=== PATIENT | female | born 1995 | race Caucasian/White ===

== ENCOUNTER 2016-10-15 13:26 | Emergency (ER) | payer MEDICAID ==
[2016-10-15 13:36] VITALS: TEMP 96.9
[2016-10-15] MEDS ORDERED: SODIUM CHLORIDE 0.9% 1,000 ML IV ONE (13:57)
[2016-10-15] MEDS ORDERED: ONDANSETRON 4 MG/2 ML VIAL IVP STA (13:57)
[2016-10-15] MEDS ORDERED: HYDROmorphone 1 MG/ML 1 ML SYRINGE IVP STA ×2 (13:58→15:41)
--- NOTE | 2016-10-15 14:27 | ED ---
Abdominal Pain HPI - General Chief Complaint: Abdominal Pain Stated Complaint: Abd pain Time Seen by Provider: 10/15/16 13:52 Source: patient, RN notes reviewed Mode of arrival: wheelchair Limitations: no limitations - History of Present Illness Initial Comments: Patient is a 21-year-old female presents to the emergency room for evaluation of abdominal pain. Patient states having pain in her left upper quadrant. Patient states she has a history of pancreatitis. Patient states she thinks she is having a pancreatitis flare. Patient states her symptoms began about 3 days ago. Patient states she is currently being evaluated for pancreatitis and the cause of it. Patient states she has an appointment at [facility] for further evaluation on Sunday. Patient states she cannot handle the pain anymore. Patient states she began vomiting around 2 PM yesterday afternoon. Patient states the vomiting has not subsided. Patient states that in 10 out of 10 constant pain. Patient denies diarrhea. Patient denies chest pain, fevers, chills, headache, dizziness. - Related Data Previous Rx's Medication Instructions Recorded Famotidine [Pepcid] 20 mg PO DAILY PRN #10 tablet 10/15/16 HYDROcodone/APAP 5-325MG [Garner 1 tab PO Q6HR PRN #10 tab 10/15/16 5-325] Ondansetron Odt [Zofran Odt] 4 mg PO Q8HR PRN #12 tab 10/15/16 Allergies Allergy/AdvReac Type Severity Reaction Status Date / Time latex Allergy Rash/Hives Verified 10/15/16 13:48 Review of Systems ROS Statement: Those systems with pertinent positive or pertinent negative responses have been documented in the HPI. ROS Other: All systems not noted in ROS Statement are negative. Past Medical History Past Medical History: No Reported History Additional Past Medical History / Comment(s): Other HX: Recurrent chronic pancreatitis with extensive workups and was seen at [facility] with no cause of pancreatitis discovered. History of Any Multi-Drug Resistant Organisms: None Reported Past Surgical History: No Surgical Hx Reported Additional Past Surgical History / Comment(s): EGD's and EGD with biopsy. Past Anesthesia/Blood Transfusion Reactions: No Reported Reaction Past Psychological History: ADD/ADHD Additional Psychological History / Comment(s): Pt takes adderill during school year to help her concentrate-she is no longer using. Smoking Status: Never smoker Past Alcohol Use History: None Reported Past Drug Use History: None Reported - Past Family History Father Family Medical History: Diabetes Mellitus Additional Family Medical History / Comment(s): Father has had a kidney and pancreas transplants. Mother Family Medical History: Deep Vein Thrombosis (DVT) Additional Family Medical History / Comment(s): Mother has had DVT's and has cardiomyopathy. She is scheduled for a pacemaker in one week due to bradycardia. General Exam - General Exam Comments Initial Comments: Standing up pacing around in exam room, uncomfortable secondary to pain, no acute distress. Limitations: no limitations General appearance: alert, in no apparent distress Head exam: Present: atraumatic, normocephalic, normal inspection Eye exam: Present: normal appearance ENT exam: Present: normal exam Neck exam: Present: normal inspection Respiratory exam: Present: normal lung sounds bilaterally. Absent: respiratory distress Cardiovascular Exam: Present: regular rate, normal rhythm, normal heart sounds GI/Abdominal exam: Present: soft, tenderness (LUQ, midepigastric), guarding ( Voluntary guarding on palpation), normal bowel sounds. Absent: distended, rebound, rigid Extremities exam: Present: normal inspection Back exam: Present: normal inspection Neurological exam: Present: alert, oriented X3, CN II-XII intact, normal gait Psychiatric exam: Present: normal affect, normal mood Skin exam: Present: warm, dry, intact, normal color. Absent: rash Course Vital Signs 10/15/16 10/15/16 10/15/16 13:33 16:17 16:20 Temperature 96.9 F L 96.9 F L Pulse Rate 96 82 82 Respiratory 20 18 18 Rate Blood Pressure 131/85 129/71 129/71 O2 Sat by Pulse 97 95 95 Oximetry Medical Decision Making - Medical Decision Making Patient is a 21-year-old female presents to the emergency room for evaluation of abdominal pain, nausea and vomiting. Patient's labs showed no significant findings. Lipase 388. Amylase within normal limits. Offered patient a CT scan for further evaluation of pain. Patient declined computed tomography scan , x-ray or ultrasound. Patient states she's following up with a specialist regarding her pancreatitis on Sunday and wants to have all of her imaging done at [facility]. Patient states that she wants to be discharged. Agreed to send patient home with pain medication and antinausea medication. Advised patient to keep that appointment on Sunday. Advised patient to return for any worsening symptoms. Patient states she understands everything that was discussed with her. Case discussed with Dr. Zepeda. - Lab Data Result diagrams: 10/15/16 14:15 10/15/16 14:15 Lab Results 10/15/16 10/15/16 10/15/16 Range/Units 14:15 14:15 14:45 WBC 9.0 (4.0-11.0) k/uL RBC 5.01 (3.80-5.40) m/uL Hgb 14.1 (11.4-16.0) gm/dL Hct 41.2 (34.0-46.0) % MCV 82.2 (80.0-100.0) fL MCH 28.2 (25.0-35.0) pg MCHC 34.3 (31.0-37.0) g/dL RDW 13.1 (11.5-15.5) % Plt Count 298 (150-450) k/uL Neutrophils % 81 % Lymphocytes % 12 % Monocytes % 5 % Eosinophils % 1 % Basophils % 0 % Neutrophils # 7.3 (1.3-7.7) k/uL Lymphocytes # 1.1 (1.0-4.8) k/uL Monocytes # 0.5 (0-1.0) k/uL Eosinophils # 0.1 (0-0.7) k/uL Basophils # 0.0 (0-0.2) k/uL Sodium 143 (137-145) mmol/L Potassium 4.4 (3.5-5.1) mmol/L Chloride 103 (98-107) mmol/L Carbon Dioxide 25 (22-30) mmol/L Anion Gap 15 mmol/L BUN 10 (7-17) mg/dL Creatinine 0.48 L (0.52-1.04) mg/dL Est GFR (MDRD) Af Amer >60 (>60 ml/min/1.73 sqM) Est GFR (MDRD) Non-Af >60 (>60 ml/min/1.73 sqM) Glucose 125 H (74-99) mg/dL Calcium 9.7 (8.4-10.2) mg/dL Total Bilirubin 0.5 (0.2-1.3) mg/dL AST 49 H (14-36) U/L ALT 99 H (9-52) U/L Alkaline Phosphatase 90 (38-126) U/L Total Protein 8.1 (6.3-8.2) g/dL Albumin 4.9 (3.5-5.0) g/dL Amylase 59 (30-110) U/L Lipase 388 H (23-300) U/L Urine Color Urine Appearance (Clear) Urine pH (5.0-8.0) Ur Specific [place] (1.001-1.035) Urine Protein (Negative) Urine Glucose (UA) (Negative) Urine Ketones (Negative) Urine Blood (Negative) Urine Nitrate (Negative) Urine Bilirubin (Negative) Urine Urobilinogen (<2.0) mg/dL Ur Leukocyte Esterase (Negative) Urine RBC (0-5) /hpf Urine WBC (0-5) /hpf Ur Squamous Epith Cells (0-4) /hpf Amorphous Sediment (None) /hpf Hyaline Casts (0-2) /lpf Urine Mucus (None) /hpf Urine HCG, Qual Not Detected (Not Detectd) 10/15/16 Range/Units 14:45 WBC (4.0-11.0) k/uL RBC (3.80-5.40) m/uL Hgb (11.4-16.0) gm/dL Hct (34.0-46.0) % MCV (80.0-100.0) fL MCH (25.0-35.0) pg MCHC (31.0-37.0) g/dL RDW (11.5-15.5) % Plt Count (150-450) k/uL Neutrophils % % Lymphocytes % % Monocytes % % Eosinophils % % Basophils % % Neutrophils # (1.3-7.7) k/uL Lymphocytes # (1.0-4.8) k/uL Monocytes # (0-1.0) k/uL Eosinophils # (0-0.7) k/uL Basophils # (0-0.2) k/uL Sodium (137-145) mmol/L Potassium (3.5-5.1) mmol/L Chloride (98-107) mmol/L Carbon Dioxide (22-30) mmol/L Anion Gap mmol/L BUN (7-17) mg/dL Creatinine (0.52-1.04) mg/dL Est GFR (MDRD) Af Amer (>60 ml/min/1.73 sqM) Est GFR (MDRD) Non-Af (>60 ml/min/1.73 sqM) Glucose (74-99) mg/dL Calcium (8.4-10.2) mg/dL Total Bilirubin (0.2-1.3) mg/dL AST (14-36) U/L ALT (9-52) U/L Alkaline Phosphatase (38-126) U/L Total Protein (6.3-8.2) g/dL Albumin (3.5-5.0) g/dL Amylase (30-110) U/L Lipase (23-300) U/L Urine Color Yellow Urine Appearance Clear (Clear) Urine pH 7.5 (5.0-8.0) Ur Specific [place] 1.015 (1.001-1.035) Urine Protein Negative (Negative) Urine Glucose (UA) Negative (Negative) Urine Ketones Negative (Negative) Urine Blood Negative (Negative) Urine Nitrate Negative (Negative) Urine Bilirubin Negative (Negative) Urine Urobilinogen <2.0 (<2.0) mg/dL Ur Leukocyte Esterase Trace H (Negative) Urine RBC 1 (0-5) /hpf Urine WBC 3 (0-5) /hpf Ur Squamous Epith Cells 3 (0-4) /hpf Amorphous Sediment Rare H (None) /hpf Hyaline Casts 2 (0-2) /lpf Urine Mucus Rare H (None) /hpf Urine HCG, Qual (Not Detectd) Disposition Clinical Impression: Abdominal pain, Nausea & vomiting Disposition: HOME SELF-CARE Condition: Stable Instructions: Abdominal Pain (ED), Acute Nausea and Vomiting (ED) Additional Instructions: Take medications as needed. Drink plenty of fluids. Please keep scheduled appointment with specialist at [facility] this week. If any new symptom arises, symptoms worsen or fever develops, return to ER as soon as possible. Prescriptions: HYDROcodone/APAP 5-325MG [Garner 5-325] 1 tab PO Q6HR PRN #10 tab PRN Reason: Pain Ondansetron Odt [Zofran Odt] 4 mg PO Q8HR PRN #12 tab PRN Reason: Nausea Famotidine [Pepcid] 20 mg PO DAILY PRN #10 tablet PRN Reason: Pain Referrals: Alice Lazaro MD [Primary Care Provider] - 1-2 days Time of Disposition: 15:45
[2016-10-15 14:30] LABS: Basophils % (A) 0 %; CH 28.8; CHCM 35.3; Eosinophils # (A) 0.1 k/uL (0-0.7); Eosinophils % (A) 1 %; HCT 41.2 % (34.0-46.0); HDW 2.96; HGB 14.1 gm/dL (11.4-16.0); Luc # (Auto) 0.06; Luc % (Auto) 1; Lymphocytes # (A) 1.1 k/uL (1.0-4.8); Lymphocytes % (A) 12 %; MCH 28.2 pg (25.0-35.0); MCHC 34.3 g/dL (31.0-37.0); MCV 82.2 fL (80.0-100.0); Monocytes # (A) 0.5 k/uL (0-1.0); Monocytes % (A) 5 %; Neutrophils # (A) 7.3 k/uL (1.3-7.7); Neutrophils % (A) 81 %; RBC 5.01 m/uL (3.80-5.40); RDW 13.1 % (11.5-15.5)
[2016-10-15 14:40] LABS: ALT 99 U/L (9-52); AST 49 U/L (14-36); Alkaline Phosphatase 90 U/L (38-126); Amylase 59 U/L (30-110); Anion Gap 15 mmol/L; Blood Urea Nitrogen 10 mg/dL (7-17); Calcium 9.7 mg/dL (8.4-10.2); Carbon Dioxide 25 mmol/L (22-30); Chloride 103 mmol/L (98-107); Glucose 125 mg/dL (74-99); Non-African American GFR(MDRD) >60 (>60 ml/min/1.73 sqM); Potassium 4.4 mmol/L (3.5-5.1); Sodium 143 mmol/L (137-145); Total Bilirubin 0.5 mg/dL (0.2-1.3); Total Protein 8.1 g/dL (6.3-8.2)
[2016-10-15] MEDS ORDERED: METOCLOPRAMIDE 5 MG/ML 2 ML VIAL IVP STA (14:46)
[2016-10-15] MEDS ORDERED: ACETAMINOPHEN IV (For NPO) 1,000 MG in EMPTY BAG 1 BAG IVPB STA (14:46)
[2016-10-15 14:58] LABS: Amorphous Sediment,Urine Rare /hpf; Appearance,Urine Clear (Clear); Bilirubin,Urine Negative (Negative); Glucose,Urine (UA) Negative (Negative); Ketones,Urine Negative (Negative); Leukocyte Esterase,Urine Trace (Negative); Mucus,Urine Rare /hpf; Nitrite,Urine Negative (Negative); PH, Urine 7.5 (5.0-8.0); Particle Count 3319; Protein,Urine Negative (Negative); RBC,Urine 1 /hpf (0-5); Specific Gravity,Urine 1.015 (1.001-1.035); Squamous Epithelial Cell,Urine 3 /hpf (0-4); UA Billing (MACRO vs. MICRO) MICRO; Urobilinogen,Urine <2.0 mg/dL (<2.0); WBC,Urine 3 /hpf (0-5)
[2016-10-15] MEDS ORDERED: KETOROLAC 30 MG/ML 1 ML VIAL IVP STA (14:58)
[2016-10-15] MEDS ORDERED: FAMOTIDINE 20 MG/2 ML VIAL IV STA (15:35)
[2016-10-15 16:20] VITALS: BP 129/71; PULSE 82; RESP 18
== END 2016-10-15 16:20 | disposition home or self-care (01) ==
LOC: EC 13:26
DX: R10.12 Left upper quadrant pain (principal); R11.2 Nausea with vomiting, unspecified; Z91.040 Latex allergy status; Z87.19 Personal history of other diseases of the digestive system
CPT/HCPCS: 36415; 80053; 82150; 83690; 85025; 81001; 81025; 99284; 96365; 96375 ×5; 96376; J2765; J2405; J1885; J1170; J0131

== ENCOUNTER 2016-10-17 20:42 | Inpatient (IN) | payer MEDICAID ==
[2016-10-17] MEDS ORDERED: MORPHINE SULFATE 4 MG/ML SYRINGE IVP STA (21:04)
[2016-10-17] MEDS ORDERED: ONDANSETRON 4 MG/2 ML VIAL IVP STA (21:04)
[2016-10-17] MEDS ORDERED: SODIUM CHLORIDE 0.9% 1,000 ML IV ONE (21:04)
[2016-10-17] MEDS: SODIUM CHLORIDE 0.9% 1,000 ML IV SCH (21:30)
--- NOTE | 2016-10-17 21:36 | ED ---
Abdominal Pain HPI - General Chief Complaint: Abdominal Pain Stated Complaint: Pancreatitis Time Seen by Provider: 10/17/16 20:56 Source: patient Mode of arrival: ambulatory Limitations: no limitations - History of Present Illness Initial Comments: This is a 21-year-old female with a history of recurrent pancreatitis who presents to urgent [facility] for epigastric abdominal pain, nausea, and vomiting. She states his symptoms been going on for the last 3 or 4 days. She was seen in the emergency department couple of days ago and given [place] for home however she states that this is not improved her symptoms. She states that she has not kept anything down over the last 24 hours and is now vomiting bile. She denies any fevers or chills. She states that she sees Dr. Cohn for her pancreatitis. She is also being seen at [facility]. Etiology of the pancreatitis at this time is unclear. She's had multiple admissions for this in the past. - Related Data Home Medications Medication Instructions Recorded Confirmed No Known Home Medications [No 10/17/16 10/17/16 Known Home Medications] Allergies Allergy/AdvReac Type Severity Reaction Status Date / Time latex Allergy Rash/Hives Verified 10/17/16 21:12 Review of Systems ROS Statement: Those systems with pertinent positive or pertinent negative responses have been documented in the HPI. ROS Other: All systems not noted in ROS Statement are negative. Past Medical History Past Medical History: No Reported History Additional Past Medical History / Comment(s): Other HX: Recurrent chronic pancreatitis with extensive workups and was seen at [facility] with no cause of pancreatitis discovered. History of Any Multi-Drug Resistant Organisms: None Reported Past Surgical History: No Surgical Hx Reported Additional Past Surgical History / Comment(s): EGD's and EGD with biopsy. Past Anesthesia/Blood Transfusion Reactions: No Reported Reaction Past Psychological History: ADD/ADHD Additional Psychological History / Comment(s): Pt takes adderill during school year to help her concentrate-she is no longer using. Smoking Status: Never smoker Past Alcohol Use History: None Reported Past Drug Use History: None Reported - Past Family History Father Family Medical History: Diabetes Mellitus Additional Family Medical History / Comment(s): Father has had a kidney and pancreas transplants. Mother Family Medical History: Deep Vein Thrombosis (DVT) Additional Family Medical History / Comment(s): Mother has had DVT's and has cardiomyopathy. She is scheduled for a pacemaker in one week due to bradycardia. General Exam - General Exam Comments Initial Comments: Constitutional: Awake alert Appears comfortable Head: Normocephalic atraumatic Eyes: no conjunctival injection No scleral icterus EOMI Neck: No JVD Supple Heart: Regular rate rhythm normal S1-S2 no murmurs Lungs: Clear to auscultation bilaterally No wheezing No rales Abdomen: Soft nondistended tenderness to palpation in the epigastric region Extremities: Non edematous DP pulses intact Radial pulses intact Neuro: A&Ox3 No focal neurologic deficits Psych: Appropriate mood and affect Limitations: no limitations Course Vital Signs 10/17/16 20:50 Temperature 96.9 F L Pulse Rate 67 Respiratory 18 Rate Blood Pressure 133/80 O2 Sat by Pulse 98 Oximetry Medical Decision Making - Medical Decision Making This is a 21-year-old female with a history of chronic pancreatic Rachid. She return to emergency department after 2 days of epigastric abdominal pain. She cannot control his symptoms at home. Her lipase appears elevated from previous visit up to 730. This time I do not feel that I can get her pain under control. I'm going to keep her in the hospital for pain control and IV fluids. Dr. Arndt except admission. When I placed Dr. Cohn on consult. The patient family were updated and agree. All questions were answered. - Lab Data Result diagrams: 10/17/16 21:32 10/17/16 21:32 Lab Results 10/17/16 10/17/16 10/17/16 Range/Units 21:32 21:32 22:15 WBC 9.3 (4.0-11.0) k/uL RBC 4.62 (3.80-5.40) m/uL Hgb 13.0 (11.4-16.0) gm/dL Hct 39.4 (34.0-46.0) % MCV 85.3 (80.0-100.0) fL MCH 28.1 (25.0-35.0) pg MCHC 33.0 (31.0-37.0) g/dL RDW 12.7 (11.5-15.5) % Plt Count 234 (150-450) k/uL Neutrophils % 67 % Lymphocytes % 22 % Monocytes % 6 % Eosinophils % 3 % Basophils % 0 % Neutrophils # 6.2 (1.3-7.7) k/uL Lymphocytes # 2.1 (1.0-4.8) k/uL Monocytes # 0.6 (0-1.0) k/uL Eosinophils # 0.3 (0-0.7) k/uL Basophils # 0.0 (0-0.2) k/uL Sodium 139 (137-145) mmol/L Potassium 4.3 (3.5-5.1) mmol/L Chloride 103 (98-107) mmol/L Carbon Dioxide 23 (22-30) mmol/L Anion Gap 13 mmol/L BUN 7 (7-17) mg/dL Creatinine 0.51 L (0.52-1.04) mg/dL Est GFR (MDRD) Af Amer >60 (>60 ml/min/1.73 sqM) Est GFR (MDRD) Non-Af >60 (>60 ml/min/1.73 sqM) Glucose 196 H (74-99) mg/dL Calcium 8.7 (8.4-10.2) mg/dL Total Bilirubin 0.5 (0.2-1.3) mg/dL AST 43 H (14-36) U/L ALT 74 H (9-52) U/L Alkaline Phosphatase 81 (38-126) U/L Total Protein 7.0 (6.3-8.2) g/dL Albumin 4.1 (3.5-5.0) g/dL Amylase 122 H (30-110) U/L Lipase 754 H (23-300) U/L Urine Color Urine Appearance (Clear) Urine pH (5.0-8.0) Ur Specific [place] (1.001-1.035) Urine Protein (Negative) Urine Glucose (UA) (Negative) Urine Ketones (Negative) Urine Blood (Negative) Urine Nitrate (Negative) Urine Bilirubin (Negative) Urine Urobilinogen (<2.0) mg/dL Ur Leukocyte Esterase (Negative) Urine HCG, Qual Not Detected (Not Detectd) 10/17/16 Range/Units 22:15 WBC (4.0-11.0) k/uL RBC (3.80-5.40) m/uL Hgb (11.4-16.0) gm/dL Hct (34.0-46.0) % MCV (80.0-100.0) fL MCH (25.0-35.0) pg MCHC (31.0-37.0) g/dL RDW (11.5-15.5) % Plt Count (150-450) k/uL Neutrophils % % Lymphocytes % % Monocytes % % Eosinophils % % Basophils % % Neutrophils # (1.3-7.7) k/uL Lymphocytes # (1.0-4.8) k/uL Monocytes # (0-1.0) k/uL Eosinophils # (0-0.7) k/uL Basophils # (0-0.2) k/uL Sodium (137-145) mmol/L Potassium (3.5-5.1) mmol/L Chloride (98-107) mmol/L Carbon Dioxide (22-30) mmol/L Anion Gap mmol/L BUN (7-17) mg/dL Creatinine (0.52-1.04) mg/dL Est GFR (MDRD) Af Amer (>60 ml/min/1.73 sqM) Est GFR (MDRD) Non-Af (>60 ml/min/1.73 sqM) Glucose (74-99) mg/dL Calcium (8.4-10.2) mg/dL Total Bilirubin (0.2-1.3) mg/dL AST (14-36) U/L ALT (9-52) U/L Alkaline Phosphatase (38-126) U/L Total Protein (6.3-8.2) g/dL Albumin (3.5-5.0) g/dL Amylase (30-110) U/L Lipase (23-300) U/L Urine Color Colorless Urine Appearance Clear (Clear) Urine pH 6.0 (5.0-8.0) Ur Specific [place] 1.002 (1.001-1.035) Urine Protein Negative (Negative) Urine Glucose (UA) 1+ H (Negative) Urine Ketones Negative (Negative) Urine Blood Negative (Negative) Urine Nitrate Negative (Negative) Urine Bilirubin Negative (Negative) Urine Urobilinogen <2.0 (<2.0) mg/dL Ur Leukocyte Esterase Negative (Negative) Urine HCG, Qual (Not Detectd) Disposition Clinical Impression: Acute on chronic pancreatitis Disposition: ADMITTED IP TO THIS [facility] Condition: Stable
[2016-10-17 21:42] LABS: Basophils % (A) 0 %; CH 28.3; CHCM 33.3; Eosinophils # (A) 0.3 k/uL (0-0.7); Eosinophils % (A) 3 %; HCT 39.4 % (34.0-46.0); HDW 2.91; Luc # (Auto) 0.14; Luc % (Auto) 2; Lymphocytes # (A) 2.1 k/uL (1.0-4.8); Lymphocytes % (A) 22 %; MCH 28.1 pg (25.0-35.0); MCV 85.3 fL (80.0-100.0); Mean Platelet Volume 8.6; Monocytes # (A) 0.6 k/uL (0-1.0); Monocytes % (A) 6 %; Neutrophils # (A) 6.2 k/uL (1.3-7.7); Neutrophils % (A) 67 %; RBC 4.62 m/uL (3.80-5.40); RDW 12.7 % (11.5-15.5); WBC 9.3 k/uL (4.0-11.0); WBC (Perox) 9.82
[2016-10-17 21:53] LABS: ALT 74 U/L (9-52); Alkaline Phosphatase 81 U/L (38-126); Amylase 122 U/L (30-110); Anion Gap 13 mmol/L; Blood Urea Nitrogen 7 mg/dL (7-17); Calcium 8.7 mg/dL (8.4-10.2); Carbon Dioxide 23 mmol/L (22-30); Chloride 103 mmol/L (98-107); Glucose 196 mg/dL (74-99); Non-African American GFR(MDRD) >60 (>60 ml/min/1.73 sqM); Sodium 139 mmol/L (137-145); Total Bilirubin 0.5 mg/dL (0.2-1.3)
[2016-10-17 21:54] LABS: AST 43 U/L (14-36); Potassium 4.3 mmol/L (3.5-5.1)
[2016-10-17] MEDS ORDERED: HYDROmorphone 1 MG/ML 1 ML SYRINGE IVP STA (22:17)
[2016-10-17 22:28] LABS: Appearance,Urine Clear (Clear); Bilirubin,Urine Negative (Negative); Glucose,Urine (UA) 1+ (Negative); Ketones,Urine Negative (Negative); Leukocyte Esterase,Urine Negative (Negative); Nitrite,Urine Negative (Negative); Protein,Urine Negative (Negative); Specific Gravity,Urine 1.002 (1.001-1.035); UA Billing (MACRO vs. MICRO) CHEM; Urobilinogen,Urine <2.0 mg/dL (<2.0)
[2016-10-17] MEDS ORDERED: NALOXONE 0.4 MG/ML 1 ML VIAL IV PRN (23:13)
[2016-10-18] MEDS: ONDANSETRON 4 MG/2 ML VIAL IVP PRN ×3 (00:07→15:20)
[2016-10-18] MEDS: HYDROmorphone 1 MG/ML 1 ML SYRINGE IV PRN ×8 (00:07→21:06)
[2016-10-18] MEDS: SODIUM CHLORIDE 0.9% 1,000 ML IV SCH ×4 (05:48→21:10)
[2016-10-18 08:13] LABS: Amylase 66 U/L (30-110)
--- NOTE | 2016-10-18 09:52 | P.CONS ---
History of Present Illness - Reason for Consult Consult date: 10/18/16 Chronic relapsing pancreatitis Requesting physician: Hanh Arndt - History of Present Illness 21-year-old female well-known to the GI service patient of Dr. Briggs with a history of chronic relapsing pancreatitis since the age of 10 with multiple hospitalizations. Evaluated by [facility] in the past with undetermined etiology. Presents with intractable abdominal pain with nausea vomiting for the last 3 days. Evaluated in the emergency room 2 days ago with similar complaints and discharged lipase at that time was 388. She was scheduled to be seen at [facility] today as part of follow-up for her history of chronic relapsing pancreatitis. No fever or chills. Denies hematemesis hematochezia or melena. White count 9.3. Hemoglobin 13. Total bilirubin 0.5. AST 43. ALT 74. Alkaline phosphates 81. Lipase 754 currently 458. Review of Systems Constitutional: Denies fever, chills, sweats, weight gain, or loss. HEENT: Negative for migraines, blurred vision or loss, earaches, drainage, tinnitus, oral mucosal lesions, dysphagia, or odynophagia. CARDIAC: Negative for chest pain, arrhythmias, or palpitation. RESPIRATORY: Negative for shortness of breath, hemoptysis, cough, or sputum production. GI: See HPI for pertinent findings. : Negative for hematuria, urgency, frequency, polyuria, or dysuria. GYNc: Denies possibility of . Negative vaginal discharge. MUSCULOSKELETAL: Negative for muscle aches, swelling, arthritis, and arthralgias. NEUROLOGIC: Negative for stroke or TIA. ENDOCRINE: Negative for thyroid problems. SKIN: Negative for rash or itching. PSYCHIATRIC: History of ADHD. Negative history for depression and anxiety All systems: negative (See HPI) Past Medical History Past Medical History: No Reported History Additional Past Medical History / Comment(s): Other HX: Recurrent chronic pancreatitis with extensive workups and was seen at [facility] and [facility] with no cause of pancreatitis discovered. History of Any Multi-Drug Resistant Organisms: None Reported Past Surgical History: No Surgical Hx Reported Additional Past Surgical History / Comment(s): EGD's and EGD with biopsy. Past Anesthesia/Blood Transfusion Reactions: No Reported Reaction Past Psychological History: ADD/ADHD Additional Psychological History / Comment(s): Pt takes adderill during school year to help her concentrate-she is no longer using. Smoking Status: Never smoker Past Alcohol Use History: None Reported Past Drug Use History: None Reported - Past Family History Father Family Medical History: Diabetes Mellitus Additional Family Medical History / Comment(s): Father has had a kidney and pancreas transplants. Mother Family Medical History: Deep Vein Thrombosis (DVT) Additional Family Medical History / Comment(s): Mother has had DVT's and has cardiomyopathy. She is scheduled for a pacemaker in one week due to bradycardia. Medications and Allergies Home Medications Medication Instructions Recorded Confirmed Type No Known Home Medications [No 10/17/16 10/17/16 History Known Home Medications] Allergies Allergy/AdvReac Type Severity Reaction Status Date / Time latex Allergy Rash/Hives Verified 10/17/16 21:12 Physical Exam Vitals: Vital Signs Temp Pulse Pulse Resp BP BP Pulse Ox 10/18/16 07:00 97.8 F 70 19 130/76 98 10/18/16 00:50 98.4 F 83 18 126/76 97 10/18/16 00:12 97.2 F L 78 18 132/67 97 10/17/16 23:23 86 18 132/69 95 Intake and Output 10/17/16 10/18/16 10/18/16 22:59 06:59 14:59 Intake Total 0 Balance 0 Intake: Oral 0 Other: # Voids 1 Weight 106.141 kg General appearance: The patient is alert, oriented, in no acute distress. HET: Head is normocephalic and atraumatic. Pupils are equal and reactive. Oropharynx is clear without lesions. Neck: Supple without lymphadenopathy. Trachea midline. Heart: S1 S2. Regular rate and rhythm. Lungs: No crackles or wheezes are heard. Abdomen: Soft, moderate tenderness midepigastric left upper abdomen nondistended with bowel sounds. No peritoneal signs. No palpable organomegaly or masses. Extremities: Normal skin color and turgor. No cyanosis, rash, ulceration, clubbing, or edema. Radial and pedal pulses are 2/4 bilaterally. Neurological: No focal deficits. Strength and sensation are grossly intact. Results CBC & Chem 7: 10/17/16 21:32 10/17/16 21:32 Labs: Abnormal Lab Results - Last 24 Hours (Table) 10/18/16 Range/Units 07:47 Lipase 458 H (23-300) U/L Assessment and Plan (1) Acute on chronic pancreatitis Narrative/Plan: 21-year-old female with a history of chronic relapsing pancreatitis of unclear etiology since 10 years of age evaluated at [facility] with extensive workup in the past. Status: Acute Plan: 1. Nothing by mouth except ice chips and popsicles sparingly as tolerated. 2. Ultrasound abdomen rule out pseudocyst. 3. Follow up at [facility] as previously advised. We'll follow with you. Thank you for this kind referral and the opportunity to participate in the care of your patient. This consultation was discussed with Dr. Riley. The impression and plan of care have been directed as dictated.
[2016-10-18] MEDS ORDERED: ACETAMINOPHEN TAB 325 MG TAB PO STA (10:54)
[2016-10-18] MEDS: SCOPOLAMINE 1.5MG/72HR PATCH TRANSDERM SCH (11:09)
--- NOTE | 2016-10-18 11:56 | US ---
EXAMINATION TYPE: US abdomen limited DATE OF EXAM: 10/18/2016 11:38 AM COMPARISON: CT abdomen and pelvis as well as Limited abdominal ultrasound December 24, 2015 CLINICAL HISTORY: Chronic pancreatitis, abdomen pain and nausea x 5 days, obese patient. EXAM MEASUREMENTS: Liver Length: 18.2cm Gallbladder Wall: 0.2cm CBD: 0.4cm Right Kidney: 11.0 x 4.5 x 4.9cm TECHNOLOGIST IMPRESSION: Pancreas: Obscured by bowel gas Liver: Enlarged at 18.2cm, heterogeneous hyperechoic appearance redemonstrated, heterogeneous echot exture with 3.1cm hypoechoic area adjacent to gallbladder favors focal fatty sparing. Evaluation for masses is suboptimal due to heterogeneity. Gallbladder: wnl Evidence for sonographic Hernandez's sign: yes CBD: visualized portions wnl, limited by overlying bowel gas Right Kidney: wnl IMPRESSION: Suboptimal evaluation of pancreas due to body habitus and overlying bowel gas. Marked fat ty infiltration of liver and mild hepatomegaly are both redemonstrated.
[2016-10-18 11:59] LABS: Cholesterol 133 mg/dL (<200); HDL Cholesterol 37 mg/dL (40-60); Triglycerides 129 mg/dL (<150)
[2016-10-18 12:01] LABS: Rheumatoid Factor, Qnt <9 IU/mL (<12)
[2016-10-18 13:04] LABS: Hepatitis B Surface Ag Index 0.07
[2016-10-18 13:09] LABS: Hepatitis B Core IgM Index 0.06
[2016-10-18 13:21] LABS: Hepatitis C Virus IgG Index 0.01
[2016-10-18 13:27] LABS: Hepatitis C Virus IgG Ab Negative (Negative)
--- NOTE | 2016-10-18 14:17 | P.HPIM ---
History of Present Illness H&P Date: 10/18/16 Chief Complaint: Abdominal pain. This is a 21-year-old female. She was recently established with Dr. Lazaro. She has a past medical history for chronic relapsing pancreatitis since the age of 10 with multiple hospitalizations. She also follows with Dr. Briggs from gastroenterology. Patient has also had follow-up at [facility] and her last appointment there was 7 months ago. She does state that she was to have a follow-up appointment today. She does not know the reason for the pancreatitis. She states she has episodes that are very mild for which she does not come into the hospital and she takes [place]. She states one about every 2 weeks. She has other episodes or more severe and she comes into the hospital. She denies any change in her weight. She denies any change in her menses which are regular. She denies any previous pregnancies. She states she has not had an MRCP in the past. She denies any alcohol or drug intake. She denies any fseo-yde-uwkuuup drugs including herbals , vitamins. She does not know of any food triggers for pain. She is a nonsmoker. She complains of abdominal pain as well as nausea and vomiting. She did come into [facility] emergency center on October 15. She was given [place], Zofran and Pepcid and was instructed to follow-up with her primary care physician in one to 2 days. She will return to [facility] emergency center for evaluation. Amylase was 122 and lipase 754. CBC was within normal limits. Urine hCG negative and urinalysis negative. Patient was admitted to the [facility] floor consult requested with gastroenterology. She is currently nothing by mouth except ice chips. Abdominal ultrasound revealed suboptimal evaluation of the pancreas due to body habitus and overlying bowel gas. Marked fatty infiltration of the liver and mild hepatomegaly both redemonstrated. Review of Systems All systems: negative Constitutional: Denies chills, Denies fever Eyes: denies blurred vision, denies pain Ears, nose, mouth and throat: Denies headache, Denies sore throat Cardiovascular: Denies chest pain, Denies shortness of breath Respiratory: Denies cough Gastrointestinal: Reports abdominal pain, Reports nausea, Reports vomiting, Denies diarrhea Genitourinary: Denies dysuria, Denies hematuria Musculoskeletal: Denies myalgias Integumentary: Denies pruritus, Denies rash Neurological: Denies numbness, Denies weakness Psychiatric: Denies anxiety, Denies depression Endocrine: Denies fatigue, Denies weight change Past Medical History Past Medical History: No Reported History Additional Past Medical History / Comment(s): Other HX: Recurrent chronic pancreatitis with extensive workups and was seen at [facility] with no cause of pancreatitis discovered. History of Any Multi-Drug Resistant Organisms: None Reported Past Surgical History: No Surgical Hx Reported Additional Past Surgical History / Comment(s): EGD's and EGD with biopsy. Past Anesthesia/Blood Transfusion Reactions: No Reported Reaction Past Psychological History: ADD/ADHD Additional Psychological History / Comment(s): Pt takes [place] during school year to help her concentrate-she is no longer using. Smoking Status: Never smoker Past Alcohol Use History: None Reported Additional Past Alcohol Use History / Comment(s): Patient is a nonsmoker. She denies any medical marijuana, marijuana, street drug use. She is single and does not have any children. Past Drug Use History: None Reported - Past Family History Father Family Medical History: Diabetes Mellitus Additional Family Medical History / Comment(s): Father is alive at age 49 with history of diabetes requiring kidney and pancreas transplant. Mother Family Medical History: Deep Vein Thrombosis (DVT) Additional Family Medical History / Comment(s): Mother is alive at age 52 with history of DVT's, cardiomyopathy and pacemaker. Brother(s) Additional Family Medical History / Comment(s): She has 2 brothers and 1 sister with no major medical problems. Medications and Allergies Home Medications Medication Instructions Recorded Confirmed Type No Known Home Medications [No 10/17/16 10/17/16 History Known Home Medications] Allergies Allergy/AdvReac Type Severity Reaction Status Date / Time latex Allergy Rash/Hives Verified 10/17/16 21:12 Physical Exam Vitals: Vital Signs Temp Pulse Pulse Resp BP BP Pulse Ox 10/18/16 07:00 97.8 F 70 19 130/76 98 10/18/16 00:50 98.4 F 83 18 126/76 97 10/18/16 00:12 97.2 F L 78 18 132/67 97 10/17/16 23:23 86 18 132/69 95 Intake and Output 0110/18/16 10/18/16 22:59 06:59 14:59 Intake Total 0 Balance 0 Intake: Oral 0 Other: # Voids 1 Weight 106.141 kg Gen: This is a obese 21-year-old female. She is in bed and appears to be in no acute distress. HEENT: Head is atraumatic, normocephalic. Pupils equal, round. Sclerae is anicteric. NECK: Supple. No JVD. No lymphadenopathy. No thyromegaly. LUNGS: Clear to auscultation. No wheezes or rhonchi. No intercostal retractions. HEART: Regular rate and rhythm. No murmur. ABDOMEN: Soft. Bowel sounds are present. No masses. Moderate mid epigastric and left upper abdomen tenderness. EXTREMITIES: No pedal edema. No calf tenderness. Dorsalis pedis +2 bilaterally. NEUROLOGICAL: Patient is awake, alert and oriented x3. Cranial nerves 2 through 12 are grossly intact. Results CBC & Chem 7: 10/17/16 21:32 10/17/16 21:32 Labs: Abnormal Lab Results - Last 24 Hours (Table) 10/18/16 Range/Units 07:47 Lipase 458 H (23-300) U/L Thrombosis Risk Factor Assmnt - DVT/VTE Prophylaxis DVT/VTE Prophylaxis: Mechanical Prophylaxis ordered - Choose All That Apply Any of the Below Risk Factors Present?: No Other Risk Factors: No Other congenital or acquired thrombophilia - If yes, enter type in comment: No Thrombosis Risk Factor Assessment Level: Very Low Risk Assessment and Plan Plan: 1. Acute on chronic pancreatitis of unclear etiology since the age of 10 years of age with full evaluation done at [facility]. Consult with GI appreciated. Ultrasound as above. MRCP ordered. MAGDY, c-ANCA, p-ANCA, urine drug screen, lipid panel and hepatitis panel ordered. Scopolamine patch for nausea. Dilaudid as needed for pain. Patient is currently nothing by mouth. Continue IV fluids. 2. ADHD, stable. 3. Gastrointestinal prophylaxis. Protonix. 4. DVT prophylaxis. SCDs and [place] hose, early ambulation. Patient will be admitted to the hospital for a minimum of 2 night stay. Discharge plan: Return home Impression and plan of care have been directed as dictated by the signing physician. Adwoa Ernandez nurse practitioner acting as scribe for signing physician. CC: Dr. Lazaro Time with Patient: Greater than 30
[2016-10-18] MEDS: ACETAMINOPHEN TAB 325 MG TAB PO PRN (18:15)
--- NOTE | 2016-10-18 22:17 | MR ---
EXAMINATION TYPE: MR liver wo/w con and mrcp DATE OF EXAM: 10/18/2016 7:49 PM COMPARISON: CT abdomen and pelvis December 24, 2015. Limited abdominal ultrasound from earlier today HISTORY: acute on chronic pancreatitis. Abdominal pain and nausea for 5 days. CONTRAST: Standard multiplanar, multisequence MRI departmental protocol utilizing 20 mL intravenous MultiHance gadolinium contrast. Thin and thick slice MRCP imaging is performed. FINDINGS: LIVER/GB/PANCREAS/BILIARY SYSTEM: Stable mild hepatomegaly remains present. There is diffuse signal d ropout throughout the liver consistent with fatty infiltration. Some focal fatty sparing is present n ear level of gallbladder fossa. Gallbladder has distended margins. There are no gallstones or abnorma l gallbladder wall thickening. There is no suspicious intrahepatic or extrahepatic biliary dilatation . No worrisome solid or cystic intrahepatic mass is identified. Pancreas is normal in size. No significant surrounding inflammatory changes identified. No worrisome peripancreatic fluid collection is seen. Pancreatic duct is visualized but not dilated. On MRCP imaging there is suggestion of divisum as Main pancreatic duct appears to empty into duodenum on image 28 series 1101 roughly 1 cm superior to the ampulla at common bile duct insertion. OTHER: Lung bases are clear. There is no pleural or pericardial effusion seen. Cannot exclude new enh ancing 2.2 cm lesion in the anterolateral right breast on image 641 series 1301, correlation with phy sical exam advised to determine need for ultrasound follow-up. Enhancing lesion is felt present best coronal image 46 series 1401. Suspect fibroadenoma in patient of this age. Lesion is fairly intense o n fat saturation precontrast images though inhomogeneity of fat saturation is noted. Both adrenal glands are normal in size and appear grossly unremarkable. There is no concerning renal mass or hydronephrosis seen bilaterally. There is stable splenomegaly measuring 14.2 cm on long axis on coronal image 33. There is no suspicious small or large bowel dilatation identified. No concerning abdominal fluid collection is present. No greater than 1 cm abdominal adenopathy is seen. Visualized osseous structures are intact. IMPRESSION: Underlying pancreatic divisum is felt present. There is no MRI evidence for complication related to a cute pancreatitis. Hepatosplenomegaly with marked fatty infiltration of liver is redemonstrated. Atte ntion to inferior lateral right breast where well-circumscribed oval 2.2 cm enhancing mass is felt pr esent favoring fibroadenoma.
[2016-10-19] MEDS: HYDROmorphone 1 MG/ML 1 ML SYRINGE IV PRN ×9 (00:02→23:59)
[2016-10-19] MEDS: ACETAMINOPHEN TAB 325 MG TAB PO PRN ×3 (00:05→20:52)
[2016-10-19] MEDS: SODIUM CHLORIDE 0.9% 1,000 ML IV SCH ×2 (05:59→16:16)
[2016-10-19] MEDS: ONDANSETRON 4 MG/2 ML VIAL IVP PRN ×2 (06:02→15:16)
[2016-10-19 09:29] LABS: Amylase 35 U/L (30-110)
[2016-10-19] MEDS ORDERED: HYDROcodone/APAP 5-325MG 1 EACH TAB PO PRN (11:11)
[2016-10-19] MEDS ORDERED: IBUPROFEN 800 MG TAB PO PRN (11:21)
--- NOTE | 2016-10-19 12:14 | P.PN ---
Subjective Principal diagnosis: pancreatitis 21 year old female with history of chronic relapsing pancreatitis since 10 years of age of unclear etiology. Still reporting abdominal pain and nausea. Pancreatic enzymes normalized. Afebrile. US no evidence of pseudocyst. Objective - Vital Signs Vital signs: Vital Signs Temp 96.6 F L 10/19/16 07:00 Pulse 67 10/19/16 07:00 Resp 18 10/19/16 07:00 BP 141/84 10/19/16 07:00 Pulse Ox 99 10/19/16 07:00 Intake & Output 10/18/16 10/19/16 10/19/16 18:59 06:59 18:59 Intake Total 60 Balance 60 Intake: Oral 60 Other: Voiding Method Toilet Toilet Toilet # Voids 3 1 - Exam General appearance: The patient is alert, oriented, in no acute distress. HET: Head is normocephalic and atraumatic. Pupils are equal and reactive. Oropharynx is clear without lesions. Neck: Supple without lymphadenopathy. Trachea midline. Heart: S1 S2. Regular rate and rhythm. Lungs: No crackles or wheezes are heard. Abdomen: Soft, mid epigastric tenderness, nondistended with bowel sounds. No peritoneal signs. No palpable organomegaly or masses. Extremities: Normal skin color and turgor. No cyanosis, rash, ulceration, clubbing, or edema. Radial and pedal pulses are 2/4 bilaterally. Neurological: No focal deficits. Strength and sensation are grossly intact. - Labs CBC & Chem 7: 10/17/16 21:32 10/17/16 21:32 Assessment and Plan (1) Acute on chronic pancreatitis Narrative/Plan: 21-year-old female with a history of chronic relapsing pancreatitis of unclear etiology since 10 years of age evaluated at [facility] with extensive workup in the past. Status: Acute Plan: 1. Nothing by mouth except ice chips and popsicles sparingly as tolerated. Advance as tolerated. 2. Ultrasound abdomen reviewed no evidence of pseudocyst. 3. Follow up at [facility] as previously advised. We'll follow with you. Assessment and plan of care discussed with Dr. Riley.
[2016-10-19 14:32] LABS: C-ANCA <1:20 Titer (<1:20); P-ANCA <1:20 Titer (<1:20)
--- NOTE | 2016-10-19 14:55 | P.PN ---
Subjective This is a 21-year-old female. She was recently established with Dr. Lazaro. She has a past medical history for chronic relapsing pancreatitis since the age of 10 with multiple hospitalizations. She also follows with Dr. Briggs from gastroenterology. Patient has also had follow-up at [facility] and her last appointment there was 7 months ago. She does state that she was to have a follow-up appointment today. She does not know the reason for the pancreatitis. She states she has episodes that are very mild for which she does not come into the hospital and she takes [place]. She states one about every 2 weeks. She has other episodes or more severe and she comes into the hospital. She denies any change in her weight. She denies any change in her menses which are regular. She denies any previous pregnancies. She states she has not had an MRCP in the past. She denies any alcohol or drug intake. She denies any sngm-vcc-wocjekr drugs including herbals , vitamins. She does not know of any food triggers for pain. She is a nonsmoker. She complains of abdominal pain as well as nausea and vomiting. She did come into [facility] emergency center on October 15. She was given [place], Zofran and Pepcid and was instructed to follow-up with her primary care physician in one to 2 days. She will return to [facility] emergency center for evaluation. Amylase was 122 and lipase 754. CBC was within normal limits. Urine hCG negative and urinalysis negative. Patient was admitted to the [facility] floor consult requested with gastroenterology. She is currently nothing by mouth except ice chips. Abdominal ultrasound revealed suboptimal evaluation of the pancreas due to body habitus and overlying bowel gas. Marked fatty infiltration of the liver and mild hepatomegaly both redemonstrated. 10/19: Laser and lipase are normalized. Diet will be advanced. Patient does still have some abdominal pain and nausea. Liver MRI shows underlying pancreatic divisum is felt present. No MRI evidence of complication related to acute pancreatitis. Hepatosplenomegaly with marked fatty infiltration of the liver. Right lateral inferior breast has a 2.2 cm mass most likely fibroadenoma. Patient has been instructed to lose weight for the fatty liver and follow-up with [facility]. Objective - Vital Signs Vital signs: Vital Signs Temp 96.6 F L 10/19/16 07:00 Pulse 67 10/19/16 07:00 Resp 18 10/19/16 07:00 BP 141/84 10/19/16 07:00 Pulse Ox 99 10/19/16 07:00 Intake & Output 10/18/16 10/19/16 10/19/16 18:59 06:59 18:59 Intake Total 60 Balance 60 Intake: Oral 60 Other: Voiding Method Toilet Toilet Toilet # Voids 3 1 - Exam Gen: This is a obese 21-year-old female. She is in bed and appears to be in no acute distress. HEENT: Head is atraumatic, normocephalic. Pupils equal, round. Sclerae is anicteric. NECK: Supple. No JVD. No lymphadenopathy. No thyromegaly. LUNGS: Clear to auscultation. No wheezes or rhonchi. No intercostal retractions. HEART: Regular rate and rhythm. No murmur. ABDOMEN: Soft. Bowel sounds are present. No masses. Moderate mid epigastric and left upper abdomen tenderness. EXTREMITIES: No pedal edema. No calf tenderness. Dorsalis pedis +2 bilaterally. NEUROLOGICAL: Patient is awake, alert and oriented x3. Cranial nerves 2 through 12 are grossly intact. - Labs CBC & Chem 7: 10/17/16 21:32 10/17/16 21:32 Assessment and Plan Plan: 1. Acute on chronic pancreatitis possibly due to pancreatic divisum since the age of 10 years of age with full evaluation done at [facility]. Consult with GI appreciated. Ultrasound as above. MRCP ordered. MAGDY, c-ANCA, p-ANCA, urine drug screen, lipid panel and hepatitis panel ordered. Scopolamine patch for nausea. Dilaudid as needed for pain. Patient is clear liquids to be advanced as tolerated. Continue IV fluids. 2. ADHD, stable. 3. Gastrointestinal prophylaxis. Protonix. 4. DVT prophylaxis. SCDs and [place] hose, early ambulation. 5. Fatty liver. Weight loss. Discharge plan: Return home Impression and plan of care have been directed as dictated by the signing physician. Adwoa Ernandez nurse practitioner acting as scribe for signing physician. C Time with Patient: Greater than 30
[2016-10-20] MEDS: HYDROmorphone 1 MG/ML 1 ML SYRINGE IV PRN ×6 (03:09→22:45)
[2016-10-20] MEDS: ACETAMINOPHEN TAB 325 MG TAB PO PRN ×4 (03:09→21:39)
[2016-10-20] MEDS: ONDANSETRON 4 MG/2 ML VIAL IVP PRN ×3 (06:00→21:42)
[2016-10-20 09:11] LABS: Amylase <30 U/L (30-110)
--- NOTE | 2016-10-20 13:12 | P.PN ---
Subjective Principal diagnosis: pancreatitis 21 year old female with history of chronic relapsing pancreatitis since 10 years of age of unclear etiology. Still reporting abdominal pain and nausea. Pancreatic enzymes normalized. Afebrile. Want to try advancement of diet today. Objective - Vital Signs Vital signs: Vital Signs Temp 96.5 F L 10/20/16 07:00 Pulse 83 10/20/16 07:00 Resp 20 10/20/16 07:00 BP 136/79 10/20/16 07:00 Pulse Ox 96 10/20/16 07:00 Intake & Output 10/19/16 10/20/16 10/20/16 18:59 06:59 18:59 Other: Voiding Method Toilet Toilet Toilet # Voids 2 1 - Exam General appearance: The patient is alert, oriented, in no acute distress. HET: Head is normocephalic and atraumatic. Pupils are equal and reactive. Oropharynx is clear without lesions. Neck: Supple without lymphadenopathy. Trachea midline. Heart: S1 S2. Regular rate and rhythm. Lungs: No crackles or wheezes are heard. Abdomen: Soft, mid epigastric tenderness, nondistended with bowel sounds. No peritoneal signs. No palpable organomegaly or masses. Extremities: Normal skin color and turgor. No cyanosis, rash, ulceration, clubbing, or edema. Radial and pedal pulses are 2/4 bilaterally. Neurological: No focal deficits. Strength and sensation are grossly intact. - Labs CBC & Chem 7: 10/17/16 21:32 10/17/16 21:32 Labs: Abnormal Lab Results - Last 24 Hours (Table) 10/20/16 Range/Units 07:55 Amylase <30 L (30-110) U/L Assessment and Plan (1) Acute on chronic pancreatitis Narrative/Plan: 21-year-old female with a history of chronic relapsing pancreatitis of unclear etiology since 10 years of age evaluated at [facility] with extensive workup in the past. Status: Acute Plan: 1. Advance diet as tolerated. 2. Follow up at [facility] as previously advised. Assessment and plan of care discussed with Dr. Briggs.
--- NOTE | 2016-10-20 14:43 | PN ---
The patient continues to be hemodynamically over the last 24 hours. Still complaining of nausea but no vomiting. Still complaining of some abdominal discomfort. The patient decided to stay in overnight due to the nausea and the abdominal discomfort this morning. She feels slightly better but not quite back to normal. The patient had ( ) concerns and questions and all addressed at the bedside. PHYSICAL EXAMINATION: Vital signs were stable. Lungs clear to auscultation bilaterally. ( ) Abdomen soft, ( ) positive bowel sounds in all four quadrants. Mild generalized tenderness but no guarding or rebound appreciated. Imaging and labs reviewed. ASSESSMENT AND PLAN: 1. Acute pancreatitis recurrent. I had a long discussion with the patient ( ) I discussed with gastroenterology where the patient needs to follow-up with [facility] ( ) for consideration of ( ) and I explained to the patient at length that the ( ) has to be dilated and stent placed due to the ( ) that she is having which includes congenital malformation pancreatic ( ) and the patient is aware of her condition and said that she will be following up with the [facility] and possibly referred to [facility] for performance of the above procedure. 2. Abdominal pain, improved. 3. Dehydration, resolved. 4. I will discharge the patient today based on clinical progress.
[2016-10-20] MEDS: SODIUM CHLORIDE 0.9% 1,000 ML IV SCH (14:56)
[2016-10-21] MEDS: HYDROmorphone 1 MG/ML 1 ML SYRINGE IV PRN ×6 (01:40→21:11)
[2016-10-21] MEDS: ACETAMINOPHEN TAB 325 MG TAB PO PRN ×3 (04:30→23:40)
[2016-10-21] MEDS: SODIUM CHLORIDE 0.9% 1,000 ML IV SCH (05:48)
[2016-10-21] MEDS: ONDANSETRON 4 MG/2 ML VIAL IVP PRN ×3 (07:50→21:11)
[2016-10-21] MEDS: SCOPOLAMINE 1.5MG/72HR PATCH TRANSDERM SCH (09:39)
[2016-10-21] MEDS ORDERED: MAGNESIUM CITRATE 296 ML BOTTLE PO ONE (09:57)
[2016-10-21 11:22] LABS: CH 28.6; CHCM 34.3; HCT 35.8 % (34.0-46.0); HDW 2.93; MCHC 33.4 g/dL (31.0-37.0); MCV 83.7 fL (80.0-100.0); Mean Platelet Volume 7.5; RBC 4.27 m/uL (3.80-5.40); RDW 12.7 % (11.5-15.5); WBC 6.1 k/uL (4.0-11.0)
[2016-10-21 11:39] LABS: ALT 111 U/L (9-52); AST 82 U/L (14-36); Alkaline Phosphatase 71 U/L (38-126); Anion Gap 9 mmol/L; Blood Urea Nitrogen 4 mg/dL (7-17); Calcium 9.2 mg/dL (8.4-10.2); Carbon Dioxide 30 mmol/L (22-30); Chloride 101 mmol/L (98-107); Glucose 93 mg/dL (74-99); Non-African American GFR(MDRD) >60 (>60 ml/min/1.73 sqM); Potassium 4.2 mmol/L (3.5-5.1); Sodium 140 mmol/L (137-145); Total Bilirubin 0.5 mg/dL (0.2-1.3); Total Protein 6.9 g/dL (6.3-8.2)
[2016-10-21 12:48] VITALS: BMI 37.8
[2016-10-21 14:02] LABS: Amylase <30 U/L (30-110)
--- NOTE | 2016-10-21 15:10 | PN ---
INTERVAL HISTORY: The patient continued to be hemodynamically stable, still complaining of intractable nausea and vomiting after she ate some spaghetti. This morning patient was placed back on clear liquid and she is tolerating at this point. PHYSICAL EXAMINATION: VITAL SIGNS: Reviewed and stable. LUNGS: Clear to auscultation bilaterally. HEART: Normal S1, S2. ABDOMEN: Soft, no tenderness. Positive bowel sounds in all 4 quadrants, seems to be improved from prior examination. IMAGING AND LABS: Amylase is less than 30, lipase is normal at 69. ASSESSMENT AND PLAN: 1. Acute pancreatitis, recurrent. The patient informed about the diagnosis of pancreatic divisum and she will follow up on November 01 with [facility]. Patient currently is tolerating clear liquid. Will discharge home today and have patient follow up closely with her primary care physician. 2. Obesity, counseled regarding weight loss. 3. Abdominal pain, currently improved.
[2016-10-21 15:44] VITALS: RESP 16
[2016-10-22] MEDS: HYDROmorphone 1 MG/ML 1 ML SYRINGE IV PRN ×4 (00:43→09:31)
[2016-10-22] MEDS: SODIUM CHLORIDE 0.9% 1,000 ML IV SCH (01:15)
[2016-10-22] MEDS: ONDANSETRON 4 MG/2 ML VIAL IVP PRN (03:45)
[2016-10-22] MEDS: ACETAMINOPHEN TAB 325 MG TAB PO PRN (06:25)
[2016-10-22 07:57] VITALS: BP 121/71; PULSE 69; TEMP 97.2
[2016-10-22] MEDS ORDERED: DOCUSATE 100 MG CAP PO STA (08:58)
[2016-10-22] MEDS ORDERED: DOCUSATE 100 MG CAP PO SCH (21:00)
--- NOTE | 2016-10-22 22:50 | PN ---
INTERVAL HISTORY: The patient continues to have some abdominal discomfort, refused to go home yesterday and was kept overnight. Was tolerating a clear liquid diet without difficulty. The patient is motivated to go home today and states that her father is coming to take her after the service this morning as he is the accounts receivable executive. PHYSICAL EXAMINATION: VITAL SIGNS: Stable. LUNGS: Clear to auscultation bilaterally. HEART: Normal S1 and S2. ABDOMEN: Soft, positive bowel sounds. Mild tenderness. ( ) from prior examination. EXTREMITIES: Lower extremities no edema. NEURO: Alert, oriented x3. No focal deficits. SKIN: No new rashes. IMAGING AND LABS: Reviewed and stable. ASSESSMENT AND PLAN: 1. Recurrent pancreatitis with in-house CT evidence of pancreas divisum. The patient seems to be improving with improvement in symptoms and tolerance of her numbers. The patient is asked to follow up with the [facility] on November 01 for ERCP and EUS procedure. The patient agreed and will be discharged today. 2. Abdominal pain. Will prescribe Aubrey on discharge. 3. Nausea. Will prescribe Zofran. Follow up with primary care physician within 7 days.
== END 2016-10-22 11:06 | disposition home or self-care (01) | DRG 439 ==
LOC: EC 20:42 → 4MS4W 23:13
PROVIDERS: ADMIT Family Medicine; ATTEND Family Medicine
DX: K85.90 Acute pancreatitis without necrosis or infection, unspecified (principal); Q45.3 Other congenital malformations of pancreas and pancreatic duct; K76.0 Fatty (change of) liver, not elsewhere classified; E86.0 Dehydration; E66.9 Obesity, unspecified; K86.1 Other chronic pancreatitis
CPT/HCPCS: 36415; 74183; 76705; 80053; 80061; 80074; 80306; 81003; 81025; 82150; 83690; 85025; 85027; 86038; 86255; 86431; 96361; 96374; 96375; 96376; 99284

== ENCOUNTER 2016-12-05 02:17 | Inpatient (IN) | payer MEDICAID ==
[2016-12-05] MEDS ORDERED: ONDANSETRON 4 MG/2 ML VIAL IVP STA ×2 (02:59→04:01)
[2016-12-05] MEDS ORDERED: MORPHINE SULFATE 4 MG/ML SYRINGE IV STA (02:59)
[2016-12-05] MEDS ORDERED: SODIUM CHLORIDE 0.9% 1,000 ML IV STA (02:59)
[2016-12-05 03:26] LABS: Basophils % (A) 1 %; CH 28.7; CHCM 34.6; Eosinophils # (A) 0.3 k/uL (0-0.7); Eosinophils % (A) 3 %; HCT 39.4 % (34.0-46.0); HGB 13.4 gm/dL (11.4-16.0); Luc # (Auto) 0.18; Luc % (Auto) 2; Lymphocytes # (A) 2.8 k/uL (1.0-4.8); Lymphocytes % (A) 33 %; MCH 28.3 pg (25.0-35.0); MCV 83.2 fL (80.0-100.0); Mean Platelet Volume 7.5; Monocytes # (A) 0.6 k/uL (0-1.0); Monocytes % (A) 7 %; Neutrophils # (A) 4.5 k/uL (1.3-7.7); Neutrophils % (A) 54 %; RBC 4.74 m/uL (3.80-5.40); RDW 12.9 % (11.5-15.5); WBC 8.4 k/uL (4.0-11.0); WBC (Perox) 8.11
[2016-12-05 03:29] LABS: Appearance,Urine Clear (Clear); Bilirubin,Urine Negative (Negative); Glucose,Urine (UA) Negative (Negative); Ketones,Urine Negative (Negative); Leukocyte Esterase,Urine Negative (Negative); Nitrite,Urine Negative (Negative); Protein,Urine Negative (Negative); Specific Gravity,Urine 1.004 (1.001-1.035); UA Billing (MACRO vs. MICRO) CHEM; Urobilinogen,Urine <2.0 mg/dL (<2.0)
[2016-12-05 03:42] LABS: ALT 69 U/L (9-52); AST 47 U/L (14-36); Alkaline Phosphatase 103 U/L (38-126); Anion Gap 11 mmol/L; Blood Urea Nitrogen 11 mg/dL (7-17); Calcium 9.2 mg/dL (8.4-10.2); Carbon Dioxide 26 mmol/L (22-30); Chloride 107 mmol/L (98-107); Glucose 125 mg/dL (74-99); Non-African American GFR(MDRD) >60 (>60 ml/min/1.73 sqM); Potassium 4.3 mmol/L (3.5-5.1); Sodium 144 mmol/L (137-145); Total Bilirubin 0.3 mg/dL (0.2-1.3); Total Protein 6.9 g/dL (6.3-8.2)
[2016-12-05 03:47] LABS: Amylase 1156 U/L (30-110)
--- NOTE | 2016-12-05 04:00 | ED ---
Abdominal Pain HPI - General Chief Complaint: Abdominal Pain Stated Complaint: pancreatitis Time Seen by Provider: 12/05/16 02:58 Source: patient Mode of arrival: wheelchair Limitations: no limitations - History of Present Illness Initial Comments: This patient is a 21-year-old woman with history of episodic pancreatitis since she was about 10 years old. She presents today to be evaluated for abdominal pain that is been going on now for 2-3 days, getting worse. She indicates the periumbilical area and states it radiates to her back. The pain is constant. Pain is now becoming moderate to severe. She states she is also having some nausea and vomiting associated. The patient has tried her home [place] and has tried cold compresses which only give minimal relief. She denies any worsening factors. She states that it feels similar to previous episodes of pancreatitis but notes she has had worst flares and this. She is requesting to avoid a computed tomography scan if that is possible MD Complaint: abdominal pain Onset/Timin -: days(s) Location: periumbilical Radiation: back Migration to: no migration Severity: moderate Quality: aching Consistency: constant Improves With: nothing Worsens With: nothing Associated Symptoms: nausea, vomiting - Related Data Home Medications Medication Instructions Recorded Confirmed No Known Home Medications [No 12/05/16 12/05/16 Known Home Medications] Allergies Allergy/AdvReac Type Severity Reaction Status Date / Time latex Allergy Rash/Hives Verified 10/17/16 21:12 Review of Systems ROS Statement: Those systems with pertinent positive or pertinent negative responses have been documented in the HPI. ROS Other: All systems not noted in ROS Statement are negative. Constitutional: Denies: fever, chills, weakness Respiratory: Denies: cough, dyspnea Cardiovascular: Denies: chest pain, palpitations, edema Gastrointestinal: Reports: as per HPI, abdominal pain, nausea, vomiting. Denies : diarrhea, constipation, hematemesis, melena, hematochezia Genitourinary: Denies: dysuria, hematuria Musculoskeletal: Reports: as per HPI, back pain Skin: Denies: rash Neurological: Denies: headache, weakness, numbness Hematological/Lymphatic: Denies: easy bleeding Past Medical History Past Medical History: No Reported History Additional Past Medical History / Comment(s): Other HX: Recurrent chronic pancreatitis with extensive workups and was seen at [facility] with no cause of pancreatitis discovered. History of Any Multi-Drug Resistant Organisms: None Reported Past Surgical History: No Surgical Hx Reported Additional Past Surgical History / Comment(s): EGD's and EGD with biopsy. Past Anesthesia/Blood Transfusion Reactions: No Reported Reaction Past Psychological History: ADD/ADHD Additional Psychological History / Comment(s): Pt takes adderill during school year to help her concentrate-she is no longer using. Smoking Status: Never smoker Past Alcohol Use History: None Reported Additional Past Alcohol Use History / Comment(s): Patient is a nonsmoker. She denies any medical marijuana, marijuana, street drug use. She is single and does not have any children. Past Drug Use History: None Reported - Past Family History Brother(s) Additional Family Medical History / Comment(s): She has 2 brothers and 1 sister with no major medical problems. Father Family Medical History: Diabetes Mellitus Additional Family Medical History / Comment(s): Father is alive at age 49 with history of diabetes requiring kidney and pancreas transplant. Mother Family Medical History: Deep Vein Thrombosis (DVT) Additional Family Medical History / Comment(s): Mother is alive at age 52 with history of DVT's, cardiomyopathy and pacemaker. General Exam Limitations: no limitations General appearance: alert, in distress (Related to abdominal pain), obese Head exam: Present: atraumatic, normocephalic Eye exam: Present: normal appearance. Absent: scleral icterus, conjunctival injection ENT exam: Present: normal oropharynx Respiratory exam: Present: normal lung sounds bilaterally. Absent: respiratory distress, wheezes, rales, rhonchi, stridor Cardiovascular Exam: Present: regular rate, normal rhythm, normal heart sounds. Absent: systolic murmur, diastolic murmur, rubs, gallop GI/Abdominal exam: Present: soft, tenderness (There is mild diffuse tenderness without rebound or guarding), normal bowel sounds. Absent: distended, guarding , rebound, mass, pulsatile mass, hernia Extremities exam: Present: normal inspection, normal capillary refill. Absent: pedal edema, calf tenderness Back exam: Present: normal inspection. Absent: CVA tenderness (R), CVA tenderness (L) Skin exam: Present: warm, dry, intact, normal color. Absent: rash Course Vital Signs 12/05/16 12/05/16 02:38 04:35 Temperature 97.6 F Pulse Rate 113 H 84 Respiratory 20 18 Rate Blood Pressure 151/82 122/75 O2 Sat by Pulse 96 96 Oximetry Medical Decision Making - Medical Decision Making This patient is a 21-year-old woman with history of recurrent pancreatitis. She is having pain similar to her usual exacerbations and found to have elevated lipase. Will attempt to obtain ultrasound to rule out pseudocyst, as the patient has had multiple multiple CT scans in the past and will attempt to limit radiation exposure. Patient be admitted, case discussed with Dr. Bacon, covering for Dr. Lazaro. Consult for Dr. Pepper who is quite familiar with the patient. We'll maintain nothing by mouth, IV hydration, analgesics and antiemetics. She is beginning to have some symptomatic relief with medication. - Lab Data Result diagrams: 12/05/16 03:16 12/05/16 03:16 Lab Results 12/05/16 12/05/16 12/05/16 Range/Units 03:16 03:16 03:16 WBC 8.4 (4.0-11.0) k/uL RBC 4.74 (3.80-5.40) m/uL Hgb 13.4 (11.4-16.0) gm/dL Hct 39.4 (34.0-46.0) % MCV 83.2 (80.0-100.0) fL MCH 28.3 (25.0-35.0) pg MCHC 34.0 (31.0-37.0) g/dL RDW 12.9 (11.5-15.5) % Plt Count 266 (150-450) k/uL Neutrophils % 54 % Lymphocytes % 33 % Monocytes % 7 % Eosinophils % 3 % Basophils % 1 % Neutrophils # 4.5 (1.3-7.7) k/uL Lymphocytes # 2.8 (1.0-4.8) k/uL Monocytes # 0.6 (0-1.0) k/uL Eosinophils # 0.3 (0-0.7) k/uL Basophils # 0.0 (0-0.2) k/uL Sodium 144 (137-145) mmol/L Potassium 4.3 (3.5-5.1) mmol/L Chloride 107 (98-107) mmol/L Carbon Dioxide 26 (22-30) mmol/L Anion Gap 11 mmol/L BUN 11 (7-17) mg/dL Creatinine 0.68 (0.52-1.04) mg/dL Est GFR (MDRD) Af Amer >60 (>60 ml/min/1.73 sqM) Est GFR (MDRD) Non-Af >60 (>60 ml/min/1.73 sqM) Glucose 125 H (74-99) mg/dL Calcium 9.2 (8.4-10.2) mg/dL Total Bilirubin 0.3 (0.2-1.3) mg/dL AST 47 H (14-36) U/L ALT 69 H (9-52) U/L Alkaline Phosphatase 103 (38-126) U/L Total Protein 6.9 (6.3-8.2) g/dL Albumin 4.1 (3.5-5.0) g/dL Amylase 1156 H* (30-110) U/L Lipase >03495 H (23-300) U/L Urine Color Urine Appearance (Clear) Urine pH (5.0-8.0) Ur Specific [place] (1.001-1.035) Urine Protein (Negative) Urine Glucose (UA) (Negative) Urine Ketones (Negative) Urine Blood (Negative) Urine Nitrate (Negative) Urine Bilirubin (Negative) Urine Urobilinogen (<2.0) mg/dL Ur Leukocyte Esterase (Negative) Urine HCG, Qual Not Detected (Not Detectd) 12/05/16 Range/Units 03:16 WBC (4.0-11.0) k/uL RBC (3.80-5.40) m/uL Hgb (11.4-16.0) gm/dL Hct (34.0-46.0) % MCV (80.0-100.0) fL MCH (25.0-35.0) pg MCHC (31.0-37.0) g/dL RDW (11.5-15.5) % Plt Count (150-450) k/uL Neutrophils % % Lymphocytes % % Monocytes % % Eosinophils % % Basophils % % Neutrophils # (1.3-7.7) k/uL Lymphocytes # (1.0-4.8) k/uL Monocytes # (0-1.0) k/uL Eosinophils # (0-0.7) k/uL Basophils # (0-0.2) k/uL Sodium (137-145) mmol/L Potassium (3.5-5.1) mmol/L Chloride (98-107) mmol/L Carbon Dioxide (22-30) mmol/L Anion Gap mmol/L BUN (7-17) mg/dL Creatinine (0.52-1.04) mg/dL Est GFR (MDRD) Af Amer (>60 ml/min/1.73 sqM) Est GFR (MDRD) Non-Af (>60 ml/min/1.73 sqM) Glucose (74-99) mg/dL Calcium (8.4-10.2) mg/dL Total Bilirubin (0.2-1.3) mg/dL AST (14-36) U/L ALT (9-52) U/L Alkaline Phosphatase (38-126) U/L Total Protein (6.3-8.2) g/dL Albumin (3.5-5.0) g/dL Amylase (30-110) U/L Lipase (23-300) U/L Urine Color Light Yellow Urine Appearance Clear (Clear) Urine pH 7.0 (5.0-8.0) Ur Specific [place] 1.004 (1.001-1.035) Urine Protein Negative (Negative) Urine Glucose (UA) Negative (Negative) Urine Ketones Negative (Negative) Urine Blood Negative (Negative) Urine Nitrate Negative (Negative) Urine Bilirubin Negative (Negative) Urine Urobilinogen <2.0 (<2.0) mg/dL Ur Leukocyte Esterase Negative (Negative) Urine HCG, Qual (Not Detectd) Disposition Clinical Impression: Pancreatitis, acute, Abdominal pain Disposition: ADMITTED IP TO THIS [facility] Condition: Fair
[2016-12-05] MEDS ORDERED: HYDROmorphone 1 MG/ML 1 ML SYRINGE IVP STA ×2 (04:01→05:41)
[2016-12-05] MEDS ORDERED: NALOXONE 0.4 MG/ML 1 ML VIAL IV PRN (05:58)
--- NOTE | 2016-12-05 08:20 | US ---
EXAMINATION TYPE: US abdomen limited DATE OF EXAM: 12/05/2016 7:50 AM COMPARISON: CT abdomen and pelvis December 24, 2015 CLINICAL HISTORY: evaluate for pseudocyst. ABD pain, history of pancreatitis EXAM MEASUREMENTS: Liver Length: 21.4 cm Gallbladder Wall: 0.3 cm CBD: 0.5 cm Right Kidney: 11.3 x 4.7 x 4.4 cm TECHNOLOGIST IMPRESSION: Pancreas: head and tail obscured by overlying bowel gas Liver: Enlarged, difficult to penetrate with probable fatty sparing near GB and marv Gallbladder: wnl Evidence for sonographic Hernandez's sign: Yes CBD: wnl Right Kidney: wnl Majority of pancreas is obscured by overlying bowel gas on images saved. No suspicious cystic lesion is seen on images saved. Liver remains heterogeneously hyperechoic consistent with fatty infiltration . Evaluation for focal masses is limited due to the heterogeneity. There are no shadowing mobile gall stones, pericholecystic fluid collection, or abnormal gallbladder wall thickening. Limited images of right kidney show no gross hydronephrosis. IMPRESSION: Fatty liver redemonstrated. Suboptimal evaluation of pancreas without obvious pseudocyst identified.
[2016-12-05] MEDS: SODIUM CHLORIDE 0.9% 1,000 ML IV SCH ×2 (09:19→20:07)
[2016-12-05] MEDS: diphenhydrAMINE 25 MG CAP PO PRN ×2 (09:20→19:49)
[2016-12-05] MEDS: HYDROmorphone 1 MG/ML 1 ML SYRINGE IV PRN ×5 (09:22→22:42)
--- NOTE | 2016-12-05 09:53 | P.CONS ---
History of Present Illness - Reason for Consult Consult date: 12/05/16 Pancreatitis Requesting physician: Stephen Bacon - History of Present Illness 21-year-old female well-known to the GI service patient of Dr. 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 Evaluated by [facility] in the past with undetermined etiology. Her most recent follow up at [facility] last month concluded further genetic testing for possible cystic fibrosis as well as possible surgical intervention. Presents with intractable abdominal pain with nausea vomiting for the last 3 days. No fever or chills. Denies hematemesis hematochezia or melena. White count 8.4. Hemoglobin 13.4. Total bilirubin 0.3. AST 47. ALT 69. Alkaline phosphates 103. Lipase >30341. Amylase 1156. Ultrasound abdomen fatty liver. No obvious pseudocysts. Review of Systems Constitutional: Denies fever, chills, sweats, weight gain, or loss. HEENT: Negative for migraines, blurred vision or loss, earaches, drainage, tinnitus, oral mucosal lesions, dysphagia, or odynophagia. CARDIAC: Negative for chest pain, arrhythmias, or palpitation. RESPIRATORY: Negative for shortness of breath, hemoptysis, cough, or sputum production. GI: See HPI for pertinent findings. : Negative for hematuria, urgency, frequency, polyuria, or dysuria. GYNc: Denies possibility of . Negative vaginal discharge. MUSCULOSKELETAL: Negative for muscle aches, swelling, arthritis, and arthralgias. NEUROLOGIC: Negative for stroke or TIA. ENDOCRINE: Negative for thyroid problems. SKIN: Negative for rash or itching. PSYCHIATRIC: History of ADHD. Negative history for depression and anxiety All systems: negative (See HPI) Past Medical History Past Medical History: No Reported History Additional Past Medical History / Comment(s): Other HX: Recurrent chronic pancreatitis with extensive workups and was seen at [facility] with no cause of pancreatitis discovered. History of Any Multi-Drug Resistant Organisms: None Reported Past Surgical History: No Surgical Hx Reported Additional Past Surgical History / Comment(s): EGD's and EGD with biopsy. Past Anesthesia/Blood Transfusion Reactions: No Reported Reaction Past Psychological History: ADD/ADHD Additional Psychological History / Comment(s): Pt takes adderill during school year to help her concentrate-she is no longer using. Smoking Status: Never smoker Past Alcohol Use History: None Reported Additional Past Alcohol Use History / Comment(s): Patient is a nonsmoker. She denies any medical marijuana, marijuana, street drug use. She is single and does not have any children. Past Drug Use History: None Reported - Past Family History Brother(s) Additional Family Medical History / Comment(s): She has 2 brothers and 1 sister with no major medical problems. Father Family Medical History: Diabetes Mellitus Additional Family Medical History / Comment(s): Father is alive at age 49 with history of diabetes requiring kidney and pancreas transplant. Mother Family Medical History: Deep Vein Thrombosis (DVT) Additional Family Medical History / Comment(s): Mother is alive at age 52 with history of DVT's, cardiomyopathy and pacemaker. Medications and Allergies Home Medications Medication Instructions Recorded Confirmed Type No Known Home Medications [No 12/05/16 12/05/16 History Known Home Medications] Allergies Allergy/AdvReac Type Severity Reaction Status Date / Time latex Allergy Rash/Hives Verified 10/17/16 21:12 Physical Exam Vitals: Vital Signs Temp Pulse Resp BP Pulse Ox 12/05/16 07:00 97.4 F L 60 16 117/85 98 Intake and Output 12/04/16 12/05/16 12/05/16 22:59 06:59 14:59 Intake Total 1100 Balance 1100 Intake: Amount of Fluid Infused ( 1100 ml) General appearance: The patient is alert, oriented, in no acute distress. HET: Head is normocephalic and atraumatic. Pupils are equal and reactive. Oropharynx is clear without lesions. Neck: Supple without lymphadenopathy. Trachea midline. Heart: S1 S2. Regular rate and rhythm. Lungs: No crackles or wheezes are heard. Abdomen: Soft, tenderness midepigastric left upper quadrant, nondistended with bowel sounds. No peritoneal signs. No palpable organomegaly or masses. Extremities: Normal skin color and turgor. No cyanosis, rash, ulceration, clubbing, or edema. Radial and pedal pulses are 2/4 bilaterally. Neurological: No focal deficits. Strength and sensation are grossly intact. Results CBC & Chem 7: 12/05/16 03:16 12/05/16 03:16 US - abdomen: report reviewed (Reviewed by Dr. Briggs) Assessment and Plan (1) Acute on chronic pancreatitis Narrative/Plan: Chronic relapsing idiopathic pancreatitis Status: Acute Plan: 1. Supportive measures including IV hydration antinausea medications and pain management. 2. Slow advancement of diet once patient's abdominal pain and biochemical profile improves. 3. Follow up at [facility] as advised. Thank you for this kind referral and the opportunity to participate in the care of your patient. This consultation was discussed with Dr. Briggs. The impression and plan of care have been directed as dictated.
[2016-12-05] MEDS: FAMOTIDINE 20 MG/2 ML VIAL IV SCH ×2 (10:22→21:13)
[2016-12-05] MEDS: SCOPOLAMINE 1.5MG/72HR PATCH TRANSDERM SCH (11:55)
[2016-12-05] MEDS: ENOXAPARIN 40 MG/0.4 ML SYRINGE SQ SCH (11:56)
[2016-12-05] MEDS: PANTOPRAZOLE 40 MG/10 ML VIAL IVP SCH (11:56)
[2016-12-05 13:21] VITALS: BMI 32.3
--- NOTE | 2016-12-05 14:07 | P.HPIM ---
History of Present Illness H&P Date: 12/05/16 Chief Complaint: Abdominal pain This is a 21-year-old female. She was recently established with Dr. Lazaro. She has a past medical history for chronic relapsing pancreatitis since the age of 10 with multiple hospitalizations. She also follows with Dr. Briggs from gastroenterology. Patient has also had follow-up at [facility]. She states she has episodes that are very mild for which she does not come into the hospital and she takes Jay. She states one about every 2 weeks. She has other episodes or more severe and she comes into the hospital which occur every 3-4 months. She denies any change in her weight. She denies any change in her menses which are regular. She denies any previous pregnancies. She states she has not had an MRCP in the past. She denies any alcohol or drug intake. She denies any [id number] drugs including herbals, vitamins. She does not know of any food triggers for pain. She is a nonsmoker. She complains of abdominal pain as well as nausea and vomiting. She did come into [facility] emergency center on October 15 and was admitted. Liver MRI at that time showed underlying pancreatic diffuse him as felt present. No MRI evidence of complication related to acute pancreatitis. Hepatosplenomegaly with marked fatty infiltration of the liver is redemonstrated. Attention to the in. 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 Patient states she is followed up with [facility] and blood was sent to [place] and patient may be referred to [facility] for transplant. She presented to [facility] emergency center and found to have amylase of 1156 and lipase greater than 20,000. AST 47 and ALT 69. Patient has been admitted to the [facility] floor. She has been placed on nothing by mouth status, IV fluids, Zofran for nausea and vomiting and Dilaudid for pain and a consult with GI requested. Review of Systems All systems: negative Constitutional: Denies chills, Denies fever Eyes: denies blurred vision, denies pain Ears, nose, mouth and throat: Denies headache, Denies sore throat Cardiovascular: Denies chest pain, Denies shortness of breath Respiratory: Denies cough Gastrointestinal: Reports abdominal pain, Reports nausea, Reports vomiting, Denies diarrhea Genitourinary: Denies dysuria, Denies hematuria Musculoskeletal: Denies myalgias Integumentary: Denies pruritus, Denies rash Neurological: Denies numbness, Denies weakness Psychiatric: Denies anxiety, Denies depression Endocrine: Denies fatigue, Denies weight change Past Medical History Past Medical History: No Reported History Additional Past Medical History / Comment(s): Other HX: Recurrent chronic pancreatitis with extensive workups and was seen at [facility] with no cause of pancreatitis discovered. History of Any Multi-Drug Resistant Organisms: None Reported Past Surgical History: No Surgical Hx Reported Additional Past Surgical History / Comment(s): EGD's and EGD with biopsy. Past Anesthesia/Blood Transfusion Reactions: No Reported Reaction Past Psychological History: ADD/ADHD Additional Psychological History / Comment(s): Pt takes adderill during school year to help her concentrate-she is no longer using. Smoking Status: Never smoker Past Alcohol Use History: None Reported Additional Past Alcohol Use History / Comment(s): Patient is a nonsmoker. She denies any medical marijuana, marijuana, street drug use. She is single and does not have any children. Past Drug Use History: None Reported - Past Family History Brother(s) Additional Family Medical History / Comment(s): She has 2 brothers and 1 sister with no major medical problems. Father Family Medical History: Diabetes Mellitus Additional Family Medical History / Comment(s): Father is alive at age 49 with history of diabetes requiring kidney and pancreas transplant. Mother Family Medical History: Deep Vein Thrombosis (DVT) Additional Family Medical History / Comment(s): Mother is alive at age 52 with history of DVT's, cardiomyopathy and pacemaker. Medications and Allergies Home Medications Medication Instructions Recorded Confirmed Type Hydrocodone/Acetaminophen 1 tab PO TID PRN 12/05/16 12/05/16 History [Hydrocodon-Acetaminophen 5-325] Allergies Allergy/AdvReac Type Severity Reaction Status Date / Time latex Allergy Rash/Hives Verified 12/05/16 10:08 Physical Exam Vitals: Vital Signs Temp Pulse Pulse Resp BP Pulse Ox 12/05/16 11:48 97.7 F 57 L 20 126/71 98 12/05/16 07:00 97.4 F L 60 16 117/85 98 Intake and Output 12/04/16 12/05/16 12/05/16 22:59 06:59 14:59 Intake Total 1100 Balance 1100 Intake: Amount of Fluid Infused ( 1100 ml) Gen: This is a obese 21-year-old female. She is in bed and appears to be in no acute distress. HEENT: Head is atraumatic, normocephalic. Pupils equal, round. Sclerae is anicteric. NECK: Supple. No JVD. No lymphadenopathy. No thyromegaly. LUNGS: Clear to auscultation. No wheezes or rhonchi. No intercostal retractions. HEART: Regular rate and rhythm. No murmur. ABDOMEN: Soft. Bowel sounds are present. No masses. Moderate mid epigastric and left upper abdomen tenderness. EXTREMITIES: No pedal edema. No calf tenderness. Dorsalis pedis +2 bilaterally. NEUROLOGICAL: Patient is awake, alert and oriented x3. Cranial nerves 2 through 12 are grossly intact. Results CBC & Chem 7: 12/05/16 03:16 12/05/16 03:16 Thrombosis Risk Factor Assmnt - DVT/VTE Prophylaxis DVT/VTE Prophylaxis: Pharmacologic Prophylaxis ordered Assessment and Plan Plan: 1. Acute on chronic pancreatitis since the age of 10 years of age with full evaluation done at [facility]. She is currently being worked up for transplant. Consult with GI appreciated. Zofran and Scopolamine patch for nausea. Dilaudid as needed for pain. Patient is currently nothing by mouth. Continue IV fluids. 2. ADHD, stable. 3. Gastrointestinal prophylaxis. Protonix. 4. DVT prophylaxis. SCDs and JOAQUÍN hose, early ambulation. Patient will be admitted to the hospital for a minimum of 3 night stay. Discharge plan: Return home Impression and plan of care have been directed as dictated by the signing physician. Adwoa Ernandez nurse practitioner acting as scribe for signing physician. CC: Dr. Lazaro Time with Patient: Greater than 30
[2016-12-05] MEDS: ACETAMINOPHEN TAB 325 MG TAB PO PRN ×2 (14:11→19:48)
[2016-12-05] MEDS: ONDANSETRON 4 MG/2 ML VIAL IVP PRN (19:57)
[2016-12-06] MEDS: SODIUM CHLORIDE 0.9% 1,000 ML IV SCH ×4 (01:04→22:52)
[2016-12-06] MEDS: HYDROmorphone 1 MG/ML 1 ML SYRINGE IV PRN ×2 (01:47→04:53)
[2016-12-06] MEDS: ACETAMINOPHEN TAB 325 MG TAB PO PRN ×4 (05:07→20:15)
[2016-12-06 06:43] LABS: Basophils % (A) 0 %; CH 28.1; CHCM 32.7; Eosinophils # (A) 0.2 k/uL (0-0.7); Eosinophils % (A) 3 %; HCT 37.3 % (34.0-46.0); HDW 2.87; HGB 12.1 gm/dL (11.4-16.0); Luc # (Auto) 0.15; Luc % (Auto) 3; Lymphocytes # (A) 1.4 k/uL (1.0-4.8); Lymphocytes % (A) 24 %; MCH 27.9 pg (25.0-35.0); MCHC 32.4 g/dL (31.0-37.0); MCV 86.2 fL (80.0-100.0); Mean Platelet Volume 6.9; Monocytes # (A) 0.4 k/uL (0-1.0); Monocytes % (A) 6 %; Neutrophils # (A) 3.7 k/uL (1.3-7.7); Neutrophils % (A) 64 %; RBC 4.33 m/uL (3.80-5.40); RDW 12.9 % (11.5-15.5); WBC 5.9 k/uL (4.0-11.0); WBC (Perox) 6.44
[2016-12-06 06:57] LABS: ALT 71 U/L (9-52); AST 42 U/L (14-36); Alkaline Phosphatase 69 U/L (38-126); Anion Gap 9 mmol/L; Blood Urea Nitrogen 8 mg/dL (7-17); Calcium 8.7 mg/dL (8.4-10.2); Carbon Dioxide 24 mmol/L (22-30); Chloride 106 mmol/L (98-107); Glucose 94 mg/dL (74-99); Non-African American GFR(MDRD) >60 (>60 ml/min/1.73 sqM); Potassium 4.3 mmol/L (3.5-5.1); Sodium 139 mmol/L (137-145); Total Bilirubin 0.5 mg/dL (0.2-1.3); Total Protein 6.2 g/dL (6.3-8.2)
[2016-12-06 07:15] LABS: Amylase 421 U/L (30-110)
[2016-12-06] MEDS: ENOXAPARIN 40 MG/0.4 ML SYRINGE SQ SCH (08:34)
[2016-12-06] MEDS: PANTOPRAZOLE 40 MG/10 ML VIAL IVP SCH (08:35)
[2016-12-06] MEDS: FAMOTIDINE 20 MG/2 ML VIAL IV SCH (08:35)
[2016-12-06] MEDS: ONDANSETRON 4 MG/2 ML VIAL IVP PRN ×3 (08:45→23:07)
[2016-12-06] MEDS: HYDROmorphone 1 MG/ML 1 ML SYRINGE IVP PRN ×5 (08:45→21:16)
[2016-12-06] MEDS: diphenhydrAMINE 25 MG CAP PO PRN ×2 (08:46→21:16)
--- NOTE | 2016-12-06 08:50 | P.PN ---
Subjective Principal diagnosis: Chronic relapsing idiopathic pancreatitis Increased nausea vomiting last night secondary to pain. Requesting pain medication adjustment. Pancreatic enzymes improving. Afebrile. Objective - Vital Signs Vital signs: Vital Signs Temp 98.1 F 12/06/16 07:40 Pulse 62 12/06/16 07:40 Resp 16 12/06/16 07:40 BP 109/70 12/06/16 07:40 Pulse Ox 95 12/06/16 07:40 Intake & Output 12/05/16 12/06/16 12/06/16 18:59 06:59 18:59 Intake Total 100 Output Total 200 Balance -100 Weight 90.718 kg Intake: Oral 100 Output: Emesis 200 Other: Voiding Method Toilet # Voids 2 1 - Exam General appearance: The patient is alert, oriented, in no acute distress. HET: Head is normocephalic and atraumatic. Pupils are equal and reactive. Oropharynx is clear without lesions. Neck: Supple without lymphadenopathy. Trachea midline. Heart: S1 S2. Regular rate and rhythm. Lungs: No crackles or wheezes are heard. Abdomen: Soft, diffuse upper epigastric pain, nondistended with bowel sounds. No peritoneal signs. No palpable organomegaly or masses. Extremities: Normal skin color and turgor. No cyanosis, rash, ulceration, clubbing, or edema. Radial and pedal pulses are 2/4 bilaterally. Neurological: No focal deficits. Strength and sensation are grossly intact. - Labs CBC & Chem 7: 12/06/16 06:24 12/06/16 06:24 Labs: Abnormal Lab Results - Last 24 Hours (Table) 12/06/16 Range/Units 06:24 AST 42 H (14-36) U/L ALT 71 H (9-52) U/L Total Protein 6.2 L (6.3-8.2) g/dL Amylase 421 H* (30-110) U/L Lipase 2140 H (23-300) U/L Assessment and Plan (1) Acute on chronic pancreatitis Narrative/Plan: Chronic relapsing idiopathic pancreatitis Status: Acute Plan: 1. Supportive measures including IV hydration antinausea medications and pain management. 2. Slow advancement of diet once patient's abdominal pain and biochemical profile improves. 3. Follow up at [facility] as advised. Assessment and plan of care discussed with Dr. Briggs
--- NOTE | 2016-12-06 13:56 | P.PN ---
Subjective This is a 21-year-old female. She was recently established with Dr. Lazaro. She has a past medical history for chronic relapsing pancreatitis since the age of 10 with multiple hospitalizations. She also follows with Dr. Briggs from gastroenterology. Patient has also had follow-up at [facility]. She states she has episodes that are very mild for which she does not come into the hospital and she takes [place]. She states one about every 2 weeks. She has other episodes or more severe and she comes into the hospital which occur every 3-4 months. She denies any change in her weight. She denies any change in her menses which are regular. She denies any previous pregnancies. She states she has not had an MRCP in the past. She denies any alcohol or drug intake. She denies any xauu-hxu-bwhouou drugs including herbals, vitamins. She does not know of any food triggers for pain. She is a nonsmoker. She complains of abdominal pain as well as nausea and vomiting. She did come into [facility] emergency center on October 15 and was admitted. Liver MRI at that time showed underlying pancreatic diffuse him as felt present. No MRI evidence of complication related to acute pancreatitis. Hepatosplenomegaly with marked fatty infiltration of the liver is redemonstrated. Attention to the in. 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 Patient states she is followed up with [facility] and blood was sent to [place] and patient may be referred to [facility] for transplant. She presented to [facility] emergency center and found to have amylase of 1156 and lipase greater than 20,000. AST 47 and ALT 69. Patient has been admitted to the MedSurg floor. She has been placed on nothing by mouth status, IV fluids, Zofran for nausea and vomiting and Dilaudid for pain and a consult with GI requested. 12/06: Pancreatic enzymes are much improved with amylase 421 and lipase 2140. AST 44 and ALT 71. Patient continues to have significant abdominal pain for which Dilaudid dose and frequency increased. Diet has been advanced to clear liquids. Objective - Vital Signs Vital signs: Vital Signs Temp 98.2 F 12/05/16 23:00 Pulse 60 12/05/16 23:00 Resp 16 12/05/16 23:00 BP 109/59 12/05/16 20:10 Pulse Ox 96 12/05/16 23:00 Intake & Output 12/05/16 12/06/16 12/06/16 18:59 06:59 18:59 Intake Total 100 Output Total 200 Balance -100 Weight 90.718 kg Intake: Oral 100 Output: Emesis 200 Other: Voiding Method Toilet # Voids 2 1 - Exam Gen: This is a obese 21-year-old female. She is in bed and appears to be in no acute distress. HEENT: Head is atraumatic, normocephalic. Pupils equal, round. Sclerae is anicteric. NECK: Supple. No JVD. No lymphadenopathy. No thyromegaly. LUNGS: Clear to auscultation. No wheezes or rhonchi. No intercostal retractions. HEART: Regular rate and rhythm. No murmur. ABDOMEN: Soft. Bowel sounds are present. No masses. Moderate mid epigastric and left upper abdomen tenderness. EXTREMITIES: No pedal edema. No calf tenderness. Dorsalis pedis +2 bilaterally. NEUROLOGICAL: Patient is awake, alert and oriented x3. Cranial nerves 2 through 12 are grossly intact. - Labs CBC & Chem 7: 12/06/16 06:24 12/06/16 06:24 Labs: Abnormal Lab Results - Last 24 Hours (Table) 12/06/16 Range/Units 06:24 AST 42 H (14-36) U/L ALT 71 H (9-52) U/L Total Protein 6.2 L (6.3-8.2) g/dL Amylase 421 H* (30-110) U/L Lipase 2140 H (23-300) U/L Assessment and Plan Plan: 1. Acute on chronic pancreatitis since the age of 10 years of age with full evaluation done at [facility]. She is currently being worked up for transplant. Consult with GI appreciated. Zofran and Scopolamine patch for nausea. Dilaudid as needed for pain. Patient diet advanced to clear liquids. Continue IV fluids. 2. ADHD, stable. 3. Gastrointestinal prophylaxis. Protonix. 4. DVT prophylaxis. SCDs and JOAQUÍN hose, early ambulation. Patient will be admitted to the hospital for a minimum of 3 night stay. Discharge plan: Return home Impression and plan of care have been directed as dictated by the signing physician. Adwoa Ernandez nurse practitioner acting as scribe for signing physician. Time with Patient: Greater than 30
[2016-12-07] MEDS: ACETAMINOPHEN TAB 325 MG TAB PO PRN ×5 (00:08→21:24)
[2016-12-07] MEDS: HYDROmorphone 1 MG/ML 1 ML SYRINGE IVP PRN ×8 (00:10→21:24)
[2016-12-07] MEDS: diphenhydrAMINE 25 MG CAP PO PRN ×3 (02:58→21:23)
[2016-12-07] MEDS: ONDANSETRON 4 MG/2 ML VIAL IVP PRN ×3 (06:02→18:29)
[2016-12-07] MEDS: SODIUM CHLORIDE 0.9% 1,000 ML IV SCH ×2 (06:07→14:53)
[2016-12-07 06:48] LABS: Amylase 150 U/L (30-110)
[2016-12-07] MEDS: ENOXAPARIN 40 MG/0.4 ML SYRINGE SQ SCH (08:33)
[2016-12-07] MEDS: PANTOPRAZOLE 40 MG/10 ML VIAL IVP SCH (09:53)
--- NOTE | 2016-12-07 10:16 | P.PN ---
Subjective Principal diagnosis: Chronic relapsing idiopathic pancreatitis Abdominal pain improving. Intermittent nausea small emesis this morning however patient takes it's related to clear liquid diet being to sweet. Pancreatic enzymes improving. Afebrile. Objective - Vital Signs Vital signs: Vital Signs Temp 97.7 F 12/07/16 07:25 Pulse 72 12/07/16 07:25 Resp 20 12/07/16 07:25 BP 131/84 12/07/16 07:25 Pulse Ox 97 12/07/16 07:25 Intake & Output 12/06/16 12/07/16 12/07/16 18:59 06:59 18:59 Intake Total 200 1640 Balance 200 1640 Intake: Oral 200 1640 Other: Voiding Method Toilet Toilet # Voids 2 1 - Exam General appearance: The patient is alert, oriented, in no acute distress. HET: Head is normocephalic and atraumatic. Pupils are equal and reactive. Oropharynx is clear without lesions. Neck: Supple without lymphadenopathy. Trachea midline. Heart: S1 S2. Regular rate and rhythm. Lungs: No crackles or wheezes are heard. Abdomen: Soft, diffuse upper epigastric pain, nondistended with bowel sounds. No peritoneal signs. No palpable organomegaly or masses. Extremities: Normal skin color and turgor. No cyanosis, rash, ulceration, clubbing, or edema. Radial and pedal pulses are 2/4 bilaterally. Neurological: No focal deficits. Strength and sensation are grossly intact. - Labs CBC & Chem 7: 12/06/16 06:24 12/06/16 06:24 Labs: Abnormal Lab Results - Last 24 Hours (Table) 12/07/16 Range/Units 06:15 Amylase 150 H (30-110) U/L Lipase 415 H (23-300) U/L Assessment and Plan (1) Acute on chronic pancreatitis Narrative/Plan: Chronic relapsing idiopathic pancreatitis Status: Acute Plan: 1. Supportive measures including IV hydration antinausea medications and pain management. 2. Slow advancement of diet. Patient will like to try crackers soup and maybe toast today. 3. Follow up at [facility] as advised. Assessment and plan of care discussed with Dr. Briggs
--- NOTE | 2016-12-07 11:54 | P.PN ---
Subjective This is a 21-year-old female. She was recently established with Dr. Lazaro. She has a past medical history for chronic relapsing pancreatitis since the age of 10 with multiple hospitalizations. She also follows with Dr. Briggs from gastroenterology. Patient has also had follow-up at [facility]. She states she has episodes that are very mild for which she does not come into the hospital and she takes [place]. She states one about every 2 weeks. She has other episodes or more severe and she comes into the hospital which occur every 3-4 months. She denies any change in her weight. She denies any change in her menses which are regular. She denies any previous pregnancies. She states she has not had an MRCP in the past. She denies any alcohol or drug intake. She denies any asxq-jqh-hpxaqfy drugs including herbals, vitamins. She does not know of any food triggers for pain. She is a nonsmoker. She complains of abdominal pain as well as nausea and vomiting. She did come into [facility] emergency center on October 15 and was admitted. Liver MRI at that time showed underlying pancreatic diffuse him as felt present. No MRI evidence of complication related to acute pancreatitis. Hepatosplenomegaly with marked fatty infiltration of the liver is redemonstrated. Attention to the in. 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 Patient states she is followed up with [facility] and blood was sent to [place] and patient may be referred to [facility] for transplant. She presented to [facility] emergency center and found to have amylase of 1156 and lipase greater than 20,000. AST 47 and ALT 69. Patient has been admitted to the MedSurg floor. She has been placed on nothing by mouth status, IV fluids, Zofran for nausea and vomiting and Dilaudid for pain and a consult with GI requested. 12/06: Pancreatic enzymes are much improved with amylase 421 and lipase 2140. AST 44 and ALT 71. Patient continues to have significant abdominal pain for which Dilaudid dose and frequency increased. Diet has been advanced to clear liquids. 12/07: Repeat amylase 150 and lipase 415. Abdominal pain improving. Intermittent nausea. Diet advanced to low-fat for lunch by GI. Objective - Vital Signs Vital signs: Vital Signs Temp 97.7 F 12/07/16 07:25 Pulse 72 12/07/16 07:25 Resp 20 12/07/16 07:25 BP 131/84 12/07/16 07:25 Pulse Ox 97 12/07/16 07:25 Intake & Output 12/06/16 12/07/16 12/07/16 18:59 06:59 18:59 Intake Total 200 1640 Balance 200 1640 Intake: Oral 200 1640 Other: Voiding Method Toilet Toilet # Voids 2 1 - Exam Gen: This is a obese 21-year-old female. She is in bed and appears to be in no acute distress. HEENT: Head is atraumatic, normocephalic. Pupils equal, round. Sclerae is anicteric. NECK: Supple. No JVD. No lymphadenopathy. No thyromegaly. LUNGS: Clear to auscultation. No wheezes or rhonchi. No intercostal retractions. HEART: Regular rate and rhythm. No murmur. ABDOMEN: Soft. Bowel sounds are present. No masses. Moderate mid epigastric and left upper abdomen tenderness. EXTREMITIES: No pedal edema. No calf tenderness. Dorsalis pedis +2 bilaterally. NEUROLOGICAL: Patient is awake, alert and oriented x3. Cranial nerves 2 through 12 are grossly intact. - Labs CBC & Chem 7: 12/06/16 06:24 12/06/16 06:24 Labs: Abnormal Lab Results - Last 24 Hours (Table) 12/07/16 Range/Units 06:15 Amylase 150 H (30-110) U/L Lipase 415 H (23-300) U/L Assessment and Plan Plan: 1. Acute on chronic pancreatitis since the age of 10 years of age with full evaluation done at [facility]. She is currently being worked up for transplant. Consult with GI appreciated. Zofran and Scopolamine patch for nausea. Dilaudid as needed for pain. Patient diet advanced to low-fat. Continue IV fluids. 2. ADHD, stable. 3. Gastrointestinal prophylaxis. Protonix. 4. DVT prophylaxis. SCDs and [place] hose, early ambulation. Discharge plan: Return home Impression and plan of care have been directed as dictated by the signing physician. Adwoa Ernandez nurse practitioner acting as scribe for signing physician. Time with Patient: Greater than 30
[2016-12-07] MEDS: MAGNESIUM CITRATE 296 ML BOTTLE PO PRN (16:41)
[2016-12-08] MEDS: HYDROmorphone 1 MG/ML 1 ML SYRINGE IVP PRN ×4 (00:22→09:27)
[2016-12-08] MEDS: ONDANSETRON 4 MG/2 ML VIAL IVP PRN ×2 (00:32→06:41)
[2016-12-08] MEDS: ACETAMINOPHEN TAB 325 MG TAB PO PRN ×3 (01:28→10:30)
[2016-12-08] MEDS: SODIUM CHLORIDE 0.9% 1,000 ML IV SCH ×2 (01:29→09:02)
[2016-12-08] MEDS: diphenhydrAMINE 25 MG CAP PO PRN ×2 (03:19→09:28)
[2016-12-08 07:24] LABS: Amylase 52 U/L (30-110)
[2016-12-08 07:55] VITALS: BP 141/75; PULSE 95; RESP 20; TEMP 97.8
--- NOTE | 2016-12-08 08:31 | P.PN ---
Subjective Principal diagnosis: Chronic relapsing idiopathic pancreatitis Abdominal pain improving. Intermittent nausea however tolerating small amounts of regular diet. Pancreatic enzymes improving. Afebrile. Pancreatic enzymes normalized. Objective - Vital Signs Vital signs: Vital Signs Temp 97.8 F 12/08/16 07:53 Pulse 95 12/08/16 07:53 Resp 20 12/08/16 07:53 BP 141/75 12/08/16 07:53 Pulse Ox 95 12/08/16 07:53 Intake & Output 12/07/16 12/08/16 12/08/16 18:59 06:59 18:59 Intake Total 300 Balance 300 Intake: Oral 300 Other: Voiding Method Toilet # Voids 1 - Exam General appearance: The patient is alert, oriented, in no acute distress. HET: Head is normocephalic and atraumatic. Pupils are equal and reactive. Oropharynx is clear without lesions. Neck: Supple without lymphadenopathy. Trachea midline. Heart: S1 S2. Regular rate and rhythm. Lungs: No crackles or wheezes are heard. Abdomen: Soft, diffuse upper epigastric pain, nondistended with bowel sounds. No peritoneal signs. No palpable organomegaly or masses. Extremities: Normal skin color and turgor. No cyanosis, rash, ulceration, clubbing, or edema. Radial and pedal pulses are 2/4 bilaterally. Neurological: No focal deficits. Strength and sensation are grossly intact. - Labs CBC & Chem 7: 12/06/16 06:24 12/06/16 06:24 Assessment and Plan (1) Acute on chronic pancreatitis Narrative/Plan: Chronic relapsing idiopathic pancreatitis Status: Acute Plan: 1. Discharge per medicine. 3. Follow up at [facility] as advised. Assessment and plan of care discussed with Dr. Briggs
[2016-12-08] MEDS: ENOXAPARIN 40 MG/0.4 ML SYRINGE SQ SCH (08:57)
[2016-12-08] MEDS: MAGNESIUM CITRATE 296 ML BOTTLE PO PRN (08:57)
[2016-12-08] MEDS: PANTOPRAZOLE 40 MG/10 ML VIAL IVP SCH (08:57)
--- NOTE | 2016-12-08 11:00 | P.DS ---
Providers Date of admission: 12/05/16 06:11 Expected date of discharge: 12/08/16 Attending physician: Stephen Bacon Primary care physician: Alice Lazaro [facility] Course: This is a 21-year-old female. She was recently established with Dr. Lazaro. She has a past medical history for chronic relapsing pancreatitis since the age of 10 with multiple hospitalizations. She also follows with Dr. Briggs from gastroenterology. Patient has also had follow-up at [facility]. She states she has episodes that are very mild for which she does not come into the hospital and she takes [place]. She states one about every 2 weeks. She has other episodes or more severe and she comes into the hospital which occur every 3-4 months. She denies any change in her weight. She denies any change in her menses which are regular. She denies any previous pregnancies. She states she has not had an MRCP in the past. She denies any alcohol or drug intake. She denies any iltn-chk-epocsls drugs including herbals, vitamins. She does not know of any food triggers for pain. She is a nonsmoker. She complains of abdominal pain as well as nausea and vomiting. She did come into [facility] emergency center on October 15 and was admitted. Liver MRI at that time showed underlying pancreatic diffuse him as felt present. No MRI evidence of complication related to acute pancreatitis. Hepatosplenomegaly with marked fatty infiltration of the liver is redemonstrated. Attention to the in. 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 Patient states she is followed up with [facility] and blood was sent to [place] and patient may be referred to [facility] for transplant. She presented to [facility] emergency center and found to have amylase of 1156 and lipase greater than 20,000. AST 47 and ALT 69. Patient has been admitted to the MedSurg floor. She has been placed on nothing by mouth status, IV fluids, Zofran for nausea and vomiting and Dilaudid for pain and a consult with GI requested. 12/06: Pancreatic enzymes are much improved with amylase 421 and lipase 2140. AST 44 and ALT 71. Patient continues to have significant abdominal pain for which Dilaudid dose and frequency increased. Diet has been advanced to clear liquids. 12/07: Repeat amylase 150 and lipase 415. Abdominal pain improving. Intermittent nausea. Diet advanced to low-fat for lunch by GI. 12/08: Repeat amylase 52 and lipase 155. Patient will be discharged home today in stable condition. Discharge diagnoses: 1. Acute on chronic pancreatitis since the age of 10 years of age with full evaluation done at [facility]. 2. ADHD, stable. Discharge plan: Return home Impression and plan of care have been directed as dictated by the signing physician. Adwoa Ernandez nurse practitioner acting as scribe for signing physician. Patient Condition at Discharge: Good Plan - Discharge Summary New Discharge Prescriptions: HYDROcodone/APAP 7.5-325MG [[place] 7.5-325] 1 tab PO Q4H PRN #20 tab PRN Reason: Pain Discharge Medication List HYDROcodone/APAP 7.5-325MG [[place] 7.5-325] 1 tab PO Q4H PRN #20 tab 12/08/16 [Rx ] Follow up Appointment(s)/Referral(s): Alice Lazaro MD [Primary Care Provider] - 1 Week Activity/Diet/Wound Care/Special Instructions: Follow up with [facility] in 1-2 weeks. Discharge Disposition: HOME SELF-CARE
[2016-12-08] MEDS: SCOPOLAMINE 1.5MG/72HR PATCH TRANSDERM SCH (11:44)
[2016-12-09] MEDS ORDERED: PANTOPRAZOLE 40 MG TABLET PO SCH (09:00)
== END 2016-12-08 11:59 | disposition home or self-care (01) | DRG 440 ==
LOC: EC 02:17 → 6PED 06:11
PROVIDERS: ADMIT Internal Medicine Geriatric Medicine; ATTEND Internal Medicine Geriatric Medicine
DX: K85.00 Idiopathic acute pancreatitis without necrosis or infection (principal); K76.0 Fatty (change of) liver, not elsewhere classified; R16.2 Hepatomegaly with splenomegaly, not elsewhere classified; K86.1 Other chronic pancreatitis; F90.9 Attention-deficit hyperactivity disorder, unspecified type; D24.1 Benign neoplasm of right breast; Z82.49 Family history of ischemic heart disease and other diseases of the circulatory system; Z83.3 Family history of diabetes mellitus; Z91.040 Latex allergy status
CPT/HCPCS: 36415; 76705; 80053; 81003; 81025; 82150; 83690; 85025; 96361; 96374; 96375; 96376; 99285

== ENCOUNTER 2017-03-07 12:56 | Inpatient (IN) | payer MEDICAID ==
[2017-03-07] MEDS ORDERED: ONDANSETRON 4 MG/2 ML VIAL IVP STA (13:44)
[2017-03-07] MEDS ORDERED: SODIUM CHLORIDE 0.9% 1,000 ML IV STA (13:44)
--- NOTE | 2017-03-07 13:46 | ED ---
General Adult HPI - General Chief complaint: Abdominal Pain Stated complaint: Pancreatitis Time Seen by Provider: 03/07/17 13:41 Source: patient, RN notes reviewed Mode of arrival: ambulatory Limitations: no limitations - History of Present Illness Initial comments: Patient 21-year-old female with significant past medical history for finger times, who presents emergency room today with a chief complaint of left upper quadrant pain that started last night. She admits to symptoms of nausea vomiting. States expressing pain left upper quadrant radiating around to the back. States symptoms are consistent with pancreatic tenderness that she's had in the past. States most recently had a flare up approximately 3 months ago. Patient denies any other complaints or associated symptoms. Patient denies any recent fever, chills, shortness of breath, chest pain, back pain, numbness or tingling, dysuria or hematuria, constipation or diarrhea, headaches or visual changes, or any other complaints. - Related Data Home Medications Medication Instructions Recorded Confirmed Amoxicillin/Potassium Clav 1 tab PO Q12HR 03/07/17 03/07/17 [Augmentin 875-125 Tablet] Allergies Allergy/AdvReac Type Severity Reaction Status Date / Time latex Allergy Rash/Hives Verified 03/07/17 14:41 Review of Systems ROS Statement: Those systems with pertinent positive or pertinent negative responses have been documented in the HPI. ROS Other: All systems not noted in ROS Statement are negative. Past Medical History Past Medical History: No Reported History Additional Past Medical History / Comment(s): Other HX: Recurrent chronic pancreatitis with extensive workups and was seen at [facility] with no cause of pancreatitis discovered. History of Any Multi-Drug Resistant Organisms: None Reported Past Surgical History: No Surgical Hx Reported Additional Past Surgical History / Comment(s): EGD's and EGD with biopsy. Past Anesthesia/Blood Transfusion Reactions: No Reported Reaction Past Psychological History: ADD/ADHD Additional Psychological History / Comment(s): Pt takes adderill during school year to help her concentrate-she is no longer using. Smoking Status: Never smoker Past Alcohol Use History: None Reported Additional Past Alcohol Use History / Comment(s): Patient is a nonsmoker. She denies any medical marijuana, marijuana, street drug use. She is single and does not have any children. Past Drug Use History: None Reported - Past Family History Brother(s) Additional Family Medical History / Comment(s): She has 2 brothers and 1 sister with no major medical problems. Father Family Medical History: Diabetes Mellitus Additional Family Medical History / Comment(s): Father is alive at age 49 with history of diabetes requiring kidney and pancreas transplant. Mother Family Medical History: Deep Vein Thrombosis (DVT) Additional Family Medical History / Comment(s): Mother is alive at age 52 with history of DVT's, cardiomyopathy and pacemaker. General Exam - General Exam Comments Initial Comments: General: The patient is awake and alert, in no distress, and does not appear acutely ill. Eye: Pupils are equal, round and reactive to light, extra-ocular movements are intact. No nystagmus. There is normal conjunctiva bilaterally. No signs of icterus. Ears, nose, mouth and throat: There are moist mucous membranes and no oral lesions. Neck: The neck is supple, there is no tenderness or JVD. Cardiovascular: There is a regular rate and rhythm. No murmur, rub or gallop is appreciated. Respiratory: Lungs are clear to auscultation, respirations are non-labored, breath sounds are equal. No wheezes, stridor, rales, or rhonchi. Gastrointestinal: appearance abdomen. Normal bowel sounds. Abdomen soft on palpation. Patient does have tenderness greatest in epigastric and left upper quadrant. Mild both right and left sided CVA tenderness. No rebound tenderness. No guarding. Musculoskeletal: Normal ROM, no tenderness. Strength 5/5. Sensation intact. Pulses equal bilaterally 2+. Neurological: A&O x 3. CN II-XII intact, There are no obvious motor or sensory deficits. Coordination appears grossly intact. Speech is normal. Skin: Skin is warm and dry and no rashes or lesions are noted. Psychiatric: Cooperative, appropriate mood & affect, normal judgment. Limitations: no limitations Course Vital Signs 03/07/17 13:06 Temperature 97.5 F L Pulse Rate 95 Respiratory 20 Rate Blood Pressure 137/90 O2 Sat by Pulse 97 Oximetry Medical Decision Making - Medical Decision Making Patient's labs reviewed does show lipase greater than 2000. Patient does have a history of chronic pancreatitis with unknown etiology. she admits that symptoms started yesterday. States symptoms are consistent with pink toes that she's had in the past. Case was discussed with attending physician discuss case with admitting physician whom at the patient recommended CT of the abdomen and pelvis with consults to Dr Michael Riley - Lab Data Result diagrams: 03/07/17 13:47 03/07/17 13:47 Lab Results 03/07/17 03/07/17 03/07/17 Range/Units 13:47 13:47 13:47 WBC 9.2 (4.0-11.0) k/uL RBC 4.79 (3.80-5.40) m/uL Hgb 13.8 (11.4-16.0) gm/dL Hct 40.7 (34.0-46.0) % MCV 85.0 (80.0-100.0) fL MCH 28.8 (25.0-35.0) pg MCHC 33.9 (31.0-37.0) g/dL RDW 13.2 (11.5-15.5) % Plt Count 286 (150-450) k/uL Neutrophils % 68 % Lymphocytes % 22 % Monocytes % 5 % Eosinophils % 3 % Basophils % 0 % Neutrophils # 6.3 (1.3-7.7) k/uL Lymphocytes # 2.0 (1.0-4.8) k/uL Monocytes # 0.4 (0-1.0) k/uL Eosinophils # 0.3 (0-0.7) k/uL Basophils # 0.0 (0-0.2) k/uL Sodium 140 (137-145) mmol/L Potassium 4.2 (3.5-5.1) mmol/L Chloride 106 (98-107) mmol/L Carbon Dioxide 23 (22-30) mmol/L Anion Gap 11 mmol/L BUN 10 (7-17) mg/dL Creatinine 0.53 (0.52-1.04) mg/dL Est GFR (MDRD) Af Amer >60 (>60 ml/min/1.73 sqM) Est GFR (MDRD) Non-Af >60 (>60 ml/min/1.73 sqM) Glucose 139 H (74-99) mg/dL Calcium 9.4 (8.4-10.2) mg/dL Total Bilirubin 0.6 (0.2-1.3) mg/dL AST 74 H (14-36) U/L ALT 116 H (9-52) U/L Alkaline Phosphatase 81 (38-126) U/L Total Protein 7.4 (6.3-8.2) g/dL Albumin 4.4 (3.5-5.0) g/dL Amylase 184 H (30-110) U/L Lipase 2188 H (23-300) U/L Urine Color Colorless Urine Appearance Clear (Clear) Urine pH 6.0 (5.0-8.0) Ur Specific [place] 1.000 L (1.001-1.035) Urine Protein Negative (Negative) Urine Glucose (UA) Negative (Negative) Urine Ketones Negative (Negative) Urine Blood Negative (Negative) Urine Nitrite Negative (Negative) Urine Bilirubin Negative (Negative) Urine Urobilinogen <2.0 (<2.0) mg/dL Ur Leukocyte Esterase Negative (Negative) Disposition Clinical Impression: Pancreatitis Disposition: ADMITTED IP TO THIS HOSP Condition: Stable Referrals: Alice Lazaro MD [Primary Care Provider] - 1-2 days Time of Disposition: 15:10
[2017-03-07] MEDS ORDERED: HYDROmorphone 1 MG/ML 1 ML SYRINGE IVP STA (13:57)
[2017-03-07 13:58] LABS: Appearance,Urine Clear (Clear); Basophils % (A) 0 %; Bilirubin,Urine Negative (Negative); CH 29.3; CHCM 34.6; Eosinophils # (A) 0.3 k/uL (0-0.7); Eosinophils % (A) 3 %; Glucose,Urine (UA) Negative (Negative); HCT 40.7 % (34.0-46.0); HDW 2.86; HGB 13.8 gm/dL (11.4-16.0); Ketones,Urine Negative (Negative); Leukocyte Esterase,Urine Negative (Negative); Luc # (Auto) 0.13; Luc % (Auto) 1; Lymphocytes % (A) 22 %; MCH 28.8 pg (25.0-35.0); MCHC 33.9 g/dL (31.0-37.0); Mean Platelet Volume 6.9; Monocytes # (A) 0.4 k/uL (0-1.0); Monocytes % (A) 5 %; Neutrophils # (A) 6.3 k/uL (1.3-7.7); Neutrophils % (A) 68 %; Nitrite,Urine Negative (Negative); Protein,Urine Negative (Negative); RBC 4.79 m/uL (3.80-5.40); RDW 13.2 % (11.5-15.5); UA Billing (MACRO vs. MICRO) CHEM; Urobilinogen,Urine <2.0 mg/dL (<2.0); WBC 9.2 k/uL (4.0-11.0); WBC (Perox) 9.44
[2017-03-07 14:08] LABS: ALT 116 U/L (9-52); AST 74 U/L (14-36); Alkaline Phosphatase 81 U/L (38-126); Amylase 184 U/L (30-110); Anion Gap 11 mmol/L; Blood Urea Nitrogen 10 mg/dL (7-17); Calcium 9.4 mg/dL (8.4-10.2); Carbon Dioxide 23 mmol/L (22-30); Chloride 106 mmol/L (98-107); Glucose 139 mg/dL (74-99); Non-African American GFR(MDRD) >60 (>60 ml/min/1.73 sqM); Potassium 4.2 mmol/L (3.5-5.1); Sodium 140 mmol/L (137-145); Total Bilirubin 0.6 mg/dL (0.2-1.3); Total Protein 7.4 g/dL (6.3-8.2)
[2017-03-07] MEDS ORDERED: diphenhydrAMINE 50 MG/ML 1 ML VIAL IVP STA (14:57)
[2017-03-07] MEDS ORDERED: ONDANSETRON 4 MG/2 ML VIAL IVP PRN (15:05)
[2017-03-07] MEDS ORDERED: HYDROmorphone 1 MG/ML 1 ML SYRINGE IV PRN (15:05)
[2017-03-07] MEDS ORDERED: NALOXONE 0.4 MG/ML 1 ML VIAL IV PRN (15:05)
[2017-03-07] MEDS ORDERED: SODIUM CHLORIDE 0.9% 1,000 ML IV ONE (15:05)
[2017-03-07] MEDS ORDERED: RX INFO: IV CONTRAST WAS GIVEN 1 EACH MISC MISCELLANE PRN (15:08)
[2017-03-07] MEDS: HYDROmorphone 2 MG/ML 1 ML SYRINGE IV PRN ×4 (15:28→23:37)
--- NOTE | 2017-03-07 15:31 | P.HPIM ---
History of Present Illness H&P Date: 03/07/17 Chief Complaint: Abdominal pain This is a 21-year-old female. She was recently established with Dr. Lazaro. She has a past medical history for chronic relapsing pancreatitis since the age of 10 with multiple hospitalizations. She also follows with Dr. Briggs from gastroenterology. Patient has also had follow-up at [facility]. She states she has episodes that are very mild for which she does not come into the hospital and she takes [place]. She states one about every 2 weeks. She has other episodes or more severe and she comes into the hospital which occur every 3-4 months. She denies any change in her weight. She denies any change in her menses which are regular. She denies any previous pregnancies. She states she has not had an MRCP in the past. She denies any alcohol or drug intake. She denies any gpid-odd-pauzauo drugs including herbals, vitamins. She does not know of any food triggers for pain. She is a nonsmoker. She complains of abdominal pain as well as nausea and vomiting. She did come into emergency center on October 15 and was admitted. Liver MRI at that time showed underlying pancreatic diffuse him as felt present. No MRI evidence of complication related to acute pancreatitis. Hepatosplenomegaly with marked fatty infiltration of the liver is redemonstrated. Patient states she is followed up with [facility] and blood was sent to [place] and patient may be referred to [facility] for transplant and she was told that she has pancreatic divisum She presented to emergency center and found to have elevated amylase and lipase along with the AST and ALT with normal bilirubin and computed tomography scan of the abdomen and pelvis and pending at the time of dictation, however the patient will be admitted to the hospital she will be started on IV fluid, IV pain medicine as well as antiemetic and she will be seen in consultation by gastroenterology as well as general surgery. Review of Systems All systems: negative Constitutional: Reports chronic pain, Reports malaise, Reports weight gain, Denies anorexia, Denies fever, Denies lethargy Eyes: denies blurred vision, denies bulging eye, denies decreased vision, denies diplopia Ears, nose, mouth and throat: Denies headache, Denies sore throat Cardiovascular: Denies chest pain, Denies high blood pressure, Denies phlebitis , Denies shortness of breath, Denies syncope Respiratory: Denies cough Gastrointestinal: Reports abdominal pain, Reports belching, Reports bloating, Reports change in bowel habits, Reports diarrhea, Reports heartburn, Reports indigestion, Reports loss of appetite, Reports nausea, Reports vomiting, Denies melena Genitourinary: Denies dysuria, Denies hematuria Musculoskeletal: Denies myalgias Musculoskeletal: absent: ankle pain, ankle stiffness, ankle swelling, elbow pain , elbow stiffness, elbow swelling, foot pain, foot stiffness, foot swelling, hand pain, hand stiffness, hand swelling, hip pain, hip stiffness, hip swelling , knee pain, knee stiffness, knee swelling, shoulder pain, shoulder stiffness, shoulder swelling, wrist pain, wrist stiffness, wrist swelling Integumentary: Denies pruritus, Denies rash Neurological: Denies numbness, Denies weakness Psychiatric: Denies anxiety, Denies depression Endocrine: Denies fatigue, Denies weight change Past Medical History Past Medical History: No Reported History Additional Past Medical History / Comment(s): Other HX: Recurrent chronic pancreatitis with extensive workups and was seen at [facility] with no cause of pancreatitis discovered. History of Any Multi-Drug Resistant Organisms: None Reported Past Surgical History: No Surgical Hx Reported Additional Past Surgical History / Comment(s): EGD's and EGD with biopsy. Past Anesthesia/Blood Transfusion Reactions: No Reported Reaction Past Psychological History: ADD/ADHD Additional Psychological History / Comment(s): Pt takes adderill during school year to help her concentrate-she is no longer using. Smoking Status: Never smoker Past Alcohol Use History: None Reported Additional Past Alcohol Use History / Comment(s): Patient is a nonsmoker. She denies any medical marijuana, marijuana, street drug use. She is single and does not have any children. Past Drug Use History: None Reported - Past Family History Brother(s) Additional Family Medical History / Comment(s): She has 2 brothers and 1 sister with no major medical problems. Father Family Medical History: Diabetes Mellitus Additional Family Medical History / Comment(s): Father is alive at age 49 with history of diabetes requiring kidney and pancreas transplant. Mother Family Medical History: Deep Vein Thrombosis (DVT) Additional Family Medical History / Comment(s): Mother is alive at age 52 with history of DVT's, cardiomyopathy and pacemaker. Medications and Allergies Home Medications Medication Instructions Recorded Confirmed Type Amoxicillin/Potassium Clav 1 tab PO Q12HR 03/07/17 03/07/17 History [Augmentin 875-125 Tablet] Allergies Allergy/AdvReac Type Severity Reaction Status Date / Time latex Allergy Rash/Hives Verified 03/07/17 14:41 Physical Exam Vitals: Vital Signs Temp Pulse Resp BP Pulse Ox 03/07/17 13:06 97.5 F L 95 20 137/90 97 Intake and Output 03/07/17 03/07/17 03/07/17 06:59 14:59 22:59 Other: Weight 104.326 kg Patient Weight 03/08/17 06:59 Weight 104.326 kg - Constitutional General appearance: mild distress, obese - EENT Eyes: anicteric sclerae, EOMI, PERRLA, no ptosis, no scleral icterus, normal appearance ENT: hearing grossly normal, normal oropharynx, no thrush Ears: bilateral: normal - Neck Neck: no lymphadenopathy, normal ROM, no rigidity, no stridor, no thyromegaly Carotids: bilateral: upstroke normal Thyroid: right: enlarged, bilateral: normal size - Respiratory Respiratory: bilateral: CTA, negative: diminished, dullness, rales, rhonchi, wheezing, prolonged expiration - Cardiovascular Rhythm: regular Heart sounds: normal: S1, S2 Abnormal Heart Sounds: no systolic murmur, no diastolic murmur, no S3 Gallop, no S4 Gallop - Gastrointestinal General gastrointestinal: distended, hyperactive bowel sounds, no organomegaly, soft, no splenomegaly, tenderness (Right upper quadrant and epigastric tenderness.) Localized gastrointestinal: tender: diffuse - Integumentary Integumentary: normal, normal turgor - Neurologic Neurologic: CNII-XII intact - Musculoskeletal Musculoskeletal: strength equal bilaterally - Psychiatric Psychiatric: A&O x's 3, appropriate affect, intact judgment & insight Results CBC & Chem 7: 03/11/17 06:35 03/11/17 06:35 Labs: Abnormal Lab Results - Last 24 Hours (Table) 03/07/17 03/07/17 Range/Units 13:47 13:47 Glucose 139 H (74-99) mg/dL AST 74 H (14-36) U/L ALT 116 H (9-52) U/L Amylase 184 H (30-110) U/L Lipase 2188 H (23-300) U/L Ur Specific [place] 1.000 L (1.001-1.035) Thrombosis Risk Factor Assmnt - DVT/VTE Prophylaxis DVT/VTE Prophylaxis: Mechanical Prophylaxis ordered, Low risk, early ambulation encouraged Assessment and Plan Plan: Assessment and plan: 1. Acute pancreatitis secondary to pancreatic divisum under the care of the [facility] .admit to the hospital, nothing by mouth, IV fluid, IV pain medicine, Protonix 40 mg IV push every 24 hours, Dilaudid 1-1/2 mg IV push every 3 hours as needed, computed tomography scan of the abdomen with contrast, Zofran form and gram IV push every 6 hours as needed. 2. ADHD, stable. 3. Gastrointestinal prophylaxis. Protonix. 4. DVT prophylaxis. SCDs and JOAQUÍN petee, early ambulation. Patient will be admitted to the hospital for a minimum of 3 night stay. Discharge plan: Return home
--- NOTE | 2017-03-07 15:58 | CT ---
EXAMINATION TYPE: CT abdomen pelvis w con DATE OF EXAM: 03/07/2017 REFERENCE: Previous study dated 12/24/2015. HISTORY: Pain HISTORY: Upper Abd pain and abnormal labs CT DLP: 1640 mGy Automated exposure control for dose reduction was used. TECHNIQUE: Helical acquisition through the abdomen and pelvis was obtained following the oral ingesti on of without Oral Contrast and following intravenous administration of 100 mL of Omnipaque 300. The data was reformatted in axial, coronal and sagittal projections. FINDINGS: Visualized portions of the lungs are clear. There is no pleural or pericardial fluid. The heart is mildly enlarged. There is a small hiatal hernia. The liver is enlarged measuring 23 cm. There is marked fatty infiltration of the liver. The spleen is enlarged measuring 14.5 cm. The gallbladder is normal. Both adrenal glands are normal. Both kidneys demonstrate function and appear morphologically normal. The pancreas is unremarkable. There is no significant retroperitoneal, iliac or inguinal adenopathy. Uterus is unremarkable. There is follicular change in both ovaries. The bladder is normal. There is colonic wall thickening and fatty infiltration of the colonic wall. The appendix is normal. Small bowel loops are normal. There is no free fluid and no free air. No bony destructive lesion is seen. IMPRESSION: HEPATOSPLENOMEGALY AND FATTY INFILTRATION OF THE LIVER. 2. COLONIC MUCOSAL THICKENING IN FATTY INFILTRATION OF THE COLONIC MUCOSA IS SOMETIMES SEEN IN INFLAM MATORY BOWEL DISEASE. PLEASE CORRELATE CLINICALLY.
[2017-03-07] MEDS: PANTOPRAZOLE 40 MG/10 ML VIAL IVP SCH (16:32)
[2017-03-07] MEDS: ACETAMINOPHEN TAB 325 MG TAB PO PRN (18:53)
[2017-03-07] MEDS: ONDANSETRON 4 MG/2 ML VIAL IVP PRN (20:57)
[2017-03-08] MEDS: ACETAMINOPHEN TAB 325 MG TAB PO PRN ×4 (01:48→20:01)
[2017-03-08] MEDS: HYDROmorphone 2 MG/ML 1 ML SYRINGE IV PRN ×7 (03:40→21:41)
[2017-03-08] MEDS: ONDANSETRON 4 MG/2 ML VIAL IVP PRN ×4 (03:42→21:41)
[2017-03-08] MEDS: PANTOPRAZOLE 40 MG/10 ML VIAL IVP SCH (07:39)
[2017-03-08] MEDS ORDERED: HYDROmorphone 1 MG/ML 1 ML SYRINGE IVP STA (09:32)
[2017-03-08 10:12] LABS: Basophils % (A) 0 %; CH 29.4; Eosinophils # (A) 0.1 k/uL (0-0.7); Eosinophils % (A) 1 %; HCT 37.5 % (34.0-46.0); HDW 2.87; HGB 12.3 gm/dL (11.4-16.0); Luc # (Auto) 0.15; Luc % (Auto) 2; Lymphocytes # (A) 1.5 k/uL (1.0-4.8); Lymphocytes % (A) 15 %; MCH 28.6 pg (25.0-35.0); MCHC 32.9 g/dL (31.0-37.0); MCV 86.9 fL (80.0-100.0); Mean Platelet Volume 7.2; Monocytes # (A) 0.5 k/uL (0-1.0); Monocytes % (A) 6 %; Neutrophils # (A) 7.5 k/uL (1.3-7.7); Neutrophils % (A) 77 %; RBC 4.32 m/uL (3.80-5.40); RDW 13.3 % (11.5-15.5); WBC 9.7 k/uL (4.0-11.0); WBC (Perox) 10.27
[2017-03-08] MEDS: SCOPOLAMINE 1.5MG/72HR PATCH TRANSDERM SCH (10:13)
--- NOTE | 2017-03-08 10:36 | P.CONS ---
History of Present Illness - Reason for Consult Consult date: 03/08/17 Pancreatitis Requesting physician: Chasidy Temple - History of Present Illness 21-year-old female well-known to the GI service with a history of chronic relapsing pancreatitis since the age of 10 with multiple hospitalizations and evaluation by [facility]. She was told at [facility] appointment in November that her pancreatitis is secondary to pancreatic divisum. Referral to [facility] appointment is scheduled for July. Presents with acute abdominal pain with elevated pancreatic enzymes consistent with pancreatitis. Lipase 2188. Amylase 184. Total bilirubin 0.6. AST 74. ALT 116. Alk phosphatase 81. Afebrile. CT abdomen and pelvis reported enlarged liver 23 cm. Fatty consultation. Spleen 14.5 cm. Gallbladder normal. Colonic wall thickening and fatty infiltration of the colonic wall. Review of Systems Constitutional: Denies fever, chills, sweats, weight gain, or loss. HEENT: Negative for migraines, blurred vision or loss, earaches, drainage, tinnitus, oral mucosal lesions, dysphagia, or odynophagia. CARDIAC: Negative for chest pain, arrhythmias, or palpitation. RESPIRATORY: Negative for shortness of breath, hemoptysis, cough, or sputum production. GI: See HPI for pertinent findings. : Negative for hematuria, urgency, frequency, polyuria, or dysuria. GYNc: Denies possibility of . Negative vaginal discharge. MUSCULOSKELETAL: Negative for muscle aches, swelling, arthritis, and arthralgias. NEUROLOGIC: Negative for stroke or TIA. ENDOCRINE: Negative for thyroid problems. SKIN: Negative for rash or itching. PSYCHIATRIC: History of ADHD. Negative history for depression and anxiety All systems: negative (See HPI) Past Medical History Past Medical History: No Reported History Additional Past Medical History / Comment(s): Other HX: Recurrent chronic pancreatitis since age 10 with extensive workups and was seen at [facility] with no cause of pancreatitis discovered. CURRENTLY ON ABX FOR SINUS INFECTION. History of Any Multi-Drug Resistant Organisms: None Reported Past Surgical History: No Surgical Hx Reported Additional Past Surgical History / Comment(s): EGD's and EGD with biopsy. Past Anesthesia/Blood Transfusion Reactions: No Reported Reaction Past Psychological History: ADD/ADHD Additional Psychological History / Comment(s): Pt takes adderill during school year to help her concentrate-she is no longer using. pt lives in [address] home with her boyfriend. has no oustside steps but 13 steps to 2nd floor. has pets: 1 cat, 1 rabbit, 1 goldfish.no outside services. 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. Smoking Status: Never smoker Past Alcohol Use History: None Reported Additional Past Alcohol Use History / Comment(s): Patient is a nonsmoker. She denies any medical marijuana, marijuana, street drug use. She is single and does not have any children. Past Drug Use History: None Reported - Past Family History Brother(s) Additional Family Medical History / Comment(s): She has 2 brothers and 1 sister with no major medical problems. Father Family Medical History: Diabetes Mellitus Additional Family Medical History / Comment(s): Father is alive at age 49 with history of diabetes requiring kidney and pancreas transplant. Mother Family Medical History: Deep Vein Thrombosis (DVT) Additional Family Medical History / Comment(s): Mother is alive at age 52 with history of DVT's, cardiomyopathy and pacemaker. Medications and Allergies Home Medications Medication Instructions Recorded Confirmed Type Amoxicillin/Potassium Clav 1 tab PO Q12HR 03/07/17 03/07/17 History [Augmentin 875-125 Tablet] Allergies Allergy/AdvReac Type Severity Reaction Status Date / Time latex Allergy Rash/Hives Verified 03/07/17 14:41 Physical Exam Vitals: Vital Signs Temp Pulse Pulse Resp BP BP Pulse Ox 03/08/17 07:00 97.8 F 74 22 110/60 93 L 03/07/17 16:14 97.5 F L 66 22 131/91 95 03/07/17 15:42 98 F 100 18 148/83 94 L 03/07/17 13:06 97.5 F L 95 20 137/90 97 Intake and Output 03/07/17 03/08/17 03/08/17 22:59 06:59 14:59 Intake Total 0 0 Output Total 300 100 Balance -300 -100 Intake: Oral 0 0 Output: Urine 100 Emesis 300 Other: Voiding Method Toilet # Voids 2 1 Weight 104.326 kg General appearance: The patient is alert, oriented, in no acute distress. HET: Head is normocephalic and atraumatic. Pupils are equal and reactive. Oropharynx is clear without lesions. Neck: Supple without lymphadenopathy. Trachea midline. Heart: S1 S2. Regular rate and rhythm. Lungs: No crackles or wheezes are heard. Abdomen: Soft, tenderness midepigastrium with bowel sounds. No peritoneal signs. No palpable organomegaly or masses. Extremities: Normal skin color and turgor. No cyanosis, rash, ulceration, clubbing, or edema. Radial and pedal pulses are 2/4 bilaterally. Neurological: No focal deficits. Strength and sensation are grossly intact. Results CBC & Chem 7: 03/08/17 09:36 03/07/17 13:47 Labs: Abnormal Lab Results - Last 24 Hours (Table) 03/07/17 03/07/17 Range/Units 13:47 13:47 Glucose 139 H (74-99) mg/dL AST 74 H (14-36) U/L ALT 116 H (9-52) U/L Amylase 184 H (30-110) U/L Lipase 2188 H (23-300) U/L Ur Specific [place] 1.000 L (1.001-1.035) Microbiology - Last 24 Hours (Table) 03/07/17 13:47 Urine Culture - Preliminary Urine,Voided CT scan - abdomen: report reviewed (Dr. Briggs) Assessment and Plan (1) Acute on chronic pancreatitis Narrative/Plan: Pancreatic divisum Status: Chronic (2) Pancreatic divisum Status: Chronic Plan: 1. IV hydration. Supportive measures. 2. Will follow with you. Referral to tertiary care center as advised. Thank you for this kind referral and the opportunity to participate in the care of your patient. This consultation was discussed with Dr. Briggs. The impression and plan of care have been directed as dictated.
[2017-03-08 10:52] LABS: ALT 106 U/L (9-52); AST 54 U/L (14-36); Alkaline Phosphatase 76 U/L (38-126); Amylase 298 U/L (30-110); Anion Gap 8 mmol/L; Blood Urea Nitrogen 8 mg/dL (7-17); Calcium 9.1 mg/dL (8.4-10.2); Carbon Dioxide 27 mmol/L (22-30); Chloride 104 mmol/L (98-107); Cholesterol 188 mg/dL (<200); Glucose 99 mg/dL (74-99); HDL Cholesterol 38 mg/dL (40-60); LDH 568 U/L (313-618); Non-African American GFR(MDRD) >60 (>60 ml/min/1.73 sqM); Potassium 4.1 mmol/L (3.5-5.1); Sodium 139 mmol/L (137-145); Total Bilirubin 0.6 mg/dL (0.2-1.3); Total Protein 7.1 g/dL (6.3-8.2); Triglycerides 148 mg/dL (<150)
[2017-03-08] MEDS: diphenhydrAMINE 25 MG CAP PO PRN ×2 (13:46→20:05)
[2017-03-08] MEDS: SENNOSIDES-DOCUSATE SODIUM 1 EACH TAB PO SCH ×2 (13:46→21:42)
[2017-03-08] MEDS: MAGNESIUM HYDROXIDE 2,400 MG/10 ML CUP PO SCH ×2 (13:46→21:40)
--- NOTE | 2017-03-08 13:59 | P.GSCN ---
History of Present Illness Consult date: 03/08/17 Reason for Consult: Pancreatitis History of present illness: Patient hospitalized with recurrent pancreatitis. She first identified pancreatitis at the age of 10. She is felt to have suffered from pancreatic divisum. She has an appointment to see the [facility] this fall. She came to the hospital with upper abdominal pain. Is identical to her prior episodes of pancreatitis. Prior ultrasound and recent CAT scan shows a normal- appearing gallbladder. Her liver enzymes are slightly elevated but bilirubin and alk phos are normal. She just feels somewhat better today. Amylase and lipase elevation persist however. She is afebrile. Review of Systems The patient denies any acute changes in his vision or hearing, no dysphagia or odynophagia, no chest pain or shortness of breath, no dysuria or hematuria, no headache, no runny nose, no rectal bleeding or melena, no unexplained weight loss Past Medical History Past Medical History: No Reported History Additional Past Medical History / Comment(s): Other HX: Recurrent chronic pancreatitis since age 10 with extensive workups and was seen at [facility] with no cause of pancreatitis discovered. CURRENTLY ON ABX FOR SINUS INFECTION. History of Any Multi-Drug Resistant Organisms: None Reported Past Surgical History: No Surgical Hx Reported Additional Past Surgical History / Comment(s): EGD's and EGD with biopsy. Past Anesthesia/Blood Transfusion Reactions: No Reported Reaction Past Psychological History: ADD/ADHD Additional Psychological History / Comment(s): Pt takes adderill during school year to help her concentrate-she is no longer using. pt lives in [address] [place] home with her boyfriend. has no oustside steps but 13 steps to 2nd floor. has pets: 1 cat, 1 rabbit, 1 goldfish.no outside services. 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 She denies any medical marijuana, marijuana, street drug use. She is single and does not have any children. Past Drug Use History: None Reported - Past Family History Brother(s) Additional Family Medical History / Comment(s): She has 2 brothers and 1 sister with no major medical problems. Father Family Medical History: Diabetes Mellitus Additional Family Medical History / Comment(s): Father is alive at age 49 with history of diabetes requiring kidney and pancreas transplant. Mother Family Medical History: Deep Vein Thrombosis (DVT) Additional Family Medical History / Comment(s): Mother is alive at age 52 with history of DVT's, cardiomyopathy and pacemaker. Medications and Allergies Home Medications Medication Instructions Recorded Confirmed Type Amoxicillin/Potassium Clav 1 tab PO Q12HR 03/07/17 03/07/17 History [Augmentin 875-125 Tablet] Allergies Allergy/AdvReac Type Severity Reaction Status Date / Time latex Allergy Rash/Hives Verified 03/07/17 14:41 Surgical - Exam Vital Signs Temp Pulse Resp BP Pulse Ox 97.5 F L 95 20 137/90 97 03/07/17 13:06 03/07/17 13:06 03/07/17 13:06 03/07/17 13:06 03/07/17 13:06 Physical exam: General: Well-developed, well-nourished HEENT: Normocephalic, sclerae nonicteric Abdomen: Epigastric tenderness, nondistended Extremities: No edema Neuro: Alert and oriented Results - Labs 03/08/17 09:36 03/08/17 09:36 Abnormal Lab Results - Last 24 Hours (Table) 03/07/17 03/07/17 03/08/17 Range/Units 13:47 13:47 09:36 Creatinine 0.49 L (0.52-1.04) mg/dL Glucose 139 H (74-99) mg/dL AST 74 H 54 H (14-36) U/L ALT 116 H 106 H (9-52) U/L LDL Cholesterol, Calc 120 H (0-99) mg/dL HDL Cholesterol 38 L (40-60) mg/dL Amylase 184 H 298 H (30-110) U/L Lipase 2188 H 2188 H (23-300) U/L Ur Specific [place] 1.000 L (1.001-1.035) Microbiology - Last 24 Hours (Table) 03/07/17 13:47 Urine Culture - Preliminary Urine,Voided Diabetes panel 03/07/17 03/08/17 Range/Units 13:47 09:36 Sodium 140 139 (137-145) mmol/L Potassium 4.2 4.1 (3.5-5.1) mmol/L Chloride 106 104 (98-107) mmol/L Carbon Dioxide 23 27 (22-30) mmol/L BUN 10 8 (7-17) mg/dL Creatinine 0.53 0.49 L (0.52-1.04) mg/dL Glucose 139 H 99 (74-99) mg/dL Calcium 9.4 9.1 (8.4-10.2) mg/dL AST 74 H 54 H (14-36) U/L ALT 116 H 106 H (9-52) U/L Alkaline Phosphatase 81 76 (38-126) U/L Total Protein 7.4 7.1 (6.3-8.2) g/dL Albumin 4.4 4.4 (3.5-5.0) g/dL Triglycerides 148 (<150) mg/dL HDL Cholesterol 38 L (40-60) mg/dL Calcium panel 03/07/17 03/08/17 Range/Units 13:47 09:36 Calcium 9.4 9.1 (8.4-10.2) mg/dL Albumin 4.4 4.4 (3.5-5.0) g/dL Pituitary panel 03/07/17 03/08/17 Range/Units 13:47 09:36 Sodium 140 139 (137-145) mmol/L Potassium 4.2 4.1 (3.5-5.1) mmol/L Chloride 106 104 (98-107) mmol/L Carbon Dioxide 23 27 (22-30) mmol/L BUN 10 8 (7-17) mg/dL Creatinine 0.53 0.49 L (0.52-1.04) mg/dL Glucose 139 H 99 (74-99) mg/dL Calcium 9.4 9.1 (8.4-10.2) mg/dL Adrenal panel 03/07/17 03/08/17 Range/Units 13:47 09:36 Sodium 140 139 (137-145) mmol/L Potassium 4.2 4.1 (3.5-5.1) mmol/L Chloride 106 104 (98-107) mmol/L Carbon Dioxide 23 27 (22-30) mmol/L BUN 10 8 (7-17) mg/dL Creatinine 0.53 0.49 L (0.52-1.04) mg/dL Glucose 139 H 99 (74-99) mg/dL Calcium 9.4 9.1 (8.4-10.2) mg/dL Total Bilirubin 0.6 0.6 (0.2-1.3) mg/dL AST 74 H 54 H (14-36) U/L ALT 116 H 106 H (9-52) U/L Alkaline Phosphatase 81 76 (38-126) U/L Total Protein 7.4 7.1 (6.3-8.2) g/dL Albumin 4.4 4.4 (3.5-5.0) g/dL Assessment and Plan (1) Pancreatitis Narrative/Plan: No surgical intervention planned at this point. Agree with plans for bowel rest and repeat lab work. We will reassess this patient Tomorrow. Status: Acute
--- NOTE | 2017-03-08 15:31 | P.PN ---
Subjective This is a 21-year-old female. She was recently established with Dr. Lazaro. She has a past medical history for chronic relapsing pancreatitis since the age of 10 with multiple hospitalizations. She also follows with Dr. Briggs from gastroenterology. Patient has also had follow-up at [facility]. She states she has episodes that are very mild for which she does not come into the hospital and she takes [place]. She states one about every 2 weeks. She has other episodes or more severe and she comes into the hospital which occur every 3-4 months. She denies any change in her weight. She denies any change in her menses which are regular. She denies any previous pregnancies. She states she has not had an MRCP in the past. She denies any alcohol or drug intake. She denies any ndyy-tin-tglpkur drugs including herbals, vitamins. She does not know of any food triggers for pain. She is a nonsmoker. She complains of abdominal pain as well as nausea and vomiting. She did come into [facility] emergency center on October 15 and was admitted. Liver MRI at that time showed underlying pancreatic diffuse him as felt present. No MRI evidence of complication related to acute pancreatitis. Hepatosplenomegaly with marked fatty infiltration of the liver is redemonstrated. Patient states she is followed up with [facility] and blood was sent to [place] and patient may be referred to [facility] for transplant and she was told that she has pancreatic divisum She presented to [facility] emergency center and found to have elevated amylase and lipase along with the AST and ALT with normal bilirubin and computed tomography scan of the abdomen and pelvis and pending at the time of dictation, however the patient will be admitted to the hospital she will be started on IV fluid, IV pain medicine as well as antiemetic and she will be seen in consultation by gastroenterology as well as general surgery. 03/08: Patient is followed by GI services in general surgeon. Plan is for bowel rest and monitor lab work. Amylase has increased to 298 and lipase is at 2188. LDH 568. Patient continues to have pain for which Dilaudid increased to 2 mg every 3 hours. Patient is complaining of constipation for which milk of magnesia and Senokot will be scheduled and patient is complaining of itching for which Benadryl was added. CAT scan of the abdomen and pelvis revealed hepatosplenomegaly with fatty infiltration of the liver. Colonic mucosal thickening in fatty infiltration of the colonic mucosa is sometimes seen inflammatory bowel disease. Objective - Vital Signs Vital signs: Vital Signs Temp 97.8 F 03/08/17 07:00 Pulse 74 03/08/17 07:00 Resp 22 03/08/17 07:00 BP 110/60 03/08/17 07:00 Pulse Ox 93 L 03/08/17 07:00 Intake & Output 03/07/17 03/08/17 03/08/17 18:59 06:59 18:59 Intake Total 0 Output Total 400 Balance -400 Weight 104.326 kg Intake: Oral 0 Output: Urine 100 Emesis 300 Other: Voiding Method Toilet # Voids 1 - Exam General appearance: mild distress, obese - EENT Eyes: anicteric sclerae, EOMI, PERRLA, no ptosis, no scleral icterus, normal appearance ENT: hearing grossly normal, normal oropharynx, no thrush Ears: bilateral: normal - Neck Neck: no lymphadenopathy, normal ROM, no rigidity, no stridor, no thyromegaly Carotids: bilateral: upstroke normal Thyroid: right: enlarged, bilateral: normal size - Respiratory Respiratory: bilateral: CTA, negative: diminished, dullness, rales, rhonchi, wheezing, prolonged expiration - Cardiovascular Rhythm: regular Heart sounds: normal: S1, S2 Abnormal Heart Sounds: no systolic murmur, no diastolic murmur, no S3 Gallop, no S4 Gallop - Gastrointestinal General gastrointestinal: distended, hyperactive bowel sounds, no organomegaly, soft, no splenomegaly, tenderness (Right upper quadrant and epigastric tenderness.) Localized gastrointestinal: tender: diffuse - Integumentary Integumentary: normal, normal turgor - Neurologic Neurologic: CNII-XII intact - Musculoskeletal Musculoskeletal: strength equal bilaterally - Psychiatric Psychiatric: A&O x's 3, appropriate affect, intact judgment & insight - Labs CBC & Chem 7: 03/08/17 09:36 03/08/17 09:36 Labs: Abnormal Lab Results - Last 24 Hours (Table) 03/07/17 03/07/17 03/08/17 Range/Units 13:47 13:47 09:36 Creatinine 0.49 L (0.52-1.04) mg/dL Glucose 139 H (74-99) mg/dL AST 74 H 54 H (14-36) U/L ALT 116 H 106 H (9-52) U/L LDL Cholesterol, Calc 120 H (0-99) mg/dL HDL Cholesterol 38 L (40-60) mg/dL Amylase 184 H 298 H (30-110) U/L Lipase 2188 H 2188 H (23-300) U/L Ur Specific [place] 1.000 L (1.001-1.035) Microbiology - Last 24 Hours (Table) 03/07/17 13:47 Urine Culture - Preliminary Urine,Voided Assessment and Plan Plan: 1. Acute pancreatitis secondary to pancreatic divisum and her the care of the [facility] .admit to the hospital, nothing by mouth, IV fluid, IV pain medicine, Protonix 40 mg IV push every 24 hours, Dilaudid 2 mg IV push every 3 hours as needed, computed tomography scan of the abdomen with contrast as above, Zofran form and gram IV push every 6 hours as needed. 2. ADHD, stable. 3. Gastrointestinal prophylaxis. Protonix. 4. DVT prophylaxis. SCDs and JOAQUÍN freemane, early ambulation. Discharge plan: Return home Impression and plan of care have been directed as dictated by the signing physician. Adwoa Ernandez nurse practitioner acting as scribe for signing physician.
[2017-03-08] MEDS: SODIUM CHLORIDE 0.9% 1,000 ML IV SCH (20:11)
[2017-03-09] MEDS: HYDROmorphone 2 MG/ML 1 ML SYRINGE IV PRN ×3 (01:53→08:32)
[2017-03-09] MEDS: ACETAMINOPHEN TAB 325 MG TAB PO PRN ×4 (01:54→20:35)
[2017-03-09] MEDS: diphenhydrAMINE 25 MG CAP PO PRN ×4 (02:05→20:35)
[2017-03-09] MEDS: ONDANSETRON 4 MG/2 ML VIAL IVP PRN ×3 (05:03→18:47)
[2017-03-09] MEDS: SODIUM CHLORIDE 0.9% 1,000 ML IV SCH (06:09)
[2017-03-09 07:13] LABS: ALT 92 U/L (9-52); AST 43 U/L (14-36); Alkaline Phosphatase 72 U/L (38-126); Anion Gap 12 mmol/L; Blood Urea Nitrogen 6 mg/dL (7-17); Calcium 9.1 mg/dL (8.4-10.2); Carbon Dioxide 25 mmol/L (22-30); Chloride 101 mmol/L (98-107); Glucose 90 mg/dL (74-99); Non-African American GFR(MDRD) >60 (>60 ml/min/1.73 sqM); Potassium 3.9 mmol/L (3.5-5.1); Sodium 138 mmol/L (137-145); Total Bilirubin 0.7 mg/dL (0.2-1.3); Total Protein 7.3 g/dL (6.3-8.2)
[2017-03-09] MEDS: MAGNESIUM HYDROXIDE 2,400 MG/10 ML CUP PO SCH ×2 (09:35→20:39)
[2017-03-09] MEDS ORDERED: KETOROLAC 30 MG/ML 1 ML VIAL IVP STA (09:35)
[2017-03-09] MEDS: PANTOPRAZOLE 40 MG/10 ML VIAL IVP SCH (09:36)
--- NOTE | 2017-03-09 10:48 | P.PN ---
Subjective Principal diagnosis: Pancreatic divisum pancreatitis History of pancreatic divisum admitted with acute on chronic relapsing pancreatitis. Pancreatic enzymes improved however patient reports severe migraine with persistent nausea vomiting through the night. Afebrile. Acetaminophen not helping her pain. Receiving IV Dilaudid. Objective - Vital Signs Vital signs: Vital Signs Temp 98.2 F 03/09/17 07:40 Pulse 67 03/09/17 07:40 Resp 16 03/09/17 07:40 BP 111/67 03/09/17 07:40 Pulse Ox 94 L 03/09/17 07:40 Intake & Output 03/08/17 03/09/17 03/09/17 18:59 06:59 18:59 Output Total 1030 Balance -1030 Output: Emesis 1030 Other: # Voids 1 1 1 - Exam General appearance: The patient is alert, oriented, in no acute distress. HET: Head is normocephalic and atraumatic. Pupils are equal and reactive. Oropharynx is clear without lesions. Neck: Supple without lymphadenopathy. Trachea midline. Heart: S1 S2. Regular rate and rhythm. Lungs: No crackles or wheezes are heard. Abdomen: Soft, tenderness midepigastrium, nondistended with bowel sounds. No peritoneal signs. No palpable organomegaly or masses. Extremities: Normal skin color and turgor. No cyanosis, rash, ulceration, clubbing, or edema. Radial and pedal pulses are 2/4 bilaterally. Neurological: No focal deficits. Strength and sensation are grossly intact. - Labs CBC & Chem 7: 03/08/17 09:36 03/09/17 06:33 Labs: Abnormal Lab Results - Last 24 Hours (Table) 03/08/17 03/09/17 Range/Units 09:36 06:33 BUN 6 L (7-17) mg/dL Creatinine 0.49 L 0.47 L (0.52-1.04) mg/dL AST 54 H 43 H (14-36) U/L ALT 106 H 92 H (9-52) U/L LDL Cholesterol, Calc 120 H (0-99) mg/dL HDL Cholesterol 38 L (40-60) mg/dL Amylase 298 H (30-110) U/L Lipase 2188 H 753 H (23-300) U/L Microbiology - Last 24 Hours (Table) 03/07/17 13:47 Urine Culture - Final Urine,Voided Assessment and Plan (1) Acute on chronic pancreatitis Status: Chronic (2) Pancreatic divisum Status: Chronic (3) Hepatosplenomegaly Status: Chronic (4) Obesity (BMI 30-39.9) Status: Chronic Plan: 1. We'll provide a few doses of Toradol for pain relief. 2. Nothing by mouth except medications and ice chips as tolerated. 3. Continue supportive measures. 4. Will continue to follow. Assessment and plan a care discussed with Dr. Briggs.
[2017-03-09] MEDS ORDERED: HYDROmorphone 2 MG/ML 1 ML SYRINGE IV PRN (11:02)
[2017-03-09] MEDS: D5-0.45% NACL WITH KCL 20MEQ/L 1,000 ML IV SCH ×2 (11:22→23:43)
[2017-03-09] MEDS: HYDROmorphone 1 MG/ML 1 ML SYRINGE IVP PRN ×4 (11:23→22:12)
[2017-03-09] MEDS: SENNOSIDES-DOCUSATE SODIUM 1 EACH TAB PO SCH ×2 (11:33→20:35)
--- NOTE | 2017-03-09 12:37 | P.PN ---
Subjective This is a 21-year-old female. She was recently established with Dr. Lazaro. She has a past medical history for chronic relapsing pancreatitis since the age of 10 with multiple hospitalizations. She also follows with Dr. Briggs from gastroenterology. Patient has also had follow-up at [facility]. She states she has episodes that are very mild for which she does not come into the hospital and she takes [place]. She states one about every 2 weeks. She has other episodes or more severe and she comes into the hospital which occur every 3-4 months. She denies any change in her weight. She denies any change in her menses which are regular. She denies any previous pregnancies. She states she has not had an MRCP in the past. She denies any alcohol or drug intake. She denies any byqd-qtl-myvtfxk drugs including herbals, vitamins. She does not know of any food triggers for pain. She is a nonsmoker. She complains of abdominal pain as well as nausea and vomiting. She did come into [facility] emergency center on October 15 and was admitted. Liver MRI at that time showed underlying pancreatic diffuse him as felt present. No MRI evidence of complication related to acute pancreatitis. Hepatosplenomegaly with marked fatty infiltration of the liver is redemonstrated. Patient states she is followed up with [facility] and blood was sent to [place] and patient may be referred to [facility] for transplant and she was told that she has pancreatic divisum She presented to [facility] emergency center and found to have elevated amylase and lipase along with the AST and ALT with normal bilirubin and computed tomography scan of the abdomen and pelvis and pending at the time of dictation, however the patient will be admitted to the hospital she will be started on IV fluid, IV pain medicine as well as antiemetic and she will be seen in consultation by gastroenterology as well as general surgery. 03/08: Patient is followed by GI services in general surgeon. Plan is for bowel rest and monitor lab work. Amylase has increased to 298 and lipase is at 2188. LDH 568. Patient continues to have pain for which Dilaudid increased to 2 mg every 3 hours. Patient is complaining of constipation for which milk of magnesia and Senokot will be scheduled and patient is complaining of itching for which Benadryl was added. CAT scan of the abdomen and pelvis revealed hepatosplenomegaly with fatty infiltration of the liver. Colonic mucosal thickening in fatty infiltration of the colonic mucosa is sometimes seen inflammatory bowel disease. 03/09: Patient states that she had some vomiting earlier today and continues to have nausea. This may be related to pain medication and Dilaudid decreased to 1 mg every 3 hours. She continues to have throbbing pain. She had a small bowel movement this morning. She remains nothing by mouth except for ice chips and medications. Repeat lipase is 753. AST and ALT are down slightly from yesterday. Objective - Vital Signs Vital signs: Vital Signs Temp 98.2 F 03/09/17 07:40 Pulse 67 03/09/17 07:40 Resp 16 03/09/17 07:40 BP 111/67 03/09/17 07:40 Pulse Ox 94 L 03/09/17 07:40 Intake & Output 03/08/17 03/09/17 03/09/17 18:59 06:59 18:59 Output Total 1030 Balance -1030 Output: Emesis 1030 Other: # Voids 1 1 1 - Exam General appearance: mild distress, obese - EENT Eyes: anicteric sclerae, EOMI, PERRLA, no ptosis, no scleral icterus, normal appearance ENT: hearing grossly normal, normal oropharynx, no thrush Ears: bilateral: normal - Neck Neck: no lymphadenopathy, normal ROM, no rigidity, no stridor, no thyromegaly Carotids: bilateral: upstroke normal Thyroid: right: enlarged, bilateral: normal size - Respiratory Respiratory: bilateral: CTA, negative: diminished, dullness, rales, rhonchi, wheezing, prolonged expiration - Cardiovascular Rhythm: regular Heart sounds: normal: S1, S2 Abnormal Heart Sounds: no systolic murmur, no diastolic murmur, no S3 Gallop, no S4 Gallop - Gastrointestinal General gastrointestinal: distended, hyperactive bowel sounds, no organomegaly, soft, no splenomegaly, tenderness (Right upper quadrant and epigastric tenderness.) Localized gastrointestinal: tender: diffuse - Integumentary Integumentary: normal, normal turgor - Neurologic Neurologic: CNII-XII intact - Musculoskeletal Musculoskeletal: strength equal bilaterally - Psychiatric Psychiatric: A&O x's 3, appropriate affect, intact judgment & insight - Labs CBC & Chem 7: 03/08/17 09:36 03/09/17 06:33 Labs: Abnormal Lab Results - Last 24 Hours (Table) 03/08/17 03/09/17 Range/Units 09:36 06:33 BUN 6 L (7-17) mg/dL Creatinine 0.49 L 0.47 L (0.52-1.04) mg/dL AST 54 H 43 H (14-36) U/L ALT 106 H 92 H (9-52) U/L LDL Cholesterol, Calc 120 H (0-99) mg/dL HDL Cholesterol 38 L (40-60) mg/dL Amylase 298 H (30-110) U/L Lipase 2188 H 753 H (23-300) U/L Microbiology - Last 24 Hours (Table) 03/07/17 13:47 Urine Culture - Final Urine,Voided Assessment and Plan Plan: 1. Acute pancreatitis secondary to pancreatic divisum and her the care of the [facility] .admit to the hospital, nothing by mouth, IV fluid, IV pain medicine, Protonix 40 mg IV push every 24 hours, Dilaudid 1 mg IV push every 3 hours as needed, computed tomography scan of the abdomen with contrast as above, Zofran IV push every 6 hours as needed. 2. ADHD, stable. 3. Gastrointestinal prophylaxis. Protonix. 4. DVT prophylaxis. SCDs and JOAQUÍN hose, early ambulation. Discharge plan: Return home Impression and plan of care have been directed as dictated by the signing physician. Adwoa Ernandez nurse practitioner acting as scribe for signing physician.
[2017-03-09] MEDS: KETOROLAC 30 MG/ML 1 ML VIAL IVP SCH ×3 (13:59→23:29)
--- NOTE | 2017-03-09 16:44 | P.PN ---
Subjective Principal diagnosis: Acute pancreatitis patient says her pain is about the same today. Her enzymes are improved however. Her migraine is better. Objective - Vital Signs Vital signs: Vital Signs Temp 97.2 F L 03/09/17 13:25 Pulse 72 03/09/17 13:25 Resp 20 03/09/17 13:25 BP 118/73 03/09/17 13:25 Pulse Ox 100 03/09/17 13:25 Intake & Output 03/08/17 03/09/17 03/09/17 18:59 06:59 18:59 Output Total 1030 Balance -1030 Output: Emesis 1030 Other: # Voids 1 1 1 - Exam abdomen: Soft, nondistended, mild epigastric tenderness - Labs CBC & Chem 7: 03/08/17 09:36 03/09/17 06:33 Labs: Abnormal Lab Results - Last 24 Hours (Table) 03/09/17 Range/Units 06:33 BUN 6 L (7-17) mg/dL Creatinine 0.47 L (0.52-1.04) mg/dL AST 43 H (14-36) U/L ALT 92 H (9-52) U/L Lipase 753 H (23-300) U/L Microbiology - Last 24 Hours (Table) 03/07/17 13:47 Urine Culture - Final Urine,Voided Assessment and Plan (1) Pancreatitis Narrative/Plan: continue analgesics. Repeat lab work tomorrow. No surgical intervention planned at this time. We'll sign off at this point. Status: Acute
[2017-03-10] MEDS: ONDANSETRON 4 MG/2 ML VIAL IVP PRN ×4 (01:02→20:24)
[2017-03-10] MEDS: diphenhydrAMINE 25 MG CAP PO PRN ×3 (02:53→17:33)
[2017-03-10] MEDS: HYDROmorphone 1 MG/ML 1 ML SYRINGE IVP PRN ×6 (02:53→20:22)
[2017-03-10] MEDS: ACETAMINOPHEN TAB 325 MG TAB PO PRN ×2 (04:56→15:36)
[2017-03-10] MEDS: KETOROLAC 30 MG/ML 1 ML VIAL IVP SCH (06:35)
[2017-03-10] MEDS: PANTOPRAZOLE 40 MG/10 ML VIAL IVP SCH (09:28)
[2017-03-10] MEDS: MAGNESIUM HYDROXIDE 2,400 MG/10 ML CUP PO SCH ×2 (09:29→20:44)
[2017-03-10] MEDS: SENNOSIDES-DOCUSATE SODIUM 1 EACH TAB PO SCH ×2 (09:29→20:44)
[2017-03-10 10:41] LABS: CH 29.1; CHCM 33.8; HCT 35.5 % (34.0-46.0); HDW 2.99; MCH 29.4 pg (25.0-35.0); MCHC 33.8 g/dL (31.0-37.0); MCV 86.8 fL (80.0-100.0); Mean Platelet Volume 7.3; RBC 4.09 m/uL (3.80-5.40); RDW 13.2 % (11.5-15.5); WBC 6.2 k/uL (4.0-11.0)
[2017-03-10 10:51] LABS: ALT 94 U/L (9-52); AST 52 U/L (14-36); Alkaline Phosphatase 69 U/L (38-126); Amylase 109 U/L (30-110); Anion Gap 10 mmol/L; Blood Urea Nitrogen 10 mg/dL (7-17); Calcium 8.6 mg/dL (8.4-10.2); Carbon Dioxide 25 mmol/L (22-30); Chloride 105 mmol/L (98-107); Glucose 81 mg/dL (74-99); Non-African American GFR(MDRD) >60 (>60 ml/min/1.73 sqM); Potassium 4.1 mmol/L (3.5-5.1); Sodium 140 mmol/L (137-145); Total Bilirubin 0.4 mg/dL (0.2-1.3); Total Protein 6.6 g/dL (6.3-8.2)
[2017-03-10] MEDS: D5-0.45% NACL WITH KCL 20MEQ/L 1,000 ML IV SCH (13:15)
--- NOTE | 2017-03-10 14:52 | P.PN ---
Subjective Principal diagnosis: Pancreatitis This is a 21-year-old female. She was recently established with Dr. Lazaro. She has a past medical history for chronic relapsing pancreatitis since the age of 10 with multiple hospitalizations. She also follows with Dr. Briggs from gastroenterology. Patient has also had follow-up at [facility]. She states she has episodes that are very mild for which she does not come into the hospital and she takes [place]. She states one about every 2 weeks. She has other episodes or more severe and she comes into the hospital which occur every 3-4 months. She denies any change in her weight. She denies any change in her menses which are regular. She denies any previous pregnancies. She states she has not had an MRCP in the past. She denies any alcohol or drug intake. She denies any zrbj-wha-lkhmfzj drugs including herbals, vitamins. She does not know of any food triggers for pain. She is a nonsmoker. She complains of abdominal pain as well as nausea and vomiting. She did come into [facility] emergency center on October 15 and was admitted. Liver MRI at that time showed underlying pancreatic diffuse him as felt present. No MRI evidence of complication related to acute pancreatitis. Hepatosplenomegaly with marked fatty infiltration of the liver is redemonstrated. Patient states she is followed up with [facility] and blood was sent to [place] and patient may be referred to [facility] for transplant and she was told that she has pancreatic divisum She presented to [facility] emergency center and found to have elevated amylase and lipase along with the AST and ALT with normal bilirubin and computed tomography scan of the abdomen and pelvis and pending at the time of dictation, however the patient will be admitted to the hospital she will be started on IV fluid, IV pain medicine as well as antiemetic and she will be seen in consultation by gastroenterology as well as general surgery. 03/08: Patient is followed by GI services in general surgeon. Plan is for bowel rest and monitor lab work. Amylase has increased to 298 and lipase is at 2188. LDH 568. Patient continues to have pain for which Dilaudid increased to 2 mg every 3 hours. Patient is complaining of constipation for which milk of magnesia and Senokot will be scheduled and patient is complaining of itching for which Benadryl was added. CAT scan of the abdomen and pelvis revealed hepatosplenomegaly with fatty infiltration of the liver. Colonic mucosal thickening in fatty infiltration of the colonic mucosa is sometimes seen inflammatory bowel disease. 03/09: Patient states that she had some vomiting earlier today and continues to have nausea. This may be related to pain medication and Dilaudid decreased to 1 mg every 3 hours. She continues to have throbbing pain. She had a small bowel movement this morning. She remains nothing by mouth except for ice chips and medications. Repeat lipase is 753. AST and ALT are down slightly from yesterday. 03/10: Patient continues to have some nausea with minimal abdominal cramps, maintained on still ice chips, lipase has come down to 605, AST and ALT is trending downwards, Objective - Vital Signs Vital signs: Vital Signs Temp 97.4 F L 03/10/17 12:05 Pulse 63 03/10/17 12:05 Resp 20 03/10/17 12:05 BP 121/67 03/10/17 12:05 Pulse Ox 96 03/10/17 12:05 Intake & Output 03/09/17 03/10/17 03/10/17 18:59 06:59 18:59 Intake Total 250 45 Balance 250 45 Intake: Oral 250 45 Other: Voiding Method Toilet # Voids 1 2 1 # Bowel Movements 1 - Constitutional General appearance: Present: cooperative, no acute distress, obese - EENT Eyes: Present: anicteric sclerae, EOMI, PERRLA, dentition normal ENT: Present: NA/AT, normal oropharynx - Neck Neck: Present: normal ROM - Respiratory Respiratory: bilateral: CTA, negative: diminished, dullness, rales, rhonchi - Cardiovascular Rhythm: regular Heart sounds: normal: S1, S2 Abnormal Heart Sounds: Absent: systolic murmur, diastolic murmur, rub, S3 Gallop , S4 Gallop, click, other - Gastrointestinal General gastrointestinal: Present: normal bowel sounds, soft, tenderness Localized gastrointestinal: tender: LLQ, epigastric periumbilical - Integumentary Integumentary: Present: normal, normal turgor - Neurologic Neurologic: Present: CNII-XII intact - Musculoskeletal Musculoskeletal: Present: gait normal, strength equal bilaterally - Psychiatric Psychiatric: Present: A&O x's 3, appropriate affect, intact judgment & insight - Labs CBC & Chem 7: 03/10/17 06:24 03/10/17 06:24 Labs: Abnormal Lab Results - Last 24 Hours (Table) 03/10/17 Range/Units 06:24 AST 52 H (14-36) U/L ALT 94 H (9-52) U/L Lipase 605 H (23-300) U/L Assessment and Plan Plan: 1. Acute pancreatitis secondary to pancreatic divisum and her the care of the [facility] .admit to the hospital, nothing by mouth, IV fluid, IV pain medicine, Protonix 40 mg IV push every 24 hours, Dilaudid 1 mg IV push every 3 hours as needed, computed tomography scan of the abdomen with contrast as above, Zofran IV push every 6 hours as needed. Monitor lipase, once diet would be lesion, patient was advised on an extremely low fat diet 2. ADHD, stable. 3. Gastrointestinal prophylaxis. Protonix. 4. DVT prophylaxis. SCDs and JOAQUÍN cabezas, early ambulation. Discharge plan: Return home
--- NOTE | 2017-03-10 18:27 | PN ---
DATE OF SERVICE: 03/10/2017 Patient is a 21-year-old pleasant lady with multiple acute recurrences of pancreatitis, was admitted to the hospital with abdominal pain, nausea, vomiting. She feels a little bit better today; still having nausea but no emesis. On physical examination, appears comfortable, in no apparent distress. Vital signs are stable. Blood pressure is 118/68, pulse rate 65, temperature 97.5. HEENT EXAMINATION: Unremarkable. Conjunctivae pink, sclerae anicteric. Oral cavity with no lesions. NECK: No JVD or lymph node enlargement. Chest was clear to auscultation. HEART: Regular rate and rhythm. ABDOMEN: Soft. Mild tenderness in the epigastric area. Bowel sounds are positive. No organomegaly. EXTREMITIES: No pedal edema. SKIN: No rashes. NEURO: Alert and oriented x3. No focal deficits. LABS: Amylase 109. Lipase is down to 608. Rest of the labs are within normal limits. IMPRESSION: Acute recurrent pancreatitis, for which she was investigated extensively in the past and was diagnosed with pancreatic divisum. She underwent ERCP with minor papillotomy, with no help. Last admission was 4 months ago. RECOMMENDATIONS: 1. Continue with symptomatic and supportive care. 2. Will start her on clear liquid diet today. 3. Repeat labs in the morning. Will follow her closely during her hospital stay. Thank you for this consultation.
[2017-03-11] MEDS: diphenhydrAMINE 25 MG CAP PO PRN (00:14)
[2017-03-11] MEDS: HYDROmorphone 1 MG/ML 1 ML SYRINGE IVP PRN ×3 (00:14→08:49)
[2017-03-11] MEDS: D5-0.45% NACL WITH KCL 20MEQ/L 1,000 ML IV SCH ×2 (03:37→14:21)
[2017-03-11] MEDS: ONDANSETRON 4 MG/2 ML VIAL IVP PRN ×2 (03:38→11:46)
[2017-03-11] MEDS: ACETAMINOPHEN TAB 325 MG TAB PO PRN (03:38)
[2017-03-11 06:55] LABS: CH 29.4; HCT 34.5 % (34.0-46.0); HDW 2.92; HGB 11.6 gm/dL (11.4-16.0); MCH 29.1 pg (25.0-35.0); MCHC 33.5 g/dL (31.0-37.0); MCV 86.9 fL (80.0-100.0); RBC 3.97 m/uL (3.80-5.40); RDW 13.4 % (11.5-15.5); WBC 6.1 k/uL (4.0-11.0)
[2017-03-11 07:34] LABS: ALT 111 U/L (9-52); AST 62 U/L (14-36); Alkaline Phosphatase 67 U/L (38-126); Amylase 65 U/L (30-110); Anion Gap 8 mmol/L; Blood Urea Nitrogen 6 mg/dL (7-17); Carbon Dioxide 28 mmol/L (22-30); Chloride 106 mmol/L (98-107); Glucose 94 mg/dL (74-99); Non-African American GFR(MDRD) >60 (>60 ml/min/1.73 sqM); Potassium 4.4 mmol/L (3.5-5.1); Sodium 142 mmol/L (137-145); Total Bilirubin 0.3 mg/dL (0.2-1.3); Total Protein 6.3 g/dL (6.3-8.2)
[2017-03-11] MEDS: SENNOSIDES-DOCUSATE SODIUM 1 EACH TAB PO SCH ×2 (08:41→21:06)
[2017-03-11] MEDS: PANTOPRAZOLE 40 MG/10 ML VIAL IVP SCH (08:41)
[2017-03-11] MEDS: MAGNESIUM HYDROXIDE 2,400 MG/10 ML CUP PO SCH ×2 (08:41→21:06)
[2017-03-11] MEDS: SCOPOLAMINE 1.5MG/72HR PATCH TRANSDERM SCH (08:42)
[2017-03-11] MEDS: oxyCODONE-APAP 7.5-325MG 1 EACH TAB PO PRN ×2 (14:22→21:05)
--- NOTE | 2017-03-11 15:44 | P.PN ---
Subjective Principal diagnosis: Pancreatitis secondary to pancreatic divisum This is a 21-year-old female. She was recently established with Dr. Lazaro. She has a past medical history for chronic relapsing pancreatitis since the age of 10 with multiple hospitalizations. She also follows with Dr. Briggs from gastroenterology. Patient has also had follow-up at [facility]. She states she has episodes that are very mild for which she does not come into the hospital and she takes [place]. She states one about every 2 weeks. She has other episodes or more severe and she comes into the hospital which occur every 3-4 months. She denies any change in her weight. She denies any change in her menses which are regular. She denies any previous pregnancies. She states she has not had an MRCP in the past. She denies any alcohol or drug intake. She denies any gggp-mla-hlbioop drugs including herbals, vitamins. She does not know of any food triggers for pain. She is a nonsmoker. She complains of abdominal pain as well as nausea and vomiting. She did come into [facility] emergency center on October 15 and was admitted. Liver MRI at that time showed underlying pancreatic diffuse him as felt present. No MRI evidence of complication related to acute pancreatitis. Hepatosplenomegaly with marked fatty infiltration of the liver is redemonstrated. Patient states she is followed up with [facility] and blood was sent to [place] and patient may be referred to [facility] for transplant and she was told that she has pancreatic divisum She presented to [facility] emergency center and found to have elevated amylase and lipase along with the AST and ALT with normal bilirubin and computed tomography scan of the abdomen and pelvis and pending at the time of dictation, however the patient will be admitted to the hospital she will be started on IV fluid, IV pain medicine as well as antiemetic and she will be seen in consultation by gastroenterology as well as general surgery. 03/08: Patient is followed by GI services in general surgeon. Plan is for bowel rest and monitor lab work. Amylase has increased to 298 and lipase is at 2188. LDH 568. Patient continues to have pain for which Dilaudid increased to 2 mg every 3 hours. Patient is complaining of constipation for which milk of magnesia and Senokot will be scheduled and patient is complaining of itching for which Benadryl was added. CAT scan of the abdomen and pelvis revealed hepatosplenomegaly with fatty infiltration of the liver. Colonic mucosal thickening in fatty infiltration of the colonic mucosa is sometimes seen inflammatory bowel disease. 03/09: Patient states that she had some vomiting earlier today and continues to have nausea. This may be related to pain medication and Dilaudid decreased to 1 mg every 3 hours. She continues to have throbbing pain. She had a small bowel movement this morning. She remains nothing by mouth except for ice chips and medications. Repeat lipase is 753. AST and ALT are down slightly from yesterday. 03/10: Patient continues to have some nausea with minimal abdominal cramps, maintained on still ice chips, lipase has come down to 605, AST and ALT is trending downwards, 03/11: Patient still lingers with some nausea, pain is 7 out of 10, still no appetite, lipase is down to 419, ALT and AST is still elevated, normal alkaline phosphatase, clear liquid diet this morning she did he had any meals taken in except for water, and last vomiting episode was 2 days ago. Patient still requires IV Dilaudid every 3 hours, we have offered her oral Percocet instead of her [place], she is wanting to be discharged already. Diet is advanced to full liquid low-fat, monitor labs Objective - Vital Signs Vital signs: Vital Signs Temp 97.0 F L 03/11/17 11:30 Pulse 62 03/11/17 11:30 Resp 20 03/11/17 11:30 BP 132/85 03/11/17 11:30 Pulse Ox 98 03/11/17 11:30 Intake & Output 03/10/17 03/11/17 03/11/17 18:59 06:59 18:59 Intake Total 45 150 1200 Balance 45 150 1200 Intake: Oral 45 150 1200 Other: Voiding Method Toilet Toilet # Voids 1 1 2 - Constitutional General appearance: Present: cooperative, no acute distress - EENT Eyes: Present: anicteric sclerae, EOMI, PERRLA, dentition normal, normal appearance ENT: Present: NA/AT, normal oropharynx - Neck Neck: Present: normal ROM - Respiratory Respiratory: bilateral: CTA, negative: dullness, rales, rhonchi, wheezing, prolonged expiration - Cardiovascular Rhythm: regular Heart sounds: normal: S1, S2 Abnormal Heart Sounds: Absent: systolic murmur, diastolic murmur, rub, S3 Gallop , S4 Gallop, click, other - Gastrointestinal General gastrointestinal: Present: normal bowel sounds, soft, tenderness Localized gastrointestinal: tender: LLQ - Integumentary Integumentary: Present: normal, normal turgor - Neurologic Neurologic: Present: CNII-XII intact - Musculoskeletal Musculoskeletal: Present: gait normal, strength equal bilaterally - Psychiatric Psychiatric: Present: A&O x's 3, appropriate affect, intact judgment & insight - Labs CBC & Chem 7: 03/11/17 06:35 03/11/17 06:35 Labs: Abnormal Lab Results - Last 24 Hours (Table) 03/11/17 Range/Units 06:35 BUN 6 L (7-17) mg/dL AST 62 H (14-36) U/L ALT 111 H (9-52) U/L Lipase 419 H (23-300) U/L Assessment and Plan Plan: 1. Acute pancreatitis secondary to pancreatic divisum and her the care of the [facility] .admit to the hospital, nothing by mouth, IV fluid, IV pain medicine, Protonix 40 mg IV push every 24 hours, Dilaudid 1 mg IV push every 3 hours as needed, computed tomography scan of the abdomen with contrast as above, Zofran IV push every 6 hours as needed. Monitor lipase, once diet would be advanced patient was advised on an extremely low fat diet. Add Percocet 7.5 for pain control, advance diet to full liquid low-fat to be started dinner time March 11 2. ADHD, stable. 3. Gastrointestinal prophylaxis. Protonix. 4. DVT prophylaxis. SCDs and JOAQUÍN cabezas, early ambulation. Discharge plan: Return home
[2017-03-12] MEDS: ACETAMINOPHEN TAB 325 MG TAB PO PRN (00:33)
[2017-03-12] MEDS: D5-0.45% NACL WITH KCL 20MEQ/L 1,000 ML IV SCH (01:47)
[2017-03-12] MEDS: oxyCODONE-APAP 7.5-325MG 1 EACH TAB PO PRN ×2 (02:51→08:39)
[2017-03-12 06:53] LABS: CH 29.1; CHCM 33.8; HCT 36.7 % (34.0-46.0); HDW 2.85; HGB 12.1 gm/dL (11.4-16.0); MCH 28.6 pg (25.0-35.0); MCHC 33.1 g/dL (31.0-37.0); MCV 86.4 fL (80.0-100.0); Mean Platelet Volume 7.1; RBC 4.24 m/uL (3.80-5.40); RDW 13.3 % (11.5-15.5); WBC 7.2 k/uL (4.0-11.0)
[2017-03-12 07:03] LABS: ALT 117 U/L (9-52); AST 54 U/L (14-36); Alkaline Phosphatase 70 U/L (38-126); Amylase 35 U/L (30-110); Anion Gap 12 mmol/L; Blood Urea Nitrogen 8 mg/dL (7-17); Calcium 9.5 mg/dL (8.4-10.2); Carbon Dioxide 25 mmol/L (22-30); Chloride 103 mmol/L (98-107); Glucose 96 mg/dL (74-99); Non-African American GFR(MDRD) >60 (>60 ml/min/1.73 sqM); Potassium 4.7 mmol/L (3.5-5.1); Sodium 140 mmol/L (137-145); Total Bilirubin 0.3 mg/dL (0.2-1.3); Total Protein 6.6 g/dL (6.3-8.2)
[2017-03-12 08:24] VITALS: RESP 20
[2017-03-12] MEDS: MAGNESIUM HYDROXIDE 2,400 MG/10 ML CUP PO SCH (08:39)
[2017-03-12] MEDS: PANTOPRAZOLE 40 MG/10 ML VIAL IVP SCH (08:39)
[2017-03-12] MEDS: SENNOSIDES-DOCUSATE SODIUM 1 EACH TAB PO SCH (08:39)
[2017-03-12 11:56] VITALS: BP 119/78; PULSE 62; TEMP 98.3
--- NOTE | 2017-03-12 12:00 | P.DS ---
Providers Date of admission: 03/07/17 15:06 Expected date of discharge: 03/12/17 Attending physician: Chasidy Temple Consults: 03/07/17 15:05 Consult Physician Stat Consulting Provider: Bravo Rodriguez Consult Reason/Comments: pancreatitis Do you want consulting provider notified?: Yes Consult Physician Stat Consulting Provider: Reanna Riley Consult Reason/Comments: pancreatitis Do you want consulting provider notified?: Yes Primary care physician: Alice Lazaro [facility] Course: This is a 21-year-old female. She was recently established with Dr. Lazaro. She has a past medical history for chronic relapsing pancreatitis since the age of 10 with multiple hospitalizations. She also follows with Dr. Briggs from gastroenterology. Patient has also had follow-up at [facility]. She states she has episodes that are very mild for which she does not come into the hospital and she takes [place]. She states one about every 2 weeks. She has other episodes or more severe and she comes into the hospital which occur every 3-4 months. She denies any change in her weight. She denies any change in her menses which are regular. She denies any previous pregnancies. She states she has not had an MRCP in the past. She denies any alcohol or drug intake. She denies any qney-hqd-gicmfbw drugs including herbals, vitamins. She does not know of any food triggers for pain. She is a nonsmoker. She complains of abdominal pain as well as nausea and vomiting. She did come into [facility] emergency center on October 15 and was admitted. Liver MRI at that time showed underlying pancreatic diffuse him as felt present. No MRI evidence of complication related to acute pancreatitis. Hepatosplenomegaly with marked fatty infiltration of the liver is redemonstrated. Patient states she is followed up with [facility] and blood was sent to [place] and patient may be referred to [facility] for transplant and she was told that she has pancreatic divisum She presented to [facility] emergency center and found to have elevated amylase and lipase along with the AST and ALT with normal bilirubin and computed tomography scan of the abdomen and pelvis and pending at the time of dictation, however the patient will be admitted to the hospital she will be started on IV fluid, IV pain medicine as well as antiemetic and she will be seen in consultation by gastroenterology as well as general surgery. 03/08: Patient is followed by GI services in general surgeon. Plan is for bowel rest and monitor lab work. Amylase has increased to 298 and lipase is at 2188. LDH 568. Patient continues to have pain for which Dilaudid increased to 2 mg every 3 hours. Patient is complaining of constipation for which milk of magnesia and Senokot will be scheduled and patient is complaining of itching for which Benadryl was added. CAT scan of the abdomen and pelvis revealed hepatosplenomegaly with fatty infiltration of the liver. Colonic mucosal thickening in fatty infiltration of the colonic mucosa is sometimes seen inflammatory bowel disease. 03/09: Patient states that she had some vomiting earlier today and continues to have nausea. This may be related to pain medication and Dilaudid decreased to 1 mg every 3 hours. She continues to have throbbing pain. She had a small bowel movement this morning. She remains nothing by mouth except for ice chips and medications. Repeat lipase is 753. AST and ALT are down slightly from yesterday. 03/10: Patient continues to have some nausea with minimal abdominal cramps, maintained on still ice chips, lipase has come down to 605, AST and ALT is trending downwards, 03/11: Patient still lingers with some nausea, pain is 7 out of 10, still no appetite, lipase is down to 419, ALT and AST is still elevated, normal alkaline phosphatase, clear liquid diet this morning she did he had any meals taken in except for water, and last vomiting episode was 2 days ago. Patient still requires IV Dilaudid every 3 hours, we have offered her oral Percocet instead of her [place], she is wanting to be discharged already. Diet is advanced to full liquid low-fat, monitor labs 03/12: Repeat amylase 35 and lipase 200. Patient continues to have mild abdominal pain and tenderness. She is anxious to be discharged home. Zofran and 30 [place] will be provided. Patient is to continue on clear liquid low-fat diet and advance tomorrow. Discharge Diagnoses: 1. Acute pancreatitis secondary to pancreatic divisum under care at [facility] 2. ADHD, stable. Discharge plan: Return home Impression and plan of care have been directed as dictated by the signing physician. Adwoa Ernandez nurse practitioner acting as scribe for signing physician. Patient Condition at Discharge: Good Plan - Discharge Summary New Discharge Prescriptions: New HYDROcodone/APAP 10-325MG [[place] 10-325] 1 tab PO Q6H #30 tab Ondansetron [Zofran] 4 mg PO Q8HR PRN #60 tab PRN Reason: Nausea No Action Amoxicillin/Potassium Clav [Augmentin 875-125 Tablet] 1 tab PO Q12HR Discharge Medication List Amoxicillin/Potassium Clav [Augmentin 875-125 Tablet] 1 tab PO Q12HR 03/07/17 [ History] HYDROcodone/APAP 10-325MG [[place] 10-325] 1 tab PO Q6H #30 tab 03/12/17 [Rx] Ondansetron [Zofran] 4 mg PO Q8HR PRN #60 tab 03/12/17 [Rx] Follow up Appointment(s)/Referral(s): Nathan Briggs MD [STAFF PHYSICIAN] - 1 Week Alice Lazaro MD [Primary Care Provider] - 1 Week Activity/Diet/Wound Care/Special Instructions: Low fat diet. Discharge Disposition: HOME SELF-CARE
== END 2017-03-12 12:35 | disposition home or self-care (01) | DRG 439 ==
LOC: EC 12:56 → 4MS4W 15:06 → 6PED 03-08 17:28
PROVIDERS: ADMIT Internal Medicine; ATTEND Internal Medicine
DX: K85.90 Acute pancreatitis without necrosis or infection, unspecified (principal); Q45.3 Other congenital malformations of pancreas and pancreatic duct; K76.0 Fatty (change of) liver, not elsewhere classified; E66.9 Obesity, unspecified; K86.1 Other chronic pancreatitis; G43.909 Migraine, unspecified, not intractable, without status migrainosus; K52.9 Noninfective gastroenteritis and colitis, unspecified; K59.00 Constipation, unspecified; L29.9 Pruritus, unspecified; Z83.3 Family history of diabetes mellitus; Z91.040 Latex allergy status
CPT/HCPCS: 36415; 74177; 80053; 80061; 81003; 82150; 83615; 83690; 85025; 85027; 87086; 96361; 96374; 96375; 96376; 99285

== ENCOUNTER 2017-03-26 15:57 | Emergency (ER) | payer MEDICAID ==
[2017-03-26] MEDS ORDERED: OXYMETAZOLINE 0.05% NASL SPRAY 15 ML NASAL STA (17:23)
--- NOTE | 2017-03-26 17:29 | ED ---
ENT HPI - General Chief complaint: ENT Stated complaint: Nose Bleed Time Seen by Provider: 03/26/17 17:16 Source: patient, RN notes reviewed Mode of arrival: ambulatory Limitations: no limitations - History of Present Illness Initial comments: 21-year-old female presents emergency Department with chief complaint of epistaxis. Patient states it started 1 hour ago. Patient states this happened at this time. Patient states that she described her nose when started. This is out of her right nostril. Patient denies any headache, dizziness, blurred vision. Patient has not taken medications and denies any seasonal ALLERGIES. Patient states that it just seemed to start spontaneously. Patient denies any history of nosebleeds. Patient also complains of lower extremity numbness. She states this started almost the same time as her nose bleed did. She states that she's never had any back issues in the past but states her back does hurt at this time. Patient denies any abdominal pain, dysuria, hematuria. Denies any chance of . She is not sexually active and she just had her menstrual cycle 2 weeks denies any difficulty ambulating. Denies any saddle anesthesias. - Related Data Home Medications Medication Instructions Recorded Confirmed No Known Home Medications [No 03/26/17 03/26/17 Known Home Medications] Allergies Allergy/AdvReac Type Severity Reaction Status Date / Time latex Allergy Rash/Hives Verified 03/26/17 16:25 Review of Systems ROS Statement: Those systems with pertinent positive or pertinent negative responses have been documented in the HPI. ROS Other: All systems not noted in ROS Statement are negative. Past Medical History Past Medical History: No Reported History Additional Past Medical History / Comment(s): Other HX: Recurrent chronic pancreatitis with extensive workups and was seen at [facility] with no cause of pancreatitis discovered. History of Any Multi-Drug Resistant Organisms: None Reported Past Surgical History: No Surgical Hx Reported Additional Past Surgical History / Comment(s): EGD's and EGD with biopsy. Past Anesthesia/Blood Transfusion Reactions: No Reported Reaction Past Psychological History: ADD/ADHD Smoking Status: Never smoker Past Alcohol Use History: None Reported Past Drug Use History: None Reported - Past Family History Brother(s) Additional Family Medical History / Comment(s): She has 2 brothers and 1 sister with no major medical problems. Father Family Medical History: Diabetes Mellitus Additional Family Medical History / Comment(s): Father is alive at age 49 with history of diabetes requiring kidney and pancreas transplant. Mother Family Medical History: Deep Vein Thrombosis (DVT) Additional Family Medical History / Comment(s): Mother is alive at age 52 with history of DVT's, cardiomyopathy and pacemaker. General Exam Limitations: no limitations General appearance: alert, in no apparent distress Head exam: Present: atraumatic, normocephalic, normal inspection ENT exam: Present: normal oropharynx, mucous membranes moist, TM's normal bilaterally, normal external ear exam, other (There is dried blood noted in the right nostril with irritation noted to the septum). Absent: normal exam Neck exam: Present: normal inspection, full ROM. Absent: tenderness, meningismus, lymphadenopathy Respiratory exam: Present: normal lung sounds bilaterally. Absent: respiratory distress, wheezes, rales, rhonchi, stridor Cardiovascular Exam: Present: regular rate, normal rhythm, normal heart sounds. Absent: systolic murmur, diastolic murmur, rubs, gallop, clicks GI/Abdominal exam: Present: soft, normal bowel sounds. Absent: distended, tenderness, guarding, rebound, rigid Extremities exam: Present: normal inspection, full ROM, normal capillary refill , other (Pedal pulses equal bilaterally equal strength of lower extremity). Absent: tenderness, pedal edema, joint swelling, calf tenderness Back exam: Present: normal inspection, full ROM, tenderness (Lumbar), paraspinal tenderness (Lumbar region), vertebral tenderness Neurological exam: Present: alert, oriented X3, CN II-XII intact, reflexes normal. Absent: motor sensory deficit Skin exam: Present: warm, dry, intact, normal color. Absent: rash Course Vital Signs 03/26/17 16:23 Temperature 98.1 F Pulse Rate 89 Respiratory 20 Rate Blood Pressure 124/80 O2 Sat by Pulse 98 Oximetry Medical Decision Making - Medical Decision Making 21-year-old female presented for epistaxis. Patient's nose has stopped bleeding at this time. Patient will continue Afrin for the next 2 days. Patient also complained of numbness or legs. This is more consistent with bilateral radiculopathy as she does have some tenderness. X-rays show no acute abnormality. Patient has no backsplash symptoms. Patient will be discharged at this time return parameters discussed. Disposition Clinical Impression: Epistaxis, Lumbar radiculopathy Disposition: HOME SELF-CARE Condition: Stable Instructions: Nosebleed (ED), Lumbar Radiculopathy (ED) Additional Instructions: Please return to the Emergency Department if symptoms worsen or any other concerns. Referrals: Alice Lazaro MD [Primary Care Provider] - 1-2 days
[2017-03-26 18:50] VITALS: BP 127/70; PULSE 82; RESP 16; TEMP 97.2
--- NOTE | 2017-03-26 19:06 | XR ---
EXAMINATION TYPE: XR lumbar spine 2 or 3V DATE OF EXAM: 03/26/2017 COMPARISON: NONE HISTORY: Numbness TECHNIQUE: 3 views FINDINGS: Vertebra have normal spacing and alignment. Posterior elements are intact. Sacroiliac joint s are normal. IMPRESSION: Normal lumbar spine.
== END 2017-03-26 19:04 | disposition home or self-care (01) ==
LOC: EC 15:57
DX: R04.0 Epistaxis (principal); M54.16 Radiculopathy, lumbar region; Z91.040 Latex allergy status
CPT/HCPCS: 72100; 99283

== ENCOUNTER 2017-06-26 23:29 | Inpatient (IN) | payer MEDICAID ==
[2017-06-27] MEDS ORDERED: ONDANSETRON 4 MG/2 ML VIAL IVP STA ×3 (00:06→09:09)
[2017-06-27] MEDS ORDERED: HYDROmorphone 1 MG/ML 1 ML SYRINGE IVP STA ×2 (00:06→01:33)
[2017-06-27] MEDS ORDERED: SODIUM CHLORIDE 0.9% 1,000 ML IV STA ×2 (00:06)
--- NOTE | 2017-06-27 00:09 | ED ---
General Adult HPI - General Chief complaint: Abdominal Pain Stated complaint: apendicitis Time Seen by Provider: 06/27/17 00:02 Source: patient, RN notes reviewed Mode of arrival: ambulatory Limitations: no limitations - History of Present Illness Initial comments: Patient is a 21-year-old female with significant past medical history for chronic pancreatitis, who presents emergency room today with a chief complaint of increased epigastric pain radiating around to the lower back. She states symptoms are consistent with palpitations that she's had in the past. She does admit to nausea. Denies any other complaints associated symptoms. Patient denies any recent fever, chills, shortness of breath, chest pain, numbness or tingling, dysuria or hematuria, constipation or diarrhea, headaches or visual changes, or any other complaints. - Related Data Home Medications Medication Instructions Recorded Confirmed Ibuprofen [Advil] 800 mg PO BID PRN 06/26/17 06/26/17 Allergies Allergy/AdvReac Type Severity Reaction Status Date / Time latex Allergy Rash/Hives Verified 06/26/17 23:41 peanut Allergy Rash/Swelli Verified 06/26/17 23:41 ng Review of Systems ROS Statement: Those systems with pertinent positive or pertinent negative responses have been documented in the HPI. ROS Other: All systems not noted in ROS Statement are negative. Past Medical History Past Medical History: No Reported History Additional Past Medical History / Comment(s): Other HX: Recurrent chronic pancreatitis with extensive workups and was seen at [facility] with no cause of pancreatitis discovered. History of Any Multi-Drug Resistant Organisms: None Reported Past Surgical History: No Surgical Hx Reported Additional Past Surgical History / Comment(s): EGD's and EGD with biopsy. Past Anesthesia/Blood Transfusion Reactions: No Reported Reaction Past Psychological History: ADD/ADHD Smoking Status: Never smoker Past Alcohol Use History: None Reported Past Drug Use History: None Reported - Past Family History Brother(s) Additional Family Medical History / Comment(s): She has 2 brothers and 1 sister with no major medical problems. Father Family Medical History: Diabetes Mellitus Additional Family Medical History / Comment(s): Father is alive at age 49 with history of diabetes requiring kidney and pancreas transplant. Mother Family Medical History: Deep Vein Thrombosis (DVT) Additional Family Medical History / Comment(s): Mother is alive at age 52 with history of DVT's, cardiomyopathy and pacemaker. General Exam - General Exam Comments Initial Comments: General: The patient is awake and alert, mild distress, and does not appear acutely ill. Eye: Pupils are equal, round and reactive to light, extra-ocular movements are intact. No nystagmus. There is normal conjunctiva bilaterally. No signs of icterus. Ears, nose, mouth and throat: There are moist mucous membranes and no oral lesions. Neck: The neck is supple, there is no tenderness or JVD. Cardiovascular: There is a regular rate and rhythm. No murmur, rub or gallop is appreciated. Respiratory: Lungs are clear to auscultation, respirations are non-labored, breath sounds are equal. No wheezes, stridor, rales, or rhonchi. Gastrointestinal: Normal appearance and rhythm. Normal bowel sounds. Abdomen soft on palpation. Patient does have tenderness epigastric. Mild tenderness both on left right upper quadrant. Mild CVA tenderness bilaterally. No rebound tenderness. No guarding Musculoskeletal: Normal ROM, no tenderness. Strength 5/5. Sensation intact. Pulses equal bilaterally 2+. Neurological: A&O x 3. CN II-XII intact, There are no obvious motor or sensory deficits. Coordination appears grossly intact. Speech is normal. Skin: Skin is warm and dry and no rashes or lesions are noted. Psychiatric: Cooperative, appropriate mood & affect, normal judgment. Limitations: no limitations Course Vital Signs 06/26/17 23:36 Temperature 98.8 F Pulse Rate 97 Respiratory 20 Rate Blood Pressure 137/65 O2 Sat by Pulse 94 L Oximetry Medical Decision Making - Medical Decision Making Case discussed in detail with attending physician Dr. Pritchett. Patient's labs been reviewed shows elevated lipase 1700. Patient still experiencing seen lower abdominal pain with nausea. The will be admitted to remain nothing by mouth and have consults GI. - Lab Data Result diagrams: 06/27/17 00:37 06/27/17 00:37 Lab Results 06/27/17 06/27/17 06/27/17 Range/Units 00:33 00:33 00:37 WBC (4.0-11.0) k/uL RBC (3.80-5.40) m/uL Hgb (11.4-16.0) gm/dL Hct (34.0-46.0) % MCV (80.0-100.0) fL MCH (25.0-35.0) pg MCHC (31.0-37.0) g/dL RDW (11.5-15.5) % Plt Count (150-450) k/uL Neutrophils % % Lymphocytes % % Monocytes % % Eosinophils % % Basophils % % Neutrophils # (1.3-7.7) k/uL Lymphocytes # (1.0-4.8) k/uL Monocytes # (0-1.0) k/uL Eosinophils # (0-0.7) k/uL Basophils # (0-0.2) k/uL Sodium 139 (137-145) mmol/L Potassium 4.5 (3.5-5.1) mmol/L Chloride 103 (98-107) mmol/L Carbon Dioxide 22 (22-30) mmol/L Anion Gap 14 mmol/L BUN 10 (7-17) mg/dL Creatinine 0.50 L (0.52-1.04) mg/dL Est GFR (MDRD) Af Amer >60 (>60 ml/min/1.73 sqM) Est GFR (MDRD) Non-Af >60 (>60 ml/min/1.73 sqM) Glucose 172 H (74-99) mg/dL Calcium 9.8 (8.4-10.2) mg/dL Total Bilirubin 0.4 (0.2-1.3) mg/dL AST 91 H (14-36) U/L ALT 165 H (9-52) U/L Alkaline Phosphatase 122 (38-126) U/L Total Protein 7.7 (6.3-8.2) g/dL Albumin 4.7 (3.5-5.0) g/dL Amylase 173 H (30-110) U/L Lipase 1714 H (23-300) U/L Urine Color Colorless Urine Appearance Clear (Clear) Urine pH 6.5 (5.0-8.0) Ur Specific [place] 1.003 (1.001-1.035) Urine Protein Negative (Negative) Urine Glucose (UA) Negative (Negative) Urine Ketones Negative (Negative) Urine Blood Negative (Negative) Urine Nitrite Negative (Negative) Urine Bilirubin Negative (Negative) Urine Urobilinogen <2.0 (<2.0) mg/dL Ur Leukocyte Esterase Negative (Negative) Urine HCG, Qual Not Detected (Not Detectd) 09/27/17 Range/Units 00:37 WBC 9.6 (4.0-11.0) k/uL RBC 4.98 (3.80-5.40) m/uL Hgb 14.0 (11.4-16.0) gm/dL Hct 41.9 (34.0-46.0) % MCV 84.2 (80.0-100.0) fL MCH 28.2 (25.0-35.0) pg MCHC 33.4 (31.0-37.0) g/dL RDW 14.1 (11.5-15.5) % Plt Count 298 (150-450) k/uL Neutrophils % 69 % Lymphocytes % 21 % Monocytes % 5 % Eosinophils % 3 % Basophils % 0 % Neutrophils # 6.7 (1.3-7.7) k/uL Lymphocytes # 2.1 (1.0-4.8) k/uL Monocytes # 0.5 (0-1.0) k/uL Eosinophils # 0.3 (0-0.7) k/uL Basophils # 0.0 (0-0.2) k/uL Sodium (137-145) mmol/L Potassium (3.5-5.1) mmol/L Chloride (98-107) mmol/L Carbon Dioxide (22-30) mmol/L Anion Gap mmol/L BUN (7-17) mg/dL Creatinine (0.52-1.04) mg/dL Est GFR (MDRD) Af Amer (>60 ml/min/1.73 sqM) Est GFR (MDRD) Non-Af (>60 ml/min/1.73 sqM) Glucose (74-99) mg/dL Calcium (8.4-10.2) mg/dL Total Bilirubin (0.2-1.3) mg/dL AST (14-36) U/L ALT (9-52) U/L Alkaline Phosphatase (38-126) U/L Total Protein (6.3-8.2) g/dL Albumin (3.5-5.0) g/dL Amylase (30-110) U/L Lipase (23-300) U/L Urine Color Urine Appearance (Clear) Urine pH (5.0-8.0) Ur Specific [place] (1.001-1.035) Urine Protein (Negative) Urine Glucose (UA) (Negative) Urine Ketones (Negative) Urine Blood (Negative) Urine Nitrite (Negative) Urine Bilirubin (Negative) Urine Urobilinogen (<2.0) mg/dL Ur Leukocyte Esterase (Negative) Urine HCG, Qual (Not Detectd) Disposition Clinical Impression: Pancreatitis Disposition: ADMITTED IP TO THIS HOSP Condition: Stable Referrals: Alice Lazaro MD [Primary Care Provider] - 1-2 days Time of Disposition: 01:55
[2017-06-27 00:44] LABS: Basophils % (A) 0 %; CH 29.6; CHCM 35.3; Eosinophils # (A) 0.3 k/uL (0-0.7); Eosinophils % (A) 3 %; HCT 41.9 % (34.0-46.0); Luc # (Auto) 0.08; Luc % (Auto) 1; Lymphocytes # (A) 2.1 k/uL (1.0-4.8); Lymphocytes % (A) 21 %; MCH 28.2 pg (25.0-35.0); MCHC 33.4 g/dL (31.0-37.0); MCV 84.2 fL (80.0-100.0); Monocytes # (A) 0.5 k/uL (0-1.0); Monocytes % (A) 5 %; Neutrophils # (A) 6.7 k/uL (1.3-7.7); Neutrophils % (A) 69 %; RBC 4.98 m/uL (3.80-5.40); RDW 14.1 % (11.5-15.5); WBC 9.6 k/uL (4.0-11.0); WBC (Perox) 9.43
[2017-06-27 00:48] LABS: Appearance,Urine Clear (Clear); Bilirubin,Urine Negative (Negative); Glucose,Urine (UA) Negative (Negative); Ketones,Urine Negative (Negative); Leukocyte Esterase,Urine Negative (Negative); Nitrite,Urine Negative (Negative); PH, Urine 6.5 (5.0-8.0); Protein,Urine Negative (Negative); Specific Gravity,Urine 1.003 (1.001-1.035); UA Billing (MACRO vs. MICRO) CHEM; Urobilinogen,Urine <2.0 mg/dL (<2.0)
[2017-06-27 00:53] LABS: ALT 165 U/L (9-52); AST 91 U/L (14-36); Alkaline Phosphatase 122 U/L (38-126); Amylase 173 U/L (30-110); Anion Gap 14 mmol/L; Blood Urea Nitrogen 10 mg/dL (7-17); Calcium 9.8 mg/dL (8.4-10.2); Carbon Dioxide 22 mmol/L (22-30); Chloride 103 mmol/L (98-107); Glucose 172 mg/dL (74-99); Non-African American GFR(MDRD) >60 (>60 ml/min/1.73 sqM); Potassium 4.5 mmol/L (3.5-5.1); Sodium 139 mmol/L (137-145); Total Bilirubin 0.4 mg/dL (0.2-1.3); Total Protein 7.7 g/dL (6.3-8.2)
[2017-06-27] MEDS ORDERED: KETOROLAC 30 MG/ML 1 ML VIAL IVP STA (01:33)
[2017-06-27] MEDS ORDERED: NALOXONE 0.4 MG/ML 1 ML VIAL IV PRN (01:59)
[2017-06-27] MEDS ORDERED: ONDANSETRON 4 MG/2 ML VIAL IVP PRN (01:59)
[2017-06-27] MEDS ORDERED: diphenhydrAMINE 50 MG/ML 1 ML VIAL IVP STA (02:07)
[2017-06-27] MEDS: HYDROmorphone 1 MG/ML 1 ML SYRINGE IV PRN ×6 (04:40→21:51)
[2017-06-27] MEDS ORDERED: SCOPOLAMINE 1.5MG/72HR PATCH TRANSDERM STA (09:02)
--- NOTE | 2017-06-27 09:05 | P.CONS ---
History of Present Illness - Reason for Consult Consult date: 06/27/17 pancreatitis Requesting physician: iHram Barrios - History of Present Illness 21-year-old female well-known to the GI service with a history of chronic relapsing pancreatitis secondary to pancreatic divisum since the age of 10 with multiple hospitalizations and evaluation by [facility]. Presents with acute abdominal pain x 2 days with elevated pancreatic enzymes consistent with pancreatitis. Lipase 1714. Amylase 173. Total bilirubin 0.4. AST 91. ALT 165. Alk phosphatase 122. Afebrile. WBC 9. Hemoglobin 14. Hematocrit 41. CO2 22. Calcium 9.8. Glucose 172. Denies hematemesis, hematochezia or melena. No fever or chills. Review of Systems Constitutional: Denies fever, chills, sweats, weight gain, or loss. HEENT: Negative for migraines, blurred vision or loss, earaches, drainage, tinnitus, oral mucosal lesions, dysphagia, or odynophagia. CARDIAC: Negative for chest pain, arrhythmias, or palpitation. RESPIRATORY: Negative for shortness of breath, hemoptysis, cough, or sputum production. GI: See HPI for pertinent findings. : Negative for hematuria, urgency, frequency, polyuria, or dysuria. GYNc: Denies possibility of . Negative vaginal discharge. MUSCULOSKELETAL: Negative for muscle aches, swelling, arthritis, and arthralgias. NEUROLOGIC: Negative for stroke or TIA. ENDOCRINE: Negative for thyroid problems. SKIN: Negative for rash or itching. PSYCHIATRIC: History of ADHD. Negative history for depression and anxiety All systems: negative (See HPI) Past Medical History Past Medical History: No Reported History Additional Past Medical History / Comment(s): Other HX: Recurrent chronic pancreatitis with extensive workups and was seen at [facility] with no cause of pancreatitis discovered. History of Any Multi-Drug Resistant Organisms: None Reported Past Surgical History: No Surgical Hx Reported Additional Past Surgical History / Comment(s): EGD's and EGD with biopsy. Past Anesthesia/Blood Transfusion Reactions: No Reported Reaction Past Psychological History: ADD/ADHD Additional Psychological History / Comment(s): Pt takes adderill during school year to help her concentrate-she is no longer using. Smoking Status: Never smoker Past Alcohol Use History: None Reported Additional Past Alcohol Use History / Comment(s): Patient is a nonsmoker. She denies any medical marijuana, marijuana, street drug use. She is single and does not have any children. Past Drug Use History: None Reported - Past Family History Brother(s) Additional Family Medical History / Comment(s): She has 2 brothers and 1 sister with no major medical problems. Father Family Medical History: Diabetes Mellitus Additional Family Medical History / Comment(s): Father is alive at age 49 with history of diabetes requiring kidney and pancreas transplant. Mother Family Medical History: Deep Vein Thrombosis (DVT) Additional Family Medical History / Comment(s): Mother is alive at age 52 with history of DVT's, cardiomyopathy and pacemaker. Medications and Allergies Home Medications Medication Instructions Recorded Confirmed Type Ibuprofen [Advil] 800 mg PO BID PRN 06/26/17 06/26/17 History Allergies Allergy/AdvReac Type Severity Reaction Status Date / Time latex Allergy Rash/Hives Verified 06/26/17 23:41 peanut Allergy Rash/Swelli Verified 06/26/17 23:41 ng Physical Exam Vitals: Vital Signs Temp Pulse Pulse Resp BP BP Pulse Ox 06/27/17 07:38 82 16 06/27/17 07:30 96.9 F L 82 16 132/91 96 06/27/17 02:49 98.4 F 74 16 134/88 94 L 06/27/17 02:18 76 20 160/98 94 L 06/26/17 23:36 98.8 F 97 20 137/65 94 L Intake and Output 06/26/17 06/27/17 06/27/17 22:59 06:59 14:59 Intake Total 250 Balance 250 Intake: Intake, IV Titration 250 Amount Sodium Chloride 0.9% 1, 250 000 ml @ 100 mls/hr IV . Q10H STA Rx#:[id number] Other: Voiding Method Toilet Toilet # Voids 2 Weight 90.718 kg 90.718 kg Patient Weight 06/28/17 06:59 Weight 90.718 kg - Constitutional General appearance: average body habitus - EENT Eyes: normal appearance - Neck Neck: normal ROM - Respiratory Respiratory: bilateral: CTA - Cardiovascular Rhythm: regular Heart sounds: normal: S1, S2 - Gastrointestinal midepigastric left upper abdominal tenderness no rebound no guarding General gastrointestinal: soft - Neurologic Neurologic: CNII-XII intact - Musculoskeletal Musculoskeletal: gait normal - Psychiatric Psychiatric: A&O x's 3, appropriate affect, intact judgment & insight Results CBC & Chem 7: 06/27/17 00:37 06/27/17 00:37 Labs: Abnormal Lab Results - Last 24 Hours (Table) 06/27/17 Range/Units 00:37 Creatinine 0.50 L (0.52-1.04) mg/dL Glucose 172 H (74-99) mg/dL AST 91 H (14-36) U/L ALT 165 H (9-52) U/L Amylase 173 H (30-110) U/L Lipase 1714 H (23-300) U/L Assessment and Plan (1) Pancreatic divisum Status: Acute (2) Pancreatitis Narrative/Plan: Acute on chronic Status: Acute Plan: 1. Antiemetics. 2. Pain control. 3. NPO except meds.
[2017-06-27] MEDS: KETOROLAC 30 MG/ML 1 ML VIAL IVP PRN ×3 (09:07→21:52)
[2017-06-27] MEDS: METOCLOPRAMIDE 5 MG/ML 2 ML VIAL IVP PRN (12:46)
[2017-06-27] MEDS: diphenhydrAMINE 50 MG/ML 1 ML VIAL IVP PRN ×2 (15:04→22:07)
[2017-06-27] MEDS: ONDANSETRON 4 MG/2 ML VIAL IVP PRN (15:04)
[2017-06-27] MEDS: SODIUM CHLORIDE 0.9% 1,000 ML IV SCH (15:13)
[2017-06-27] MEDS ORDERED: SODIUM CHLORIDE 0.9% 1,000 ML IV ONE (15:30)
--- NOTE | 2017-06-27 15:53 | P.HPIM ---
History of Present Illness H&P Date: 06/27/17 Chief Complaint: epigastric tenderness This is a 21-year-old female. She was recently established with Dr. Lazaro. She has a past medical history for chronic relapsing pancreatitis since the age of 10 with multiple hospitalizations secondary to pancreatic divisum. She also follows with Dr. 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 She states she has episodes that are very mild for which she does not come into the hospital and she takes Sylvester. She states one about every 2 weeks. She has other episodes or more severe and she comes into the hospital which occur every 3-4 months. She denies any change in her weight. She denies any change in her menses which are regular. She denies any previous pregnancies. She states she has not had an MRCP in the past. She denies any alcohol or drug intake. She denies any [id number] drugs including herbals, vitamins. She does not know of any food triggers for pain. She is a nonsmoker. She complains of abdominal pain as well as nausea and vomiting. She did come into [facility] emergency center on October 15 and was admitted. Liver MRI at that time showed underlying pancreatic diffuse him as felt present. No MRI evidence of complication related to acute pancreatitis. Hepatosplenomegaly with marked fatty infiltration of the liver was redemonstrated. Patient states she is followed up with [facility] and blood was sent to [place] and patient may be referred to [facility] for transplant and she was told that she has pancreatic divisum She presented to [facility] emergency center and found to have elevated amylase and lipase along with the AST and ALT with normal bilirubin. Patient states that she was started having symptoms 4 days ago with the worsening epigastric abdominal pain radiating to her back. It is similar to the previous pancreatitis attack she had. Patient's pain is controlled and I started him ketorolac patient got 2 L of normal saline in the ED and is admitted for further management. and Gen. surgery was consulted Review of Systems Constitutional: Reports chills, Reports lethargy, Reports malaise, Reports weakness, Denies anorexia, Denies fever, Denies weight gain Eyes: denies blurred vision, denies diplopia, denies dry eye Ears: deny: decreased hearing Ears, nose, mouth and throat: Denies headache, Denies hoarseness, Denies nose pain, Denies odynophagia Breasts: absent: skin changes Cardiovascular: Reports leg edema, Denies chest pain, Denies high blood pressure , Denies irregular heart beat, Denies palpitations, Denies shortness of breath Respiratory: Denies cough, Denies dyspnea Gastrointestinal: Reports abdominal pain, Reports loss of appetite, Reports nausea, Reports vomiting, Denies belching, Denies bloating, Denies BRBPR, Denies change in bowel habits, Denies coffee ground emesis, Denies hematemesis, Denies hematochezia Musculoskeletal: Denies leg numbness/tingling, Denies limitation of motion Neurological: Denies aphasia, Denies ataxia, Denies balance difficulties, Denies motor disturbance, Denies numbness, Denies seizures Psychiatric: Denies anxiety, Denies depression, Denies hallucinations, Denies insomnia Endocrine: Reports fatigue, Denies cold intolerance, Denies heat intolerance, Denies high blood sugars, Denies palpitations Past Medical History Past Medical History: No Reported History Additional Past Medical History / Comment(s): Other HX: Recurrent chronic pancreatitis with extensive workups and was seen at [facility] with no cause of pancreatitis discovered. History of Any Multi-Drug Resistant Organisms: None Reported Past Surgical History: No Surgical Hx Reported Additional Past Surgical History / Comment(s): EGD's and EGD with biopsy. Past Anesthesia/Blood Transfusion Reactions: No Reported Reaction Past Psychological History: ADD/ADHD Additional Psychological History / Comment(s): Pt takes adderill during school year to help her concentrate-she is no longer using. Smoking Status: Never smoker Past Alcohol Use History: None Reported Additional Past Alcohol Use History / Comment(s): Patient is a nonsmoker. She denies any medical marijuana, marijuana, street drug use. She is single and does not have any children. Past Drug Use History: None Reported - Past Family History Brother(s) Additional Family Medical History / Comment(s): She has 2 brothers and 1 sister with no major medical problems. Father Family Medical History: Diabetes Mellitus Additional Family Medical History / Comment(s): Father is alive at age 49 with history of diabetes requiring kidney and pancreas transplant. Mother Family Medical History: Deep Vein Thrombosis (DVT) Additional Family Medical History / Comment(s): Mother is alive at age 52 with history of DVT's, cardiomyopathy and pacemaker. Medications and Allergies Home Medications Medication Instructions Recorded Confirmed Type Ibuprofen [Advil] 800 mg PO BID PRN 06/26/17 06/26/17 History Allergies Allergy/AdvReac Type Severity Reaction Status Date / Time latex Allergy Rash/Hives Verified 06/26/17 23:41 peanut Allergy Rash/Swelli Verified 06/26/17 23:41 ng Physical Exam Vitals: Vital Signs Temp Pulse Pulse Resp BP BP BP 06/27/17 15:15 97.4 F L 63 20 105/61 06/27/17 10:55 96.8 F L 76 16 133/79 06/27/17 07:38 82 16 06/27/17 07:30 96.9 F L 82 16 132/91 06/27/17 02:49 98.4 F 74 16 134/88 06/27/17 02:18 76 20 160/98 06/26/17 23:36 98.8 F 97 20 137/65 Pulse Ox 06/27/17 15:15 92 L 06/27/17 10:55 97 06/27/17 07:38 06/27/17 07:30 96 06/27/17 02:49 94 L 06/27/17 02:18 94 L 06/26/17 23:36 94 L Intake and Output 06/27/17 06/27/17 06/27/17 06:59 14:59 22:59 Intake Total 250 500 Balance 250 500 Intake: IV 500 Sodium Chloride 0.9% 1, 500 000 ml @ 125 mls/hr IV . Q8H STA Rx#:[id number] Intake, IV Titration 250 Amount Sodium Chloride 0.9% 1, 250 000 ml @ 125 mls/hr IV . Q8H STA Rx#:[id number] Other: Voiding Method Toilet Toilet # Voids 2 Weight 90.718 kg 90.718 kg Patient Weight 06/28/17 06:59 Weight 90.718 kg - Constitutional General appearance: average body habitus, mild distress, obese - EENT Eyes: EOMI, PERRLA ENT: normal oropharynx Ears: bilateral: normal - Neck Neck: no lymphadenopathy, no normal ROM Carotids: bilateral: upstroke normal Thyroid: bilateral: normal size - Respiratory Respiratory: bilateral: CTA, negative: dullness, rales, rhonchi - Cardiovascular Rhythm: regular Heart sounds: normal: S1, S2 Abnormal Heart Sounds: no systolic murmur, no diastolic murmur, no rub ankle Peripheral Edema: bilateral: Trace dorsalis pedis Peripheral Pulses: bilateral: Normal - Gastrointestinal General gastrointestinal: no distended, normal bowel sounds, soft, tenderness Localized gastrointestinal: tender: epigastric periumbilical (epigastric ) - Neurologic Neurologic: CNII-XII intact - Musculoskeletal Musculoskeletal: gait normal, generalized weakness - Psychiatric Psychiatric: appropriate affect Results CBC & Chem 7: 06/27/17 00:37 06/27/17 00:37 Labs: Abnormal Lab Results - Last 24 Hours (Table) 06/27/17 Range/Units 00:37 Creatinine 0.50 L (0.52-1.04) mg/dL Glucose 172 H (74-99) mg/dL AST 91 H (14-36) U/L ALT 165 H (9-52) U/L Amylase 173 H (30-110) U/L Lipase 1714 H (23-300) U/L Thrombosis Risk Factor Assmnt - Choose All That Apply Any of the Below Risk Factors Present?: No Other Risk Factors: No Thrombosis Risk Factor Assessment Level: Very Low Risk Assessment and Plan Plan: 1. Acute pancreatitis secondary to pancreatic divisum under the care of the [facility] .admit to the hospital, nothing by mouth, IV fluid, IV pain medicine, Protonix 40 mg IV push every 24 hours, Dilaudid 1mg IV push every 3 hours as needed with ketorolac q6 hr , Zofran form and gram IV push every 6 hours as needed. Hold CT abdomen and since patient's electrolytes appears normal and will order if patient symptoms doesn't get better. Surgery consulted for possible pancreatic divisum repair 2. ADHD, stable. 3. Gastrointestinal prophylaxis. Protonix. 4. DVT prophylaxis. SCDs and JOAQUÍN hose, early ambulation. Patient will be admitted to the hospital for a minimum of 3 night stay. Discharge plan: Return home
--- NOTE | 2017-06-27 18:09 | P.GSCN ---
History of Present Illness Consult date: 06/27/17 Reason for Consult: Pancreatitis Requesting physician: Hiram Barrios History of present illness: Patient is a very pleasant 21 year with know history of recurrent pancreatitis. She has been having the episodes of pancreatitis for the last 11 yeas. She has never been found to have gallstones and has been extensively worked up at [facility]. She is to be seen in [facility] for this. Her pain started 4 days ago and has gotten worse with radiation to the back. She does not smoke. She has nausea but no vomiting. No fever or chills. No jaundice rigors or chills. No icterus. Review of Systems - Constitutional Reports anorexia - EENT Eyes: denies blurred vision Ears: deny: decreased hearing Ears, nose, mouth and throat: Denies dysphagia - Cardiovascular Denies chest pain, Denies shortness of breath - Respiratory Denies congestion, Denies cough, Denies excessive sputum, Denies hemoptysis, Denies home oxygen - Gastrointestinal Reports as per HPI - Genitourinary Genitourinary: Denies dysuria, Denies hematuria - Musculoskeletal Denies arm numbness/tingling, Denies atrophy, Denies fractures, Denies frequent falls, Denies gait dysfunction - Integumentary Denies rash, Denies unusual bruising - Neurological Denies headaches, Denies syncope - Psychiatric Denies anhedonia - Hematologic/Lymphatic Denies easy bleeding, Denies easy bruising Past Medical History Past Medical History: No Reported History Additional Past Medical History / Comment(s): Other HX: Recurrent chronic pancreatitis with extensive workups and was seen at [facility] with no cause of pancreatitis discovered. History of Any Multi-Drug Resistant Organisms: None Reported Past Surgical History: No Surgical Hx Reported Additional Past Surgical History / Comment(s): EGD's and EGD with biopsy. Past Anesthesia/Blood Transfusion Reactions: No Reported Reaction Past Psychological History: ADD/ADHD Additional Psychological History / Comment(s): Pt takes adderill during school year to help her concentrate-she is no longer using. Smoking Status: Never smoker Past Alcohol Use History: None Reported Additional Past Alcohol Use History / Comment(s): Patient is a nonsmoker. She denies any medical marijuana, marijuana, street drug use. She is single and does not have any children. Past Drug Use History: None Reported - Past Family History Brother(s) Additional Family Medical History / Comment(s): She has 2 brothers and 1 sister with no major medical problems. Father Family Medical History: Diabetes Mellitus Additional Family Medical History / Comment(s): Father is alive at age 49 with history of diabetes requiring kidney and pancreas transplant. Mother Family Medical History: Deep Vein Thrombosis (DVT) Additional Family Medical History / Comment(s): Mother is alive at age 52 with history of DVT's, cardiomyopathy and pacemaker. Medications and Allergies Home Medications Medication Instructions Recorded Confirmed Type Ibuprofen [Advil] 800 mg PO BID PRN 06/26/17 06/26/17 History Allergies Allergy/AdvReac Type Severity Reaction Status Date / Time latex Allergy Rash/Hives Verified 06/26/17 23:41 peanut Allergy Rash/Swelli Verified 06/26/17 23:41 ng Surgical - Exam Vital Signs Temp Pulse Resp BP Pulse Ox 98.8 F 97 20 137/65 94 L 06/26/17 23:36 06/26/17 23:36 06/26/17 23:36 06/26/17 23:36 06/26/17 23:36 - General well developed, well nourished, moderate distress - Eyes PERRL, normal ocular movement, no icteric - ENT normal pinna, normal nares, normal mucosa - Neck no masses, no bruits - Respiratory normal expansion, normal respiratory effort - Cardiovascular Rhythm: regular - Abdomen Abdomen: soft, tender, no organomegaly, no surgical scars - Integumentary no rash, no growths, no abnormal pigmentation - Neurologic normal coordination, normal sensation - Musculoskeletal normal gait, normal posture - Psychiatric oriented to time, oriented to person, oriented to place, speech is normal, memory intact Results - Labs 06/27/17 00:37 06/27/17 00:37 Abnormal Lab Results - Last 24 Hours (Table) 06/27/17 Range/Units 00:37 Creatinine 0.50 L (0.52-1.04) mg/dL Glucose 172 H (74-99) mg/dL AST 91 H (14-36) U/L ALT 165 H (9-52) U/L Amylase 173 H (30-110) U/L Lipase 1714 H (23-300) U/L Diabetes panel 06/27/17 Range/Units 00:37 Sodium 139 (137-145) mmol/L Potassium 4.5 (3.5-5.1) mmol/L Chloride 103 (98-107) mmol/L Carbon Dioxide 22 (22-30) mmol/L BUN 10 (7-17) mg/dL Creatinine 0.50 L (0.52-1.04) mg/dL Glucose 172 H (74-99) mg/dL Calcium 9.8 (8.4-10.2) mg/dL AST 91 H (14-36) U/L ALT 165 H (9-52) U/L Alkaline Phosphatase 122 (38-126) U/L Total Protein 7.7 (6.3-8.2) g/dL Albumin 4.7 (3.5-5.0) g/dL Calcium panel 06/27/17 Range/Units 00:37 Calcium 9.8 (8.4-10.2) mg/dL Albumin 4.7 (3.5-5.0) g/dL Pituitary panel 06/27/17 Range/Units 00:37 Sodium 139 (137-145) mmol/L Potassium 4.5 (3.5-5.1) mmol/L Chloride 103 (98-107) mmol/L Carbon Dioxide 22 (22-30) mmol/L BUN 10 (7-17) mg/dL Creatinine 0.50 L (0.52-1.04) mg/dL Glucose 172 H (74-99) mg/dL Calcium 9.8 (8.4-10.2) mg/dL Adrenal panel 06/27/17 Range/Units 00:37 Sodium 139 (137-145) mmol/L Potassium 4.5 (3.5-5.1) mmol/L Chloride 103 (98-107) mmol/L Carbon Dioxide 22 (22-30) mmol/L BUN 10 (7-17) mg/dL Creatinine 0.50 L (0.52-1.04) mg/dL Glucose 172 H (74-99) mg/dL Calcium 9.8 (8.4-10.2) mg/dL Total Bilirubin 0.4 (0.2-1.3) mg/dL AST 91 H (14-36) U/L ALT 165 H (9-52) U/L Alkaline Phosphatase 122 (38-126) U/L Total Protein 7.7 (6.3-8.2) g/dL Albumin 4.7 (3.5-5.0) g/dL Assessment and Plan (1) Pancreatic divisum Status: Acute (2) Pancreatitis Status: Acute Plan: Patient has acute recurrent pancratitis. No surgical intervention planned at this time. Agree with conservative management.
[2017-06-27] MEDS: ACETAMINOPHEN TAB 325 MG TAB PO PRN (18:19)
[2017-06-28] MEDS: HYDROmorphone 1 MG/ML 1 ML SYRINGE IV PRN ×5 (01:02→13:11)
[2017-06-28] MEDS: ACETAMINOPHEN TAB 325 MG TAB PO PRN ×4 (01:02→23:12)
[2017-06-28] MEDS: SODIUM CHLORIDE 0.9% 1,000 ML IV SCH ×6 (01:02→16:55)
[2017-06-28] MEDS: ONDANSETRON 4 MG/2 ML VIAL IVP PRN ×4 (04:21→23:11)
[2017-06-28] MEDS: KETOROLAC 30 MG/ML 1 ML VIAL IVP PRN ×4 (04:29→23:11)
[2017-06-28] MEDS: diphenhydrAMINE 50 MG/ML 1 ML VIAL IVP PRN ×3 (04:35→23:10)
[2017-06-28 07:57] LABS: ALT 139 U/L (9-52); AST 87 U/L (14-36); Alkaline Phosphatase 74 U/L (38-126); Amylase 51 U/L (30-110); Anion Gap 10 mmol/L; Blood Urea Nitrogen 6 mg/dL (7-17); Calcium 8.4 mg/dL (8.4-10.2); Carbon Dioxide 19 mmol/L (22-30); Chloride 102 mmol/L (98-107); Glucose 87 mg/dL (74-99); Non-African American GFR(MDRD) >60 (>60 ml/min/1.73 sqM); Potassium 4.2 mmol/L (3.5-5.1); Sodium 131 mmol/L (137-145); Total Bilirubin 0.3 mg/dL (0.2-1.3); Total Protein 6.2 g/dL (6.3-8.2)
[2017-06-28 08:20] LABS: Basophils % (A) 0 %; CH 28.9; CHCM 33.7; Eosinophils # (A) 0.2 k/uL (0-0.7); Eosinophils % (A) 2 %; HCT 35.4 % (34.0-46.0); HGB 11.8 gm/dL (11.4-16.0); Luc # (Auto) 0.14; Luc % (Auto) 2; Lymphocytes # (A) 2.4 k/uL (1.0-4.8); Lymphocytes % (A) 30 %; MCH 28.7 pg (25.0-35.0); MCHC 33.3 g/dL (31.0-37.0); MCV 86.1 fL (80.0-100.0); Mean Platelet Volume 8.4; Monocytes # (A) 0.5 k/uL (0-1.0); Monocytes % (A) 6 %; Neutrophils # (A) 4.7 k/uL (1.3-7.7); Neutrophils % (A) 59 %; RBC 4.11 m/uL (3.80-5.40); RDW 13.4 % (11.5-15.5); WBC 7.9 k/uL (4.0-11.0); WBC (Perox) 7.93
--- NOTE | 2017-06-28 09:42 | P.PN ---
Subjective Principal diagnosis: Pancreatitis History of pancreatic divisum. Feels a little better today. Still reports nausea and pain. Lipase improved to 300 range. Afebrile. Ambulating in hallway. Objective - Vital Signs Vital signs: Vital Signs Temp 97.3 F L 06/28/17 08:21 Pulse 61 06/28/17 08:21 Resp 20 06/28/17 08:21 BP 112/71 06/28/17 08:21 Pulse Ox 98 06/28/17 08:21 Intake & Output 06/27/17 06/28/17 06/28/17 18:59 06:59 18:59 Intake Total 500 Balance 500 Weight 90.718 kg Intake: IV 500 Sodium Chloride 0.9% 1, 500 000 ml @ 125 mls/hr IV . Q8H [facility] Rx#:[id number] Other: Voiding Method Toilet # Voids 1 - Exam General appearance: The patient is alert, oriented, in no acute distress. HET: Head is normocephalic and atraumatic. Pupils are equal and reactive. Oropharynx is clear without lesions. Neck: Supple without lymphadenopathy. Trachea midline. Heart: S1 S2. Regular rate and rhythm. Lungs: No crackles or wheezes are heard. Abdomen: Soft, epigastric tenderness, nondistended with bowel sounds. No peritoneal signs. No palpable organomegaly or masses. Extremities: Normal skin color and turgor. No cyanosis, rash, ulceration, clubbing, or edema. Radial and pedal pulses are 2/4 bilaterally. Neurological: No focal deficits. Strength and sensation are grossly intact. - Labs CBC & Chem 7: 06/28/17 06:47 06/28/17 06:47 Labs: Abnormal Lab Results - Last 24 Hours (Table) 06/28/17 Range/Units 06:47 Sodium 131 L (137-145) mmol/L Carbon Dioxide 19 L (22-30) mmol/L BUN 6 L (7-17) mg/dL AST 87 H (14-36) U/L ALT 139 H (9-52) U/L Total Protein 6.2 L (6.3-8.2) g/dL Lipase 319 H (23-300) U/L Assessment and Plan (1) Pancreatic divisum Status: Acute (2) Pancreatitis Narrative/Plan: Acute on chronic Status: Acute Plan: 1. Antiemetics. 2. Pain control. 3. Slow advancement of diet as tolerated. Conservative measures. Assessment and plan of care discussed with Dr. Briggs.
[2017-06-28] MEDS: PANTOPRAZOLE 40 MG/10 ML VIAL IVP SCH (10:10)
--- NOTE | 2017-06-28 12:08 | P.PN ---
Subjective 21-year-old female being seen on rounds this morning currently sitting up in a chair. Patient reports abdominal pain persist unchanged from admission IV pain medication effective for pain control the lipase is down to 300. AST down to 87 ALT 139. White count 7.9. Patient states she's able to ambulate in the hallway. Reports of nausea sensation no vomiting Objective - Vital Signs Vital signs: Vital Signs Temp 97.3 F L 06/28/17 08:21 Pulse 61 06/28/17 08:21 Resp 20 06/28/17 08:21 BP 112/71 06/28/17 08:21 Pulse Ox 98 06/28/17 08:21 Intake & Output 06/27/17 06/28/17 06/28/17 18:59 06:59 18:59 Intake Total 500 Balance 500 Weight 90.718 kg Intake: IV 500 Sodium Chloride 0.9% 1, 500 000 ml @ 125 mls/hr IV . Q8H [facility] Rx#:[id number] Other: Voiding Method Toilet # Voids 1 - Exam Physical exam 21-year-old female sitting up in a chair states has been up ambulating in the hallway denying any dizziness lightheadedness shortness of breath states abdominal pain persist with epigastric tenderness Lungs essentially clear adequate air movement on room air Heart S1-S2 audible regular Abdomen soft epigastric tenderness no facial grimacing with palpitation to the abdominal wall not distended bowel tones present no nausea no vomiting Extremities no edema noted - Labs CBC & Chem 7: 06/28/17 06:47 06/28/17 06:47 Labs: Abnormal Lab Results - Last 24 Hours (Table) 06/28/17 Range/Units 06:47 Sodium 131 L (137-145) mmol/L Carbon Dioxide 19 L (22-30) mmol/L BUN 6 L (7-17) mg/dL AST 87 H (14-36) U/L ALT 139 H (9-52) U/L Total Protein 6.2 L (6.3-8.2) g/dL Lipase 319 H (23-300) U/L Assessment and Plan Plan: Impression Acute on chronic pancreatitis Acute pancreatic divisum Recurrent chronic pancreatitis with [facility] etiology as to the cause of the pancreatitis Present on admission intractable epigastric pain due to acute pancreatitis Plan No surgical intervention planned at this time we'll sign off reevaluate if indicated Continue with conservative management The above impression and plan of care have been discussed and directed by signing physician. Jennifer Pressley nurse practitioner acting as scribe for signing physician.
[2017-06-28] MEDS: METOCLOPRAMIDE 5 MG/ML 2 ML VIAL IVP PRN (13:11)
[2017-06-28] MEDS: HYDROmorphone 2 MG/ML 1 ML SYRINGE IV PRN ×4 (15:24→23:48)
--- NOTE | 2017-06-28 16:38 | P.PN ---
Subjective This is a 21-year-old female. She was recently established with Dr. Lazaro. She has a past medical history for chronic relapsing pancreatitis since the age of 10 with multiple hospitalizations secondary to pancreatic divisum. She also follows with Dr. 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 She states she has episodes that are very mild for which she does not come into the hospital and she takes [place]. She states one about every 2 weeks. She has other episodes or more severe and she comes into the hospital which occur every 3-4 months. She denies any change in her weight. She denies any change in her menses which are regular. She denies any previous pregnancies. She states she has not had an MRCP in the past. She denies any alcohol or drug intake. She denies any kuyn-gdu-wkywzau drugs including herbals, vitamins. She does not know of any food triggers for pain. She is a nonsmoker. She complains of abdominal pain as well as nausea and vomiting. She did come into [facility] emergency center on October 15 and was admitted. Liver MRI at that time showed underlying pancreatic diffuse him as felt present. No MRI evidence of complication related to acute pancreatitis. Hepatosplenomegaly with marked fatty infiltration of the liver was redemonstrated. Patient states she is followed up with [facility] and blood was sent to [place] and patient may be referred to [facility] for transplant and she was told that she has pancreatic divisum She presented to [facility] emergency center and found to have elevated amylase and lipase along with the AST and ALT with normal bilirubin. Patient states that she was started having symptoms 4 days ago with the worsening epigastric abdominal pain radiating to her back. It is similar to the previous pancreatitis attack she had. Patient's pain is controlled and I started him ketorolac patient got 2 L of normal saline in the ED and is admitted for further management. and Gen. surgery was consulted 06/28: Patient has been seen by Dr. Ha with no plan for any surgical intervention. Agree with conservative management. GI has also seen the patient and recommended conservative management. Surgeon has now signed off the case. Patient states she has only had water so far. She has not had a bowel movement. She does complain of continued abdominal pain but nausea is better. The nausea does get worse when she is down. Mariselaid increased to 1.5 mg and IV fluids decreased to 75 mL per hour. Objective - Vital Signs Vital signs: Vital Signs Temp 97.3 F L 06/28/17 08:21 Pulse 61 06/28/17 08:21 Resp 20 06/28/17 08:21 BP 112/71 06/28/17 08:21 Pulse Ox 98 06/28/17 08:21 Intake & Output 06/27/17 06/28/17 06/28/17 18:59 06:59 18:59 Intake Total 500 Balance 500 Weight 90.718 kg Intake: IV 500 Sodium Chloride 0.9% 1, 500 000 ml @ 125 mls/hr IV . Q8H [facility] Rx#:[id number] Other: Voiding Method Toilet # Voids 1 - Exam General appearance: average body habitus, mild distress, obese - EENT Eyes: EOMI, PERRLA ENT: normal oropharynx Ears: bilateral: normal - Neck Neck: no lymphadenopathy, no normal ROM Carotids: bilateral: upstroke normal Thyroid: bilateral: normal size - Respiratory Respiratory: bilateral: CTA, negative: dullness, rales, rhonchi - Cardiovascular Rhythm: regular Heart sounds: normal: S1, S2 Abnormal Heart Sounds: no systolic murmur, no diastolic murmur, no rub ankle Peripheral Edema: bilateral: Trace dorsalis pedis Peripheral Pulses: bilateral: Normal - Gastrointestinal General gastrointestinal: no distended, normal bowel sounds, soft, tenderness Localized gastrointestinal: tender: epigastric periumbilical (epigastric ) - Neurologic Neurologic: CNII-XII intact - Musculoskeletal Musculoskeletal: gait normal, generalized weakness - Psychiatric Psychiatric: appropriate affect - Labs CBC & Chem 7: 06/28/17 06:47 06/28/17 06:47 Labs: Abnormal Lab Results - Last 24 Hours (Table) 06/28/17 Range/Units 06:47 Sodium 131 L (137-145) mmol/L Carbon Dioxide 19 L (22-30) mmol/L BUN 6 L (7-17) mg/dL AST 87 H (14-36) U/L ALT 139 H (9-52) U/L Total Protein 6.2 L (6.3-8.2) g/dL Lipase 319 H (23-300) U/L Assessment and Plan Plan: 1. Acute pancreatitis secondary to pancreatic divisum under the care of the [facility] .admit to the hospital, nothing by mouth, IV fluid, IV pain medicine, Protonix 40 mg IV push every 24 hours, Dilaudid 1.5mg IV push every 3 hours as needed with ketorolac q6 hr , Zofran form and gram IV push every 6 hours as needed. Hold CT abdomen and since patient's electrolytes appears normal and will order if patient symptoms doesn't get better. Surgery consult and GI consult appreciated. 2. ADHD, stable. 3. Gastrointestinal prophylaxis. Protonix. 4. DVT prophylaxis. SCDs and JOAQUÍN cabezas, early ambulation. Patient will be admitted to the hospital for a minimum of 3 night stay. Discharge plan: Return home Impression and plan of care have been directed as dictated by the signing physician. Adwoa Ernandez nurse practitioner acting as scribe for signing physician.
[2017-06-29] MEDS: HYDROmorphone 2 MG/ML 1 ML SYRINGE IV PRN ×7 (02:37→22:13)
[2017-06-29] MEDS: diphenhydrAMINE 50 MG/ML 1 ML VIAL IVP PRN ×3 (05:36→18:44)
[2017-06-29] MEDS: ONDANSETRON 4 MG/2 ML VIAL IVP PRN ×3 (05:36→20:29)
[2017-06-29] MEDS: KETOROLAC 30 MG/ML 1 ML VIAL IVP PRN ×2 (05:41→11:55)
[2017-06-29] MEDS: ACETAMINOPHEN TAB 325 MG TAB PO PRN ×2 (05:42→15:01)
[2017-06-29] MEDS: SODIUM CHLORIDE 0.9% 1,000 ML IV SCH ×2 (05:49→18:56)
[2017-06-29] MEDS: PANTOPRAZOLE 40 MG/10 ML VIAL IVP SCH (09:59)
[2017-06-29] MEDS: SENNOSIDES-DOCUSATE SODIUM 1 EACH TAB PO SCH (15:02)
--- NOTE | 2017-06-29 15:30 | P.PN ---
Subjective This is a 21-year-old female. She was recently established with Dr. Lazaro. She has a past medical history for chronic relapsing pancreatitis since the age of 10 with multiple hospitalizations secondary to pancreatic divisum. She also follows with Dr. 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 She states she has episodes that are very mild for which she does not come into the hospital and she takes [place]. She states one about every 2 weeks. She has other episodes or more severe and she comes into the hospital which occur every 3-4 months. She denies any change in her weight. She denies any change in her menses which are regular. She denies any previous pregnancies. She states she has not had an MRCP in the past. She denies any alcohol or drug intake. She denies any fmfi-kjg-myvcsyh drugs including herbals, vitamins. She does not know of any food triggers for pain. She is a nonsmoker. She complains of abdominal pain as well as nausea and vomiting. She did come into [facility] emergency center on October 15 and was admitted. Liver MRI at that time showed underlying pancreatic diffuse him as felt present. No MRI evidence of complication related to acute pancreatitis. Hepatosplenomegaly with marked fatty infiltration of the liver was redemonstrated. Patient states she is followed up with [facility] and blood was sent to [place] and patient may be referred to [facility] for transplant and she was told that she has pancreatic divisum She presented to [facility] emergency center and found to have elevated amylase and lipase along with the AST and ALT with normal bilirubin. Patient states that she was started having symptoms 4 days ago with the worsening epigastric abdominal pain radiating to her back. It is similar to the previous pancreatitis attack she had. Patient's pain is controlled and I started him ketorolac patient got 2 L of normal saline in the ED and is admitted for further management. and Gen. surgery was consulted 06/28: Patient has been seen by Dr. Ha with no plan for any surgical intervention. Agree with conservative management. GI has also seen the patient and recommended conservative management. Surgeon has now signed off the case. Patient states she has only had water so far. She has not had a bowel movement. She does complain of continued abdominal pain but nausea is better. The nausea does get worse when she is down. Mariselaid increased to 1.5 mg and IV fluids decreased to 75 mL per hour. 06/29: Patient states that she is feeling a little bit better from yesterday. She states she still has nausea and is receiving Zofran. She continues to have abdominal pain and increased Dilaudid may be helping slightly. Percocet also ordered. Patient has lower extremity edema for which IV fluids have been discontinued. Recheck labs in the morning. Objective - Vital Signs Vital signs: Vital Signs Temp 97.2 F L 06/29/17 11:50 Pulse 69 06/29/17 11:50 Resp 16 06/29/17 11:50 BP 132/92 06/29/17 11:50 Pulse Ox 95 06/29/17 11:50 Intake & Output 06/28/17 06/29/17 06/29/17 18:59 06:59 18:59 Intake Total 970 Output Total 350 Balance 970 -350 Intake: Intake, IV Titration 970 Amount Sodium Chloride 0.9% 1, 970 000 ml @ 75 mls/hr IV . [id number] [facility] Rx#:[id number] Output: Urine 350 Other: Voiding Method Toilet Toilet Toilet # Voids 3 2 - Exam General appearance: average body habitus, mild distress, obese - EENT Eyes: EOMI, PERRLA ENT: normal oropharynx Ears: bilateral: normal - Neck Neck: no lymphadenopathy, no normal ROM Carotids: bilateral: upstroke normal Thyroid: bilateral: normal size - Respiratory Respiratory: bilateral: CTA, negative: dullness, rales, rhonchi - Cardiovascular Rhythm: regular Heart sounds: normal: S1, S2 Abnormal Heart Sounds: no systolic murmur, no diastolic murmur, no rub ankle Peripheral Edema: bilateral: Trace dorsalis pedis Peripheral Pulses: bilateral: Normal - Gastrointestinal General gastrointestinal: no distended, normal bowel sounds, soft, tenderness Localized gastrointestinal: tender: epigastric periumbilical (epigastric ) - Neurologic Neurologic: CNII-XII intact - Musculoskeletal Musculoskeletal: gait normal, generalized weakness - Psychiatric Psychiatric: appropriate affect - Labs CBC & Chem 7: 06/28/17 06:47 06/28/17 06:47 Assessment and Plan Plan: 1. Acute pancreatitis secondary to pancreatic divisum under the care of the [facility] .admit to the hospital, nothing by mouth, IV fluid, IV pain medicine, Protonix 40 mg IV push every 24 hours, Dilaudid 1.5mg IV push every 3 hours as needed with ketorolac q6 hr , Zofran form and gram IV push every 6 hours as needed. Hold CT abdomen and since patient's electrolytes appears normal and will order if patient symptoms doesn't get better. Surgery consult and GI consult appreciated. 2. ADHD, stable. 3. Gastrointestinal prophylaxis. Protonix. 4. DVT prophylaxis. SCDs and JOAQUÍN cabezas, early ambulation. Patient will be admitted to the hospital for a minimum of 3 night stay. Discharge plan: Return home Impression and plan of care have been directed as dictated by the signing physician. Adwoa Ernandez nurse practitioner acting as scribe for signing physician.
[2017-06-29] MEDS: oxyCODONE-APAP 5-325MG 1 EACH TAB PO PRN (19:32)
[2017-06-30] MEDS: diphenhydrAMINE 50 MG/ML 1 ML VIAL IVP PRN ×4 (00:57→22:20)
[2017-06-30] MEDS: HYDROmorphone 2 MG/ML 1 ML SYRINGE IV PRN ×7 (01:00→22:25)
[2017-06-30] MEDS: METOCLOPRAMIDE 5 MG/ML 2 ML VIAL IVP PRN (01:11)
[2017-06-30] MEDS: oxyCODONE-APAP 5-325MG 1 EACH TAB PO PRN (06:39)
[2017-06-30] MEDS: ONDANSETRON 4 MG/2 ML VIAL IVP PRN ×2 (08:46→14:52)
[2017-06-30] MEDS: PANTOPRAZOLE 40 MG/10 ML VIAL IVP SCH (08:53)
[2017-06-30] MEDS: SENNOSIDES-DOCUSATE SODIUM 1 EACH TAB PO SCH (08:53)
[2017-06-30 09:35] LABS: Amylase <30 U/L (30-110); Anion Gap 10 mmol/L; Carbon Dioxide 27 mmol/L (22-30); Chloride 102 mmol/L (98-107); Glucose 89 mg/dL (74-99); Non-African American GFR(MDRD) >60 (>60 ml/min/1.73 sqM); Sodium 139 mmol/L (137-145); Total Bilirubin 0.6 mg/dL (0.2-1.3); Total Protein 6.6 g/dL (6.3-8.2)
[2017-06-30 09:44] LABS: ALT 145 U/L (9-52); AST 84 U/L (14-36); Alkaline Phosphatase 65 U/L (38-126); Blood Urea Nitrogen 4 mg/dL (7-17); Magnesium 1.5 mg/dL (1.6-2.3); Potassium 4.3 mmol/L (3.5-5.1)
[2017-06-30] MEDS ORDERED: SCOPOLAMINE 1.5MG/72HR PATCH TRANSDERM SCH (10:00)
[2017-06-30] MEDS: BUTALB/APAP/CAFF 50-325-40MG TAB PO PRN ×2 (11:36→18:49)
--- NOTE | 2017-06-30 12:45 | P.PN ---
Subjective This is a 21-year-old female. She was recently established with Dr. Lazaro. She has a past medical history for chronic relapsing pancreatitis since the age of 10 with multiple hospitalizations secondary to pancreatic divisum. She also follows with Dr. 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 She states she has episodes that are very mild for which she does not come into the hospital and she takes [place]. She states one about every 2 weeks. She has other episodes or more severe and she comes into the hospital which occur every 3-4 months. She denies any change in her weight. She denies any change in her menses which are regular. She denies any previous pregnancies. She states she has not had an MRCP in the past. She denies any alcohol or drug intake. She denies any oxwe-uyl-xdiaqqb drugs including herbals, vitamins. She does not know of any food triggers for pain. She is a nonsmoker. She complains of abdominal pain as well as nausea and vomiting. She did come into [facility] emergency center on October 15 and was admitted. Liver MRI at that time showed underlying pancreatic diffuse him as felt present. No MRI evidence of complication related to acute pancreatitis. Hepatosplenomegaly with marked fatty infiltration of the liver was redemonstrated. Patient states she is followed up with [facility] and blood was sent to [place] and patient may be referred to [facility] for transplant and she was told that she has pancreatic divisum She presented to [facility] emergency center and found to have elevated amylase and lipase along with the AST and ALT with normal bilirubin. Patient states that she was started having symptoms 4 days ago with the worsening epigastric abdominal pain radiating to her back. It is similar to the previous pancreatitis attack she had. Patient's pain is controlled and I started him ketorolac patient got 2 L of normal saline in the ED and is admitted for further management. and Gen. surgery was consulted 06/28: Patient has been seen by Dr. Ha with no plan for any surgical intervention. Agree with conservative management. GI has also seen the patient and recommended conservative management. Surgeon has now signed off the case. Patient states she has only had water so far. She has not had a bowel movement. She does complain of continued abdominal pain but nausea is better. The nausea does get worse when she is down. Mariselaid increased to 1.5 mg and IV fluids decreased to 75 mL per hour. 06/29: Patient states that she is feeling a little bit better from yesterday. She states she still has nausea and is receiving Zofran. She continues to have abdominal pain and increased Dilaudid may be helping slightly. Percocet also ordered. Patient has lower extremity edema for which IV fluids have been discontinued. Recheck labs in the morning. 06/30: The patient was evaluated today. She reports last night after she ate soup and a sandwich, she developed nausea, vomiting, and abdominal pain. She has been nauseous since, but has not had any further episodes of vomiting. She also reports she developed a migraine last night, further worsening her nausea. Patient's diet was changed to clear liquid, Percocet was discontinued and Fioricet was added for her migraines. Scopolamine patch was also added. She also continues to have some lower extremity edema. IV fluids decreased to 20 miles per hour, compression stockings in place, patient encouraged to ambulate. Amylase and lipase are within normal limits. Objective - Vital Signs Vital signs: Vital Signs Temp 97.4 F L 06/30/17 08:49 Pulse 74 06/30/17 08:49 Resp 19 06/30/17 08:49 BP 139/78 06/30/17 08:49 Pulse Ox 95 06/30/17 08:49 Intake & Output 06/29/17 06/30/17 06/30/17 18:59 06:59 18:59 Intake Total 360 300 Output Total 450 1390 Balance -90 -1090 Intake: Oral 360 300 Output: Urine 450 740 Emesis 650 Other: Voiding Method Toilet Toilet # Voids 1 - Exam - Exam General appearance: average body habitus, mild distress, obese - EENT Eyes: EOMI, PERRLA ENT: normal oropharynx Ears: bilateral: normal - Neck Neck: no lymphadenopathy, no normal ROM Carotids: bilateral: upstroke normal Thyroid: bilateral: normal size - Respiratory Respiratory: bilateral: CTA, negative: dullness, rales, rhonchi - Cardiovascular Rhythm: regular Heart sounds: normal: S1, S2 Abnormal Heart Sounds: no systolic murmur, no diastolic murmur, no rub ankle Peripheral Edema: bilateral: Trace dorsalis pedis Peripheral Pulses: bilateral: Normal - Gastrointestinal General gastrointestinal: no distended, normal bowel sounds, soft, tenderness Localized gastrointestinal: tender: epigastric periumbilical (epigastric ) - Neurologic Neurologic: CNII-XII intact - Musculoskeletal Musculoskeletal: gait normal, generalized weakness - Psychiatric Psychiatric: appropriate affect - Labs CBC & Chem 7: 06/28/17 06:47 06/30/17 08:26 Labs: Abnormal Lab Results - Last 24 Hours (Table) 06/30/17 Range/Units 08:26 BUN 4 L (7-17) mg/dL Magnesium 1.5 L (1.6-2.3) mg/dL AST 84 H (14-36) U/L ALT 145 H (9-52) U/L Amylase <30 L (30-110) U/L Assessment and Plan Plan: 1. Acute pancreatitis secondary to pancreatic divisum under the care of the [facility], admit to the hospital, attempted to advance diet, patient did not tolerate. She will proceed with clear liquids, IV Reglan 10 mg every 6 when necessary, Zofran 4 mg IV every 6 as needed, Protonix 40 mg daily IV, and scopolamine patch. For pain control we'll continue with Dilaudid 1.5 mg IV every 3 hours as needed. Percocet was discontinued. For her migraine Fioricet was added. 2. ADHD. stable. 3. Gastrointestinal prophylaxis. Protonix. 4. DVT prophylaxis. SCDs and JOAQUÍN hose, early ambulation. Patient will be admitted to the hospital for a minimum of 3 night stay. Discharge plan: Return home The above impression and plan of care have been discussed and directed by signing physician. Komal Multani nurse practitioner acting as scribe for signing physician.
[2017-06-30] MEDS: SODIUM CHLORIDE 0.9% 1,000 ML IV SCH ×2 (17:31→22:32)
[2017-07-01] MEDS: HYDROmorphone 2 MG/ML 1 ML SYRINGE IV PRN ×3 (01:31→07:52)
[2017-07-01 01:58] VITALS: RESP 18
[2017-07-01] MEDS: diphenhydrAMINE 50 MG/ML 1 ML VIAL IVP PRN (04:28)
[2017-07-01] MEDS ORDERED: PANTOPRAZOLE 40 MG TABLET PO SCH (07:30)
[2017-07-01] MEDS: BUTALB/APAP/CAFF 50-325-40MG TAB PO PRN (07:51)
[2017-07-01] MEDS: SENNOSIDES-DOCUSATE SODIUM 1 EACH TAB PO SCH (07:56)
[2017-07-01 08:02] VITALS: BP 144/70; PULSE 89; TEMP 98.1
[2017-07-01 08:44] LABS: ALT 152 U/L (9-52); AST 84 U/L (14-36); Alkaline Phosphatase 80 U/L (38-126); Amylase <30 U/L (30-110); Anion Gap 9 mmol/L; Blood Urea Nitrogen 4 mg/dL (7-17); Carbon Dioxide 31 mmol/L (22-30); Chloride 99 mmol/L (98-107); Glucose 86 mg/dL (74-99); Magnesium 1.6 mg/dL (1.6-2.3); Non-African American GFR(MDRD) >60 (>60 ml/min/1.73 sqM); Sodium 139 mmol/L (137-145); Total Bilirubin 0.5 mg/dL (0.2-1.3); Total Protein 6.7 g/dL (6.3-8.2)
--- NOTE | 2017-07-01 11:46 | P.DS ---
Providers Date of admission: 06/27/17 01:58 Expected date of discharge: 07/01/17 Attending physician: Hriam Barrios MD Consults: 06/27/17 01:59 Consult Physician Stat Consulting Provider: Nery Ha Consult Reason/Comments: recurrent Pancreatitis, h/o pancreatic divisum, evaluate for surgery Do you want consulting provider notified?: Yes, Notify in am 06/27/17 15:27 Consult Physician Routine Consulting Provider: Nery Ha Consult Reason/Comments: recurrent Pancreatitis, h/o pancreatic divisum, evaluate for surgery Do you want consulting provider notified?: Yes Primary care physician: Alice Lazaro [facility] Course: This is a 21-year-old female. She was recently established with Dr. Lazaro. She has a past medical history for chronic relapsing pancreatitis since the age of 10 with multiple hospitalizations secondary to pancreatic divisum. She also follows with Dr. 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 She states she has episodes that are very mild for which she does not come into the hospital and she takes [place]. She states one about every 2 weeks. She has other episodes or more severe and she comes into the hospital which occur every 3-4 months. She denies any change in her weight. She denies any change in her menses which are regular. She denies any previous pregnancies. She states she has not had an MRCP in the past. She denies any alcohol or drug intake. She denies any znnm-hoe-dnwigzq drugs including herbals, vitamins. She does not know of any food triggers for pain. She is a nonsmoker. She complains of abdominal pain as well as nausea and vomiting. She did come into [facility] emergency center on October 15 and was admitted. Liver MRI at that time showed underlying pancreatic diffuse him as felt present. No MRI evidence of complication related to acute pancreatitis. Hepatosplenomegaly with marked fatty infiltration of the liver was redemonstrated. Patient states she is followed up with [facility] and blood was sent to [place] and patient may be referred to [facility] for transplant and she was told that she has pancreatic divisum She presented to [facility] emergency center and found to have elevated amylase and lipase along with the AST and ALT with normal bilirubin. Patient states that she was started having symptoms 4 days ago with the worsening epigastric abdominal pain radiating to her back. It is similar to the previous pancreatitis attack she had. Patient's pain is controlled and I started him ketorolac patient got 2 L of normal saline in the ED and is admitted for further management. and Gen. surgery was consulted 06/28: Patient has been seen by Dr. Ha with no plan for any surgical intervention. Agree with conservative management. GI has also seen the patient and recommended conservative management. Surgeon has now signed off the case. Patient states she has only had water so far. She has not had a bowel movement. She does complain of continued abdominal pain but nausea is better. The nausea does get worse when she is down. Dilaudid increased to 1.5 mg and IV fluids decreased to 75 mL per hour. 06/29: Patient states that she is feeling a little bit better from yesterday. She states she still has nausea and is receiving Zofran. She continues to have abdominal pain and increased Dilaudid may be helping slightly. Percocet also ordered. Patient has lower extremity edema for which IV fluids have been discontinued. Recheck labs in the morning. 06/30: The patient was evaluated today. She reports last night after she ate soup and a sandwich, she developed nausea, vomiting, and abdominal pain. She has been nauseous since, but has not had any further episodes of vomiting. She also reports she developed a migraine last night, further worsening her nausea. Patient's diet was changed to clear liquid, Percocet was discontinued and Fioricet was added for her migraines. Scopolamine patch was also added. She also continues to have some lower extremity edema. IV fluids decreased to 20 miles per hour, compression stockings in place, patient encouraged to ambulate. Amylase and lipase are within normal limits. 07/01: Patient was noted to be sitting up in her bedside chair in no acute distress. She reports that her abdominal pain is a lot better and her nausea has improved significantly. She is asking to go home, she reports she was able to eat this morning without nausea vomiting or abdominal pain. She'll be discharged home with a short course of [place], scopolamine patches for nausea, and Fioricet for her headaches. Discharge diagnoses 1. Acute pancreatitis secondary to pancreatic divisum 2. ADHD 3. Migraine The above impression and plan of care have been discussed and directed by signing physician. Komal Multani nurse practitioner acting as scribe for signing physician. Patient Condition at Discharge: Good Plan - Discharge Summary New Discharge Prescriptions: New HYDROcodone/APAP 5-325MG [[place] 5] 1 each PO Q8HR PRN #21 tab PRN Reason: Pain Butalb/APAP/Caff 50-325-40Mg [Fioricet 50-325-40] 1 tab PO Q4H PRN #60 tablet PRN Reason: Headache Butalb/APAP/Caff 50-325-40Mg [Fioricet 50-325-40] 1 each PO Q4HR PRN #30 tab PRN Reason: Headache Pantoprazole [Protonix] 40 mg PO AC-BRKFST tab Scopolamine 1.5MG/72Hr Patch [TransDerm Scop] 1 patch TRANSDERM Q72H #3 patch Continue Ibuprofen [Advil] 800 mg PO BID PRN PRN Reason: Pain Discharge Medication List Ibuprofen [Advil] 800 mg PO BID PRN 06/26/17 [History] Butalb/APAP/Caff 50-325-40Mg [Fioricet 50-325-40] 1 each PO Q4HR PRN #30 tab 10/17 [Rx] Butalb/APAP/Caff 50-325-40Mg [Fioricet 50-325-40] 1 tab PO Q4H PRN #60 tablet [Rx] HYDROcodone/APAP 5-325MG [[place] 5] 1 each PO Q8HR PRN #21 tab 07/01/17 [Rx] Pantoprazole [Protonix] 40 mg PO AC-BRKFST tab 07/01/17 [Rx] Scopolamine 1.5MG/72Hr Patch [TransDerm Scop] 1 patch TRANSDERM Q72H #3 patch [Rx] Follow up Appointment(s)/Referral(s): Alice Lazaro MD [Primary Care Provider] - 1-2 days Discharge Disposition: HOME SELF-CARE
== END 2017-07-01 10:24 | disposition home or self-care (01) | DRG 439 ==
LOC: EC 23:29 → 3SUR 06-27 01:58 → 6PED 06-27 14:34
PROVIDERS: ADMIT Internal Medicine; ATTEND Internal Medicine
DX: K86.1 Other chronic pancreatitis (principal); Q45.3 Other congenital malformations of pancreas and pancreatic duct; K76.0 Fatty (change of) liver, not elsewhere classified; R16.2 Hepatomegaly with splenomegaly, not elsewhere classified; F90.9 Attention-deficit hyperactivity disorder, unspecified type; G43.909 Migraine, unspecified, not intractable, without status migrainosus; R11.0 Nausea; R60.0 Localized edema; Z91.040 Latex allergy status; Z91.010 Allergy to peanuts; Z79.1 Long term (current) use of non-steroidal anti-inflammatories (NSAID); Z83.3 Family history of diabetes mellitus; Z83.2 Family history of diseases of the blood and blood-forming organs and certain disorders involving the immune mechanism
CPT/HCPCS: 36415; 80053; 81003; 81025; 82150; 83690; 83735; 85025; 96361; 96374; 96375; 96376; 99284

== ENCOUNTER → 2017-08-27 | Outpatient (CLI) | payer MEDICAID | LOC: MMGSC 15:20 | PROVIDERS: ATTEND Family Medicine | DX: Z13.9 Encounter for screening, unspecified (principal) | CPT/HCPCS: 87491; 87591 ==

== ENCOUNTER 2018-02-27 20:06 | Inpatient (IN) | payer MEDICAID ==
[2018-02-27] MEDS ORDERED: MORPHINE SULFATE 2 MG/ML SYRINGE IVP STA ×2 (22:11→23:24)
[2018-02-27] MEDS ORDERED: ONDANSETRON 4 MG/2 ML VIAL IVP STA (22:11)
[2018-02-27] MEDS ORDERED: SODIUM CHLORIDE 0.9% 1,000 ML IV STA ×2 (22:11)
[2018-02-27 22:53] LABS: Basophils % (A) 0 %; Eosinophils # (A) 0.3 k/uL (0-0.7); Eosinophils % (A) 2 %; HCT 42.3 % (34.0-46.0); HGB 14.8 gm/dL (11.4-16.0); Lymphocytes # (A) 2.8 k/uL (1.0-4.8); Lymphocytes % (A) 21 %; MCH 29.3 pg (25.0-35.0); MCV 83.8 fL (80.0-100.0); Mean Platelet Volume 6.8; Monocytes # (A) 0.7 k/uL (0-1.0); Monocytes % (A) 5 %; Neutrophils # (A) 9.5 k/uL (1.3-7.7); Neutrophils % (A) 71 %; Platelet Count 317 k/uL (150-450); RBC 5.04 m/uL (3.80-5.40); RDW 12.7 % (11.5-15.5); WBC 13.5 k/uL (3.8-10.6)
[2018-02-27 22:54] LABS: Appearance,Urine Clear (Clear); Bilirubin,Urine Negative (Negative); Blood,Urine Negative (Negative); Color,Urine Yellow; Glucose,Urine (UA) Negative (Negative); Ketones,Urine Negative (Negative); Leukocyte Esterase,Urine Negative (Negative); Nitrite,Urine Negative (Negative); PH, Urine 5.5 (5.0-8.0); Protein,Urine Negative (Negative); Specific Gravity,Urine 1.014 (1.001-1.035); Urobilinogen,Urine <2.0 mg/dL (<2.0)
--- NOTE | 2018-02-27 23:15 | XR ---
EXAMINATION TYPE: XR KUB DATE OF EXAM: 02/27/2018 COMPARISON: 07/20/2014 HISTORY: Abdominal pain TECHNIQUE: 2 views FINDINGS: There is no sign of intestinal obstruction or pneumoperitoneum. Fecal pattern is normal. Tiffanie ng bases are clear. There are no pathologic calcifications. IMPRESSION: Nonacute abdomen. No change.
[2018-02-27 23:39] LABS: ALT 104 U/L (9-52); AST 57 U/L (14-36); Albumin 4.6 g/dL (3.5-5.0); Alkaline Phosphatase 90 U/L (38-126); Amylase 285 U/L (30-110); Anion Gap 16 mmol/L; Blood Urea Nitrogen 11 mg/dL (7-17); Calcium 9.5 mg/dL (8.4-10.2); Carbon Dioxide 20 mmol/L (22-30); Chloride 104 mmol/L (98-107); Glucose 119 mg/dL (74-99); Potassium 4.5 mmol/L (3.5-5.1); Sodium 140 mmol/L (137-145); Total Bilirubin 0.4 mg/dL (0.2-1.3); Total Protein 7.2 g/dL (6.3-8.2)
[2018-02-27] MEDS ORDERED: SODIUM CHLORIDE 0.9% 1,000 ML IV SCH (23:45)
[2018-02-27 23:51] LABS: Lipase 3262 U/L (23-300)
[2018-02-27] MEDS ORDERED: MORPHINE SULFATE 2 MG/ML SYRINGE IV PRN (23:59)
[2018-02-27] MEDS ORDERED: NALOXONE 0.4 MG/ML 1 ML VIAL IV PRN (23:59)
--- NOTE | 2018-02-27 23:59 | ED ---
Abdominal Pain HPI - General Chief Complaint: Abdominal Pain Stated Complaint: abdominal pain Time Seen by Provider: 02/27/18 21:59 Source: patient, RN notes reviewed, old records reviewed Mode of arrival: ambulatory Limitations: no limitations - History of Present Illness Initial Comments: 22-year-old female with history. Return as presents emergency Department and 2.2 days of abdominal pain. Similar to previous history of pinkeye times. Reports rating towards her back. No fevers or chills. She denies any chest pressures breath. No urinary symptoms. Patient relates that she has had a few episodes of nausea and vomiting. No bloody emesis. She does have her gallbladder and gallbladder so. She's been evaluated at [facility] multiple times for the Patient resides Patient is also been admitted to our hospital for the symptoms. - Related Data Home Medications Medication Instructions Recorded Confirmed Hydrocodone/Acetaminophen [[place] 1 tab PO BID PRN 02/27/18 02/27/18 5-325] Allergies Allergy/AdvReac Type Severity Reaction Status Date / Time latex Allergy Rash/Hives Verified 02/27/18 22:16 peanut Allergy Rash/Swelli Verified 02/27/18 22:16 ng Review of Systems ROS Statement: Those systems with pertinent positive or pertinent negative responses have been documented in the HPI. ROS Other: All systems not noted in ROS Statement are negative. Past Medical History Past Medical History: No Reported History Additional Past Medical History / Comment(s): Other HX: Recurrent chronic pancreatitis with extensive workups and was seen at [facility] with no cause of pancreatitis discovered. History of Any Multi-Drug Resistant Organisms: None Reported Past Surgical History: No Surgical Hx Reported Additional Past Surgical History / Comment(s): EGD's and EGD with biopsy. Past Anesthesia/Blood Transfusion Reactions: No Reported Reaction Past Psychological History: ADD/ADHD Smoking Status: Never smoker Past Alcohol Use History: None Reported Past Drug Use History: None Reported - Past Family History Brother(s) Additional Family Medical History / Comment(s): She has 2 brothers and 1 sister with no major medical problems. Father Family Medical History: Diabetes Mellitus Additional Family Medical History / Comment(s): Father is alive at age 49 with history of diabetes requiring kidney and pancreas transplant. Mother Family Medical History: Deep Vein Thrombosis (DVT) Additional Family Medical History / Comment(s): Mother is alive at age 52 with history of DVT's, cardiomyopathy and pacemaker. General Exam - General Exam Comments Initial Comments: 22-year-old field. Alert and oriented. No significant distress. Limitations: no limitations General appearance: alert, in no apparent distress Head exam: Present: atraumatic, normocephalic, normal inspection Eye exam: Present: normal appearance, PERRL, EOMI. Absent: scleral icterus, conjunctival injection, periorbital swelling ENT exam: Present: normal exam, mucous membranes moist Neck exam: Present: normal inspection. Absent: tenderness, meningismus, lymphadenopathy Respiratory exam: Present: normal lung sounds bilaterally. Absent: respiratory distress, wheezes, rales, rhonchi, stridor Cardiovascular Exam: Present: regular rate, normal rhythm, normal heart sounds. Absent: systolic murmur, diastolic murmur, rubs, gallop, clicks GI/Abdominal exam: Present: soft, tenderness (Epigastric tenderness left upper quadrant tenderness.), normal bowel sounds. Absent: distended, guarding, rebound, rigid Extremities exam: Present: normal inspection, full ROM, normal capillary refill. Absent: tenderness, pedal edema, joint swelling, calf tenderness Back exam: Present: normal inspection Neurological exam: Present: alert, oriented X3, CN II-XII intact Psychiatric exam: Present: normal affect, normal mood Course Vital Signs 02/27/18 20:17 Temperature 98.7 F Pulse Rate 88 Respiratory 20 Rate Blood Pressure 137/98 O2 Sat by Pulse 94 L Oximetry Medical Decision Making - Medical Decision Making 22-year-old female presents emergency regimen of epigastric abdominal pain left upper quadrant pain he said history of her pancreatitis. It today her amylase and lipase are elevated. Lipase is 3200. Liver enzymes are mildly elevated well. We'll completed ultrasound of the gallbladder. Patient started on 1 L fluids and started on maintenance fluids. Will be nothing by mouth. Patient only admitted to Dr. Zhou. - Lab Data Result diagrams: 02/27/18 22:29 02/27/18 22:29 Lab Results 02/27/18 02/27/18 02/27/18 Range/Units 22:29 22:29 22:29 WBC 13.5 H (3.8-10.6) k/uL RBC 5.04 (3.80-5.40) m/uL Hgb 14.8 (11.4-16.0) gm/dL Hct 42.3 (34.0-46.0) % MCV 83.8 (80.0-100.0) fL MCH 29.3 (25.0-35.0) pg MCHC 35.0 (31.0-37.0) g/dL RDW 12.7 (11.5-15.5) % Plt Count 317 (150-450) k/uL Neutrophils % 71 % Lymphocytes % 21 % Monocytes % 5 % Eosinophils % 2 % Basophils % 0 % Neutrophils # 9.5 H (1.3-7.7) k/uL Lymphocytes # 2.8 (1.0-4.8) k/uL Monocytes # 0.7 (0-1.0) k/uL Eosinophils # 0.3 (0-0.7) k/uL Basophils # 0.0 (0-0.2) k/uL Sodium 140 (137-145) mmol/L Potassium 4.5 (3.5-5.1) mmol/L Chloride 104 (98-107) mmol/L Carbon Dioxide 20 L (22-30) mmol/L Anion Gap 16 mmol/L BUN 11 (7-17) mg/dL Creatinine 0.57 (0.52-1.04) mg/dL Est GFR (CKD-EPI)AfAm >90 (>60 ml/min/1.73 sqM) Est GFR (CKD-EPI)NonAf >90 (>60 ml/min/1.73 sqM) Glucose 119 H (74-99) mg/dL Calcium 9.5 (8.4-10.2) mg/dL Total Bilirubin 0.4 (0.2-1.3) mg/dL AST 57 H (14-36) U/L ALT 104 H (9-52) U/L Alkaline Phosphatase 90 (38-126) U/L Total Protein 7.2 (6.3-8.2) g/dL Albumin 4.6 (3.5-5.0) g/dL Amylase 285 H (30-110) U/L Lipase 3262 H (23-300) U/L Urine Color Yellow Urine Appearance Clear (Clear) Urine pH 5.5 (5.0-8.0) Ur Specific [place] 1.014 (1.001-1.035) Urine Protein Negative (Negative) Urine Glucose (UA) Negative (Negative) Urine Ketones Negative (Negative) Urine Blood Negative (Negative) Urine Nitrite Negative (Negative) Urine Bilirubin Negative (Negative) Urine Urobilinogen <2.0 (<2.0) mg/dL Ur Leukocyte Esterase Negative (Negative) - Radiology Data Radiology results: report reviewed KUB is negative for any acute process. Currently pending ultrasound. Disposition Clinical Impression: Pancreatitis Disposition: ADMITTED IP TO THIS [facility] Condition: Stable Is patient prescribed a controlled substance at d/c from ED?: No When asked, does pt state using other controlled substances?: No If prescribed controlled substance>3 days was MAPS reviewed?: No If opioid is for acute pain is fill amount 7 days or less?: No If Rx opioid, was Start Talking consent form obtained?: No Referrals: Alice Lazaro MD [Primary Care Provider] - 1-2 days Time of Disposition: 23:58
[2018-02-28] MEDS: KETOROLAC 30 MG/ML 1 ML VIAL IVP PRN (00:46)
[2018-02-28] MEDS ORDERED: HYDROmorphone 0.5 MG/0.5 ML SYRINGE ONE ×2 (02:00)
[2018-02-28] MEDS ORDERED: diphenhydrAMINE 50 MG/ML 1 ML VIAL ONE ×2 (02:00→03:17)
[2018-02-28] MEDS: SODIUM CHLORIDE 0.9% 1,000 ML IV SCH ×2 (06:30→08:16)
--- NOTE | 2018-02-28 06:46 | P.HPIM ---
History of Present Illness H&P Date: 02/28/18 Chief Complaint: abd pain 22-year-old female with history of recurrent pancreatitis due to ?pancreatic divisum she has been having these attacks since age of 8. Patient presented to the hospital with 1 day history of symptoms of nausea Abdominal pain she reports severe periumbilical abdominal pain 9 out of 10 in severity radiating to the back which is typical of her pancreatitis attacks associated with nausea and vomiting. She denies any fevers chills she denies any weight changes she denies any GI bleeding. She denies any unsanitary source of food or drinks he denies any similar symptoms and her family close family members. She reports that she gets severe attacks of pancreatitis every 4 months that she needs to be hospitalized. But she gets milder attacks of pancreatitis every few weeks which she self treats at home with Roanoke's. She follows up as [facility] where they're currently trying to transfer her to [facility] for further care. Currently patient still reporting 7 out of 10 pain she continues to be nothing by mouth on IV fluids. Otherwise patient denies any weight changes, chest pain or trouble breathing, coughing or upper respiratory infection like symptoms, denies any changes in her urination, denies any GI bleeding, denies any focal neurologic deficits. Review of Systems Pertinent positives as noted in HPI. All other systems were reviewed and are negative Past Medical History Past Medical History: No Reported History Additional Past Medical History / Comment(s): Recurrent chronic pancreatitis with extensive workups and was seen at [facility] with ? pancreatic divisum. History of Any Multi-Drug Resistant Organisms: None Reported Past Surgical History: No Surgical Hx Reported Additional Past Surgical History / Comment(s): EGD's and EGD with biopsy. Past Anesthesia/Blood Transfusion Reactions: No Reported Reaction Past Psychological History: ADD/ADHD Additional Psychological History / Comment(s): Pt takes adderill during school year to help her concentrate-she is no longer using. Smoking Status: Never smoker Past Alcohol Use History: None Reported Additional Past Alcohol Use History / Comment(s): Patient is a nonsmoker. She denies any medical marijuana, marijuana, street drug use. She is single and does not have any children. Past Drug Use History: None Reported - Past Family History Brother(s) Additional Family Medical History / Comment(s): She has 2 brothers and 1 sister with no major medical problems. Father Family Medical History: Diabetes Mellitus Additional Family Medical History / Comment(s): Father is alive at age 49 with history of diabetes requiring kidney and pancreas transplant. Mother Family Medical History: Deep Vein Thrombosis (DVT) Additional Family Medical History / Comment(s): Mother is alive at age 52 with history of DVT's, cardiomyopathy and pacemaker. Medications and Allergies Home Medications Medication Instructions Recorded Confirmed Type Hydrocodone/Acetaminophen [[place] 1 tab PO BID PRN 02/27/18 02/27/18 History 5-325] Allergies Allergy/AdvReac Type Severity Reaction Status Date / Time latex Allergy Rash/Hives Verified 02/27/18 22:16 peanut Allergy Rash/Swelli Verified 02/27/18 22:16 ng Physical Exam Vitals: Vital Signs Temp Pulse Pulse Resp BP BP Pulse Ox 02/28/18 00:42 97.0 F L 86 16 135/83 96 02/28/18 00:39 98.8 F 02/27/18 23:20 140/87 98 02/27/18 20:17 98.7 F 88 20 137/98 94 L Intake and Output 02/27/18 02/27/18 02/28/18 14:59 22:59 06:59 Other: Voiding Method Toilet Toilet Weight 90.718 kg 110.5 kg Constitutional: No acute distress, conversant, pleasant Eyes: Anicteric sclerae, moist conjunctiva, no lid-lag Pupils equal round reactive to light ENMT: NC/AT Oropharynx clear, no erythema, or exudates Neck: Supple, FROM, no masses, or JVD No carotid bruits No thyromegaly Lungs: Clear to auscultation Clear to percussion Normal respiratory effort, no accessory muscle use Cardiovascular: Heart regular in rate and rhythm, No murmurs, gallops, or rubs No peripheral edema Abdominal: Soft tender to palpation in the epigastric region and periumbilical region, voluntary guarding, no rebound or rigidity Abdomen moving with respiration Normoactive bowel sounds No hepatomegaly, No splenomegaly No palpable mass No abdominal wall hernia noted Skin: Normal temperature, tone, texture, turgor No induration No subcutaneous nodules No rash, lesions No ulcers Extremities: No digital cyanosis No clubbing Pedal pulses intact and symmetrical Radial pulses intact and symmetrical No calf tenderness Psychiatric: Alert and oriented to person, place and time Appropriate affect fair judgment Neuro Muscles Strength 5/5 in all 4 extremities Sensation to light touch grossly present throughout Cranial nerves II-XII grossly intact No focal sensory deficits Lymphatics: no palpable cervical or supraclavicular , or inguinal lymph nodes Results CBC & Chem 7: 02/27/18 22:29 02/27/18 22:29 Labs: Abnormal Lab Results - Last 24 Hours (Table) 02/27/18 02/27/18 Range/Units 22:29 22:29 WBC 13.5 H (3.8-10.6) k/uL Neutrophils # 9.5 H (1.3-7.7) k/uL Carbon Dioxide 20 L (22-30) mmol/L Glucose 119 H (74-99) mg/dL AST 57 H (14-36) U/L ALT 104 H (9-52) U/L Amylase 285 H (30-110) U/L Lipase 3262 H (23-300) U/L Thrombosis Risk Factor Assmnt - Choose All That Apply Any of the Below Risk Factors Present?: Yes Each Factor Represents 1 point: Obesity (BMI >25) Thrombosis Risk Factor Assessment Total Risk Factor Score: 1 Thrombosis Risk Factor Assessment Level: Low Risk Assessment and Plan Assessment: 22-year-old female with history of pancreatitis recurrent in nature since age 8 due to suspected pancreatic divisum she hasn't been following up with [facility] with plans to transfer to [facility] to get further care there. Patient presented with 1 day history of symptoms of abdominal pain nausea and vomiting which is typical of her recurrent pancreatitis Plan: #Acute on chronic recurrent pancreatitis due to suspected pancreatic divisum Nothing by mouth In control with Dilaudid Pepcid twice a day Aggressive IV fluid hydration Monitor vital signs and hemoglobin BUN Supportive care [facility] #Obesity Patient counseled for lifestyle with patient weight loss #DVT prophylaxis heparin subcu 3 times a day Preformed a thorough record review from recent hospitalization where she gets admitted for recurrent pancreatitis surgery was consulted last time she was here in March 2017 who did not recommend any surgical intervention at that time and recommended to go back to you about. Surrogate decision-maker: Patient mother Jerrica CODE STATUS: Full code Discussed with: Patient, ER, RN Anticipated discharge: 48-[address]: Home A total of 50 minutes was spent on the care of this complex patient more than 50 % of the time was spent in counseling and care coordination.
--- NOTE | 2018-02-28 07:05 | US ---
EXAMINATION TYPE: US gallbladder DATE OF EXAM: 02/28/2018 COMPARISON: NONE CLINICAL HISTORY: Pain. RUQ pain EXAM MEASUREMENTS: Liver Length: 22.1 cm Gallbladder Wall: 0.3 cm CBD: 0.6 cm Right Kidney: 12.0 X 4.7 X 5.6 cm Pancreas: Obscured by bowel gas Liver: Increased attenuation. Appears to be focal sparing near marv hepatis measuring 3.4 x 2.1 x 2 .5cm measuring minimally smaller than on the prior exam. Gallbladder: No cholelithiasis or biliary sludge. Probable focal fatty sparing around the gallbladder fossa. Scant amount of pericholecystic fluid is considered much less likely. Evidence for sonographic Hernandez's sign: Yes CBD: wnl Right Kidney: wnl IMPRESSION: 1. No sonographic evidence of acute cholelithiasis. 2. Redemonstration of hepatic steatosis with probable focal fatty sparing around the gallbladder rachel a is seen on the prior.
[2018-02-28] MEDS: FAMOTIDINE 20 MG TAB PO SCH ×2 (08:06→20:26)
[2018-02-28] MEDS: HEPARIN SODIUM,PORCINE 5,000 UNIT/ML 1 ML VIAL SQ SCH ×3 (08:07→23:47)
[2018-02-28] MEDS: HYDROmorphone 0.5 MG/0.5 ML SYRINGE IVP PRN ×4 (08:15→22:36)
[2018-02-28 08:37] LABS: Basophils % (A) 0 %; Eosinophils # (A) 0.2 k/uL (0-0.7); Eosinophils % (A) 2 %; HCT 40.2 % (34.0-46.0); HGB 13.8 gm/dL (11.4-16.0); Lymphocytes % (A) 31 %; MCH 29.7 pg (25.0-35.0); MCHC 34.4 g/dL (31.0-37.0); MCV 86.2 fL (80.0-100.0); Mean Platelet Volume 6.8; Monocytes # (A) 0.6 k/uL (0-1.0); Monocytes % (A) 6 %; Neutrophils # (A) 5.8 k/uL (1.3-7.7); Neutrophils % (A) 59 %; Platelet Count 270 k/uL (150-450); RBC 4.66 m/uL (3.80-5.40); WBC 9.8 k/uL (3.8-10.6)
[2018-02-28 08:56] LABS: ALT 96 U/L (9-52); AST 56 U/L (14-36); Albumin 4.2 g/dL (3.5-5.0); Alkaline Phosphatase 74 U/L (38-126); Amylase 204 U/L (30-110); Anion Gap 12 mmol/L; Blood Urea Nitrogen 14 mg/dL (7-17); Calcium 8.8 mg/dL (8.4-10.2); Carbon Dioxide 24 mmol/L (22-30); Chloride 104 mmol/L (98-107); Glucose 90 mg/dL (74-99); Lipase 1657 U/L (23-300); Potassium 4.4 mmol/L (3.5-5.1); Sodium 140 mmol/L (137-145); Total Bilirubin 0.4 mg/dL (0.2-1.3); Total Protein 6.7 g/dL (6.3-8.2)
[2018-02-28] MEDS ORDERED: PANTOPRAZOLE 40 MG/10 ML VIAL IV SCH (09:00)
[2018-02-28] MEDS: diphenhydrAMINE 50 MG/ML 1 ML VIAL IVP PRN ×2 (09:38→15:27)
[2018-02-28] MEDS: HYDROcodone/APAP 10-325MG 1 EACH TAB PO PRN ×2 (11:35→20:25)
--- NOTE | 2018-02-28 15:17 | P.PN ---
Progress Note - Text Progress Note Date: 02/28/18 Hospitalist Interval Note Patient seen and examined at bedside. She is still having some abdominal pain. No vomiting but still having nausea. Feeling better overall. As for her Dilaudid to be increased every 2 hours. I informed her that there is a lot of shortage and would she be willing to try intermittent oral Beatty along with her Dilaudid. She was in agreement. No other complaints currently. Vital signs reviewed General: non toxic, mild distress, appears at stated age Derm: warm, dry Head: atraumatic, normocephalic, symmetric Eyes: EOMI, no lid lag, anicteric sclera Mouth: no lip lesion, mucus membranes moist Cardiovascular: S1S2 reg, no murmur, positive posterior tibial pulse bilateral, Lungs: CTA bilateral, no rhonchi, no rales , no accessory muscle use Abdominal: soft, + tender to palpation right upper quadrant, no guarding, no appreciable organomegaly Ext: no gross muscle atrophy, no edema, no contractures Neuro: CN II-XI grossly intact, no focal neuro deficits Psych: Alert, oriented, appropriate affect Assessment/Plan: Acute recurrent pancreatitis -Continue with Dilaudid, add Beatty, Zofran, change IV fluids to lactated Ringer' s -Sees Dr. Pepper as an outpatient has appointment scheduled in 2 weeks. She does not feel he needs to see her during this acute hospitalization. This is an update note for patient , for full note on 02/28 see H&P. There is no charge associated with this note.
[2018-02-28] MEDS: LACTATED RINGERS 1,000 ML IV SCH ×2 (15:20→20:26)
[2018-02-28] MEDS: ONDANSETRON 4 MG/2 ML VIAL IVP PRN (22:36)
[2018-03-01] MEDS: KETOROLAC 30 MG/ML 1 ML VIAL IVP PRN (01:05)
[2018-03-01] MEDS: HYDROmorphone 0.5 MG/0.5 ML SYRINGE IVP PRN ×7 (02:36→22:44)
[2018-03-01] MEDS: LACTATED RINGERS 1,000 ML IV SCH ×4 (05:32→23:58)
[2018-03-01] MEDS: FAMOTIDINE 20 MG TAB PO SCH ×2 (08:28→20:03)
[2018-03-01] MEDS: HEPARIN SODIUM,PORCINE 5,000 UNIT/ML 1 ML VIAL SQ SCH ×3 (08:28→23:00)
[2018-03-01] MEDS: diphenhydrAMINE 50 MG/ML 1 ML VIAL IVP PRN ×3 (08:28→22:43)
[2018-03-01] MEDS: HYDROcodone/APAP 10-325MG 1 EACH TAB PO PRN ×2 (09:34→17:30)
[2018-03-01] MEDS: ONDANSETRON 4 MG/2 ML VIAL IVP PRN ×3 (09:43→22:44)
--- NOTE | 2018-03-01 10:21 | P.PN ---
Subjective Progress Note Date: 03/01/18 Principal diagnosis: Acute on chronic pancreatitis Pain is 6/10 today, she threw up the ice chips she tried last night. She has to sit up at the edge of the bed to minimize the pain. Objective - Vital Signs Vital signs: Vital Signs Temp 97.1 F L 03/01/18 05:30 Pulse 102 H 03/01/18 05:30 Resp 18 03/01/18 05:30 BP 137/76 03/01/18 05:30 Pulse Ox 95 03/01/18 05:30 Intake & Output 02/28/18 03/01/18 03/01/18 18:59 06:59 18:59 Other: # Voids 1 2 - Exam Constitutional: No acute distress, conversant, pleasant Eyes:Anicteric sclerae, moist conjunctiva, no lid-lag, PERRLA, ENMT: Oropharynx clear, no erythema, exudates Neck: Supple, FROM, no masses, or JVD, No carotid bruits, No thyromegaly Lungs: Clear to auscultation, Clear to percussion, Normal respiratory effort, no accessory muscle use Cardiovascular: Heart regular in rate and rhythm, No murmurs, gallops, or rubs, No peripheral edema Abdominal: Soft, epigastric tenderness, no guarding, rebound or rigidity, Normoactive bowel sounds, No hepatomegaly, No splenomegaly, No palpable mass Skin: Normal temperature, tone, texture, turgor, no induration, No subcutaneous nodules, No rash, lesions, No ulcers Extremities: No digital cyanosis, No clubbing, Pedal pulses intact and symmetrical, Radial pulses intact and symmetrical, No calf tenderness Psychiatric: Alert and oriented to person, place and time, appropriate affect, intact judgement Neuro: Muscles Strength 5/5 in all 4 extremities, Sensation to light touch grossly present throughout, Cranial nerves II-XII grossly intact, no focal sensory deficits - Labs CBC & Chem 7: 02/28/18 08:13 02/28/18 08:13 Assessment and Plan Plan: #Acute on chronic recurrent pancreatitis due to suspected pancreatic divisum Nothing by mouth Pain control with Dilaudid and norco IV fluid hydration Follows up lipase in am #Obesity Lifestyle changes #DVT prophylaxis heparin subcu 3 times a day
[2018-03-01 12:02] VITALS: BMI 39.3
[2018-03-02] MEDS: HYDROcodone/APAP 10-325MG 1 EACH TAB PO PRN ×2 (00:03→16:00)
[2018-03-02] MEDS: HYDROmorphone 0.5 MG/0.5 ML SYRINGE IVP PRN ×7 (01:57→21:06)
[2018-03-02] MEDS: ONDANSETRON 4 MG/2 ML VIAL IVP PRN ×3 (04:03→14:42)
[2018-03-02] MEDS: diphenhydrAMINE 50 MG/ML 1 ML VIAL IVP PRN ×3 (06:01→18:23)
[2018-03-02] MEDS: LACTATED RINGERS 1,000 ML IV SCH ×2 (06:11→09:18)
[2018-03-02 06:56] LABS: Basophils % (A) 0 %; Eosinophils # (A) 0.4 k/uL (0-0.7); Eosinophils % (A) 5 %; HCT 35.9 % (34.0-46.0); HGB 12.7 gm/dL (11.4-16.0); Lymphocytes # (A) 2.9 k/uL (1.0-4.8); Lymphocytes % (A) 35 %; MCH 30.4 pg (25.0-35.0); MCHC 35.4 g/dL (31.0-37.0); MCV 85.9 fL (80.0-100.0); Mean Platelet Volume 7.3; Monocytes # (A) 0.7 k/uL (0-1.0); Monocytes % (A) 8 %; Neutrophils # (A) 4.2 k/uL (1.3-7.7); Neutrophils % (A) 51 %; Platelet Count 270 k/uL (150-450); RBC 4.18 m/uL (3.80-5.40); WBC 8.3 k/uL (3.8-10.6)
[2018-03-02 07:22] LABS: ALT 116 U/L (9-52); AST 92 U/L (14-36); Albumin 4.1 g/dL (3.5-5.0); Alkaline Phosphatase 66 U/L (38-126); Amylase 61 U/L (30-110); Anion Gap 13 mmol/L; Blood Urea Nitrogen 6 mg/dL (7-17); Calcium 8.9 mg/dL (8.4-10.2); Carbon Dioxide 28 mmol/L (22-30); Chloride 98 mmol/L (98-107); Glucose 81 mg/dL (74-99); Lipase 299 U/L (23-300); Magnesium 1.6 mg/dL (1.6-2.3); Phosphorus 4.4 mg/dL (2.5-4.5); Potassium 3.9 mmol/L (3.5-5.1); Sodium 139 mmol/L (137-145); Total Bilirubin 0.6 mg/dL (0.2-1.3); Total Protein 6.4 g/dL (6.3-8.2)
[2018-03-02] MEDS: FAMOTIDINE 20 MG TAB PO SCH ×3 (09:13→21:06)
[2018-03-02] MEDS: HEPARIN SODIUM,PORCINE 5,000 UNIT/ML 1 ML VIAL SQ SCH ×3 (09:18→23:37)
--- NOTE | 2018-03-02 12:00 | P.PN ---
Subjective Progress Note Date: 03/02/18 Principal diagnosis: Acute on chronic pancreatitis She reported mild improvement in her pain today. She threw up the ice chips that she tried to eat yesterday and today. Objective - Vital Signs Vital signs: Vital Signs Temp 98.2 F 03/02/18 11:10 Pulse 77 03/02/18 11:10 Resp 16 03/02/18 11:10 BP 130/82 03/02/18 11:10 Pulse Ox 94 L 03/02/18 11:10 Intake & Output 03/01/18 03/02/18 03/02/18 18:59 06:59 18:59 Output Total 300 1700 Balance -300 -1700 Weight 110.5 kg Output: Urine 300 1700 Other: Voiding Method Toilet Toilet - Exam Constitutional: No acute distress, conversant, pleasant Eyes:Anicteric sclerae, moist conjunctiva, no lid-lag, PERRLA, ENMT: Oropharynx clear, no erythema, exudates Neck: Supple, FROM, no masses, or JVD, No carotid bruits, No thyromegaly Lungs: Clear to auscultation, Clear to percussion, Normal respiratory effort, no accessory muscle use Cardiovascular: Heart regular in rate and rhythm, No murmurs, gallops, or rubs, No peripheral edema Abdominal: Soft, epigastric tenderness, no guarding, rebound or rigidity, Normoactive bowel sounds, No hepatomegaly, No splenomegaly, No palpable mass Skin: Normal temperature, tone, texture, turgor, no induration, No subcutaneous nodules, No rash, lesions, No ulcers Extremities: No digital cyanosis, No clubbing, Pedal pulses intact and symmetrical, Radial pulses intact and symmetrical, No calf tenderness Psychiatric: Alert and oriented to person, place and time, appropriate affect, intact judgement Neuro: Muscles Strength 5/5 in all 4 extremities, Sensation to light touch grossly present throughout, Cranial nerves II-XII grossly intact, no focal sensory deficits - Labs CBC & Chem 7: 03/02/18 06:35 03/02/18 06:35 Labs: Abnormal Lab Results - Last 24 Hours (Table) 03/02/18 Range/Units 06:35 BUN 6 L (7-17) mg/dL AST 92 H (14-36) U/L ALT 116 H (9-52) U/L Assessment and Plan Plan: #Acute on chronic recurrent pancreatitis due to suspected pancreatic divisum Pain control with Dilaudid and norco Continue IV fluid hydration Lipase normalized but patient is still symptomatic, she is willing to try to advance his diet to clears today #Obesity Lifestyle changes #DVT prophylaxis heparin subcu 3 times a day
[2018-03-03] MEDS: LACTATED RINGERS 1,000 ML IV SCH ×5 (00:44→21:55)
[2018-03-03] MEDS: HYDROmorphone 0.5 MG/0.5 ML SYRINGE IVP PRN ×7 (00:48→21:36)
[2018-03-03] MEDS: diphenhydrAMINE 50 MG/ML 1 ML VIAL IVP PRN ×3 (00:48→21:45)
[2018-03-03] MEDS: HYDROcodone/APAP 10-325MG 1 EACH TAB PO PRN (02:14)
[2018-03-03] MEDS: ONDANSETRON 4 MG/2 ML VIAL IVP PRN ×2 (06:07→18:20)
[2018-03-03] MEDS: HEPARIN SODIUM,PORCINE 5,000 UNIT/ML 1 ML VIAL SQ SCH ×2 (09:01→15:18)
[2018-03-03] MEDS: FAMOTIDINE 20 MG TAB PO SCH ×2 (09:01→21:37)
[2018-03-03] MEDS ORDERED: IOPAMIDOL-300 CONTRAST 30 ML VIAL (ORAL USE) PO PRN (12:18)
--- NOTE | 2018-03-03 12:23 | P.PN ---
Subjective Progress Note Date: 03/03/18 Principal diagnosis: Acute on chronic pancreatitis Patient continues to have persistent nausea and vomiting even when eating minimal amount of fluids, still having 5 out of 10 abdominal pain as well. Objective - Vital Signs Vital signs: Vital Signs Temp 98.0 F 03/03/18 12:10 Pulse 71 03/03/18 12:10 Resp 18 03/03/18 12:10 BP 137/92 03/03/18 12:10 Pulse Ox 95 03/03/18 12:10 Intake & Output 03/02/18 03/03/18 03/03/18 18:59 06:59 18:59 Other: # Voids 2 1 - Exam Constitutional: No acute distress, conversant, pleasant Eyes:Anicteric sclerae, moist conjunctiva, no lid-lag, PERRLA, ENMT: Oropharynx clear, no erythema, exudates Neck: Supple, FROM, no masses, or JVD, No carotid bruits, No thyromegaly Lungs: Clear to auscultation, Clear to percussion, Normal respiratory effort, no accessory muscle use Cardiovascular: Heart regular in rate and rhythm, No murmurs, gallops, or rubs, No peripheral edema Abdominal: Soft, epigastric tenderness, no guarding, rebound or rigidity, Normoactive bowel sounds, No hepatomegaly, No splenomegaly, No palpable mass Skin: Normal temperature, tone, texture, turgor, no induration, No subcutaneous nodules, No rash, lesions, No ulcers Extremities: No digital cyanosis, No clubbing, Pedal pulses intact and symmetrical, Radial pulses intact and symmetrical, No calf tenderness Psychiatric: Alert and oriented to person, place and time, appropriate affect, intact judgement Neuro: Muscles Strength 5/5 in all 4 extremities, Sensation to light touch grossly present throughout, Cranial nerves II-XII grossly intact, no focal sensory deficits - Labs CBC & Chem 7: 03/02/18 06:35 03/02/18 06:35 Assessment and Plan Plan: #Acute on chronic recurrent pancreatitis due to suspected pancreatic divisum Pain control with Dilaudid and norco Continue IV fluid hydration We'll order computed tomography scan of the abdomen and pelvis to rule out acute pancreatitis complications #Obesity Lifestyle changes #DVT prophylaxis Not needed, patient is ambulatory
--- NOTE | 2018-03-03 17:22 | CT ---
EXAMINATION TYPE: CT abdomen pelvis w con DATE OF EXAM: 03/03/2018 HISTORY: Recurrent chronic pancreatitis, recurrent pain. CT DLP: 2375.4mGycm Automated Exposure Control for Dose Reduction was Utilized. CONTRAST: CT scan of the abdomen and pelvis is performed without oral but with IV Contrast, patient injected wi th 100 mL of Isovue 370. COMPARISON: CT abdomen and pelvis March 07, 2017 FINDINGS: LUNG BASES: There is linear scarring or atelectasis in the left lung base mid aspect. LIVER/GB: Liver is markedly low dense consistent with fatty infiltration. There is persistent stable mild hepatomegaly PANCREAS: Pancreas is normal in size and fairly homogeneous in enhancement. No surrounding fat strand ing or fluid is clearly seen. SPLEEN: Spleen remains mildly enlarged in size at 13.7 cm long axis coronal image 96. ADRENALS: No significant abnormality is seen. KIDNEYS: No significant abnormality is seen. BOWEL: No significant abnormality is seen. UTERUS/ADNEXA: No gross abnormality seen. LYMPH NODES: No greater than 1cm abdominal or pelvic lymph nodes are appreciated. OSSEOUS STRUCTURES: No significant abnormality is seen. OTHER: No significant additional abnormality is seen. IMPRESSION: 1. No CT evidence for complication related to acute pancreatitis. 2. Persistent hepatosplenomegaly and marked fatty infiltration of liver.
[2018-03-03] MEDS: METOCLOPRAMIDE 5 MG/ML 2 ML VIAL IVP SCH (20:00)
[2018-03-04] MEDS: HEPARIN SODIUM,PORCINE 5,000 UNIT/ML 1 ML VIAL SQ SCH (00:12)
[2018-03-04] MEDS: HYDROmorphone 0.5 MG/0.5 ML SYRINGE IVP PRN ×2 (00:44→03:44)
[2018-03-04] MEDS: METOCLOPRAMIDE 5 MG/ML 2 ML VIAL IVP SCH (03:30)
[2018-03-04 04:19] VITALS: RESP 18
[2018-03-04] MEDS: LACTATED RINGERS 1,000 ML IV SCH (05:20)
[2018-03-04 08:16] VITALS: BP 123/75; PULSE 83; TEMP 98.2
[2018-03-04] MEDS: FAMOTIDINE 20 MG TAB PO SCH (08:53)
[2018-03-04] MEDS: HYDROcodone/APAP 10-325MG 1 EACH TAB PO PRN (09:02)
--- NOTE | 2018-03-04 10:17 | P.DS ---
Providers Date of admission: 02/27/18 23:55 Expected date of discharge: 03/04/18 Attending physician: Chloé Harrison MD Primary care physician: Alice Lazaro Hospital Course: 22-year-old female with history of recurrent pancreatitis due to ?pancreatic divisum, she has been having these attacks since age of 8. Patient presented to the hospital with 1 day history of symptoms of nausea, vomiting and abdominal pain. She reported severe periumbilical abdominal pain 9 out of 10 in severity radiating to the back which is typical of her pancreatitis attacks. She denied any fevers, chills, no weight changes, no hematemesis or hematochezia.. She denied any unsanitary source of food or drinks, no similar symptoms in her close family members. She reported that she gets severe attacks of pancreatitis every 4 months that she needs to be hospitalized. But she gets milder attacks of pancreatitis every few weeks which she self treats at home with Cosmos's. She follows up as [facility] where they're currently trying to transfer her to [facility] for further care. Patient was admitted to the hospital, started on IV fluid, Zofran and Reglan for nausea. Pain was controlled with Dilaudid IV and Cosmos by mouth. She was kept nothing by mouth. Laboratory findings were significant for elevated lipase at 3200, rest of electrolytes were within normal limits. She did not have leukocytosis. She was not febrile. Her urinalysis was negative for pyuria. She had an ultrasound of the right upper quadrant which just showed fatty liver, no gallstones. Later through the hospitalization and due to persistent symptoms she had computed tomography scan of the abdomen and that did not show any complications from acute pancreatitis. Today patient tolerated oral intake well, she'll be discharged home in a stable condition. Discharge diagnoses Acute on chronic abdominal pain Acute on chronic pancreatitis Pancreatic divisum Patient Condition at Discharge: Stable Plan - Discharge Summary New Discharge Prescriptions: Continue Hydrocodone/Acetaminophen [Cosmos 5-325] 1 tab PO BID PRN PRN Reason: Pain Discharge Medication List Hydrocodone/Acetaminophen [Cosmos 5-325] 1 tab PO BID PRN 02/27/18 [History] Follow up Appointment(s)/Referral(s): Alice Lazaro MD [Primary Care Provider] - 1-2 days
== END 2018-03-04 10:32 | disposition home or self-care (01) | DRG 439 ==
LOC: EC 20:06 → 4MS4W 23:55 → 6PED 03-01 13:38
PROVIDERS: ADMIT Internal Medicine; ATTEND Internal Medicine
DX: K85.90 Acute pancreatitis without necrosis or infection, unspecified (principal); Q45.3 Other congenital malformations of pancreas and pancreatic duct; K76.0 Fatty (change of) liver, not elsewhere classified; K86.1 Other chronic pancreatitis; G89.29 Other chronic pain; R10.9 Unspecified abdominal pain; F90.9 Attention-deficit hyperactivity disorder, unspecified type; E66.9 Obesity, unspecified; Z68.39 Body mass index [BMI] 39.0-39.9, adult; Z91.040 Latex allergy status; Z91.010 Allergy to peanuts; Z83.3 Family history of diabetes mellitus; Z82.49 Family history of ischemic heart disease and other diseases of the circulatory system
CPT/HCPCS: 36415; 74018; 74177; 76705; 80053; 81003; 82150; 83690; 83735; 84100; 85025; 96361; 96374; 96375; 96376; 99285

== ENCOUNTER 2018-06-22 13:08 | Emergency (ER) | payer MEDICAID ==
[2018-06-22 13:17] VITALS: TEMP 98.2
[2018-06-22] MEDS ORDERED: SODIUM CHLORIDE 0.9% 1,000 ML IV STA (13:18)
[2018-06-22] MEDS ORDERED: HYDROmorphone 0.5 MG/0.5 ML SYRINGE IVP STA ×2 (13:43→15:18)
[2018-06-22] MEDS ORDERED: ONDANSETRON 4 MG/2 ML VIAL IVP STA (13:57)
[2018-06-22 14:13] LABS: Basophils # (A) 0.1 k/uL (0-0.2); Basophils % (A) 0 %; Eosinophils # (A) 0.1 k/uL (0-0.7); Eosinophils % (A) 1 %; HCT 45.1 % (34.0-46.0); HGB 15.3 gm/dL (11.4-16.0); Lymphocytes # (A) 1.6 k/uL (1.0-4.8); Lymphocytes % (A) 12 %; MCH 28.8 pg (25.0-35.0); MCV 84.8 fL (80.0-100.0); Mean Platelet Volume 7.1; Monocytes # (A) 0.4 k/uL (0-1.0); Monocytes % (A) 3 %; Neutrophils # (A) 10.8 k/uL (1.3-7.7); Neutrophils % (A) 83 %; Platelet Count 317 k/uL (150-450); RBC 5.32 m/uL (3.80-5.40); RDW 12.7 % (11.5-15.5); WBC 13.1 k/uL (3.8-10.6)
[2018-06-22 14:14] LABS: Appearance,Urine Cloudy (Clear); Bacteria,Urine Rare /hpf; Bilirubin,Urine Negative (Negative); Blood,Urine Negative (Negative); Color,Urine Yellow; Glucose,Urine (UA) Negative (Negative); Ketones,Urine Negative (Negative); Leukocyte Esterase,Urine Trace (Negative); Mucus,Urine Rare /hpf; Nitrite,Urine Negative (Negative); Protein,Urine Trace (Negative); RBC,Urine 12 /hpf (0-5); Specific Gravity,Urine 1.024 (1.001-1.035); Squamous Epithelial Cell,Urine 15 /hpf (0-4); Urobilinogen,Urine <2.0 mg/dL (<2.0); WBC,Urine 5 /hpf (0-5)
[2018-06-22 14:21] LABS: ALT 177 U/L (9-52); AST 105 U/L (14-36); Alkaline Phosphatase 83 U/L (38-126); Amylase 44 U/L (30-110); Anion Gap 16 mmol/L; Blood Urea Nitrogen 12 mg/dL (7-17); Calcium 9.9 mg/dL (8.4-10.2); Carbon Dioxide 26 mmol/L (22-30); Chloride 100 mmol/L (98-107); Glucose 162 mg/dL (74-99); Lipase 97 U/L (23-300); Potassium 4.6 mmol/L (3.5-5.1); Sodium 142 mmol/L (137-145); Total Bilirubin 0.4 mg/dL (0.2-1.3); Total Protein 8.4 g/dL (6.3-8.2)
[2018-06-22] MEDS ORDERED: SODIUM CHLORIDE 0.9% 1,000 ML IV SCH (15:30)
--- NOTE | 2018-06-22 15:41 | ED ---
Abdominal Pain HPI - General Chief Complaint: Abdominal Pain Stated Complaint: Abd Pain Time Seen by Provider: 06/22/18 13:18 Source: patient Mode of arrival: ambulatory Limitations: no limitations - History of Present Illness Initial Comments: 21-year-old female past medical history of chronic pancreatitis, she states that this is due to a childhood disorder and is followed at [facility]. Patient has had multiple hospitalizations due to her pancreatitis with last being 2 months ago. Patient presents today for chief complaint of epigastric abdominal pain radiating to the back, she states is identical to every time that she has had pancreatitis in the past. Patient denies any lower abdominal pain, right lower quadrant pain, pelvic discomfort, vaginal bleeding, fever, chills, diarrhea, constipation, urgency, urgency, dysuria, hematuria. Patient does admit to nausea or vomiting, she states that this is typical for her episodes of pancreatitis. Patient has a prescription of Zofran at home, she started this last night at the onset of nausea however she states this has not helped. Patient states that symptoms of unchanged last night and that is why she presents today. Patient denies taking any pain medication today. - Related Data Home Medications Medication Instructions Recorded Confirmed Hydrocodone/Acetaminophen [[place] 1 tab PO BID PRN 02/27/18 02/27/18 5-325] Previous Rx's Medication Instructions Recorded HYDROcodone/APAP 7.5-325MG [[place] 1 tab PO Q6HR PRN 3 Days #12 tab 06/22/18 7.5-325] Ondansetron HCl [Zofran] 4 mg PO Q8H PRN 7 Days #21 tablet 06/22/18 Allergies Allergy/AdvReac Type Severity Reaction Status Date / Time latex Allergy Rash/Hives Verified 06/22/18 13:17 peanut Allergy Rash/Swelli Verified 06/22/18 13:17 ng Review of Systems ROS Statement: Those systems with pertinent positive or pertinent negative responses have been documented in the HPI. ROS Other: All systems not noted in ROS Statement are negative. Past Medical History Past Medical History: No Reported History Additional Past Medical History / Comment(s): Recurrent chronic pancreatitis with extensive workups and was seen at [facility] with ? pancreatic divisum. History of Any Multi-Drug Resistant Organisms: None Reported Past Surgical History: No Surgical Hx Reported Additional Past Surgical History / Comment(s): EGD's and EGD with biopsy. Past Anesthesia/Blood Transfusion Reactions: No Reported Reaction Past Psychological History: No Psychological Hx Reported Smoking Status: Never smoker Past Alcohol Use History: None Reported Past Drug Use History: None Reported - Past Family History Brother(s) Additional Family Medical History / Comment(s): She has 2 brothers and 1 sister with no major medical problems. Father Family Medical History: Diabetes Mellitus Additional Family Medical History / Comment(s): Father is alive at age 49 with history of diabetes requiring kidney and pancreas transplant. Mother Family Medical History: Deep Vein Thrombosis (DVT) Additional Family Medical History / Comment(s): Mother is alive at age 52 with history of DVT's, cardiomyopathy and pacemaker. General Exam - General Exam Comments Initial Comments: General: The patient is awake and alert, in no distress, and does not appear acutely ill. Eye: Pupils are equal, round and reactive to light, extra-ocular movements are intact. No nystagmus. There is normal conjunctiva bilaterally. No signs of icterus. Ears, nose, mouth and throat: There are moist mucous membranes and no oral lesions. Neck: The neck is supple, there is no tenderness or JVD. Cardiovascular: There is a regular rate and rhythm. No murmur, rub or gallop is appreciated. Respiratory: Lungs are clear to auscultation, respirations are non-labored, breath sounds are equal. No wheezes, stridor, rales, or rhonchi. Gastrointestinal: Soft, non-distended, abdomen without masses or organomegaly noted. Pain to deep palpation of the epigastric region. No quadrant pain including RLQ. There is no rebound or guarding present. No CVA tenderness. Bowel sounds are unremarkable. (-) psoas, heel jar signs. No isabel turners sign. Musculoskeletal: Normal ROM, no tenderness. Strength 5/5. Sensation intact. Pulses equal bilaterally 2+. Neurological: A&O x 3. CN II-XII intact, There are no obvious motor or sensory deficits. Coordination appears grossly intact. Speech is normal. Skin: Skin is warm and dry and no rashes or lesions are noted. Psychiatric: Cooperative, appropriate mood & affect, normal judgment. Limitations: no limitations Course Vital Signs 06/22/18 06/22/18 13:15 16:32 Temperature 98.2 F Pulse Rate 95 88 Respiratory 18 16 Rate Blood Pressure 125/79 121/80 O2 Sat by Pulse 98 99 Oximetry Medical Decision Making - Medical Decision Making Given pt symptoms and abdominal findings I feel pt symptoms are due to her chronic pancreatitis and pancrease divisum. Lab values as above, no laboratory findings suggestive of acute pancreatitis. Pt states that she is normally able to manage her symptoms with norco at home and zofran however she has no norco left at home and she presents for pain. Pt denies CT stating she always has CT and knows that this is her usual symptoms and would not like any further imaging. Pt was given 0.5mg then 1mg of dilaudid during stay that helped pt pain. Pt states that she does not want any further work up. Case discussed in detail with Dr. Bautista at this time there are no findings suggestive of acute pancreatitis, we offered pt observation for pain management, pt states she just wanted to go home. Given pt hx of home management of symptoms we gave prescription for 3 days of norco after discussed opiate risks and zofran for nausea. Pt was instructed to return to the ER if unable to tolerate PO intake, persistent pain or change in characteristic. Pt was instructed to follow up with her GI specialist which she agreed. Mother in room for all conversations, they both request d/c. At this time given pt hx, symptoms and laboratory we feel pt is stable for d/c with return for any change in symptoms. Pt denied questions at this time stating "I have dealt with this my whole life". Pt stated she was happy with plan. - Lab Data Result diagrams: 06/22/18 13:41 06/22/18 13:41 Lab Results 06/22/18 06/22/18 06/22/18 Range/Units 13:41 13:41 13:50 WBC 13.1 H (3.8-10.6) k/uL RBC 5.32 (3.80-5.40) m/uL Hgb 15.3 (11.4-16.0) gm/dL Hct 45.1 (34.0-46.0) % MCV 84.8 (80.0-100.0) fL MCH 28.8 (25.0-35.0) pg MCHC 34.0 (31.0-37.0) g/dL RDW 12.7 (11.5-15.5) % Plt Count 317 (150-450) k/uL Neutrophils % 83 % Lymphocytes % 12 % Monocytes % 3 % Eosinophils % 1 % Basophils % 0 % Neutrophils # 10.8 H (1.3-7.7) k/uL Lymphocytes # 1.6 (1.0-4.8) k/uL Monocytes # 0.4 (0-1.0) k/uL Eosinophils # 0.1 (0-0.7) k/uL Basophils # 0.1 (0-0.2) k/uL Sodium 142 (137-145) mmol/L Potassium 4.6 (3.5-5.1) mmol/L Chloride 100 (98-107) mmol/L Carbon Dioxide 26 (22-30) mmol/L Anion Gap 16 mmol/L BUN 12 (7-17) mg/dL Creatinine 0.48 L (0.52-1.04) mg/dL Est GFR (CKD-EPI)AfAm >90 (>60 ml/min/1.73 sqM) Est GFR (CKD-EPI)NonAf >90 (>60 ml/min/1.73 sqM) Glucose 162 H (74-99) mg/dL Calcium 9.9 (8.4-10.2) mg/dL Total Bilirubin 0.4 (0.2-1.3) mg/dL AST 105 H (14-36) U/L ALT 177 H (9-52) U/L Alkaline Phosphatase 83 (38-126) U/L Total Protein 8.4 H (6.3-8.2) g/dL Albumin 5.0 (3.5-5.0) g/dL Amylase 44 (30-110) U/L Lipase 97 (23-300) U/L Urine Color Yellow Urine Appearance Cloudy H (Clear) Urine pH 7.0 (5.0-8.0) Ur Specific [place] 1.024 (1.001-1.035) Urine Protein Trace H (Negative) Urine Glucose (UA) Negative (Negative) Urine Ketones Negative (Negative) Urine Blood Negative (Negative) Urine Nitrite Negative (Negative) Urine Bilirubin Negative (Negative) Urine Urobilinogen <2.0 (<2.0) mg/dL Ur Leukocyte Esterase Trace H (Negative) Urine RBC 12 H (0-5) /hpf Urine WBC 5 (0-5) /hpf Ur Squamous Epith Cells 15 H (0-4) /hpf Urine Bacteria Rare H (None) /hpf Urine Mucus Rare H (None) /hpf Urine HCG, Qual (Not Detectd) 06/22/18 Range/Units 13:50 WBC (3.8-10.6) k/uL RBC (3.80-5.40) m/uL Hgb (11.4-16.0) gm/dL Hct (34.0-46.0) % MCV (80.0-100.0) fL MCH (25.0-35.0) pg MCHC (31.0-37.0) g/dL RDW (11.5-15.5) % Plt Count (150-450) k/uL Neutrophils % % Lymphocytes % % Monocytes % % Eosinophils % % Basophils % % Neutrophils # (1.3-7.7) k/uL Lymphocytes # (1.0-4.8) k/uL Monocytes # (0-1.0) k/uL Eosinophils # (0-0.7) k/uL Basophils # (0-0.2) k/uL Sodium (137-145) mmol/L Potassium (3.5-5.1) mmol/L Chloride (98-107) mmol/L Carbon Dioxide (22-30) mmol/L Anion Gap mmol/L BUN (7-17) mg/dL Creatinine (0.52-1.04) mg/dL Est GFR (CKD-EPI)AfAm (>60 ml/min/1.73 sqM) Est GFR (CKD-EPI)NonAf (>60 ml/min/1.73 sqM) Glucose (74-99) mg/dL Calcium (8.4-10.2) mg/dL Total Bilirubin (0.2-1.3) mg/dL AST (14-36) U/L ALT (9-52) U/L Alkaline Phosphatase (38-126) U/L Total Protein (6.3-8.2) g/dL Albumin (3.5-5.0) g/dL Amylase (30-110) U/L Lipase (23-300) U/L Urine Color Urine Appearance (Clear) Urine pH (5.0-8.0) Ur Specific [place] (1.001-1.035) Urine Protein (Negative) Urine Glucose (UA) (Negative) Urine Ketones (Negative) Urine Blood (Negative) Urine Nitrite (Negative) Urine Bilirubin (Negative) Urine Urobilinogen (<2.0) mg/dL Ur Leukocyte Esterase (Negative) Urine RBC (0-5) /hpf Urine WBC (0-5) /hpf Ur Squamous Epith Cells (0-4) /hpf Urine Bacteria (None) /hpf Urine Mucus (None) /hpf Urine HCG, Qual Not Detected (Not Detectd) Disposition Clinical Impression: Abdominal pain Disposition: HOME SELF-CARE Condition: Good Instructions: Abdominal Pain (ED) Additional Instructions: Please use medication as discussed. Please follow-up with family doctor in the next 2 days.. Please return to emergency room if the symptoms increase or worsen or for any other concerns, as discussed in pain. Please follow-up with [facility] or [facility]. Prescriptions: HYDROcodone/APAP 7.5-325MG [[place] 7.5-325] 1 tab PO Q6HR PRN 3 Days #12 tab PRN Reason: Pain Ondansetron HCl [Zofran] 4 mg PO Q8H PRN 7 Days #21 tablet PRN Reason: Nausea Is patient prescribed a controlled substance at d/c from ED?: Yes When asked, does pt state using other controlled substances?: No If prescribed controlled substance>3 days was MAPS reviewed?: Prescribed <3 Days If opioid is for acute pain is fill amount 7 days or less?: Yes If Rx opioid, was Start Talking consent form obtained?: Yes Referrals: Alice Lazaro MD [Primary Care Provider] - 1-2 days Time of Disposition: 16:05
[2018-06-22 16:33] VITALS: BP 121/80; PULSE 88; RESP 16
== END 2018-06-22 16:30 | disposition home or self-care (01) ==
LOC: EC 13:08
DX: R10.13 Epigastric pain (principal); R11.0 Nausea; M54.9 Dorsalgia, unspecified; Z91.010 Allergy to peanuts; Z91.040 Latex allergy status
CPT/HCPCS: 36415; 80053; 82150; 83690; 85025; 81001; 81025; 99284; 96374; 96375; 96376; 96361 ×2; J2405; J1170

== ENCOUNTER 2018-08-27 07:41 | Emergency (ER) | payer MEDICAID ==
[2018-08-27 07:48] VITALS: TEMP 97.7
[2018-08-27] MEDS ORDERED: MORPHINE SULFATE 4 MG/ML SYRINGE IV STA (07:57)
[2018-08-27] MEDS ORDERED: ONDANSETRON 4 MG/2 ML VIAL IVP STA ×2 (07:57→08:55)
[2018-08-27] MEDS ORDERED: SODIUM CHLORIDE 0.9% 1,000 ML IV STA (07:57)
--- NOTE | 2018-08-27 08:00 | ED ---
General Adult HPI - General Chief complaint: Abdominal Pain Stated complaint: Poss pancreatitis Time Seen by Provider: 08/27/18 07:53 Source: patient, RN notes reviewed Mode of arrival: ambulatory Limitations: no limitations - History of Present Illness Initial comments: Patient's a 22-year-old female with significant past medical history for chronic pancreatitis due to pancreatic divisum, presenting to the emergency room today with a chief complaint of increased abdominal pain over the last 3 days. She does admit that she was having some achiness in the abdomen that has increased the last 24 hours. Describes the pain in the middle of the abdomen consistent with pancreatitis that she's had in the past. Patient does admit to increased nausea vomiting for the past 24 hours unable to keep food or liquids down. She has tried Zofran and pain medicine of [place] at home with little relief. Patient denies any other complaints or symptoms. She states her last flareup was 6 months ago. Patient denies any recent fever, chills, shortness of breath, chest pain, back pain, numbness or tingling, headaches or visual changes , or any other complaints. - Related Data Home Medications Medication Instructions Recorded Confirmed HYDROcodone/APAP 7.5-325MG [[place] 1 tab PO BID 08/27/18 08/27/18 7.5-325] Allergies Allergy/AdvReac Type Severity Reaction Status Date / Time latex Allergy Rash/Hives Verified 08/27/18 08:23 peanut Allergy Rash/Swelli Verified 08/27/18 08:23 ng Review of Systems ROS Statement: Those systems with pertinent positive or pertinent negative responses have been documented in the HPI. ROS Other: All systems not noted in ROS Statement are negative. Past Medical History Past Medical History: No Reported History Additional Past Medical History / Comment(s): Recurrent chronic pancreatitis with extensive workups and was seen at [facility] with ? pancreatic divisum. History of Any Multi-Drug Resistant Organisms: None Reported Past Surgical History: No Surgical Hx Reported Additional Past Surgical History / Comment(s): EGD's and EGD with biopsy. Past Anesthesia/Blood Transfusion Reactions: No Reported Reaction Past Psychological History: No Psychological Hx Reported Smoking Status: Never smoker Past Alcohol Use History: None Reported Past Drug Use History: None Reported - Past Family History Brother(s) Additional Family Medical History / Comment(s): She has 2 brothers and 1 sister with no major medical problems. Father Family Medical History: Diabetes Mellitus Additional Family Medical History / Comment(s): Father is alive at age 49 with history of diabetes requiring kidney and pancreas transplant. Mother Family Medical History: Deep Vein Thrombosis (DVT) Additional Family Medical History / Comment(s): Mother is alive at age 52 with history of DVT's, cardiomyopathy and pacemaker. General Exam - General Exam Comments Initial Comments: General: The patient is awake and alert, in mild discomfort. Eye: There is normal conjunctiva bilaterally. No signs of icterus. Ears, nose, mouth and throat: There are moist mucous membranes and no oral lesions. Neck: The neck is supple, there is no tenderness or JVD. Cardiovascular: There is a regular rate and rhythm. No murmur, rub or gallop is appreciated. Respiratory: Lungs are clear to auscultation, respirations are non-labored, breath sounds are equal. No wheezes, stridor, rales, or rhonchi. Gastrointestinal: Abdomen soft on palpation. Patient does have tenderness to the epigastric and periumbilical areas. No rebound, guarding, CVA tenderness. Musculoskeletal: Normal ROM, no tenderness. Neurological: A&O x 3. CN II-XII intact, There are no obvious motor or sensory deficits. Coordination appears grossly intact. Speech is normal. Skin: Skin is warm and dry and no rashes or lesions are noted. Psychiatric: Cooperative, appropriate mood & affect, normal judgment. Limitations: no limitations Course Vital Signs 08/27/18 07:45 Temperature 97.7 F Pulse Rate 90 Respiratory 18 Rate Blood Pressure 127/88 O2 Sat by Pulse 97 Oximetry Medical Decision Making - Medical Decision Making Patient reexamined at this time shows no signs of distress she is resting comfortably. She does admit that she's feeling better. Her labs been reviewed did show mildly elevated liver enzymes. Patient states this pain is consistent with pancreatitis that she's had in the past. Amylase and lipase were negative. Options were discussed with patient about x-ray and CAT scan. She has declined both. She states she would like to go home and plans to follow up with her GI doctor. Patient advised return for any other concerns. - Lab Data Result diagrams: 08/27/18 08:00 08/27/18 08:00 Lab Results 11/08/27/18 08/27/18 Range/Units 08:00 08:00 08:20 WBC 8.3 (3.8-10.6) k/uL RBC 4.83 (3.80-5.40) m/uL Hgb 14.4 (11.4-16.0) gm/dL Hct 41.2 (34.0-46.0) % MCV 85.2 (80.0-100.0) fL MCH 29.9 (25.0-35.0) pg MCHC 35.1 (31.0-37.0) g/dL RDW 12.8 (11.5-15.5) % Plt Count 266 (150-450) k/uL Neutrophils % 70 % Lymphocytes % 21 % Monocytes % 6 % Eosinophils % 2 % Basophils % 0 % Neutrophils # 5.8 (1.3-7.7) k/uL Lymphocytes # 1.7 (1.0-4.8) k/uL Monocytes # 0.5 (0-1.0) k/uL Eosinophils # 0.2 (0-0.7) k/uL Basophils # 0.0 (0-0.2) k/uL Sodium 139 (137-145) mmol/L Potassium 4.4 (3.5-5.1) mmol/L Chloride 102 (98-107) mmol/L Carbon Dioxide 25 (22-30) mmol/L Anion Gap 12 mmol/L BUN 8 (7-17) mg/dL Creatinine 0.49 L (0.52-1.04) mg/dL Est GFR (CKD-EPI)AfAm >90 (>60 ml/min/1.73 sqM) Est GFR (CKD-EPI)NonAf >90 (>60 ml/min/1.73 sqM) Glucose 158 H (74-99) mg/dL Calcium 9.4 (8.4-10.2) mg/dL Total Bilirubin 0.4 (0.2-1.3) mg/dL AST 125 H (14-36) U/L ALT 209 H (9-52) U/L Alkaline Phosphatase 87 (38-126) U/L Total Protein 7.9 (6.3-8.2) g/dL Albumin 4.6 (3.5-5.0) g/dL Amylase 38 (30-110) U/L Lipase 59 (23-300) U/L Urine Color Light Yellow Urine Appearance Cloudy H (Clear) Urine pH 6.5 (5.0-8.0) Ur Specific [place] 1.007 (1.001-1.035) Urine Protein Negative (Negative) Urine Glucose (UA) Negative (Negative) Urine Ketones Negative (Negative) Urine Blood Negative (Negative) Urine Nitrite Negative (Negative) Urine Bilirubin Negative (Negative) Urine Urobilinogen <2.0 (<2.0) mg/dL Ur Leukocyte Esterase Negative (Negative) Urine RBC 1 (0-5) /hpf Urine WBC 1 (0-5) /hpf Urine Mucus Rare H (None) /hpf Urine HCG, Qual (Not Detectd) 08/27/18 Range/Units 08:20 WBC (3.8-10.6) k/uL RBC (3.80-5.40) m/uL Hgb (11.4-16.0) gm/dL Hct (34.0-46.0) % MCV (80.0-100.0) fL MCH (25.0-35.0) pg MCHC (31.0-37.0) g/dL RDW (11.5-15.5) % Plt Count (150-450) k/uL Neutrophils % % Lymphocytes % % Monocytes % % Eosinophils % % Basophils % % Neutrophils # (1.3-7.7) k/uL Lymphocytes # (1.0-4.8) k/uL Monocytes # (0-1.0) k/uL Eosinophils # (0-0.7) k/uL Basophils # (0-0.2) k/uL Sodium (137-145) mmol/L Potassium (3.5-5.1) mmol/L Chloride (98-107) mmol/L Carbon Dioxide (22-30) mmol/L Anion Gap mmol/L BUN (7-17) mg/dL Creatinine (0.52-1.04) mg/dL Est GFR (CKD-EPI)AfAm (>60 ml/min/1.73 sqM) Est GFR (CKD-EPI)NonAf (>60 ml/min/1.73 sqM) Glucose (74-99) mg/dL Calcium (8.4-10.2) mg/dL Total Bilirubin (0.2-1.3) mg/dL AST (14-36) U/L ALT (9-52) U/L Alkaline Phosphatase (38-126) U/L Total Protein (6.3-8.2) g/dL Albumin (3.5-5.0) g/dL Amylase (30-110) U/L Lipase (23-300) U/L Urine Color Urine Appearance (Clear) Urine pH (5.0-8.0) Ur Specific [place] (1.001-1.035) Urine Protein (Negative) Urine Glucose (UA) (Negative) Urine Ketones (Negative) Urine Blood (Negative) Urine Nitrite (Negative) Urine Bilirubin (Negative) Urine Urobilinogen (<2.0) mg/dL Ur Leukocyte Esterase (Negative) Urine RBC (0-5) /hpf Urine WBC (0-5) /hpf Urine Mucus (None) /hpf Urine HCG, Qual Not Detected (Not Detectd) Disposition Clinical Impression: Abdominal pain Disposition: HOME SELF-CARE Condition: Good Instructions: Abdominal Pain (ED) Additional Instructions: Please use medication as discussed. Please follow-up with family doctor in the next 2 days of symptoms have not improved. Please return to emergency room if the symptoms increase or worsen or for any other concerns. Is patient prescribed a controlled substance at d/c from ED?: No Referrals: Alice Lazaro MD [Primary Care Provider] - 1-2 days Time of Disposition: 10:03
[2018-08-27 08:34] LABS: Basophils % (A) 0 %; Eosinophils # (A) 0.2 k/uL (0-0.7); Eosinophils % (A) 2 %; HCT 41.2 % (34.0-46.0); HGB 14.4 gm/dL (11.4-16.0); Lymphocytes # (A) 1.7 k/uL (1.0-4.8); Lymphocytes % (A) 21 %; MCH 29.9 pg (25.0-35.0); MCHC 35.1 g/dL (31.0-37.0); MCV 85.2 fL (80.0-100.0); Mean Platelet Volume 7.2; Monocytes # (A) 0.5 k/uL (0-1.0); Monocytes % (A) 6 %; Neutrophils # (A) 5.8 k/uL (1.3-7.7); Neutrophils % (A) 70 %; Platelet Count 266 k/uL (150-450); RBC 4.83 m/uL (3.80-5.40); RDW 12.8 % (11.5-15.5); WBC 8.3 k/uL (3.8-10.6)
[2018-08-27 08:36] LABS: Appearance,Urine Cloudy (Clear); Bilirubin,Urine Negative (Negative); Blood,Urine Negative (Negative); Color,Urine Light Yellow; Glucose,Urine (UA) Negative (Negative); Ketones,Urine Negative (Negative); Leukocyte Esterase,Urine Negative (Negative); Mucus,Urine Rare /hpf; Nitrite,Urine Negative (Negative); PH, Urine 6.5 (5.0-8.0); Protein,Urine Negative (Negative); RBC,Urine 1 /hpf (0-5); Specific Gravity,Urine 1.007 (1.001-1.035); Urobilinogen,Urine <2.0 mg/dL (<2.0)
[2018-08-27 08:40] LABS: ALT 209 U/L (9-52); AST 125 U/L (14-36); Albumin 4.6 g/dL (3.5-5.0); Alkaline Phosphatase 87 U/L (38-126); Amylase 38 U/L (30-110); Anion Gap 12 mmol/L; Blood Urea Nitrogen 8 mg/dL (7-17); Calcium 9.4 mg/dL (8.4-10.2); Carbon Dioxide 25 mmol/L (22-30); Chloride 102 mmol/L (98-107); Glucose 158 mg/dL (74-99); Lipase 59 U/L (23-300); Potassium 4.4 mmol/L (3.5-5.1); Sodium 139 mmol/L (137-145); Total Bilirubin 0.4 mg/dL (0.2-1.3); Total Protein 7.9 g/dL (6.3-8.2)
[2018-08-27] MEDS ORDERED: METOCLOPRAMIDE 5 MG/ML 2 ML VIAL IVP STA (09:19)
[2018-08-27] MEDS ORDERED: HYDROmorphone 1 MG/ML 1 ML SYRINGE IVP STA (09:19)
[2018-08-27 10:51] VITALS: BP 136/84; PULSE 84; RESP 16
== END 2018-08-27 10:40 | disposition home or self-care (01) ==
LOC: EC 07:41
DX: R10.9 Unspecified abdominal pain (principal); R11.2 Nausea with vomiting, unspecified; Z32.02 Encounter for pregnancy test, result negative; Z91.010 Allergy to peanuts; Z91.040 Latex allergy status
CPT/HCPCS: 36415; 80053; 82150; 83690; 85025; 81001; 81025; 99284; 96374; 96375 ×3; 96361 ×2; J2270; J2765; J2405; J1170

== ENCOUNTER 2018-08-29 23:14 | Inpatient (IN) | payer MEDICAID ==
[2018-08-30] MEDS ORDERED: SODIUM CHLORIDE 0.9% 2,000 ML IV STA (01:15)
[2018-08-30] MEDS ORDERED: HYDROmorphone 1 MG/ML 1 ML SYRINGE IVP STA ×2 (01:15→02:19)
[2018-08-30] MEDS ORDERED: METOCLOPRAMIDE 5 MG/ML 2 ML VIAL IVP STA (01:15)
--- NOTE | 2018-08-30 01:20 | ED ---
General Adult HPI - General Source: patient, RN notes reviewed Mode of arrival: ambulatory Limitations: no limitations <Mc Nolasco P - Last Filed: 08/30/18 04:36> <Onelia Gilliland P - Last Filed: 08/30/18 06:42> - General Chief complaint: Abdominal Pain Stated complaint: Abd Pain, Pancreatitis Time Seen by Provider: 08/30/18 00:47 - History of Present Illness Initial comments: 22-year-old female with a past medical history of pancreatitis presents to the emergency room for a chief complaint of abdominal pain and vomiting 4 days. Patient states she gets pinker status every 6 months and is seen at [facility] monthly for this. Patient states at this time she has upper abdominal pain that is sharp in nature. She states it is better with sitting up and worse when lying down. She states she is also very nauseous and has been vomiting multiple times per day. She denies any lower abdominal pain. She states this feels like pancreatitis that she has had in the past.Patient has no other complaints at this time including shortness of breath, chest pain, headache, or visual changes. (Mc Nolasco) - Related Data Home Medications Medication Instructions Recorded Confirmed HYDROcodone/APAP 7.5-325MG [Silvis 1 tab PO BID 08/27/18 08/27/18 7.5-325] Allergies Allergy/AdvReac Type Severity Reaction Status Date / Time latex Allergy Rash/Hives Verified 08/29/18 23:28 peanut Allergy Rash/Swelli Verified 08/29/18 23:28 ng Review of Systems ROS Other: All systems not noted in ROS Statement are negative. <Mc Nolasco P - Last Filed: 08/30/18 04:36> ROS Other: All systems not noted in ROS Statement are negative. <Onelia Gilliland P - Last Filed: 08/30/18 06:42> ROS Statement: Those systems with pertinent positive or pertinent negative responses have been documented in the HPI. Past Medical History Past Medical History: No Reported History Additional Past Medical History / Comment(s): Recurrent chronic pancreatitis with extensive workups and was seen at [facility] with ? pancreatic divisum. History of Any Multi-Drug Resistant Organisms: None Reported Past Surgical History: No Surgical Hx Reported Additional Past Surgical History / Comment(s): EGD's and EGD with biopsy. Past Anesthesia/Blood Transfusion Reactions: No Reported Reaction Past Psychological History: No Psychological Hx Reported Smoking Status: Never smoker Past Alcohol Use History: None Reported Past Drug Use History: None Reported - Past Family History Brother(s) Additional Family Medical History / Comment(s): She has 2 brothers and 1 sister with no major medical problems. Father Family Medical History: Diabetes Mellitus Additional Family Medical History / Comment(s): Father is alive at age 49 with history of diabetes requiring kidney and pancreas transplant. Mother Family Medical History: Deep Vein Thrombosis (DVT) Additional Family Medical History / Comment(s): Mother is alive at age 52 with history of DVT's, cardiomyopathy and pacemaker. <Mc Nolasco P - Last Filed: 08/30/18 04:36> General Exam Limitations: no limitations General appearance: alert, in no apparent distress Head exam: Present: atraumatic, normocephalic, normal inspection Eye exam: Present: normal appearance, PERRL, EOMI. Absent: scleral icterus, conjunctival injection, periorbital swelling ENT exam: Present: normal exam, mucous membranes moist Neck exam: Present: normal inspection, full ROM. Absent: tenderness, meningismus, lymphadenopathy Respiratory exam: Present: normal lung sounds bilaterally. Absent: respiratory distress, wheezes, rales, rhonchi, stridor Cardiovascular Exam: Present: regular rate, normal rhythm GI/Abdominal exam: Present: tenderness (Tenderness noted to the epigastric area , no tenderness noted elsewhere in the abdomen). Absent: distended, guarding <Mc Nolasco P - Last Filed: 08/30/18 04:36> Vital Signs 08/29/18 08/30/18 08/30/18 23:26 03:48 06:13 Temperature 98.6 F 99 F Pulse Rate 130 H 108 H 93 Respiratory 18 16 16 Rate Blood Pressure 143/89 126/72 123/69 O2 Sat by Pulse 98 96 94 L Oximetry Medical Decision Making - Lab Data Result diagrams: 08/30/18 01:40 08/30/18 01:40 <Mc Nolasco P - Last Filed: 08/30/18 04:36> - Lab Data Result diagrams: 08/30/18 01:40 08/30/18 01:40 <Onelia Gilliland - Last Filed: 08/30/18 06:42> - Medical Decision Making 22-year-old female presents to the emergency department for a chief complaint of epigastric pain 4 days. Patient states she is also nauseous and vomiting. Patient states this feels like her frequent attacks of pancreatitis. On exam patient does have tenderness in the upper epigastric area, negative Hernandez sign. Patient initially presented with tachycardia of 130 and was complaining of pain and nausea. Patient was given 2 L of IV fluids which is greater than 30 mL/kg of her ideal body weight. CBC shows a white count of 13.4. Lactic 1.0. CMP shows minimally elevated AST and ALT. Total bilirubin is within normal limits. Urine is negative. Amylase and lipase are within normal limits. Discussed that at this point as the patient is having persistent pain and her amylase and lipase are within normal limits computed tomography scan is recommended. Patient agrees to this. CT shows fatty infiltration of the liver as well as dilated gallbladder which is more dilated than old CT suggestive of cholecystitis. At this point blood cultures were drawn and patient was started on Flagyl and Rocephin. ultrasound was called in to obtain a gallbladder ultrasound (Mc Nolasco) She care was signed out to me by Mc Nolasco. Patient is a 22-year-old female with history of pancreatic divisum resulting in frequent episodes of pancreatitis. Patient has had nausea, vomiting and abdominal pain for 4 days duration. Patient was seen earlier in the week and discharged from our ER. She returned today with persistent symptoms. Labs revealed transaminitis, a computed tomography scan was ordered, computed tomography scan was suggestive of an acute cholecystitis. Patient's pain was more epigastric than right upper quadrant though did move to the right upper quadrant. Ultrasound revealed no evidence of acute cholecystitis. Patient was reevaluated she continues to have persistent epigastric abdominal pain I do suspect she has a component of gastritis. Patient care was discussed with general surgery on-call Dr. Rodriguez who agrees with the plan for admission to medicine, he will be on consult for serial abdominal exams. Patient care was discussed with Dr. Harrison of the [facility] physician team who accepts the admission. (Onelia Gilliland) - Lab Data Lab Results 08/30/18 08/30/18 08/30/18 Range/Units 01:30 01:30 01:40 WBC (3.8-10.6) k/uL RBC (3.80-5.40) m/uL Hgb (11.4-16.0) gm/dL Hct (34.0-46.0) % MCV (80.0-100.0) fL MCH (25.0-35.0) pg MCHC (31.0-37.0) g/dL RDW (11.5-15.5) % Plt Count (150-450) k/uL Neutrophils % % Lymphocytes % % Monocytes % % Eosinophils % % Basophils % % Neutrophils # (1.3-7.7) k/uL Lymphocytes # (1.0-4.8) k/uL Monocytes # (0-1.0) k/uL Eosinophils # (0-0.7) k/uL Basophils # (0-0.2) k/uL Sodium 140 (137-145) mmol/L Potassium 4.6 (3.5-5.1) mmol/L Chloride 102 (98-107) mmol/L Carbon Dioxide 24 (22-30) mmol/L Anion Gap 14 mmol/L BUN 11 (7-17) mg/dL Creatinine 0.59 (0.52-1.04) mg/dL Est GFR (CKD-EPI)AfAm >90 (>60 ml/min/1.73 sqM) Est GFR (CKD-EPI)NonAf >90 (>60 ml/min/1.73 sqM) Glucose 120 H (74-99) mg/dL Plasma Lactic Acid Braulio (0.7-2.0) mmol/L Calcium 9.9 (8.4-10.2) mg/dL Total Bilirubin 0.8 (0.2-1.3) mg/dL AST 142 H (14-36) U/L ALT 192 H (9-52) U/L Alkaline Phosphatase 101 (38-126) U/L Total Protein 8.6 H (6.3-8.2) g/dL Albumin 5.1 H (3.5-5.0) g/dL Amylase 39 (30-110) U/L Lipase 37 (23-300) U/L Urine Color Yellow Urine Appearance Clear (Clear) Urine pH 5.5 (5.0-8.0) Ur Specific [place] 1.016 (1.001-1.035) Urine Protein Negative (Negative) Urine Glucose (UA) Negative (Negative) Urine Ketones Negative (Negative) Urine Blood Negative (Negative) Urine Nitrite Negative (Negative) Urine Bilirubin Negative (Negative) Urine Urobilinogen <2.0 (<2.0) mg/dL Ur Leukocyte Esterase Negative (Negative) Urine HCG, Qual Not Detected (Not Detectd) 08/30/18 08/30/18 Range/Units 01:40 03:58 WBC 13.4 H (3.8-10.6) k/uL RBC 5.39 (3.80-5.40) m/uL Hgb 15.4 (11.4-16.0) gm/dL Hct 45.7 (34.0-46.0) % MCV 84.9 (80.0-100.0) fL MCH 28.6 (25.0-35.0) pg MCHC 33.6 (31.0-37.0) g/dL RDW 13.0 (11.5-15.5) % Plt Count 328 (150-450) k/uL Neutrophils % 87 % Lymphocytes % 7 % Monocytes % 4 % Eosinophils % 1 % Basophils % 0 % Neutrophils # 11.7 H (1.3-7.7) k/uL Lymphocytes # 1.0 (1.0-4.8) k/uL Monocytes # 0.5 (0-1.0) k/uL Eosinophils # 0.1 (0-0.7) k/uL Basophils # 0.0 (0-0.2) k/uL Sodium (137-145) mmol/L Potassium (3.5-5.1) mmol/L Chloride (98-107) mmol/L Carbon Dioxide (22-30) mmol/L Anion Gap mmol/L BUN (7-17) mg/dL Creatinine (0.52-1.04) mg/dL Est GFR (CKD-EPI)AfAm (>60 ml/min/1.73 sqM) Est GFR (CKD-EPI)NonAf (>60 ml/min/1.73 sqM) Glucose (74-99) mg/dL Plasma Lactic Acid Braulio 1.0 (0.7-2.0) mmol/L Calcium (8.4-10.2) mg/dL Total Bilirubin (0.2-1.3) mg/dL AST (14-36) U/L ALT (9-52) U/L Alkaline Phosphatase (38-126) U/L Total Protein (6.3-8.2) g/dL Albumin (3.5-5.0) g/dL Amylase (30-110) U/L Lipase (23-300) U/L Urine Color Urine Appearance (Clear) Urine pH (5.0-8.0) Ur Specific [place] (1.001-1.035) Urine Protein (Negative) Urine Glucose (UA) (Negative) Urine Ketones (Negative) Urine Blood (Negative) Urine Nitrite (Negative) Urine Bilirubin (Negative) Urine Urobilinogen (<2.0) mg/dL Ur Leukocyte Esterase (Negative) Urine HCG, Qual (Not Detectd) Disposition Is patient prescribed a controlled substance at d/c from ED?: No Time of Disposition: 04:40 <Mc Nolasco P - Last Filed: 08/30/18 04:36> <Onelia Gilliland P - Last Filed: 08/30/18 06:42> Clinical Impression: Cholecystitis Disposition: ADMITTED IP TO THIS HOSP Condition: Good Referrals: Alice Lazaro MD [Primary Care Provider] - 1-2 days
[2018-08-30 01:44] LABS: Basophils % (A) 0 %; Eosinophils # (A) 0.1 k/uL (0-0.7); Eosinophils % (A) 1 %; HCT 45.7 % (34.0-46.0); HGB 15.4 gm/dL (11.4-16.0); Lymphocytes % (A) 7 %; MCH 28.6 pg (25.0-35.0); MCHC 33.6 g/dL (31.0-37.0); MCV 84.9 fL (80.0-100.0); Monocytes # (A) 0.5 k/uL (0-1.0); Monocytes % (A) 4 %; Neutrophils # (A) 11.7 k/uL (1.3-7.7); Neutrophils % (A) 87 %; Platelet Count 328 k/uL (150-450); RBC 5.39 m/uL (3.80-5.40); WBC 13.4 k/uL (3.8-10.6)
[2018-08-30 01:44] LABS: Appearance,Urine Clear (Clear); Bilirubin,Urine Negative (Negative); Blood,Urine Negative (Negative); Color,Urine Yellow; Glucose,Urine (UA) Negative (Negative); Ketones,Urine Negative (Negative); Leukocyte Esterase,Urine Negative (Negative); Nitrite,Urine Negative (Negative); PH, Urine 5.5 (5.0-8.0); Protein,Urine Negative (Negative); Specific Gravity,Urine 1.016 (1.001-1.035); Urobilinogen,Urine <2.0 mg/dL (<2.0)
[2018-08-30 01:54] LABS: ALT 192 U/L (9-52); AST 142 U/L (14-36); Albumin 5.1 g/dL (3.5-5.0); Alkaline Phosphatase 101 U/L (38-126); Amylase 39 U/L (30-110); Anion Gap 14 mmol/L; Blood Urea Nitrogen 11 mg/dL (7-17); Calcium 9.9 mg/dL (8.4-10.2); Carbon Dioxide 24 mmol/L (22-30); Chloride 102 mmol/L (98-107); Glucose 120 mg/dL (74-99); Lipase 37 U/L (23-300); Potassium 4.6 mmol/L (3.5-5.1); Sodium 140 mmol/L (137-145); Total Bilirubin 0.8 mg/dL (0.2-1.3); Total Protein 8.6 g/dL (6.3-8.2)
--- NOTE | 2018-08-30 02:55 | CT ---
EXAMINATION TYPE: CT abdomen pelvis w con DATE OF EXAM: 08/30/2018 COMPARISON: 03/03/2018 HISTORY: Abdominal pain CT DLP: 1579.8 mGycm Automated exposure control for dose reduction was used. TECHNIQUE: Helical acquisition of images was performed from the lung bases through the pelvis. CONTRAST: Performed without Oral Contrast and with IV Contrast, patient injected with 100 ML mL of Isovue 300. FINDINGS: Lung bases are clear. There is no pleural effusion. There is low-attenuation in the liver consistent with fatty infiltration. Gallbladder is somewhat dilated and measures 5 cm. Bile ducts are not dilate d. Spleen appears normal. There is no pancreatic mass. There is no adrenal mass. Kidneys show satisfactory contrast opacification. There is no hydronephrosi s. Ureters are not dilated. There is no retroperitoneal adenopathy. Bladder distends smoothly. Uterus is anteverted. There is no inguinal hernia. There is no free fluid in the pelvis. The appendix appea rs normal. I see no intestinal wall thickening. There are no dilated loops. The lumbar spine is intac t. I see no bony destructive process. Bony pelvis appears intact. IMPRESSION: THERE IS FATTY INFILTRATION OF THE LIVER. THERE IS A DILATED GALLBLADDER THERE IS MORE DILATED THAN O LD CT SCAN. THIS IS SUGGESTIVE OF CHOLECYSTITIS.
[2018-08-30] MEDS: metroNIDAZOLE-NS PMX 500 MG in SALINE 1 100ML.BAG IVPB SCH ×3 (04:19→21:09)
[2018-08-30] MEDS ORDERED: KETOROLAC 30 MG/ML 1 ML VIAL IVP STA (04:37)
--- NOTE | 2018-08-30 06:00 | US ---
EXAM: US Abdomen Limited, Right Upper Quadrant CLINICAL HISTORY: ITS.REASON US Reason: Pain TECHNIQUE: Real-time ultrasound of the right upper quadrant with image documentation. COMPARISON: No relevant prior studies available. FINDINGS: Liver: Liver Length: 21.1 cm Increased attenuation and hepatomegaly No intrahepatic bile duct dilation. Gallbladder: Gallbladder Wall: 0.4 cm Within normal limits. Sonographic Hernandez's sign is reported to be absent. Common bile duct: 0.5 cm Within normal limits. No stones. No dilation. Pancreas: Obscured by bowel gas Right kidney: 10.6 x 4.0 x 5.4 cm Within normal limits. No stones. No hydronephrosis. IMPRESSION: Hepatomegaly with hepatic steatosis. No cholelithiasis or cholecystitis.
[2018-08-30] MEDS ORDERED: NALOXONE 0.4 MG/ML 1 ML VIAL IV PRN (06:38)
[2018-08-30] MEDS ORDERED: MORPHINE SULFATE 4 MG/ML SYRINGE IV PRN (06:38)
[2018-08-30] MEDS ORDERED: FAMOTIDINE 20 MG/2 ML VIAL IV STA (06:42)
[2018-08-30] MEDS ORDERED: MAG HYDROX/AL HYDROX/SIMETH 30 ML, HYOSCYAMINE ELIXIR 10 ML, CIMETIDINE HCL 300 MG, LID... PO STA ×4 (06:42)
[2018-08-30 08:36] LABS: Partial Thromboplastin Time 26.2 sec (22.0-30.0); Prothrombin Time 10.2 sec (9.0-12.0)
[2018-08-30] MEDS ORDERED: PROCHLORPERAZINE SUPPOSITORY 25 MG SUPP RECTAL PRN (08:44)
--- NOTE | 2018-08-30 08:55 | P.HPIM ---
History of Present Illness H&P Date: 08/30/18 Chief Complaint: Abdominal pain nausea and vomiting 22-year-old female with a past medical history of pancreatitis since childhood secondary to pancreatic divisum presents to the emergency room for a chief complaint of abdominal pain and vomiting 4 days. Patient states she gets a pancreatitis flare approximately every 6 - 8 months and is seen at [facility] monthly for this. Patient states at this time she has upper and centralized abdominal pain that is sharp in nature. She states it is better with sitting up and worse when lying down. She states she is also very nauseous and has been vomiting multiple times per day, she reports she is been unable to keep any food or liquids down, she also reported 3 episodes of diarrhea yesterday, she denies any subjective fevers chills or night sweats. She denies any lower abdominal pain. She states this feels like pancreatitis that she has had in the past. Patient has no other complaints at this time including shortness of breath, chest pain, headache, or visual changes. In the ER the patient had a conference a workup including a CT abdomen and pelvis that showed fatty infiltration of the liver dilated gallbladder subsequent right upper quadrant ultrasound was negative for any acute cholecystitis, only hepatomegaly with hepatic steatosis. On admission her remarkable labs included a leukocytosis of 13.4, AST ALT 140-192 respectively, serum lipase 37. The patient was given morphine, Reglan and Toradol and recommended for admission after general surgery was consulted from the ER Review of Systems Pertinent positives per HPI all other review of systems otherwise negative Past Medical History Past Medical History: No Reported History Additional Past Medical History / Comment(s): Recurrent chronic pancreatitis with extensive workups and was seen at [facility] with ? pancreatic divisum. History of Any Multi-Drug Resistant Organisms: None Reported Past Surgical History: No Surgical Hx Reported Additional Past Surgical History / Comment(s): EGD's and EGD with biopsy. Past Anesthesia/Blood Transfusion Reactions: No Reported Reaction Past Psychological History: No Psychological Hx Reported Smoking Status: Never smoker Past Alcohol Use History: None Reported Past Drug Use History: None Reported - Past Family History Brother(s) Additional Family Medical History / Comment(s): She has 2 brothers and 1 sister with no major medical problems. Father Family Medical History: Diabetes Mellitus Additional Family Medical History / Comment(s): Father is alive at age 49 with history of diabetes requiring kidney and pancreas transplant. Mother Family Medical History: Deep Vein Thrombosis (DVT) Additional Family Medical History / Comment(s): Mother is alive at age 52 with history of DVT's, cardiomyopathy and pacemaker. Medications and Allergies Home Medications Medication Instructions Recorded Confirmed Type HYDROcodone/APAP 7.5-325MG [Conifer 1 tab PO BID PRN 08/27/18 08/30/18 History 7.5-325] Allergies Allergy/AdvReac Type Severity Reaction Status Date / Time latex Allergy Rash/Hives Verified 08/30/18 08:21 peanut Allergy Rash/Swelli Verified 08/30/18 08:21 ng Physical Exam Vitals: Vital Signs Temp Pulse Resp BP Pulse Ox 08/30/18 06:13 93 16 123/69 94 L 08/30/18 03:48 99 F 108 H 16 126/72 96 08/29/18 23:26 98.6 F 130 H 18 143/89 98 Intake and Output 08/29/18 08/30/18 08/30/18 22:59 06:59 14:59 Other: Weight 90.718 kg Constitutional: No acute distress, conversant, pleasant Eyes: Anicteric sclerae, moist conjunctiva, no lid-lag, PERRLA ENMT: NC/AT,Oropharynx clear, no erythema, exudates Neck:Supple, FROM, no masses, or JVD, No carotid bruits; No thyromegaly Lungs: Clear to auscultation, Clear to percussion, Normal respiratory effort, no accessory muscle use Cardiovascular: Heart regular in rate and rhythm, No murmurs, gallops, or rubs no peripheral edema Abdominal: Tenderness to palpation diffusely worse in the epigastrium and central abdomen, nom distended, no guarding, no rebound or rigidity, Normoactive bowel sounds No hepatomegaly, No splenomegaly, No palpable mass No abdominal wall hernia noted Skin: Normal temperature, tone, texture, turgor, No induration No subcutaneous nodules, No rash, lesions, No ulcers Extremities:No digital cyanosis No clubbing, Pedal pulses intact and symmetrical Radial pulses intact and symmetrical Normal gait and station, No calf tenderness Psychiatric: Alert and oriented to person, place and time, Appropriate affect Intact judgement Neuro: Muscles Strength 5/5 in all 4 extremities, Sensation to light touch grossly present throughout, Cranial nerves II-XII grossly intact. No focal sensory deficits Results CBC & Chem 7: 08/30/18 01:40 08/30/18 01:40 Labs: Abnormal Lab Results - Last 24 Hours (Table) 08/30/18 08/30/18 Range/Units 01:40 01:40 WBC 13.4 H (3.8-10.6) k/uL Neutrophils # 11.7 H (1.3-7.7) k/uL Glucose 120 H (74-99) mg/dL AST 142 H (14-36) U/L ALT 192 H (9-52) U/L Total Protein 8.6 H (6.3-8.2) g/dL Albumin 5.1 H (3.5-5.0) g/dL Assessment and Plan (1) Nausea & vomiting Current Visit: No Status: Acute Code(s): R11.2 - NAUSEA WITH VOMITING, UNSPECIFIED SNOMED Code(s): 47461718 (2) Abdominal pain Current Visit: No Status: Acute Code(s): R10.9 - UNSPECIFIED ABDOMINAL PAIN SNOMED Code(s): 21957766 (3) Hepatic steatosis Current Visit: Yes Status: Acute Code(s): K76.0 - FATTY (CHANGE OF) LIVER, NOT ELSEWHERE CLASSIFIED SNOMED Code(s): 157274051 (4) Pancreatic divisum Current Visit: No Status: Acute Code(s): Q45.3 - H CONGENITAL MALFORMATIONS OF PANCREAS AND PANCREATIC DUCT SNOMED Code(s): 35945245 (5) Hyperlipidemia Current Visit: Yes Status: Acute Code(s): E78.5 - HYPERLIPIDEMIA, UNSPECIFIED SNOMED Code(s): 06640574 Plan: The patient is a 22-year-old that is placed in observation anticipate a less than 2 midnight stay with abdominal pain & intractable nausea vomiting found to have transaminitis and a white count. The patient does have a history of chronic transaminitis likely secondary to hepatic steatosis. CT abdomen and pelvis did suggest possible cholecystitis or for right upper quadrant ultrasound is negative for cholelithiasis or any suggestion of cholecystitis, Gen. surgery consulted to evaluate for possible acalculous cholecystitis. Patient is started on supportive therapy with morphine, Zofran for pain and nausea respectively, also initiated on IV antibiotics with Rocephin. We'll plan to initiate PPI therapy and also consult GI for further recommendations. Patient also has a history of chronic pancreatitis secondary to pancreatic divisum. We'll also further workup her transaminitis with check HIV and acute hepatitis panel. Patient placed on SCDs for DVT prophylaxis CODE STATUS Full code Anticipated discharge 1-2 days
[2018-08-30] MEDS ORDERED: SCOPOLAMINE 1.5MG/72HR PATCH TRANSDERM SCH (09:00)
--- NOTE | 2018-08-30 09:09 | P.CONS ---
History of Present Illness - Reason for Consult Consult date: 08/30/18 Abdominal pain Requesting physician: Elbert Hyatt - Chief Complaint Abdominal pain - History of Present Illness 22-year-old female well known to the GI service with a past medical history of pancreatic divisum diagnosed 10 years of age followed by hepatobiliary specialist at [facility], chronic mild transaminitis, chronic pancreatitis, nonalcoholic fatty liver disease, and obesity. Patient presents with a 4 day history of dull intense abdominal pain originating in the mid epigastrium radiating to the right upper quadrant. This pain is different than the pain she experiences with acute pancreatitis attacks; she describes her pancreatic pain as sharp originating in the epigastric region radiating to the left upper quadrant and back. Multiple episodes of non-bloody emesis. Denies fever. Admission white count 13.4. The globin 15.4. INR 1.0. Total bilirubin 0.8. AST 142. ALT 192. AP 101. Lipase 37. Amylase 39. HCG not detected. When reviewing prior medical records her average transaminases AST/ALT range between 40-90. ET abdomen fatty infiltration of the liver. Dilated gallbladder 5 cm more so than previous computed tomography scan suggestive of cholecystitis. Bile duct is not dilated. No pancreatic mass. Spleen appeared normal. Ultrasound abdomen hepatomegaly 21.1 cm. Hepatic steatosis. No gallstones. Gallbladder wall 0.4 cm. CBD 0.5 cm. Intrahepatic bilirubin duct dilatation. Review of Systems Constitutional: Denies fever, chills, sweats, weight gain, or loss. HEENT: Negative for migraines, blurred vision or loss, earaches, drainage, tinnitus, oral mucosal lesions, dysphagia, or odynophagia. CARDIAC: Negative for chest pain, arrhythmias, or palpitation. RESPIRATORY: Negative for shortness of breath, hemoptysis, cough, or sputum production. GI: See HPI for pertinent findings. : Negative for hematuria, urgency, frequency, polyuria, or dysuria. GYNc: Denies possibility of . Negative vaginal discharge. MUSCULOSKELETAL: Negative for muscle aches, swelling, arthritis, and arthralgias. NEUROLOGIC: Negative for stroke or TIA. ENDOCRINE: Negative for thyroid problems. SKIN: Negative for rash or itching. PSYCHIATRIC: Negative history for depression and anxiety Past Medical History Past Medical History: No Reported History Additional Past Medical History / Comment(s): Recurrent chronic pancreatitis with extensive workups and was seen at [facility] with ? pancreatic divisum. History of Any Multi-Drug Resistant Organisms: None Reported Past Surgical History: No Surgical Hx Reported Additional Past Surgical History / Comment(s): EGD's and EGD with biopsy. Past Anesthesia/Blood Transfusion Reactions: No Reported Reaction Past Psychological History: No Psychological Hx Reported Smoking Status: Never smoker Past Alcohol Use History: None Reported Past Drug Use History: None Reported - Past Family History Brother(s) Additional Family Medical History / Comment(s): She has 2 brothers and 1 sister with no major medical problems. Father Family Medical History: Diabetes Mellitus Additional Family Medical History / Comment(s): Father is alive at age 49 with history of diabetes requiring kidney and pancreas transplant. Mother Family Medical History: Deep Vein Thrombosis (DVT) Additional Family Medical History / Comment(s): Mother is alive at age 52 with history of DVT's, cardiomyopathy and pacemaker. Medications and Allergies Home Medications Medication Instructions Recorded Confirmed Type HYDROcodone/APAP 7.5-325MG [[place] 1 tab PO BID PRN 08/27/18 08/30/18 History 7.5-325] Allergies Allergy/AdvReac Type Severity Reaction Status Date / Time latex Allergy Rash/Hives Verified 08/30/18 08:21 peanut Allergy Rash/Swelli Verified 08/30/18 08:21 ng Physical Exam Vitals: Vital Signs Temp Pulse Pulse Resp BP BP Pulse Ox 08/30/18 07:45 98.1 F 113 H 20 152/92 95 08/30/18 07:39 97.7 F 100 19 114/73 100 08/30/18 07:30 97.7 F 100 19 114/73 100 08/30/18 06:13 93 16 123/69 94 L 08/30/18 03:48 99 F 108 H 16 126/72 96 08/29/18 23:26 98.6 F 130 H 18 143/89 98 Intake and Output 08/29/18 08/30/18 08/30/18 22:59 06:59 14:59 Other: Weight 90.718 kg General appearance: The patient is alert, oriented, in no acute distress. HET: Head is normocephalic and atraumatic. Pupils are equal and reactive. Oropharynx is clear without lesions. Neck: Supple without lymphadenopathy. Trachea midline. Heart: S1 S2. Regular rate and rhythm. Lungs: No crackles or wheezes are heard. Abdomen: Soft, moderate right upper quadrant tenderness mild midepigastric tenderness, nondistended with bowel sounds. No peritoneal signs. No palpable organomegaly or masses. Extremities: Normal skin color and turgor. No cyanosis, rash, ulceration, clubbing, or edema. Radial and pedal pulses are 2/4 bilaterally. Neurological: No focal deficits. Strength and sensation are grossly intact. Results CBC & Chem 7: 08/30/18 01:40 08/30/18 01:40 Labs: Abnormal Lab Results - Last 24 Hours (Table) 08/30/18 08/30/18 Range/Units 01:40 01:40 WBC 13.4 H (3.8-10.6) k/uL Neutrophils # 11.7 H (1.3-7.7) k/uL Glucose 120 H (74-99) mg/dL AST 142 H (14-36) U/L ALT 192 H (9-52) U/L Total Protein 8.6 H (6.3-8.2) g/dL Albumin 5.1 H (3.5-5.0) g/dL CT scan - abdomen: report reviewed (Dr. Marcus) US - abdomen: report reviewed (Dr. Marcus) Assessment and Plan (1) Abdominal pain Narrative/Plan: 22-year-old female admitted with acute epigastric right upper quadrant abdominal pain with acute transaminitis superimposed on chronic transaminitis with underlying pancreatic divisum hepatic steatosis. Radiographic imaging reported dilated gallbladder 5 cm without cholelithiasis or intrahepatic biliary duct dilatation. Possible acute acalculous cholecystitis superimposed on chronic transaminitis secondary to underlying nonalcoholic fatty liver disease. Current Visit: No Status: Acute Code(s): R10.9 - UNSPECIFIED ABDOMINAL PAIN SNOMED Code(s): 13505743 (2) Transaminitis Current Visit: Yes Status: Acute Code(s): R74.0 - NONSPEC ELEV OF LEVELS OF TRANSAMNS & LACTIC ACID DEHYDRGNSE SNOMED Code(s): 905432914 (3) Hepatic steatosis Current Visit: Yes Status: Acute Code(s): K76.0 - FATTY (CHANGE OF) LIVER, NOT ELSEWHERE CLASSIFIED SNOMED Code(s): 733092646 (4) Pancreatic divisum Current Visit: No Status: Acute Code(s): Q45.3 - OTH CONGENITAL MALFORMATIONS OF PANCREAS AND PANCREATIC DUCT SNOMED Code(s): 37851035 (5) History of chronic pancreatitis Current Visit: Yes Status: Acute Code(s): Z87.19 - PERSONAL HISTORY OF OTHER DISEASES OF THE DIGESTIVE SYSTEM SNOMED Code(s): 875869627 (6) Obesity (BMI 30.0-34.9) Current Visit: Yes Status: Chronic Code(s): E66.9 - OBESITY, UNSPECIFIED SNOMED Code(s): 638609818122001 (7) Hepatomegaly Current Visit: Yes Status: Acute Code(s): R16.0 - HEPATOMEGALY, NOT ELSEWHERE CLASSIFIED SNOMED Code(s): 27218053 Plan: 1. Patient is experiencing nausea will provide scopolamine patch as well as Compazine suppositories 25 mg twice day as needed. 2. IV hydration pain management. 3. General surgical consult; spoke with Dr. Rodriguez will order HIDA. 4. Daily CBC CMP. Will follow with you. Thank you for this kind referral and the opportunity to participate in the care of your patient. This consultation was discussed with Dr. Marcus. The impression and plan of care have been directed as dictated.
--- NOTE | 2018-08-30 11:51 | NM ---
EXAMINATION TYPE: NM hepatobiliary w EF DATE OF EXAM: 08/30/2018 COMPARISON: NONE HISTORY: Abdominal pain TECHNIQUE: After the intravenous administration of 5.11 mCi Tc 99m Mebrofenin hepatobiliary scintigra phy is performed. Immediate images post injection. FINDINGS: There is satisfactory initial accumulation of tracer by the liver. The gallbladder is visualized wit hin 10 minutes . The small bowel activity is noted within 60 minutes. At one hour 8 ounces of oral ensure plus is given to mimic CCK and gallbladder ejection fraction is calculated at 87%. IMPRESSION: Elevated gallbladder ejection fraction may reflect hypercontractile state.
[2018-08-30] MEDS: SODIUM CHLORIDE 0.9% 1,000 ML IV SCH (11:53)
[2018-08-30 12:01] VITALS: BMI 32.3
--- NOTE | 2018-08-30 12:51 | P.GSCN ---
History of Present Illness Consult date: 08/30/18 Reason for Consult: Abdominal pain History of present illness: 22-year-old female with history of chronic pancreatitis. The patient has been diagnosed with pancreatic divisum in the past. The patient's pain is usually midepigastric however this time her pain began and was more across the entire upper abdomen extending to the right. Some radiation to the back. Some episodes of nausea and vomiting. No fevers. White blood cell count slightly elevated. Liver enzymes above their normal baseline. CAT scan showed a distended gallbladder raising the suspicion for acalculous cholecystitis. Ultrasound normal. Recent HIDA scan performed this morning shows an ejection fraction of 87%. Review of Systems The patient denies any acute changes in vision or hearing, no dysphagia or odynophagia, no chest pain or shortness of breath, no dysuria or hematuria, no headache, no runny nose, no rectal bleeding or melena, no unexplained weight loss Past Medical History Past Medical History: No Reported History Additional Past Medical History / Comment(s): Recurrent chronic pancreatitis with extensive workups and was seen at [facility] with ? pancreatic divisum. History of Any Multi-Drug Resistant Organisms: None Reported Past Surgical History: No Surgical Hx Reported Additional Past Surgical History / Comment(s): EGD's and EGD with biopsy. Past Anesthesia/Blood Transfusion Reactions: No Reported Reaction Past Psychological History: No Psychological Hx Reported Additional Psychological History / Comment(s): Pt takes adderill during school year to help her concentrate-she is no longer using. Smoking Status: Never smoker Past Alcohol Use History: None Reported Additional Past Alcohol Use History / Comment(s): Patient is a nonsmoker. She denies any medical marijuana, marijuana, street drug use. She is single and does not have any children. Past Drug Use History: None Reported - Past Family History Brother(s) Additional Family Medical History / Comment(s): She has 2 brothers and 1 sister with no major medical problems. Father Family Medical History: Diabetes Mellitus Additional Family Medical History / Comment(s): Father is alive at age 49 with history of diabetes requiring kidney and pancreas transplant. Mother Family Medical History: Deep Vein Thrombosis (DVT) Additional Family Medical History / Comment(s): Mother is alive at age 52 with history of DVT's, cardiomyopathy and pacemaker. Medications and Allergies Home Medications Medication Instructions Recorded Confirmed Type HYDROcodone/APAP 7.5-325MG [[place] 1 tab PO BID PRN 08/27/18 08/30/18 History 7.5-325] Allergies Allergy/AdvReac Type Severity Reaction Status Date / Time latex Allergy Rash/Hives Verified 08/30/18 08:21 peanut Allergy Rash/Swelli Verified 08/30/18 08:21 ng Surgical - Exam Vital Signs Temp Pulse Resp BP Pulse Ox 98.6 F 130 H 18 143/89 98 08/29/18 23:26 08/29/18 23:26 08/29/18 23:26 08/29/18 23:26 08/29/18 23:26 Physical exam: General: Well-developed, well-nourished HEENT: Normocephalic, sclerae nonicteric Abdomen: Mild epigastric and right upper quadrant tenderness, no rebound or guarding Extremities: No edema Neuro: Alert and oriented Results - Labs 08/30/18 01:40 08/30/18 01:40 Abnormal Lab Results - Last 24 Hours (Table) 08/30/18 08/30/18 Range/Units 01:40 01:40 WBC 13.4 H (3.8-10.6) k/uL Neutrophils # 11.7 H (1.3-7.7) k/uL Glucose 120 H (74-99) mg/dL AST 142 H (14-36) U/L ALT 192 H (9-52) U/L Total Protein 8.6 H (6.3-8.2) g/dL Albumin 5.1 H (3.5-5.0) g/dL Diabetes panel 08/30/18 Range/Units 01:40 Sodium 140 (137-145) mmol/L Potassium 4.6 (3.5-5.1) mmol/L Chloride 102 (98-107) mmol/L Carbon Dioxide 24 (22-30) mmol/L BUN 11 (7-17) mg/dL Creatinine 0.59 (0.52-1.04) mg/dL Glucose 120 H (74-99) mg/dL Calcium 9.9 (8.4-10.2) mg/dL AST 142 H (14-36) U/L ALT 192 H (9-52) U/L Alkaline Phosphatase 101 (38-126) U/L Total Protein 8.6 H (6.3-8.2) g/dL Albumin 5.1 H (3.5-5.0) g/dL Calcium panel 08/30/18 Range/Units 01:40 Calcium 9.9 (8.4-10.2) mg/dL Albumin 5.1 H (3.5-5.0) g/dL Pituitary panel 08/30/18 Range/Units 01:40 Sodium 140 (137-145) mmol/L Potassium 4.6 (3.5-5.1) mmol/L Chloride 102 (98-107) mmol/L Carbon Dioxide 24 (22-30) mmol/L BUN 11 (7-17) mg/dL Creatinine 0.59 (0.52-1.04) mg/dL Glucose 120 H (74-99) mg/dL Calcium 9.9 (8.4-10.2) mg/dL Adrenal panel 08/30/18 Range/Units 01:40 Sodium 140 (137-145) mmol/L Potassium 4.6 (3.5-5.1) mmol/L Chloride 102 (98-107) mmol/L Carbon Dioxide 24 (22-30) mmol/L BUN 11 (7-17) mg/dL Creatinine 0.59 (0.52-1.04) mg/dL Glucose 120 H (74-99) mg/dL Calcium 9.9 (8.4-10.2) mg/dL Total Bilirubin 0.8 (0.2-1.3) mg/dL AST 142 H (14-36) U/L ALT 192 H (9-52) U/L Alkaline Phosphatase 101 (38-126) U/L Total Protein 8.6 H (6.3-8.2) g/dL Albumin 5.1 H (3.5-5.0) g/dL Assessment and Plan (1) Abdominal pain Narrative/Plan: Etiology the patient's pain is unclear at this time. The patient's liver appears enlarged with significant fatty infiltration on recent CAT scan. This may be contributing to her pain with the elevated liver enzymes. Will repeat labs tomorrow. If symptoms persist consider repeat endoscopic ultrasound. Current Visit: No Status: Acute Code(s): R10.9 - UNSPECIFIED ABDOMINAL PAIN SNOMED Code(s): 40373104
[2018-08-30] MEDS ORDERED: HYDROmorphone 1 MG/ML 1 ML SYRINGE IVP PRN (15:57)
[2018-08-30] MEDS: ONDANSETRON 4 MG/2 ML VIAL IVP PRN (16:01)
[2018-08-30 17:22] LABS: Hepatitis A Antibody IgM Non-Reactive (Non-Reactive); Hepatitis B Core IgM Non-Reactive (Non-Reactive)
[2018-08-30 19:11] LABS: HIV 1 AB Non-Reactive (Non-Reactive); HIV AB P24 Non-Reactive (Non-Reactive); HIV P24 AG Non-Reactive (Non-Reactive)
[2018-08-30] MEDS: HYDROmorphone 1 MG/ML 1 ML SYRINGE IVP PRN (20:42)
--- NOTE | 2018-08-30 20:52 | MR ---
EXAMINATION TYPE: MR MRCP DATE OF EXAM: 08/30/2018 COMPARISON: 10/18/2016 HISTORY: Abdominal pain, elevated liver enzymes, assess for bile duct stricture TECHNIQUE: Standard multiplanar, multisequence MRI departmental protocol FINDINGS: LIVER: There is hepatomegaly, with the liver measuring 23 cm craniocaudal at the midclavicular line ( normal 15 cm CC). No focal liver lesions. BILIARY SYSTEM: The intrahepatic and extrahepatic biliary tree appears top normal in caliber. There a re no filling defects or strictures. The gallbladder has normal appearance, without correlate lithias is or evidence of cholecystitis. PANCREAS: Pancreas divisum is redemonstrated. The pancreatic parenchyma and the pancreatic ductal salena manuel is negative for acute findings. SPLEEN: There is splenomegaly, with the greatest dimension of the spleen measuring 17 cm (normal is 1 3 cm). No focal defects. REMAINDER OF THE SOLID VISCERA OF THE ABDOMEN: Unremarkable. HOLLOW VISCERA OF THE ABDOMEN: Negative as seen. ABDOMINAL LYMPH NODE STATIONS: No adenopathy. VISUALIZED SKELETAL STRUCTURES: No focal lesions. VISUALIZED EXTRA-ABDOMINAL STRUCTURES: Unremarkable. IMPRESSION: 1) No acute biliary process. 3) Hepatosplenomegaly noted.
[2018-08-31] MEDS: HYDROmorphone 1 MG/ML 1 ML SYRINGE IVP PRN ×7 (01:00→20:57)
[2018-08-31] MEDS: ONDANSETRON 4 MG/2 ML VIAL IVP PRN ×2 (01:00→06:52)
[2018-08-31] MEDS: SODIUM CHLORIDE 0.9% 1,000 ML IV SCH ×3 (01:16→13:30)
[2018-08-31] MEDS: metroNIDAZOLE-NS PMX 500 MG in SALINE 1 100ML.BAG IVPB SCH (05:25)
[2018-08-31 09:26] LABS: ALT 190 U/L (9-52); AST 148 U/L (14-36); Albumin 3.7 g/dL (3.5-5.0); Alkaline Phosphatase 68 U/L (38-126); Amylase 31 U/L (30-110); Anion Gap 7 mmol/L; Blood Urea Nitrogen 8 mg/dL (7-17); Calcium 8.6 mg/dL (8.4-10.2); Carbon Dioxide 28 mmol/L (22-30); Chloride 105 mmol/L (98-107); Glucose 93 mg/dL (74-99); Lipase 48 U/L (23-300); Potassium 4.1 mmol/L (3.5-5.1); Sodium 140 mmol/L (137-145); Total Bilirubin 0.3 mg/dL (0.2-1.3); Total Protein 6.5 g/dL (6.3-8.2)
[2018-08-31 09:35] LABS: Basophils % (A) 0 %; Mean Platelet Volume 6.9; Monocytes # (A) 0.5 k/uL (0-1.0)
[2018-08-31 09:43] LABS: Eosinophils # (A) 0.2 k/uL (0-0.7); Eosinophils % (A) 4 %; HCT 36.9 % (34.0-46.0); Lymphocytes # (A) 1.4 k/uL (1.0-4.8); Lymphocytes % (A) 25 %; MCH 29.1 pg (25.0-35.0); MCHC 33.5 g/dL (31.0-37.0); MCV 86.9 fL (80.0-100.0); Monocytes % (A) 8 %; Neutrophils # (A) 3.5 k/uL (1.3-7.7); Neutrophils % (A) 62 %; Platelet Count 241 k/uL (150-450); RBC 4.25 m/uL (3.80-5.40); RDW 13.1 % (11.5-15.5); WBC 5.6 k/uL (3.8-10.6)
[2018-08-31 09:47] LABS: HGB 12.3 gm/dL (11.4-16.0)
[2018-08-31] MEDS: PANTOPRAZOLE 40 MG/10 ML VIAL IVP SCH (10:07)
--- NOTE | 2018-08-31 10:23 | P.PN ---
Subjective Progress Note Date: 08/31/18 Principal diagnosis: abdominal pain Patient is a 22-year-old female with a past medical history of chronic pancreatitis secondary to pancreatic diverticulum who presented to the emergency room for complaint of abdominal pain. In the ER she underwent an extensive evaluation. Initial vital signs showed her to be tachycardic but afebrile. Initial laboratory analysis showed a transaminitis slightly above her baseline. CT abdomen and pelvis was negative for any signs of pancreatitis but did show slightly dilated gallbladder, this was followed by gallbladder ultrasound which was negative. Her lipase was 37. She is admitted for further monitoring and care. Both GI and surgery were consulted. HIDA scan was performed which showed hypercontractile gallbladder with an ejection fraction of 87%. MRCP demonstrated her pancreatic diabetes and known hepatosplenomegaly. Hepatitis and HIV workup was nonreactive. Patient seen and examined at bedside. She states she threw up her clear liquid diet. Still having some abdominal pain but this is better than before. She states that her vomiting started prior to her abdominal pain. She's been vomiting for approximately 3-4 days. We discussed that she has a hypercontractile gallbladder on HIDA scan and MRCP demonstrated her known hepatosplenomegaly and pancreatic diabetes him. She still has pain. She states that yesterday the pain was epigastric with radiation to the right upper quadrant. Pain is now more in the right lower quadrant. It is better after her Dilaudid was made more frequently last night. She is still having some nausea and vomiting. No chest pain or shortness of breath. We discussed that she may have something as simple as gastroenteritis that resulted in abdominal pain after multiple bouts of vomiting. We also discussed that we may need to further look into her hypercontractile gallbladder things do not improve. Objective - Vital Signs Vital signs: Vital Signs Temp 98.5 F 08/31/18 08:16 Pulse 75 08/31/18 08:16 Resp 16 08/31/18 08:16 BP 125/65 08/31/18 08:16 Pulse Ox 96 08/31/18 08:16 Intake & Output 08/30/18 08/31/18 08/31/18 18:59 06:59 18:59 Output Total 100 Balance -100 Weight 90.718 kg Output: Emesis 100 Other: # Voids 2 1 - Exam General: Ill appearing, no distress, appears at stated age, obese Derm: warm, dry Head: atraumatic, normocephalic, symmetric Eyes: EOMI, no lid lag, anicteric sclera Mouth: no lip lesion, mucus membranes moist Cardiovascular: S1S2 reg, no murmur, positive posterior tibial pulse bilateral, Lungs: CTA bilateral, no rhonchi, no rales , no accessory muscle use Abdominal: soft, tender to palpation right lower quadrant, no guarding, no appreciable organomegaly Ext: no gross muscle atrophy, no edema, no contractures Neuro: CN II-XI grossly intact, no focal neuro deficits Psych: Alert, oriented, appropriate affect - Labs CBC & Chem 7: 08/31/18 07:59 08/31/18 07:59 Labs: Abnormal Lab Results - Last 24 Hours (Table) 08/31/18 Range/Units 07:59 AST 148 H (14-36) U/L ALT 190 H (9-52) U/L Microbiology - Last 24 Hours (Table) 08/30/18 03:58 Blood Culture - Preliminary Blood No Growth after 24 hours Assessment and Plan Assessment: Abdominal pain associated with transaminitis -Hypertension or to how gallbladder noted on HIDA scan with ejection fraction of 87% -Follow transaminitis -Continue with clear liquid diet advance as tolerated -Antiemetics and pain control as needed -Symptom management -Follow CMP -Avoid liver toxic agents -Hepatitis profile is negative Pancreatic divisum -Known, continued outpatient follow-up Dyslipidemia -Patient would benefit from statin therapy will not initiate at this point in time elevated transaminases -Follow up with Dr. Pardo after discharge to keep blood work and possible initiation of statin therapy Hepatic steatosis -Continue outpatient follow-up Leukocytosis, resolved DVT prophylaxis:SCDs Discussed with:Patient and nursing Anticipated discharge: 24 -[address]: home A total of 35 minutes was spent on the care of this complex patient more than 50 % of the time was spent in counseling and care coordination.
[2018-08-31] MEDS: HYDROcodone/APAP 5-325MG 1 EACH TAB PO PRN ×2 (11:33→21:01)
--- NOTE | 2018-08-31 12:22 | P.PN ---
Subjective Progress Note Date: 08/31/18 Principal diagnosis: Epigastric abdominal pain Patient having nausea and some vomiting today. Her hepatitis workup is negative. MRCP was obtained and that is likewise normal. Pain remains in the epigastric region. Overall her pain is improved but the nausea and vomiting persist. Objective - Vital Signs Vital signs: Vital Signs Temp 98.5 F 08/31/18 08:16 Pulse 75 08/31/18 08:16 Resp 16 08/31/18 08:16 BP 125/65 08/31/18 08:16 Pulse Ox 96 08/31/18 08:16 Intake & Output 08/30/18 08/31/18 08/31/18 18:59 06:59 18:59 Output Total 100 Balance -100 Weight 90.718 kg Output: Emesis 100 Other: # Voids 2 1 - Exam Abdomen: Soft, mild epigastric tenderness, no rebound or guarding - Labs CBC & Chem 7: 08/31/18 07:59 08/31/18 07:59 Labs: Abnormal Lab Results - Last 24 Hours (Table) 08/31/18 Range/Units 07:59 AST 148 H (14-36) U/L ALT 190 H (9-52) U/L Microbiology - Last 24 Hours (Table) 08/30/18 03:58 Blood Culture - Preliminary Blood No Growth after 24 hours Assessment and Plan (1) Abdominal pain Narrative/Plan: Patient's antibiotics are being discontinued which may assist with her nausea and vomiting. Continue liquid diet for now. No evidence of cholecystitis at this time. If symptoms persist consider returning to [facility] for evaluation and care. We'll sign off. Please contact if needed. Current Visit: No Status: Acute Code(s): R10.9 - UNSPECIFIED ABDOMINAL PAIN SNOMED Code(s): 29582309
[2018-09-01] MEDS: HYDROmorphone 1 MG/ML 1 ML SYRINGE IVP PRN ×5 (02:03→19:42)
[2018-09-01] MEDS: SODIUM CHLORIDE 0.9% 1,000 ML IV SCH ×3 (02:05→14:34)
[2018-09-01] MEDS: ONDANSETRON 4 MG/2 ML VIAL IVP PRN ×2 (05:26→19:47)
[2018-09-01 08:16] LABS: ALT 184 U/L (9-52); AST 130 U/L (14-36); Albumin 3.9 g/dL (3.5-5.0); Alkaline Phosphatase 66 U/L (38-126); Anion Gap 8 mmol/L; Blood Urea Nitrogen 9 mg/dL (7-17); Calcium 8.9 mg/dL (8.4-10.2); Carbon Dioxide 26 mmol/L (22-30); Chloride 105 mmol/L (98-107); Glucose 104 mg/dL (74-99); Potassium 4.2 mmol/L (3.5-5.1); Sodium 139 mmol/L (137-145); Total Bilirubin 0.3 mg/dL (0.2-1.3); Total Protein 6.6 g/dL (6.3-8.2)
[2018-09-01] MEDS: PANTOPRAZOLE 40 MG/10 ML VIAL IVP SCH (09:47)
--- NOTE | 2018-09-01 10:03 | P.PN ---
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 In the ER she underwent an extensive evaluation. Initial vital signs showed her to be tachycardic but afebrile. Initial laboratory analysis showed a transaminitis slightly above her baseline. CT abdomen and pelvis was negative for any signs of pancreatitis but did show slightly dilated gallbladder, this was followed by gallbladder ultrasound which was negative. Her lipase was 37. She is admitted for further monitoring and care. Both GI and surgery were consulted. HIDA scan was performed which showed hypercontractile gallbladder with an ejection fraction of 87%. MRCP demonstrated her pancreatic divism and known hepatosplenomegaly. Hepatitis and HIV workup was nonreactive. Patient seen and examined at bedside. Feeling better than yesterday. Tolerated her diet. No nausea or vomiting. Last nausea 3 AM. Pain is improved today. D/W her outpatinet cholesterol results and need for follow-up with Dr. Shell and dietary modifications needed with TG 307 and LDL 125 with TC 221 and her young age. Objective - Vital Signs Vital signs: Vital Signs Temp 98.2 F 09/01/18 07:23 Pulse 52 L 09/01/18 07:23 Resp 18 09/01/18 07:23 BP 115/73 09/01/18 07:23 Pulse Ox 96 09/01/18 07:23 Intake & Output 08/31/18 09/01/18 09/01/18 18:59 06:59 18:59 Intake Total 330 2640 Balance 330 2640 Intake: Oral 330 2640 Other: # Voids 2 2 - Exam General: non toxic, no distress, appears at stated age, obese Derm: warm, dry Head: atraumatic, normocephalic, symmetric Eyes: EOMI, no lid lag, anicteric sclera Mouth: no lip lesion, mucus membranes moist Cardiovascular: S1S2 reg, no murmur, positive posterior tibial pulse bilateral, Lungs: CTA bilateral, no rhonchi, no rales , no accessory muscle use Abdominal: soft, tender to palpation right lower quadrant (per patient much less than yesterday), no guarding, no appreciable organomegaly Ext: no gross muscle atrophy, no edema, no contractures Neuro: CN II-XI grossly intact, no focal neuro deficits Psych: Alert, oriented, appropriate affect - Labs CBC & Chem 7: 08/31/18 07:59 09/01/18 07:45 Labs: Abnormal Lab Results - Last 24 Hours (Table) 09/01/18 Range/Units 07:45 Glucose 104 H (74-99) mg/dL AST 130 H (14-36) U/L ALT 184 H (9-52) U/L Microbiology - Last 24 Hours (Table) 08/30/18 03:58 Blood Culture - Preliminary Blood No Growth after 48 hours Assessment and Plan Assessment: Abdominal pain associated with transaminitis -Hypercontractile gallbladder noted on HIDA scan with ejection fraction of 87% -Follow transaminitis -Advance to full liquid diet and thenregular tomorrow. -Antiemetics and pain control as needed -Symptom management -Follow CMP -Avoid liver toxic agents -Hepatitis profile is negative Dyslipidemia -Patient would benefit from dietary modifications or statin therapy will not initiate at this point in time elevated transaminases -Follow up with Dr. Pardo after discharge to follow blood work and possible initiation of statin therapy Pancreatic divisum -Known, continued outpatient follow-up Obesity with BMI 32.3 - outpatient structured weight loss Hepatic steatosis -Continue outpatient follow-up Leukocytosis, resolved Home tomorrow if liver enzymes stable or improved DVT prophylaxis:SCDs Discussed with:Patient and nursing Anticipated discharge: [address]: home A total of 35 minutes was spent on the care of this complex patient more than 50 % of the time was spent in counseling and care coordination.
--- NOTE | 2018-09-01 17:20 | P.PN ---
Subjective Progress Note Date: 09/01/18 Principal diagnosis: Abdominal pain, pancreatitis, pancreatic divisum Patient has not eaten today but is planning on trying to eat his afternoon. She is still having some abdominal pain but denies any nausea or vomiting today. Objective - Vital Signs Vital signs: Vital Signs Temp 98.3 F 09/01/18 15:03 Pulse 66 09/01/18 15:03 Resp 16 09/01/18 15:03 BP 126/76 09/01/18 15:03 Pulse Ox 95 09/01/18 15:03 Intake & Output 08/31/18 09/01/18 09/01/18 18:59 06:59 18:59 Intake Total 330 2640 Balance 330 2640 Intake: Oral 330 2640 Other: # Voids 2 2 - Exam On physical examination, patient appears comfortable in no apparent distress. HEAD: Normocephalic, atraumatic. EYES: No scleral icterus. No conjunctival injection. MOUTH: No lesions, tongue midline. NECK: Trachea midline, no gross abnormalities. CHEST: Clear to auscultation with no wheezing or rhonchi appreciated. HEART: Regular rate and rhythm. ABDOMEN: Soft, obese. Bowel sounds are positive. No organomegaly. No guarding or rigidity. EXTREMITIES: No pedal edema. SKIN: No rashes, no jaundice. NEUROLOGIC: Alert and oriented x3. No focal deficits. - Labs CBC & Chem 7: 08/31/18 07:59 09/01/18 07:45 Labs: Abnormal Lab Results - Last 24 Hours (Table) 09/01/18 Range/Units 07:45 Glucose 104 H (74-99) mg/dL AST 130 H (14-36) U/L ALT 184 H (9-52) U/L Microbiology - Last 24 Hours (Table) 08/30/18 03:58 Blood Culture - Preliminary Blood No Growth after 48 hours Assessment and Plan (1) Hepatic steatosis Current Visit: Yes Status: Acute Code(s): K76.0 - FATTY (CHANGE OF) LIVER, NOT ELSEWHERE CLASSIFIED SNOMED Code(s): 559691967 (2) Hepatomegaly Current Visit: Yes Status: Acute Code(s): R16.0 - HEPATOMEGALY, NOT ELSEWHERE CLASSIFIED SNOMED Code(s): 41083709 (3) History of chronic pancreatitis Current Visit: Yes Status: Acute Code(s): Z87.19 - PERSONAL HISTORY OF OTHER DISEASES OF THE DIGESTIVE SYSTEM SNOMED Code(s): 583799155 (4) Transaminitis Current Visit: Yes Status: Acute Code(s): R74.0 - NONSPEC ELEV OF LEVELS OF TRANSAMNS & LACTIC ACID DEHYDRGNSE SNOMED Code(s): 460379419 (5) Abdominal pain Current Visit: No Status: Acute Code(s): R10.9 - UNSPECIFIED ABDOMINAL PAIN SNOMED Code(s): 41658857 Plan: Supportive care Okay for diet Continue to monitor liver enzymes, improved MRI/MRCP reviewed Surgical service following Thank you for participate in the care of this patient we will continue to follow
[2018-09-01] MEDS: HYDROcodone/APAP 5-325MG 1 EACH TAB PO PRN (22:06)
[2018-09-02] MEDS: ONDANSETRON 4 MG/2 ML VIAL IVP PRN ×2 (03:10→09:02)
[2018-09-02] MEDS: HYDROmorphone 1 MG/ML 1 ML SYRINGE IVP PRN ×2 (03:10→06:43)
[2018-09-02 05:39] VITALS: PULSE 76
[2018-09-02] MEDS: SODIUM CHLORIDE 0.9% 1,000 ML IV SCH ×2 (07:17→07:18)
[2018-09-02] MEDS ORDERED: PANTOPRAZOLE 40 MG TABLET PO SCH (07:30)
[2018-09-02] MEDS: HYDROcodone/APAP 5-325MG 1 EACH TAB PO PRN (08:09)
--- NOTE | 2018-09-02 08:40 | P.PN ---
Subjective Progress Note Date: 09/02/18 Principal diagnosis: abdominal pain Feels well. Minimal abdominal discomfort. LFTs improving. Afebrile. Objective - Vital Signs Vital signs: Vital Signs Temp 97.9 F 09/02/18 03:00 Pulse 76 09/02/18 03:00 Resp 18 09/02/18 03:00 BP 123/85 09/02/18 03:00 Pulse Ox 96 09/02/18 03:00 Intake & Output 09/01/18 09/02/18 09/02/18 18:59 06:59 18:59 Intake Total 240 Balance 240 Intake: Oral 240 Other: # Voids 3 1 - Exam General appearance: The patient is alert, oriented, in no acute distress. HET: Head is normocephalic and atraumatic. Pupils are equal and reactive. Oropharynx is clear without lesions. Neck: Supple without lymphadenopathy. Trachea midline. Heart: S1 S2. Regular rate and rhythm. Lungs: No crackles or wheezes are heard. Abdomen: Soft, mildtender midepigastric, nondistended with bowel sounds. No peritoneal signs. No palpable organomegaly or masses. Extremities: Normal skin color and turgor. No cyanosis, rash, ulceration, clubbing, or edema. Radial and pedal pulses are 2/4 bilaterally. Neurological: No focal deficits. Strength and sensation are grossly intact. - Labs CBC & Chem 7: 08/31/18 07:59 09/01/18 07:45 Labs: Microbiology - Last 24 Hours (Table) 08/30/18 03:58 Blood Culture - Preliminary Blood No Growth after 72 hours Assessment and Plan (1) Abdominal pain Current Visit: No Status: Acute Code(s): R10.9 - UNSPECIFIED ABDOMINAL PAIN SNOMED Code(s): 33075742 (2) Transaminitis Current Visit: Yes Status: Acute Code(s): R74.0 - NONSPEC ELEV OF LEVELS OF TRANSAMNS & LACTIC ACID DEHYDRGNSE SNOMED Code(s): 905987513 (3) Hepatic steatosis Current Visit: Yes Status: Acute Code(s): K76.0 - FATTY (CHANGE OF) LIVER, NOT ELSEWHERE CLASSIFIED SNOMED Code(s): 336946052 (4) Pancreatic divisum Current Visit: No Status: Acute Code(s): Q45.3 - OTH CONGENITAL MALFORMATIONS OF PANCREAS AND PANCREATIC DUCT SNOMED Code(s): 40098338 (5) History of chronic pancreatitis Current Visit: Yes Status: Acute Code(s): Z87.19 - PERSONAL HISTORY OF OTHER DISEASES OF THE DIGESTIVE SYSTEM SNOMED Code(s): 747890019 (6) Obesity (BMI 30.0-34.9) Current Visit: Yes Status: Chronic Code(s): E66.9 - OBESITY, UNSPECIFIED SNOMED Code(s): 587674080371653 (7) Hepatomegaly Current Visit: Yes Status: Acute Code(s): R16.0 - HEPATOMEGALY, NOT ELSEWHERE CLASSIFIED SNOMED Code(s): 85970151 Plan: 1. Discharge. RTO 2-3 weeks. Assessment and plan of care discussed with Dr. Riley
[2018-09-02] MEDS ORDERED: DOCUSATE 100 MG CAP PO PRN (09:18)
[2018-09-02 09:33] VITALS: BP 142/87; RESP 16; TEMP 98.5
--- NOTE | 2018-09-02 11:17 | P.DS ---
Providers Date of admission: 08/30/18 06:38 Expected date of discharge: 09/02/18 Attending physician: Chloé Harrison MD Consults: 08/30/18 06:39 Consult Physician Urgent Consulting Provider: Bravo Rodriguez Consult Reason/Comments: guru on ct, transaminitis Do you want consulting provider notified?: Already Contacted Primary care physician: Alice Lazaro Hospital Course: Discharge Diagnosis: Probable gastroenteritis Abdominal pain Intractable vomiting Transaminitis Dyslipidemia Pancreatic divisum Obesity BMI 32.3 Hepatic steatosis Leukocytosis Hospital Course: Patient is a 22-year-old female with a past medical history of chronic pancreatitis secondary to pancreatic divisum who presented to the emergency room with complaints of abdominal pain. In the ER she underwent an extensive evaluation. Initial vital signs showed her to be tachycardic but afebrile. Initial laboratory analysis showed a transaminitis slightly above her baseline. CT abdomen and pelvis was negative for any signs of pancreatitis but did show slightly dilated gallbladder, this was followed by gallbladder ultrasound which was negative. Her lipase was 37. She is admitted for further monitoring and care. Both GI and surgery were consulted. HIDA scan was performed which showed hypercontractile gallbladder with an ejection fraction of 87%. MRCP demonstrated her pancreatic divisum and known hepatosplenomegaly. Hepatitis and HIV workup was nonreactive. Her transaminits improved slightly. Her symptoms resolved and she was able to tolerate a diet. She will be discharged home. She will follow with Dr. Lazaro and Dr. Briggs on 09/12. A review of her outpatient labs demonstarted elevated triglycerides and LDL. She was instructed to follow a low cholesterol diet and was given a handout on these. Patient seen and examined at bedside. Abdominal pain improving daily. No nausea , tolerating good. No chest pain or shortness of breath. Vital signs reviewed and stable. General: non toxic, no distress, appears at stated age Derm: warm, dry Head: atraumatic, normocephalic, symmetric Eyes: EOMI, no lid lag, anicteric sclera Mouth: no lip lesion, mucus membranes moist Cardiovascular: S1S2 reg, no murmur, positive posterior tibial pulse bilateral, Lungs: CTA bilateral, no rhonchi, no rales , no accessory muscle use Abdominal: soft, +tender to palpation RLQ, no guarding, no appreciable organomegaly Ext: no gross muscle atrophy, no edema, no contractures Neuro: CN II-XI grossly intact, no focal neuro deficits Psych: Alert, oriented, appropriate affect A total of 25 minutes of time were spent preparing this complex discharge summary . Pertinent Studies: MRCP- hepatosplenomegaly, pancreatic divisum HIDA- EF 87% Gallbladder ultrasound- hepatomegaly CT abdomen/pelvis- fatty infiltration of the liver, dilated gallbladder Patient Condition at Discharge: Good Plan - Discharge Summary New Discharge Prescriptions: Continue HYDROcodone/APAP 7.5-325MG [[place] 7.5-325] 1 tab PO BID PRN PRN Reason: Pain Discharge Medication List HYDROcodone/APAP 7.5-325MG [[place] 7.5-325] 1 tab PO BID PRN 08/27/18 [History] Follow up Appointment(s)/Referral(s): Nathan Briggs MD [STAFF PHYSICIAN] - 09/12/18 1:15 pm Alice Lazaro MD [Primary Care Provider] - 1-2 days Patient Instructions/Handouts: Cholesterol and Your Health (GEN), Mediterranean Diet (DC) Activity/Diet/Wound Care/Special Instructions: low cholesterol diet. fluids are always encouraged. Activity as tolerated. follow up with Dr. Briggs as directed by physician. Call physician with any questions comments concerns worsening returning symptoms, fever 101.1 or higher , pain not controlled by medications prescribed, persistent nausea, vomiting not tolerating diet). Discharge/Stand Alone Forms: Work/School Release Discharge Disposition: HOME SELF-CARE
== END 2018-09-02 10:06 | disposition home or self-care (01) | DRG 948 ==
LOC: EC 23:14 → 6PED 08-30 06:38
PROVIDERS: ADMIT Internal Medicine; ATTEND Internal Medicine
DX: R74.0 Nonspecific elevation of levels of transaminase and lactic acid dehydrogenase [LDH] (principal); Q45.3 Other congenital malformations of pancreas and pancreatic duct; K86.1 Other chronic pancreatitis; K52.9 Noninfective gastroenteritis and colitis, unspecified; E11.9 Type 2 diabetes mellitus without complications; E66.9 Obesity, unspecified; E78.1 Pure hyperglyceridemia; E78.5 Hyperlipidemia, unspecified; I10 Essential (primary) hypertension; K76.0 Fatty (change of) liver, not elsewhere classified; K81.9 Cholecystitis, unspecified; Z68.32 Body mass index [BMI] 32.0-32.9, adult; Z83.3 Family history of diabetes mellitus
CPT/HCPCS: 36415; 74177; 74181; 76705; 78226; 80053; 80074; 81003; 81025; 82150; 83605; 83690; 85025; 85610; 85730; 87040; 87390; 96361; 96365; 96367; 96375; 96376; 99285

== ENCOUNTER 2019-04-18 07:25 | Inpatient (IN) | payer MEDICAID ==
[2019-04-18] MEDS ORDERED: SODIUM CHLORIDE 0.9% 1,000 ML IV ONE (07:36)
[2019-04-18 07:58] LABS: Basophils # (A) 0.1 k/uL (0-0.2); Basophils % (A) 1 %; Eosinophils # (A) 0.3 k/uL (0-0.7); Eosinophils % (A) 2 %; HCT 41.3 % (34.0-46.0); HGB 14.2 gm/dL (11.4-16.0); Lymphocytes # (A) 3.3 k/uL (1.0-4.8); Lymphocytes % (A) 28 %; MCH 28.8 pg (25.0-35.0); MCHC 34.3 g/dL (31.0-37.0); MCV 84.1 fL (80.0-100.0); Mean Platelet Volume 7.5; Monocytes # (A) 0.6 k/uL (0-1.0); Monocytes % (A) 5 %; Neutrophils # (A) 7.3 k/uL (1.3-7.7); Neutrophils % (A) 62 %; Platelet Count 303 k/uL (150-450); RBC 4.91 m/uL (3.80-5.40); RDW 14.3 % (11.5-15.5); WBC 11.8 k/uL (3.8-10.6)
[2019-04-18] MEDS ORDERED: HYDROmorphone 0.5 MG/0.5 ML SYRINGE IVP STA ×2 (07:59→09:40)
[2019-04-18] MEDS ORDERED: ONDANSETRON 4 MG/2 ML VIAL IVP STA (07:59)
[2019-04-18] MEDS: SODIUM CHLORIDE 0.9% 1,000 ML IV SCH ×2 (08:03→21:33)
[2019-04-18 08:12] LABS: Appearance,Urine Clear (Clear); Bilirubin,Urine Negative (Negative); Blood,Urine Negative (Negative); Color,Urine Colorless; Glucose,Urine (UA) Negative (Negative); Ketones,Urine Negative (Negative); Leukocyte Esterase,Urine Negative (Negative); Nitrite,Urine Negative (Negative); PH, Urine 6.5 (5.0-8.0); Protein,Urine Negative (Negative); Specific Gravity,Urine 1.001 (1.001-1.035); Urobilinogen,Urine <2.0 mg/dL (<2.0)
[2019-04-18 08:16] LABS: ALT 186 U/L (9-52); AST 130 U/L (14-36); African American GFR (CKD) >90 (>60 ml/min/1.73 sqM); Albumin 4.9 g/dL (3.5-5.0); Alkaline Phosphatase 82 U/L (38-126); Amylase 79 U/L (30-110); Anion Gap 15 mmol/L; Blood Urea Nitrogen 9 mg/dL (7-17); Calcium 9.7 mg/dL (8.4-10.2); Carbon Dioxide 23 mmol/L (22-30); Chloride 98 mmol/L (98-107); Glucose 123 mg/dL (74-99); Lipase 592 U/L (23-300); Potassium 4.2 mmol/L (3.5-5.1); Sodium 136 mmol/L (137-145); Total Bilirubin 0.6 mg/dL (0.2-1.3); Total Protein 8.1 g/dL (6.3-8.2)
[2019-04-18] MEDS ORDERED: diphenhydrAMINE 50 MG/ML 1 ML VIAL IVP STA (09:40)
[2019-04-18] MEDS ORDERED: METOCLOPRAMIDE 5 MG/ML 2 ML VIAL IVP STA (09:40)
--- NOTE | 2019-04-18 10:23 | ED ---
Abdominal Pain HPI - General Source: patient Mode of arrival: ambulatory Limitations: no limitations <Mary Lou Pinto - Last Filed: 04/18/19 12:04> <Emmanuel Aguilera - Last Filed: 04/18/19 13:05> - General Chief Complaint: Abdominal Pain Stated Complaint: Abd pain, nausea Time Seen by Provider: 04/18/19 07:35 - History of Present Illness Initial Comments: 23-year-old female with history of chronic pancreatitis since the age of 10. Patient states that she frequently experiences mid epigastric abdominal pain she states she is often diagnosed with pancreatitis. Patient states this feels identical to when she's had pancreatitis in the past. Patient states it is in the epigastric region radiating towards the back. She states she is nauseous and has been vomiting for the past 3 days. Patient denies any chest pain stress breath or abdominal pain denies flank pain hematuria dysuria urgency frequency. Patient states she does not want any imaging study she states this is typical of her pancreatitis she always is always negative. Refused imaging upon history taking. The review of system negative. Patient appears uncomfortable on arrival. (Mary Lou Pinto) - Related Data Home Medications Medication Instructions Recorded Confirmed HYDROcodone/APAP 7.5-325MG [[place] 1 tab PO BID PRN 08/27/18 04/18/19 7.5-325] Propranolol LA [Inderal LA] 80 mg PO DAILY 04/18/19 04/18/19 Allergies Allergy/AdvReac Type Severity Reaction Status Date / Time latex Allergy Rash/Hives Verified 04/18/19 08:15 peanut Allergy Rash/Swelli Verified 04/18/19 08:15 ng Review of Systems ROS Other: All systems not noted in ROS Statement are negative. <Mary Lou Pinto - Last Filed: 04/18/19 12:04> ROS Other: All systems not noted in ROS Statement are negative. <Emmanuel Aguilera - Last Filed: 04/18/19 13:05> ROS Statement: Those systems with pertinent positive or pertinent negative responses have been documented in the HPI. Past Medical History Past Medical History: No Reported History Additional Past Medical History / Comment(s): Recurrent chronic pancreatitis with extensive workups and was seen at [facility] with ?pancreatic divisum. History of Any Multi-Drug Resistant Organisms: None Reported Past Surgical History: No Surgical Hx Reported Additional Past Surgical History / Comment(s): EGD's and EGD with biopsy. Past Anesthesia/Blood Transfusion Reactions: No Reported Reaction Past Psychological History: No Psychological Hx Reported Smoking Status: Never smoker Past Alcohol Use History: None Reported Past Drug Use History: None Reported - Past Family History Brother(s) Additional Family Medical History / Comment(s): She has 2 brothers and 1 sister with no major medical problems. Father Family Medical History: Diabetes Mellitus Additional Family Medical History / Comment(s): Father is alive at age 49 with history of diabetes requiring kidney and pancreas transplant. Mother Family Medical History: Deep Vein Thrombosis (DVT) Additional Family Medical History / Comment(s): Mother is alive at age 52 with history of DVT's, cardiomyopathy and pacemaker. <Mary Lou Pinto - Last Filed: 04/18/19 12:04> General Exam Limitations: no limitations <Mary Lou Pinto - Last Filed: 04/18/19 12:04> - General Exam Comments Initial Comments: General: The patient is awake and alert, appears uncomfortable Eye: Pupils are equal, round and reactive to light, extra-ocular movements are intact. No nystagmus. There is normal conjunctiva bilaterally. No signs of icterus. Ears, nose, mouth and throat: There are moist mucous membranes and no oral lesions. Neck: The neck is supple, there is no tenderness or JVD. Cardiovascular: There is a regular rate and rhythm. No murmur, rub or gallop is appreciated. Respiratory: Lungs are clear to auscultation, respirations are non-labored, breath sounds are equal. No wheezes, stridor, rales, or rhonchi. Gastrointestinal: Soft, non-distended, abdomen tender to palpation of the epigastric region and is without masses or organomegaly noted. There is no rebound or guarding present. Bowel sounds are unremarkable. Musculoskeletal: Normal ROM, no tenderness. Strength 5/5. Sensation intact. Pulses equal bilaterally 2+. Neurological: A&O x 3. CN II-XII intact, There are no obvious motor or sensory deficits. Coordination appears grossly intact. Speech is normal. Skin: Skin is warm and dry and no rashes or lesions are noted. Psychiatric: Cooperative, appropriate mood & affect, normal judgment. (Mary Lou Pinto) Course Vital Signs 04/18/19 04/18/19 07:26 12:45 Temperature 97.6 F 98.2 F Pulse Rate 95 97 Respiratory 18 18 Rate Blood Pressure 145/99 124/83 O2 Sat by Pulse 95 97 Oximetry Medical Decision Making - Lab Data Result diagrams: 04/18/19 07:49 04/18/19 07:49 <Mary Lou Pinto - Last Filed: 04/18/19 12:04> - Lab Data Result diagrams: 04/18/19 07:49 04/18/19 07:49 <Emmanuel Aguilera - Last Filed: 04/18/19 13:05> - Medical Decision Making 21-year-old female presenting for possible pancreatitis. History of chronic pancreatitis. Epigastric pain on examination. Double the upper limit of normal of lipase. Consider for admission the pancreas as patient has had a previous study 25. Patient was given multiple doses of Dilaudid as well as Reglan Zofran. Patient continues to be symptomatic. Appears very uncomfortable, dry heaving. Patient continues to refuse imaging study stating that they're usually negative and this is typical of her chronic pancreatitis. At this time given patient symptoms are not managed to the emergency department patient be admitted for symptomatically treatment IV fluids and ordered nothing by mouth for pancreas rest. Patient is agreeable to this plan Dr. Aguilera for chlamydia provider from [facility] (Mary Lou Pinto) Case was discussed with practitioner Mary Lou. Chart review and results reviewed. Case was discussed with Dr. alvarez, who will admit for refractory Mina. (Emmanuel Aguilera) - Lab Data Lab Results 04/18/19 04/18/19 04/18/19 Range/Units 07:49 07:49 07:49 WBC 11.8 H (3.8-10.6) k/uL RBC 4.91 (3.80-5.40) m/uL Hgb 14.2 (11.4-16.0) gm/dL Hct 41.3 (34.0-46.0) % MCV 84.1 (80.0-100.0) fL MCH 28.8 (25.0-35.0) pg MCHC 34.3 (31.0-37.0) g/dL RDW 14.3 (11.5-15.5) % Plt Count 303 (150-450) k/uL Neutrophils % 62 % Lymphocytes % 28 % Monocytes % 5 % Eosinophils % 2 % Basophils % 1 % Neutrophils # 7.3 (1.3-7.7) k/uL Lymphocytes # 3.3 (1.0-4.8) k/uL Monocytes # 0.6 (0-1.0) k/uL Eosinophils # 0.3 (0-0.7) k/uL Basophils # 0.1 (0-0.2) k/uL Sodium 136 L (137-145) mmol/L Potassium 4.2 (3.5-5.1) mmol/L Chloride 98 (98-107) mmol/L Carbon Dioxide 23 (22-30) mmol/L Anion Gap 15 mmol/L BUN 9 (7-17) mg/dL Creatinine 0.45 L (0.52-1.04) mg/dL Est GFR (CKD-EPI)AfAm >90 (>60 ml/min/1.73 sqM) Est GFR (CKD-EPI)NonAf >90 (>60 ml/min/1.73 sqM) Glucose 123 H (74-99) mg/dL Calcium 9.7 (8.4-10.2) mg/dL Total Bilirubin 0.6 (0.2-1.3) mg/dL AST 130 H (14-36) U/L ALT 186 H (9-52) U/L Alkaline Phosphatase 82 (38-126) U/L Total Protein 8.1 (6.3-8.2) g/dL Albumin 4.9 (3.5-5.0) g/dL Triglycerides 254 H (<150) mg/dL Cholesterol 220 H (<200) mg/dL LDL Cholesterol, Calc 131 H (0-99) mg/dL HDL Cholesterol 38 L (40-60) mg/dL Amylase 79 (30-110) U/L Lipase 592 H (23-300) U/L Urine Color Urine Appearance (Clear) Urine pH (5.0-8.0) Ur Specific [place] (1.001-1.035) Urine Protein (Negative) Urine Glucose (UA) (Negative) Urine Ketones (Negative) Urine Blood (Negative) Urine Nitrite (Negative) Urine Bilirubin (Negative) Urine Urobilinogen (<2.0) mg/dL Ur Leukocyte Esterase (Negative) Urine HCG, Qual (Not Detectd) 04/18/19 04/18/19 Range/Units 08:01 08:01 WBC (3.8-10.6) k/uL RBC (3.80-5.40) m/uL Hgb (11.4-16.0) gm/dL Hct (34.0-46.0) % MCV (80.0-100.0) fL MCH (25.0-35.0) pg MCHC (31.0-37.0) g/dL RDW (11.5-15.5) % Plt Count (150-450) k/uL Neutrophils % % Lymphocytes % % Monocytes % % Eosinophils % % Basophils % % Neutrophils # (1.3-7.7) k/uL Lymphocytes # (1.0-4.8) k/uL Monocytes # (0-1.0) k/uL Eosinophils # (0-0.7) k/uL Basophils # (0-0.2) k/uL Sodium (137-145) mmol/L Potassium (3.5-5.1) mmol/L Chloride (98-107) mmol/L Carbon Dioxide (22-30) mmol/L Anion Gap mmol/L BUN (7-17) mg/dL Creatinine (0.52-1.04) mg/dL Est GFR (CKD-EPI)AfAm (>60 ml/min/1.73 sqM) Est GFR (CKD-EPI)NonAf (>60 ml/min/1.73 sqM) Glucose (74-99) mg/dL Calcium (8.4-10.2) mg/dL Total Bilirubin (0.2-1.3) mg/dL AST (14-36) U/L ALT (9-52) U/L Alkaline Phosphatase (38-126) U/L Total Protein (6.3-8.2) g/dL Albumin (3.5-5.0) g/dL Triglycerides (<150) mg/dL Cholesterol (<200) mg/dL LDL Cholesterol, Calc (0-99) mg/dL HDL Cholesterol (40-60) mg/dL Amylase (30-110) U/L Lipase (23-300) U/L Urine Color Colorless Urine Appearance Clear (Clear) Urine pH 6.5 (5.0-8.0) Ur Specific [place] 1.001 (1.001-1.035) Urine Protein Negative (Negative) Urine Glucose (UA) Negative (Negative) Urine Ketones Negative (Negative) Urine Blood Negative (Negative) Urine Nitrite Negative (Negative) Urine Bilirubin Negative (Negative) Urine Urobilinogen <2.0 (<2.0) mg/dL Ur Leukocyte Esterase Negative (Negative) Urine HCG, Qual Not Detected (Not Detectd) Disposition Is patient prescribed a controlled substance at d/c from ED?: No Time of Disposition: 11:42 Decision to Admit Reason: Admit from EC Decision Date: 04/18/19 Decision Time: 11:42 <Mary Lou Pinto - Last Filed: 04/18/19 12:04> <Emmanuel Aguilera - Last Filed: 04/18/19 13:05> Clinical Impression: Elevated lipase, Epigastric pain, Hx of pancreatitis Disposition: ADMITTED IP TO THIS [facility] Condition: Stable Referrals: Alice Lazaro MD [Primary Care Provider] - 1-2 days
[2019-04-18] MEDS ORDERED: ONDANSETRON 4 MG/2 ML VIAL IVP PRN (11:23)
[2019-04-18] MEDS ORDERED: NALOXONE 0.4 MG/ML 1 ML VIAL IV PRN (11:23)
[2019-04-18 12:20] LABS: Cholesterol 220 mg/dL (<200); HDL Cholesterol 38 mg/dL (40-60); LDL Cholesterol,Calculated 131 mg/dL (0-99); Triglycerides 254 mg/dL (<150)
[2019-04-18] MEDS: HYDROmorphone 0.5 MG/0.5 ML SYRINGE IVP PRN ×2 (13:48→16:44)
[2019-04-18] MEDS: HYDROmorphone 1 MG/ML 1 ML SYRINGE IVP PRN (17:19)
--- NOTE | 2019-04-18 17:33 | P.HPIM ---
History of Present Illness H&P Date: 04/18/19 Chief Complaint: Abdominal pain 23-year-old female with PMH of pancreatic divisum and multiple episodes of pancreatitis presents to the ED for abdominal pain. Patient reports that the pain began 5 days ago. Pain is located above the bellybutton. She describes the pain as achy, stabbing and throbbing in nature. Pain occasionally radiates to the lower back. Patient states that this pain is exactly what she has experienced with other episodes of pancreatitis. 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 She also reports intense nausea but no vomiting. Pain is 7-10 out of 10 in severity. Patient also reports a bright temporal headache since being in the ED. She denies any lower extremity edema. She denies any fever or chills. Patient denies any cough, chest pain or shortness of breath. Patient denies any changes in urination. She does report diarrhea that has been ongoing over the past 4 days. Patient reports a decreased appetite. She denies any dizziness, numbness/weakness/tingling of the extremities. In the ED, vital signs are stable except for an elevated BP of 145/99. CBC showed leukocytosis of 11.8. CMP showed sodium 136, glucose of 123, AST of 130, and ALTs of 186. Lipid profile showed triglyceride of 254, total cholesterol 220, LDL 131, a shield 38. Amylase was within normal limits. Lipase was 592. Urinalysis was negative. Urine test was negative. Patient is admitted for pancreatitis. Review of Systems Pertinent positives and negatives as discussed in HPI, a complete review of systems was performed and all other systems are negative. Past Medical History Past Medical History: No Reported History Additional Past Medical History / Comment(s): Recurrent chronic pancreatitis with extensive workups and was seen at [facility] with ?pancreatic divisum. History of Any Multi-Drug Resistant Organisms: None Reported Past Surgical History: No Surgical Hx Reported Additional Past Surgical History / Comment(s): EGD's and EGD with biopsy. Past Anesthesia/Blood Transfusion Reactions: No Reported Reaction Past Psychological History: No Psychological Hx Reported Additional Psychological History / Comment(s): Pt takes adderill during school year to help her concentrate-she is no longer using. Smoking Status: Never smoker Past Alcohol Use History: None Reported Additional Past Alcohol Use History / Comment(s): Patient is a nonsmoker. She denies any medical marijuana, marijuana, street drug use. She is single and does not have any children. Past Drug Use History: None Reported - Past Family History Brother(s) Additional Family Medical History / Comment(s): She has 2 brothers and 1 sister with no major medical problems. Father Family Medical History: Diabetes Mellitus Additional Family Medical History / Comment(s): Father is alive at age 49 with history of diabetes requiring kidney and pancreas transplant. Mother Family Medical History: Deep Vein Thrombosis (DVT) Additional Family Medical History / Comment(s): Mother is alive at age 52 with history of DVT's, cardiomyopathy and pacemaker. Medications and Allergies Home Medications Medication Instructions Recorded Confirmed Type HYDROcodone/APAP 7.5-325MG [[place] 1 tab PO BID PRN 08/27/18 04/18/19 History 7.5-325] Propranolol LA [Inderal LA] 80 mg PO DAILY 04/18/19 04/18/19 History Allergies Allergy/AdvReac Type Severity Reaction Status Date / Time latex Allergy Rash/Hives Verified 04/18/19 08:15 peanut Allergy Rash/Swelli Verified 04/18/19 08:15 ng Physical Exam Vitals: Vital Signs Temp Pulse Pulse Resp BP BP Pulse Ox 04/18/19 16:20 97.9 F 69 16 121/79 95 04/18/19 13:39 97.7 F 89 16 135/87 94 L 04/18/19 12:45 98.2 F 97 18 124/83 97 04/18/19 07:26 97.6 F 95 18 145/99 95 Intake and Output 04/18/19 04/18/19 04/18/19 06:59 14:59 22:59 Other: Weight 90.718 kg General: [non toxic], [no distress], [appears at stated age] Derm: [warm], [dry] Head: [atraumatic], [normocephalic], [symmetric] Eyes: [EOMI], [no lid lag], [anicteric sclera] Mouth: [no lip lesion], [mucus membranes moist] Cardiovascular: [S1S2 reg], [no murmur], [positive DP pulse bilateral], Lungs: [CTA bilateral], [no rhonchi, no rales] , [no accessory muscle use] Abdominal: [soft], [tenderness to palpation in all 4 quadrants without rebound], [no guarding], [no appreciable organomegaly] Ext: [no gross muscle atrophy], [no edema], [no contractures] Neuro: [ CN II-XI grossly intact], [no focal neuro deficits] Psych: [Alert], [oriented], [appropriate affect] Results CBC & Chem 7: 04/18/19 07:49 04/18/19 07:49 Labs: Abnormal Lab Results - Last 24 Hours (Table) 04/18/19 04/18/19 04/18/19 Range/Units 07:49 07:49 07:49 WBC 11.8 H (3.8-10.6) k/uL Sodium 136 L (137-145) mmol/L Creatinine 0.45 L (0.52-1.04) mg/dL Glucose 123 H (74-99) mg/dL AST 130 H (14-36) U/L ALT 186 H (9-52) U/L Triglycerides 254 H (<150) mg/dL Cholesterol 220 H (<200) mg/dL LDL Cholesterol, Calc 131 H (0-99) mg/dL HDL Cholesterol 38 L (40-60) mg/dL Lipase 592 H (23-300) U/L Thrombosis Risk Factor Assmnt - Choose All That Apply Any of the Below Risk Factors Present?: Yes Each Factor Represents 1 point: Obesity (BMI >25), Swollen legs (current) Other Risk Factors: No Thrombosis Risk Factor Assessment Total Risk Factor Score: 2 Thrombosis Risk Factor Assessment Level: Low Risk Assessment and Plan Assessment: Assessment and Plan Acute pancreatitis likely secondary to pancreatic divisum Leukocytosis likely reactive Transaminitis Hyperlipidemia Obesity Lipase 592. Patient refuses any further imaging studies in the ED. Plans: Pain control with Dilaudid 2 mg IV every 3 hours. Zofran as needed for nausea or vomiting. Continue normal saline at 100 mL per hour. Nothing by mouth and advance diet as tolerated. Start Protonix 40 mg IV daily. Leukocytosis of 11.8. Likely reactive from pancreatitis and pain. Patient is afebrile. No obvious signs of infection. Plans: Repeat CBC tomorrow. AST 130, and ALTs 186. Total bilirubin within normal limits. Likely related to fatty liver. Plans: Daily CMP. Diet modification. Lipid panel shows triglycerides 254, total cholesterol 220, LDL 131, HDL 38. Plans: Diet modification. BMI 32.3. Plans: Structured weight loss program. Patient admitted for pancreatitis secondary to pancreatic divisum. She is admitted for IV hydration, pain control. Nothing by mouth and advanced diet as tolerated. She is pending clinical improvement.
[2019-04-18] MEDS: PANTOPRAZOLE 40 MG/10 ML VIAL IVP SCH (18:25)
[2019-04-18] MEDS: ACETAMINOPHEN TAB 325 MG TAB PO PRN (18:33)
[2019-04-18] MEDS: ONDANSETRON 4 MG/2 ML VIAL IVP PRN (20:03)
[2019-04-18] MEDS: HYDROmorphone 2 MG/ML 1 ML SYRINGE IVP PRN (20:07)
[2019-04-19] MEDS: HYDROmorphone 2 MG/ML 1 ML SYRINGE IVP PRN ×6 (00:09→18:29)
[2019-04-19] MEDS: ACETAMINOPHEN TAB 325 MG TAB PO PRN ×4 (01:50→18:57)
[2019-04-19] MEDS: ONDANSETRON 4 MG/2 ML VIAL IVP PRN ×2 (01:50→07:29)
[2019-04-19 07:15] LABS: Basophils % (A) 0 %; Eosinophils # (A) 0.1 k/uL (0-0.7); Eosinophils % (A) 1 %; HCT 38.9 % (34.0-46.0); HGB 12.9 gm/dL (11.4-16.0); Lymphocytes # (A) 2.1 k/uL (1.0-4.8); Lymphocytes % (A) 24 %; MCH 28.4 pg (25.0-35.0); MCHC 33.2 g/dL (31.0-37.0); MCV 85.8 fL (80.0-100.0); Mean Platelet Volume 7.2; Monocytes # (A) 0.4 k/uL (0-1.0); Monocytes % (A) 5 %; Neutrophils # (A) 6.2 k/uL (1.3-7.7); Neutrophils % (A) 70 %; Platelet Count 267 k/uL (150-450); RBC 4.54 m/uL (3.80-5.40); RDW 13.7 % (11.5-15.5); WBC 8.9 k/uL (3.8-10.6)
[2019-04-19 07:27] LABS: ALT 189 U/L (9-52); AST 142 U/L (14-36); African American GFR (CKD) >90 (>60 ml/min/1.73 sqM); Albumin 4.5 g/dL (3.5-5.0); Alkaline Phosphatase 79 U/L (38-126); Amylase 53 U/L (30-110); Anion Gap 11 mmol/L; Blood Urea Nitrogen 7 mg/dL (7-17); Calcium 9.3 mg/dL (8.4-10.2); Carbon Dioxide 27 mmol/L (22-30); Chloride 102 mmol/L (98-107); Glucose 97 mg/dL (74-99); Lipase 112 U/L (23-300); Potassium 4.1 mmol/L (3.5-5.1); Sodium 140 mmol/L (137-145); Total Bilirubin 0.5 mg/dL (0.2-1.3); Total Protein 7.5 g/dL (6.3-8.2)
[2019-04-19] MEDS: PANTOPRAZOLE 40 MG/10 ML VIAL IVP SCH (07:29)
[2019-04-19] MEDS: SODIUM CHLORIDE 0.9% 1,000 ML IV SCH ×2 (08:28→12:57)
--- NOTE | 2019-04-19 14:18 | P.PN ---
Subjective Progress Note Date: 04/19/19 The patient is a 23 yo F with a PMH of pancreatic divisim, w/ recurrent chronic pancreatitis requiring multiple inpatient hospitalizations presented to the ED w/ abdominal pain, nausea, and vomiting. Laboratory evaluation revealed Lipase of 529 and the patient was admitted for acute pancreatitis. The patient was seen and examined at the bedside on 04/19/19. She reports mild improvements in her epigastric abd pain, currently at a 6/10, w/ associated nausea and vomiting. She denied fever, chills, diarrhea, chest pain, or SOB. She continues to not tolerate anything orally. Objective - Vital Signs Vital signs: Vital Signs Temp 98.1 F 04/19/19 13:05 Pulse 100 04/19/19 13:05 Resp 16 04/19/19 13:05 BP 130/86 04/19/19 13:05 Pulse Ox 93 L 04/19/19 13:05 Intake & Output 04/18/19 04/19/19 04/19/19 18:59 06:59 18:59 Intake Total 240 Output Total 200 600 Balance 40 -600 Weight 90.718 kg Intake: Oral 240 Output: Emesis 200 600 Other: # Voids 5 2 - Exam General: Non-toxic, in no acute distress, appears stated age, normal weight HEENT: NC/AT, anicteric sclerae, moist conjunctiva, no lid-lag, PERRLA Cardiovascular: S1/S2 wnl, no murmurs, rubs, or gallops Lungs: Clear to auscultation, normal respiratory effort, no accessory muscle use Abdominal: Soft, epigastric abd tenderness, non-distended, no guarding Skin: Warm, dry Extremities: No edema or contractures Psychiatric: Alert and oriented to person, place and time, appropriate affect Neuro: CN II-XII grossly intact, Strength 5/5 in all 4 extremities, Speech intact, Sensation to light touch grossly intact throughout - Labs CBC & Chem 7: 04/19/19 06:59 04/19/19 06:59 Labs: Abnormal Lab Results - Last 24 Hours (Table) 04/19/19 Range/Units 06:59 AST 142 H (14-36) U/L ALT 189 H (9-52) U/L Assessment and Plan Plan: Acute pancreatitis secondary to pancreatic divisum -Advised patient on importance of follow-up with [facility] -C/w pain control and anti-emetics -Lipase returns to wnl -Advance diet to clears today -C/w IVFs Leukocytosis -Resolved Deranged LFTs -Will monitor for now DVT prophylaxis -Lovenox Discussed with: Patient Anticipated discharge date: 04/21/[address]: Home A total of 30 minutes was spent on the care of this complex patient more than 50% of the time was spent in counseling and care coordination.
[2019-04-19] MEDS ORDERED: METOCLOPRAMIDE 5 MG/ML 2 ML VIAL IVP STA (15:37)
[2019-04-19] MEDS: METOCLOPRAMIDE 5 MG/ML 2 ML VIAL IVP PRN (21:44)
[2019-04-19] MEDS: HYDROmorphone 1 MG/ML 1 ML SYRINGE IVP PRN (21:53)
[2019-04-20] MEDS: HYDROmorphone 1 MG/ML 1 ML SYRINGE IVP PRN ×2 (01:00→07:12)
[2019-04-20] MEDS: ACETAMINOPHEN TAB 325 MG TAB PO PRN ×4 (01:01→18:39)
[2019-04-20] MEDS: METOCLOPRAMIDE 5 MG/ML 2 ML VIAL IVP PRN ×4 (04:04→21:51)
[2019-04-20] MEDS: SODIUM CHLORIDE 0.9% 1,000 ML IV SCH ×3 (06:55→18:38)
[2019-04-20] MEDS: ENOXAPARIN 40 MG/0.4 ML SYRINGE SQ SCH (07:12)
[2019-04-20] MEDS: PANTOPRAZOLE 40 MG/10 ML VIAL IVP SCH (07:12)
[2019-04-20 08:37] LABS: ALT 173 U/L (9-52); AST 102 U/L (14-36); African American GFR (CKD) >90 (>60 ml/min/1.73 sqM); Albumin 4.3 g/dL (3.5-5.0); Alkaline Phosphatase 67 U/L (38-126); Anion Gap 10 mmol/L; Blood Urea Nitrogen 7 mg/dL (7-17); Calcium 8.7 mg/dL (8.4-10.2); Carbon Dioxide 29 mmol/L (22-30); Chloride 100 mmol/L (98-107); Glucose 81 mg/dL (74-99); Potassium 3.7 mmol/L (3.5-5.1); Sodium 139 mmol/L (137-145); Total Bilirubin 0.5 mg/dL (0.2-1.3)
[2019-04-20] MEDS: HYDROmorphone 2 MG TAB PO PRN ×4 (09:57→21:00)
--- NOTE | 2019-04-20 13:36 | P.PN ---
Subjective Progress Note Date: 04/20/19 The patient is a 23 yo F with a PMH of pancreatic divisim, w/ recurrent chronic pancreatitis requiring multiple inpatient hospitalizations presented to the ED w/ abdominal pain, nausea, and vomiting. Laboratory evaluation revealed Lipase of 529 and the patient was admitted for acute pancreatitis. The patient was seen and examined at the bedside on 04/20/19. She reports continued improvement in her epigastric abd pain, currently at a 5/10, w/ associated nausea. She notes her vomiting has decreased to only 1 since this morning. She denied chest pain, SOB, fever, chills, or diarrhea. Objective - Vital Signs Vital signs: Vital Signs Temp 97.7 F 04/20/19 07:17 Pulse 82 04/20/19 07:17 Resp 16 04/20/19 12:15 BP 121/76 04/20/19 07:17 Pulse Ox 97 04/20/19 07:17 Intake & Output 04/19/19 04/20/19 04/20/19 18:59 06:59 18:59 Intake Total 510 Output Total 600 Balance -600 510 Intake: Oral 510 Output: Emesis 600 Other: # Voids 2 2 1 - Exam General: Non-toxic, in no acute distress, appears stated age, normal weight HEENT: NC/AT, anicteric sclerae, moist conjunctiva, no lid-lag, PERRLA Cardiovascular: S1/S2 wnl, no murmurs, rubs, or gallops Lungs: Clear to auscultation, normal respiratory effort, no accessory muscle use Abdominal: Soft, epigastric abd tenderness, non-distended, no guarding Skin: Warm, dry Extremities: 1+ mamie LE pitting edema Psychiatric: Alert and oriented to person, place and time, appropriate affect Neuro: CN II-XII grossly intact, Strength 5/5 in all 4 extremities, Speech intact, Sensation to light touch grossly intact throughout - Labs CBC & Chem 7: 04/19/19 06:59 04/20/19 08:01 Labs: Abnormal Lab Results - Last 24 Hours (Table) 04/20/19 Range/Units 08:01 AST 102 H (14-36) U/L ALT 173 H (9-52) U/L Assessment and Plan Plan: Acute pancreatitis secondary to pancreatic divisum -Advised patient on importance of follow-up with [facility] -C/w pain control and anti-emetics -Advance diet as tolerated -C/w IVFs Leukocytosis -Resolved Deranged LFTs, improved -Will monitor for now DVT prophylaxis -Lovenox Discussed with: Patient Anticipated discharge date: 04/21/[address]: Home A total of 30 minutes was spent on the care of this complex patient more than 50% of the time was spent in counseling and care coordination.
[2019-04-21] MEDS: ACETAMINOPHEN TAB 325 MG TAB PO PRN (01:18)
[2019-04-21] MEDS: HYDROmorphone 2 MG TAB PO PRN ×3 (01:19→10:39)
[2019-04-21] MEDS: SODIUM CHLORIDE 0.9% 1,000 ML IV SCH (03:26)
[2019-04-21] MEDS: METOCLOPRAMIDE 5 MG/ML 2 ML VIAL IVP PRN (05:51)
[2019-04-21 08:35] VITALS: RESP 16
[2019-04-21] MEDS: PANTOPRAZOLE 40 MG/10 ML VIAL IVP SCH (09:02)
[2019-04-21] MEDS: ENOXAPARIN 40 MG/0.4 ML SYRINGE SQ SCH (09:02)
[2019-04-21 12:32] VITALS: BP 143/85; PULSE 60; TEMP 98.3
--- NOTE | 2019-04-21 13:40 | P.DS ---
Providers Date of admission: 04/20/19 13:06 Expected date of discharge: 04/21/19 Attending physician: El Daniels MD Primary care physician: Alice Lazaro Hospital Course: Discharge Diagnosis: Acute recurrent pancreatitis secondary to pancreatic divisum Intractable abdominal pain Dyslipidemia Obesity with BMI 32.3 Transaminitis, chronic in nature-patient follows at [facility] Course: Patient is a 23-year-old female with a past medical history of pancreatic diabetes some with multiple episodes of acute pancreatitis, dyslipid emia, and chronic elevated transaminitis who presented to the emergency department with complaints of abdominal pain. She was found to have an elevated lipase consistent with acute pancreatitis. She was started on IV fluids, antiemetics, and pain medications. She was initially made nothing by mouth. Her diet was advanced to clear liquids. Her nausea and vomiting had resolved. She was requesting discharge home. Patient is very familiar with her episodes of acute pancreatitis feels that she can manage at home. She does not feel she needs any pain medications at this point in time, but says Dr. Lazaro is easy to get a hold of should she need some in the future. She is also asking to return to work on 04/23 which seems acceptable. Patient will slowly increase her diet as tolerated. I've also recommended follow-up with GI due to her chronic liver enzyme elevation. She has had negative hepatitis and HIV testing in the past as well as HIDA scan that shows hypercontractility with an ejection fraction of 87%. These were during her last admission in August 2018. Patient seen and examined at bedside. Nausea and vomiting controlled, pain management at home. No chest pain or shortness of breath. Mild edema which she knows will get better she continues to walk. Vital signs reviewed and stable. General: non toxic, no distress, appears at stated age Derm: warm, dry Head: atraumatic, normocephalic, symmetric Eyes: EOMI, no lid lag, anicteric sclera Mouth: no lip lesion, mucus membranes moist Cardiovascular: S1S2 reg, no murmur, positive posterior tibial pulse bilateral, Lungs: CTA bilateral, no rhonchi, no rales , no accessory muscle use Abdominal: soft, +tender to palpation, no guarding, no appreciable organomegaly Ext: no gross muscle atrophy, 1+ edema, no contractures Neuro: CN II-XI grossly intact, no focal neuro deficits Psych: Alert, oriented, appropriate affect A total of 35 minutes of time were spent preparing this complex discharge summary . Patient Condition at Discharge: Stable Plan - Discharge Summary Discharge Rx Participant: No New Discharge Prescriptions: Continue HYDROcodone/APAP 7.5-325MG [[place] 7.5-325] 1 tab PO BID PRN PRN Reason: Pain Propranolol LA [Inderal LA] 80 mg PO DAILY Discharge Medication List HYDROcodone/APAP 7.5-325MG [[place] 7.5-325] 1 tab PO BID PRN 08/27/18 [History] Propranolol LA [Inderal LA] 80 mg PO DAILY 04/18/19 [History] Follow up Appointment(s)/Referral(s): Alice Lazaro MD [Primary Care Provider] - 1-2 days Activity/Diet/Wound Care/Special Instructions: Continue with clear liquid diet, advance slowly as tolerated to low fat diet Activity as tolerated Discharge/Stand Alone Forms: Work/Release Restrictions Form
== END 2019-04-21 13:50 | disposition home or self-care (01) | DRG 439 ==
LOC: EC 07:25 → 6PED 13:04 → OBSVTOIN 04-20 13:06
PROVIDERS: ADMIT Family Medicine; ATTEND Family Medicine
DX: K85.90 Acute pancreatitis without necrosis or infection, unspecified (principal); Q45.3 Other congenital malformations of pancreas and pancreatic duct; E66.9 Obesity, unspecified; E78.5 Hyperlipidemia, unspecified; Z68.32 Body mass index [BMI] 32.0-32.9, adult; Z83.3 Family history of diabetes mellitus; Z91.040 Latex allergy status; Z91.010 Allergy to peanuts; Z98.890 Other specified postprocedural states; Z82.49 Family history of ischemic heart disease and other diseases of the circulatory system
CPT/HCPCS: 36415; 80053; 80061; 81003; 81025; 82150; 83690; 85025; 96361; 96374; 96375; 96376; 99284

== ENCOUNTER → 2019-07-23 | Outpatient (CLI) | payer MEDICAID | LOC: LABWHC1 09:46 | PROVIDERS: ATTEND Physician Assistant Medical | DX: L93.0 Discoid lupus erythematosus (principal) | CPT/HCPCS: 36415; 86038 ==

== ENCOUNTER 2019-08-09 21:52 | Emergency (ER) | payer MEDICAID ==
[2019-08-09] MEDS ORDERED: ONDANSETRON 4 MG/2 ML VIAL IVP STA (22:02)
[2019-08-09] MEDS ORDERED: SODIUM CHLORIDE 0.9% 1,000 ML IV STA ×2 (22:02→23:12)
[2019-08-09] MEDS ORDERED: HYDROmorphone 1 MG/ML 1 ML SYRINGE IVP STA ×2 (22:25→23:12)
--- NOTE | 2019-08-09 22:31 | ED ---
General Adult HPI - General Chief complaint: Abdominal Pain Stated complaint: Abd pain Time Seen by Provider: 08/09/19 22:02 Source: patient Mode of arrival: ambulatory Limitations: no limitations - History of Present Illness Initial comments: Dictation was produced using Normal dictation software. please excuse any grammatical, word or spelling errors. Chief Complaint: 23-year-old female presents with abdominal pain. History of Present Illness: 23-year-old female with past medical history of pancreatic DVTs, chronic abdominal pain, hepatitis presents with abdominal pain. Patient is extensive history of abdominal pain with multiple workups. She follows at [facility] and sees specialist there. Patient has undergone extensive workup here in our hospital and [facility]. Patient states she was at [facility] 4 times last month saying multiple specialists. Here today because over the last 3 days she feels as though her abdominal pain is recurring. States that the specialists have no def initive plans or interventions as to correcting her pain. Patient denies any constitutional symptoms. No diarrhea. She localizes the pain to her right upper quadrant epigastric region. She states that the pain does radiate to her back. States is typical of her usual symptoms. States she is very nauseated but has not had any emesis. The ROS documented in this emergency department record has been reviewed and confirmed by me. Those systems with pertinent positive or negative responses have been documented in the HPI. All other systems are other negative and/or noncontributory. PHYSICAL EXAM: General Impression: Alert and oriented x3, Q distress secondary to pain HEENT: Normocephalic atraumatic, extra-ocular movements intact, pupils equal and reactive to light bilaterally, mucous membranes moist. Cardiovascular: Heart regular rate and rhythm, S1&S2 audible, no murmurs, rubs or gallops Chest: Lungs clear to auscultation bilaterally, no rhonchi, no wheeze, no rales Abdomen: Bowel sounds present, abdomen soft, diffuse tenderness to palpation worse in the epigastric and right upper quadrant region. Musculoskeletal: Pulses present and equal in all extremities, no peripheral yaima ma Motor: no focal deficits noted Neurological: CN II-XII grossly intact, no focal motor or sensory deficits noted Skin: Intact with no visualized rashes Psych: Normal affect and mood ED course: 23-year-old female presents with acute on chronic abdominal pain. Vital signs upon arrival are within acceptable limits. Patient appears to be in mild distress secondary to abdominal pain. Reports that she typically comes to the hospital and they gave her Dilaudid, fluids and antiemetics. Chart review was performed. Patient is well-known to our hospital. She's had multiple workups and imaging studies performed by multiple specialists here. She did value by gastroenterology, general surgery with what appears to be stable pancreatic diffuse. Laboratory evaluation obtained. CBC, metabolic panels obtained showing no acute processes. Lipase level was 31. Urinalysis unremarkable. Patient given multiple rounds of IV analgesia with improvement of symptoms. Patient still reports that she is still symptomatic however requests to be discharged. She will follow-up with [facility] tomorrow. Options were discussed with patient. We patient that we could call ahead to [place] patient. She states that she rather just go home and follow-up. [facility] tomorrow. I believe patient is stable for discharge. She has stable hemodynamics and her pain is under control although slightly there. Return parameters discussed. - Related Data Home Medications Medication Instructions Recorded Confirmed HYDROcodone/APAP 7.5-325MG [[place] 1 tab PO BID PRN 08/27/18 08/09/19 7.5-325] Propranolol LA [Inderal LA] 60 mg PO DAILY 08/09/19 08/09/19 Allergies Allergy/AdvReac Type Severity Reaction Status Date / Time latex Allergy Rash/Hives Verified 08/09/19 23:09 peanut Allergy Rash/Swelli Verified 08/09/19 23:09 ng Review of Systems ROS Statement: Those systems with pertinent positive or pertinent negative responses have been documented in the HPI. ROS Other: All systems not noted in ROS Statement are negative. Past Medical History Past Medical History: No Reported History Additional Past Medical History / Comment(s): Recurrent chronic pancreatitis with extensive workups and was seen at [facility] with ?pancreatic divisum. History of Any Multi-Drug Resistant Organisms: None Reported Past Surgical History: No Surgical Hx Reported Additional Past Surgical History / Comment(s): EGD's and EGD with biopsy. Past Anesthesia/Blood Transfusion Reactions: No Reported Reaction Past Psychological History: No Psychological Hx Reported Smoking Status: Never smoker Past Alcohol Use History: None Reported Past Drug Use History: None Reported - Past Family History Brother(s) Additional Family Medical History / Comment(s): She has 2 brothers and 1 sister with no major medical problems. Father Family Medical History: Diabetes Mellitus Additional Family Medical History / Comment(s): Father is alive at age 49 with history of diabetes requiring kidney and pancreas transplant. Mother Family Medical History: Deep Vein Thrombosis (DVT) Additional Family Medical History / Comment(s): Mother is alive at age 52 with history of DVT's, cardiomyopathy and pacemaker. General Exam Limitations: no limitations Course Vital Signs 08/09/19 08/10/19 21:59 00:14 Temperature 97.6 F 98.2 F Pulse Rate 84 96 Respiratory 20 18 Rate Blood Pressure 143/101 131/87 O2 Sat by Pulse 96 96 Oximetry Medical Decision Making - Lab Data Result diagrams: 08/09/19 22:40 08/09/19 22:40 Lab Results 08/09/19 08/09/19 08/09/19 Range/Units 22:40 22:40 22:40 WBC 10.2 (3.8-10.6) k/uL RBC 4.71 (3.80-5.40) m/uL Hgb 14.2 (11.4-16.0) gm/dL Hct 39.9 (34.0-46.0) % MCV 84.7 (80.0-100.0) fL MCH 30.1 (25.0-35.0) pg MCHC 35.6 (31.0-37.0) g/dL RDW 12.7 (11.5-15.5) % Plt Count 306 (150-450) k/uL Neutrophils % 64 % Lymphocytes % 26 % Monocytes % 5 % Eosinophils % 2 % Basophils % 1 % Neutrophils # 6.5 (1.3-7.7) k/uL Lymphocytes # 2.6 (1.0-4.8) k/uL Monocytes # 0.5 (0-1.0) k/uL Eosinophils # 0.2 (0-0.7) k/uL Basophils # 0.1 (0-0.2) k/uL Sodium 138 (137-145) mmol/L Potassium 4.5 (3.5-5.1) mmol/L Chloride 104 (98-107) mmol/L Carbon Dioxide 21 L (22-30) mmol/L Anion Gap 13 mmol/L BUN 10 (7-17) mg/dL Creatinine 0.56 (0.52-1.04) mg/dL Est GFR (CKD-EPI)AfAm >90 (>60 ml/min/1.73 sqM) Est GFR (CKD-EPI)NonAf >90 (>60 ml/min/1.73 sqM) Glucose 115 H (74-99) mg/dL Calcium 10.2 (8.4-10.2) mg/dL Total Bilirubin 0.5 (0.2-1.3) mg/dL AST 74 H (14-36) U/L ALT 108 H (9-52) U/L Alkaline Phosphatase 78 (38-126) U/L Total Protein 8.1 (6.3-8.2) g/dL Albumin 4.9 (3.5-5.0) g/dL Lipase 31 (23-300) U/L Urine Color Urine Appearance (Clear) Urine pH (5.0-8.0) Ur Specific [place] (1.001-1.035) Urine Protein (Negative) Urine Glucose (UA) (Negative) Urine Ketones (Negative) Urine Blood (Negative) Urine Nitrite (Negative) Urine Bilirubin (Negative) Urine Urobilinogen (<2.0) mg/dL Ur Leukocyte Esterase (Negative) Urine HCG, Qual Not Detected (Not Detectd) 08/09/19 Range/Units 22:40 WBC (3.8-10.6) k/uL RBC (3.80-5.40) m/uL Hgb (11.4-16.0) gm/dL Hct (34.0-46.0) % MCV (80.0-100.0) fL MCH (25.0-35.0) pg MCHC (31.0-37.0) g/dL RDW (11.5-15.5) % Plt Count (150-450) k/uL Neutrophils % % Lymphocytes % % Monocytes % % Eosinophils % % Basophils % % Neutrophils # (1.3-7.7) k/uL Lymphocytes # (1.0-4.8) k/uL Monocytes # (0-1.0) k/uL Eosinophils # (0-0.7) k/uL Basophils # (0-0.2) k/uL Sodium (137-145) mmol/L Potassium (3.5-5.1) mmol/L Chloride (98-107) mmol/L Carbon Dioxide (22-30) mmol/L Anion Gap mmol/L BUN (7-17) mg/dL Creatinine (0.52-1.04) mg/dL Est GFR (CKD-EPI)AfAm (>60 ml/min/1.73 sqM) Est GFR (CKD-EPI)NonAf (>60 ml/min/1.73 sqM) Glucose (74-99) mg/dL Calcium (8.4-10.2) mg/dL Total Bilirubin (0.2-1.3) mg/dL AST (14-36) U/L ALT (9-52) U/L Alkaline Phosphatase (38-126) U/L Total Protein (6.3-8.2) g/dL Albumin (3.5-5.0) g/dL Lipase (23-300) U/L Urine Color Yellow Urine Appearance Clear (Clear) Urine pH 5.5 (5.0-8.0) Ur Specific [place] 1.030 (1.001-1.035) Urine Protein Trace H (Negative) Urine Glucose (UA) Negative (Negative) Urine Ketones Trace H (Negative) Urine Blood Negative (Negative) Urine Nitrite Negative (Negative) Urine Bilirubin Negative (Negative) Urine Urobilinogen <2.0 (<2.0) mg/dL Ur Leukocyte Esterase Negative (Negative) Urine HCG, Qual (Not Detectd) Disposition Clinical Impression: Abdominal pain Disposition: HOME SELF-CARE Condition: Good Instructions (If sedation given, give patient instructions): Abdominal Pain (ED) Additional Instructions: follow up with [facility] Doctors. return to ER with fevers, worsening pain Is patient prescribed a controlled substance at d/c from ED?: No When asked, does pt state using other controlled substances?: No Referrals: Alice Lazaro MD [Primary Care Provider] - 1-2 days Time of Disposition: 00:17
[2019-08-09 22:51] LABS: Basophils # (A) 0.1 k/uL (0-0.2); Basophils % (A) 1 %; Eosinophils # (A) 0.2 k/uL (0-0.7); Eosinophils % (A) 2 %; HCT 39.9 % (34.0-46.0); HGB 14.2 gm/dL (11.4-16.0); Lymphocytes # (A) 2.6 k/uL (1.0-4.8); Lymphocytes % (A) 26 %; MCH 30.1 pg (25.0-35.0); MCHC 35.6 g/dL (31.0-37.0); MCV 84.7 fL (80.0-100.0); Mean Platelet Volume 6.6; Monocytes # (A) 0.5 k/uL (0-1.0); Monocytes % (A) 5 %; Neutrophils # (A) 6.5 k/uL (1.3-7.7); Neutrophils % (A) 64 %; Platelet Count 306 k/uL (150-450); RBC 4.71 m/uL (3.80-5.40); RDW 12.7 % (11.5-15.5); WBC 10.2 k/uL (3.8-10.6)
[2019-08-09 23:01] LABS: Appearance,Urine Clear (Clear); Bilirubin,Urine Negative (Negative); Blood,Urine Negative (Negative); Color,Urine Yellow; Glucose,Urine (UA) Negative (Negative); Ketones,Urine Trace (Negative); Leukocyte Esterase,Urine Negative (Negative); Nitrite,Urine Negative (Negative); PH, Urine 5.5 (5.0-8.0); Protein,Urine Trace (Negative); Urobilinogen,Urine <2.0 mg/dL (<2.0)
[2019-08-09 23:04] LABS: ALT 108 U/L (9-52); AST 74 U/L (14-36); African American GFR (CKD) >90 (>60 ml/min/1.73 sqM); Albumin 4.9 g/dL (3.5-5.0); Alkaline Phosphatase 78 U/L (38-126); Anion Gap 13 mmol/L; Blood Urea Nitrogen 10 mg/dL (7-17); Calcium 10.2 mg/dL (8.4-10.2); Carbon Dioxide 21 mmol/L (22-30); Chloride 104 mmol/L (98-107); Glucose 115 mg/dL (74-99); Potassium 4.5 mmol/L (3.5-5.1); Sodium 138 mmol/L (137-145); Total Bilirubin 0.5 mg/dL (0.2-1.3); Total Protein 8.1 g/dL (6.3-8.2)
[2019-08-09] MEDS ORDERED: METOCLOPRAMIDE 5 MG/ML 2 ML VIAL IVP STA (23:12)
[2019-08-10] MEDS ORDERED: PIPERACILLIN-TAZOBACTAM 3.375 GM in SODIUM CHLORIDE 0.9% 100 ML IVPB SCH ×2
[2019-08-10 00:15] VITALS: BP 131/87; PULSE 96; RESP 18; TEMP 98.2
[2019-08-10] MEDS ORDERED: HYDROmorphone 1 MG/ML 1 ML SYRINGE IVP STA (00:15)
== END 2019-08-10 00:43 | disposition home or self-care (01) ==
LOC: EC 21:52
DX: G89.29 Other chronic pain (principal); R10.11 Right upper quadrant pain; R10.13 Epigastric pain; K86.1 Other chronic pancreatitis; R11.0 Nausea; Z79.899 Other long term (current) drug therapy; Z91.040 Latex allergy status; Z91.010 Allergy to peanuts
CPT/HCPCS: 36415; 80053; 83690; 85025; 81003; 81025; 99284; 96374; 96375 ×2; 96376 ×2; 96361 ×2; J2765; J2405; J1170 ×2

== ENCOUNTER → 2021-02-04 | Outpatient (CLI) | payer MEDICAID ==
[2021-02-04 19:11] LABS: Basophils # (A) 0.04 X 10*3/uL (0.00-0.10); Basophils % (A) 0.6 %; Eosinophils # (A) 0.19 X 10*3/uL (0.04-0.35); Eosinophils % (A) 3.1 %; HCT 37.3 % (37.2-46.3); HGB 12.3 g/dL (12.0-15.0); Lymphocytes # (A) 1.93 X 10*3/uL (0.90-5.00); Lymphocytes % (A) 31.1 %; MCH 31.5 pg (27.0-32.0); MCV 95.4 fL (80.0-97.0); Mean Platelet Volume 10.3 fL (9.5-12.2); Monocytes % (A) 9.7 %; Neutrophils # (A) 3.44 X 10*3/uL (1.80-7.70); Neutrophils % (A) 55.3 %; Platelet Count 266 X 10*3/uL (140-440); RBC 3.91 X 10*6/uL (4.10-5.20); RDW 12.7 % (11.5-14.5); WBC 6.21 X 10*3/uL (4.50-10.00)
[2021-02-04 23:03] LABS: Albumin 4.5 g/dL (3.80-4.90); Albumin/Globulin Ratio 2.5 (1.60-3.17); Anion Gap 7.8 mmol/L (4.00-12.00); Calcium 8.8 mg/dL (8.7-10.3); Carbon Dioxide 23.2 mmol/L (21.6-31.8); Chol/HDL Ratio 2.38; Globulin 1.8 g/dL (1.6-3.3); LDL Cholesterol,Calculated 53.2 mg/dL (0.0-131.0); Non-African American GFR(CKD) 135.5 (60.0-200.0); Potassium 4.5 mmol/L (3.5-5.5); Total Bilirubin 0.3 mg/dL (0.2-1.2); Total Protein 6.3 g/dL (6.2-8.2); VLDL Calculation 22.8 mg/dL (5.00-40.00)
== END | disposition home or self-care (01) ==
LOC: LABWHC1 12:41
PROVIDERS: ATTEND Family Medicine
DX: R94.5 Abnormal results of liver function studies (principal); R63.4 Abnormal weight loss; Z87.19 Personal history of other diseases of the digestive system
CPT/HCPCS: 36415; 80053; 80061; 82150; 83690; 85025

== ENCOUNTER 2021-02-06 22:35 | Inpatient (IN) | payer MEDICAID ==
[2021-02-06] MEDS ORDERED: SODIUM CHLORIDE 0.9% 1,000 ML IV STA (23:40)
[2021-02-06] MEDS ORDERED: SODIUM CHLORIDE 0.9% 500 ML 500 ML IV STA (23:40)
[2021-02-06] MEDS ORDERED: ONDANSETRON 4 MG/2 ML VIAL IVP STA (23:40)
[2021-02-06] MEDS ORDERED: HYDROmorphone 1 MG/ML 1 ML SYRINGE IVP STA (23:40)
[2021-02-07 00:12] LABS: Appearance,Urine Clear (Clear); Bilirubin,Urine Negative (Negative); Blood,Urine Negative (Negative); Color,Urine Colorless; Glucose,Urine (UA) Negative (Negative); Ketones,Urine Negative (Negative); Leukocyte Esterase,Urine Negative (Negative); Nitrite,Urine Negative (Negative); Protein,Urine Negative (Negative); Specific Gravity,Urine 1.004 (1.001-1.035); Urobilinogen,Urine <2.0 mg/dL (<2.0)
[2021-02-07 00:16] LABS: Basophils # (A) 0.1 k/uL (0-0.2); Basophils % (A) 1 %; Eosinophils # (A) 0.3 k/uL (0-0.7); Eosinophils % (A) 3 %; HCT 43.5 % (34.0-46.0); HGB 14.4 gm/dL (11.4-16.0); Lymphocytes % (A) 25 %; MCH 30.9 pg (25.0-35.0); MCHC 33.1 g/dL (31.0-37.0); MCV 93.4 fL (80.0-100.0); Mean Platelet Volume 7.5; Monocytes # (A) 0.7 k/uL (0-1.0); Monocytes % (A) 6 %; Neutrophils # (A) 7.7 k/uL (1.3-7.7); Neutrophils % (A) 65 %; Platelet Count 327 k/uL (150-450); RBC 4.66 m/uL (3.80-5.40); RDW 12.8 % (11.5-15.5); WBC 11.8 k/uL (3.8-10.6)
[2021-02-07 00:19] LABS: ALT 14 U/L (4-34); AST 31 U/L (14-36); African American GFR (CKD) >90 (>60 ml/min/1.73 sqM); Albumin 5.3 g/dL (3.5-5.0); Alkaline Phosphatase 104 U/L (38-126); Anion Gap 14 mmol/L; Blood Urea Nitrogen 6 mg/dL (7-17); Calcium 10.2 mg/dL (8.4-10.2); Carbon Dioxide 22 mmol/L (22-30); Chloride 106 mmol/L (98-107); Glucose 68 mg/dL (74-99); Non-African American GFR(CKD) >90 (>60 ml/min/1.73 sqM); Potassium 4.4 mmol/L (3.5-5.1); Sodium 142 mmol/L (137-145); Total Bilirubin 0.3 mg/dL (0.2-1.3); Total Protein 8.4 g/dL (6.3-8.2)
[2021-02-07 00:29] LABS: Lipase 2495 U/L (23-300)
[2021-02-07] MEDS ORDERED: METOCLOPRAMIDE 5 MG/ML 2 ML VIAL IVP STA (01:07)
[2021-02-07] MEDS ORDERED: HYDROmorphone 1 MG/ML 1 ML SYRINGE IVP STA (01:07)
[2021-02-07] MEDS ORDERED: diphenhydrAMINE 50 MG/ML 1 ML VIAL IVP STA (01:08)
[2021-02-07] MEDS: SODIUM CHLORIDE 0.9% 1,000 ML IV SCH ×3 (01:13→15:30)
[2021-02-07] MEDS ORDERED: ONDANSETRON 4 MG/2 ML VIAL IVP PRN (01:36)
[2021-02-07] MEDS ORDERED: NALOXONE 0.4 MG/ML 1 ML VIAL IV PRN (01:36)
--- NOTE | 2021-02-07 01:36 | ED ---
Abdominal Pain HPI - General Chief Complaint: Abdominal Pain Stated Complaint: Abdominal Pain Time Seen by Provider: 02/06/21 22:56 Source: patient Mode of arrival: ambulatory Limitations: no limitations - History of Present Illness Initial Comments: 25-year-old female patient with past history significant for pancreatitis related to pancreatic divisum, generally follows with [facility], presents to the emergency department today for evaluation of upper abdominal pain, nausea, vomiting. States symptoms started 2 days ago and have been gr adually worsening. States he tried her usual methods was unable to get her symptoms under control so she presented here for further evaluation. Denies any fever or chills. Denies chance of . Denies any constipation or diarrhea. Denies any hematuria, dysuria, urinary frequency, urinary urgency. - Related Data Home Medications Medication Instructions Recorded Confirmed HYDROcodone/APAP 7.5-325MG [[place] 1 tab PO BID PRN 08/27/18 08/09/19 7.5-325] Propranolol LA [Inderal LA] 60 mg PO DAILY 08/09/19 08/09/19 Allergies Allergy/AdvReac Type Severity Reaction Status Date / Time latex Allergy Rash/Hives Verified 02/06/21 22:49 peanut Allergy Rash/Swelli Verified 02/06/21 22:49 ng Review of Systems ROS Statement: Those systems with pertinent positive or pertinent negative responses have been documented in the HPI. ROS Other: All systems not noted in ROS Statement are negative. Past Medical History Past Medical History: No Reported History Additional Past Medical History / Comment(s): Recurrent chronic pancreatitis with extensive workups and was seen at [facility] with ?pancreatic divisum. History of Any Multi-Drug Resistant Organisms: MRSA Date of last positivie culture/infection: 10/07/19 MDRO Source:: MRSA CHEST Past Surgical History: No Surgical Hx Reported Additional Past Surgical History / Comment(s): EGD's and EGD with biopsy. Past Anesthesia/Blood Transfusion Reactions: No Reported Reaction Past Psychological History: No Psychological Hx Reported Smoking Status: Never smoker Past Alcohol Use History: None Reported Past Drug Use History: None Reported - Past Family History Brother(s) Additional Family Medical History / Comment(s): She has 2 brothers and 1 sister with no major medical problems. Father Family Medical History: Diabetes Mellitus Additional Family Medical History / Comment(s): Father is alive at age 49 with history of diabetes requiring kidney and pancreas transplant. Mother Family Medical History: Deep Vein Thrombosis (DVT) Additional Family Medical History / Comment(s): Mother is alive at age 52 with history of DVT's, cardiomyopathy and pacemaker. General Exam Limitations: no limitations General appearance: alert, in no apparent distress, other (Physical well- developed, well-nourished adult female patient in mild distress related to pain. Vital signs upon presentation are temperature 97.7F, pulse 110, respirations 22, blood pressure 151/91, pulse ox 100% on room air.) Eye exam: Present: normal appearance, PERRL, EOMI. Absent: scleral icterus, conjunctival injection, periorbital swelling ENT exam: Present: normal exam, normal oropharynx, mucous membranes moist Respiratory exam: Present: normal lung sounds bilaterally. Absent: respiratory distress, wheezes, rales, rhonchi, stridor Cardiovascular Exam: Present: regular rate, normal rhythm, normal heart sounds. Absent: systolic murmur, diastolic murmur, rubs, gallop, clicks GI/Abdominal exam: Present: soft, tenderness (Mid epigastric), normal bowel sounds. Absent: distended, guarding, rebound, rigid Neurological exam: Present: alert, oriented X3, CN II-XII intact Psychiatric exam: Present: normal affect, normal mood Skin exam: Present: warm, dry, intact, normal color. Absent: rash Course Vital Signs 02/06/21 22:46 Temperature 97.7 F Pulse Rate 110 H Respiratory 22 Rate Blood Pressure 151/91 O2 Sat by Pulse 100 Oximetry Medical Decision Making - Medical Decision Making 25-year-old female patient with past medical history significant for pancreatitis related to pancreatic divisum, generally follows with [facility] presented for evaluation of upper abdominal pain. Physical examination did reveal tenderness over the midepigastric region. Labs reviewed and did reveal elevated lipase at 2495, white blood cell count is 11.8. She is afebrile normal vitals. She was given pain medication and IV fluids. She'll be admitted to the hospital for pancreatitis. She'll remain nothing by mouth. She is agreeable this plan. Case discussed with my attending Dr. Dupree. - Lab Data Result diagrams: 02/06/21 23:50 02/06/21 23:50 Lab Results 02/06/21 02/06/21 02/06/21 Range/Units 23:50 23:50 23:50 WBC 11.8 H (3.8-10.6) k/uL RBC 4.66 (3.80-5.40) m/uL Hgb 14.4 (11.4-16.0) gm/dL Hct 43.5 (34.0-46.0) % MCV 93.4 (80.0-100.0) fL MCH 30.9 (25.0-35.0) pg MCHC 33.1 (31.0-37.0) g/dL RDW 12.8 (11.5-15.5) % Plt Count 327 (150-450) k/uL MPV 7.5 Neutrophils % 65 % Lymphocytes % 25 % Monocytes % 6 % Eosinophils % 3 % Basophils % 1 % Neutrophils # 7.7 (1.3-7.7) k/uL Lymphocytes # 3.0 (1.0-4.8) k/uL Monocytes # 0.7 (0-1.0) k/uL Eosinophils # 0.3 (0-0.7) k/uL Basophils # 0.1 (0-0.2) k/uL Sodium 142 (137-145) mmol/L Potassium 4.4 (3.5-5.1) mmol/L Chloride 106 (98-107) mmol/L Carbon Dioxide 22 (22-30) mmol/L Anion Gap 14 mmol/L BUN 6 L (7-17) mg/dL Creatinine 0.53 (0.52-1.04) mg/dL Est GFR (CKD-EPI)AfAm >90 (>60 ml/min/1.73 sqM) Est GFR (CKD-EPI)NonAf >90 (>60 ml/min/1.73 sqM) Glucose 68 L (74-99) mg/dL Plasma Lactic Acid Braulio (0.7-2.0) mmol/L Calcium 10.2 (8.4-10.2) mg/dL Total Bilirubin 0.3 (0.2-1.3) mg/dL AST 31 (14-36) U/L ALT 14 (4-34) U/L Alkaline Phosphatase 104 (38-126) U/L Total Protein 8.4 H (6.3-8.2) g/dL Albumin 5.3 H (3.5-5.0) g/dL Lipase 2495 H (23-300) U/L Urine Color Colorless Urine Appearance Clear (Clear) Urine pH 7.0 (5.0-8.0) Ur Specific [place] 1.004 (1.001-1.035) Urine Protein Negative (Negative) Urine Glucose (UA) Negative (Negative) Urine Ketones Negative (Negative) Urine Blood Negative (Negative) Urine Nitrite Negative (Negative) Urine Bilirubin Negative (Negative) Urine Urobilinogen <2.0 (<2.0) mg/dL Ur Leukocyte Esterase Negative (Negative) Urine HCG, Qual (Not Detectd) 02/06/21 02/06/21 Range/Units 23:50 23:50 WBC (3.8-10.6) k/uL RBC (3.80-5.40) m/uL Hgb (11.4-16.0) gm/dL Hct (34.0-46.0) % MCV (80.0-100.0) fL MCH (25.0-35.0) pg MCHC (31.0-37.0) g/dL RDW (11.5-15.5) % Plt Count (150-450) k/uL MPV Neutrophils % % Lymphocytes % % Monocytes % % Eosinophils % % Basophils % % Neutrophils # (1.3-7.7) k/uL Lymphocytes # (1.0-4.8) k/uL Monocytes # (0-1.0) k/uL Eosinophils # (0-0.7) k/uL Basophils # (0-0.2) k/uL Sodium (137-145) mmol/L Potassium (3.5-5.1) mmol/L Chloride (98-107) mmol/L Carbon Dioxide (22-30) mmol/L Anion Gap mmol/L BUN (7-17) mg/dL Creatinine (0.52-1.04) mg/dL Est GFR (CKD-EPI)AfAm (>60 ml/min/1.73 sqM) Est GFR (CKD-EPI)NonAf (>60 ml/min/1.73 sqM) Glucose (74-99) mg/dL Plasma Lactic Acid Braulio 1.0 (0.7-2.0) mmol/L Calcium (8.4-10.2) mg/dL Total Bilirubin (0.2-1.3) mg/dL AST (14-36) U/L ALT (4-34) U/L Alkaline Phosphatase (38-126) U/L Total Protein (6.3-8.2) g/dL Albumin (3.5-5.0) g/dL Lipase (23-300) U/L Urine Color Urine Appearance (Clear) Urine pH (5.0-8.0) Ur Specific [place] (1.001-1.035) Urine Protein (Negative) Urine Glucose (UA) (Negative) Urine Ketones (Negative) Urine Blood (Negative) Urine Nitrite (Negative) Urine Bilirubin (Negative) Urine Urobilinogen (<2.0) mg/dL Ur Leukocyte Esterase (Negative) Urine HCG, Qual Not Detected (Not Detectd) Disposition Clinical Impression: Acute pancreatitis Disposition: ADMITTED IP TO THIS [facility] Condition: Serious Referrals: Alice Lazaro MD [Primary Care Provider] - 1-2 days Decision to Admit Reason: Admit from EC Decision Date: 02/07/21 Decision Time: 01:36
--- NOTE | 2021-02-07 02:37 | P.HPIM ---
History of Present Illness H&P Date: 02/07/21 The patient is a 35-year-old female with a PMH of pancreatic divisum, chronic pancreatitis, and nonalcoholic fatty liver disease with yearly bouts of pancreatitis, routinely follows at [facility] who presented to the emergency room with complaints of epigastric discomfort with nausea. Patient notes that her symptoms are typical for her usual bouts of pancreatitis, started 4 days ago, with sharp gastric pain initially 5 out of 10 which gradually worsened, non radiating, exacerbated by any food or water and relieved by sitting up and leaning forward. She reports significant nausea without vomiting and decreased oral intake since the onset of her pain 3-4 days ago. At time of interview, she reports that her pain is a 7 out of 10 and ongoing nausea. She denied chest discomfort, shortness of breath, fever, chills, cough, diarrhea, dizziness, weakness, numbness, tingling. Laboratory evaluation in the emergency room was remarkable for leukocytosis of 11.8, BUN 6, glucose 68, lipase 2495, total bilirubin 0.3, AST 31, and ALT 14. Review of Systems Pertinent positives and negatives as discussed in HPI, a complete review of systems was performed and all other systems are negative. Past Medical History Past Medical History: No Reported History Additional Past Medical History / Comment(s): Recurrent chronic pancreatitis with extensive workups and was seen at [facility] with ?pancreatic divisum. History of Any Multi-Drug Resistant Organisms: MRSA Date of last positivie culture/infection: 10/07/19 MDRO Source:: MRSA CHEST Past Surgical History: No Surgical Hx Reported Additional Past Surgical History / Comment(s): EGD's and EGD with biopsy. Past Anesthesia/Blood Transfusion Reactions: No Reported Reaction Past Psychological History: No Psychological Hx Reported Smoking Status: Never smoker Past Alcohol Use History: None Reported Past Drug Use History: None Reported - Past Family History Brother(s) Additional Family Medical History / Comment(s): She has 2 brothers and 1 sister with no major medical problems. Father Family Medical History: Diabetes Mellitus Additional Family Medical History / Comment(s): Father is alive at age 49 with history of diabetes requiring kidney and pancreas transplant. Mother Family Medical History: Deep Vein Thrombosis (DVT) Additional Family Medical History / Comment(s): Mother is alive at age 52 with history of DVT's, cardiomyopathy and pacemaker. Medications and Allergies Home Medications Medication Instructions Recorded Confirmed Type HYDROcodone/APAP 7.5-325MG [[place] 1 tab PO BID PRN 08/27/18 08/09/19 History 7.5-325] Propranolol LA [Inderal LA] 60 mg PO DAILY 08/09/19 08/09/19 History Allergies Allergy/AdvReac Type Severity Reaction Status Date / Time latex Allergy Rash/Hives Verified 02/06/21 22:49 peanut Allergy Rash/Swelli Verified 02/06/21 22:49 ng Physical Exam Vitals: Vital Signs Temp Pulse Resp BP Pulse Ox 02/06/21 22:46 97.7 F 110 H 22 151/91 100 Intake and Output 02/06/21 02/06/21 02/07/21 14:59 22:59 06:59 Other: Weight 58.967 kg General: non toxic, in mild distress due to abdominal pain, appears at stated age, normal weight Derm: no unusual rashes/lesions no unusual ecchymoses, warm, dry Head: atraumatic, normocephalic, symmetric Eyes: EOMI, no lid lag, anicteric sclera, pupils equal round reactive to light ENT: Nose and ears atraumatic, no thrush, no pharyngeal erythema Neck: No thyromegaly, no cervical lymphadenopathy, trachea midline, supple Mouth: no lip lesion, mucus membranes moist Cardiovascular: S1S2 reg, no murmur, positive posterior tibial pulse bilateral, no edema, capillary refill less than 2 seconds Lungs: CTA bilateral, no rhonchi, no rales , no accessory muscle use Abdominal: soft, nontender to palpation, no guarding, no appreciable organ omegaly, normal bowel sounds Ext: no gross muscle atrophy, muscle strength 5 out of 5 in all 4 extremities grossly, no contractures, Neuro: CN II-XI grossly intact, light touch intact all 4 extremities, finger to nose within normal limits, Psych: Alert, oriented, appropriate affect Results CBC & Chem 7: 02/06/21 23:50 02/06/21 23:50 Labs: Abnormal Lab Results - Last 24 Hours (Table) 02/06/21 02/06/21 Range/Units 23:50 23:50 WBC 11.8 H (3.8-10.6) k/uL BUN 6 L (7-17) mg/dL Glucose 68 L (74-99) mg/dL Total Protein 8.4 H (6.3-8.2) g/dL Albumin 5.3 H (3.5-5.0) g/dL Lipase 2495 H (23-300) U/L Assessment and Plan Plan: Acute pancreatitis with history of pancreatic divisum -Continue with IV fluids -Pain control with Dilaudid -Antiemetics -Monitor lipase levels -NPO Leukocytosis -Likely due to ongoing stressor -Patient afebrile with no signs of active infection at this time -Monitor for now DVT prophylaxis -Heparin subq The patient is admitted with an anticipated greater than 2 midnight stay for evaluation of acute pancreatitis CODE STATUS: Full Code Discussed with: Patient Anticipated discharge date: 2-[address]: Home A total of 35 minutes was spent on the care of this complex patient more than 5 0% of the time was spent in counseling and care coordination.
[2021-02-07] MEDS ORDERED: HYDROmorphone 0.5 MG/0.5 ML SYRINGE IM PRN (03:10)
[2021-02-07] MEDS ORDERED: HYDROmorphone 0.5 MG/0.5 ML SYRINGE IVP PRN (03:34)
[2021-02-07] MEDS: HYDROmorphone 1 MG/ML 1 ML SYRINGE IVP PRN ×7 (05:48→23:17)
[2021-02-07 05:56] LABS: HCT 33.3 % (34.0-46.0); HGB 11.9 gm/dL (11.4-16.0); MCH 33.1 pg (25.0-35.0); MCHC 35.7 g/dL (31.0-37.0); Platelet Count 238 k/uL (150-450); RBC 3.58 m/uL (3.80-5.40); RDW 12.2 % (11.5-15.5); WBC 13.9 k/uL (3.8-10.6)
[2021-02-07 06:10] LABS: ALT 10 U/L (4-34); AST 24 U/L (14-36); African American GFR (CKD) >90 (>60 ml/min/1.73 sqM); Albumin 3.7 g/dL (3.5-5.0); Alkaline Phosphatase 59 U/L (38-126); Anion Gap 5 mmol/L; Blood Urea Nitrogen 8 mg/dL (7-17); Calcium 8.3 mg/dL (8.4-10.2); Carbon Dioxide 28 mmol/L (22-30); Chloride 106 mmol/L (98-107); Cholesterol 117 mg/dL (<200); Glucose 80 mg/dL (74-99); HDL Cholesterol 56 mg/dL (40-60); LDL Cholesterol,Calculated 49 mg/dL (0-99); Lipase 604 U/L (23-300); Non-African American GFR(CKD) >90 (>60 ml/min/1.73 sqM); Potassium 4.6 mmol/L (3.5-5.1); Sodium 139 mmol/L (137-145); Total Bilirubin 0.3 mg/dL (0.2-1.3); Total Protein 6.1 g/dL (6.3-8.2); Triglycerides 62 mg/dL (<150)
[2021-02-07] MEDS: HEPARIN SODIUM,PORCINE/PF 5,000 UNIT/0.5 ML SYRINGE SQ SCH ×3 (07:57→23:18)
[2021-02-07] MEDS: diphenhydrAMINE 50 MG/ML 1 ML VIAL IVP PRN ×2 (08:33→16:15)
[2021-02-07 08:48] LABS: Glucose,Whole Blood 73 mg/dL (75-99)
--- NOTE | 2021-02-07 13:26 | P.PN ---
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 She presented to the hospital yesterday evening with complaints of epigastric pain and nausea beginning 4 days prior to arrival and progressively worsening. Patient was seen and fully evaluated in the emergency department and found to have leukocytosis with WBC count of 11.8 and lipase of 2495. Patient was admitted under our services for acute on chronic pancreatitis. Physical exam: Patient seen and fully evaluated at the bedside this morning. She reports continued persistent pain currently uncontrolled and remains to epigastric and umbilical region. Dilaudid dose increased to 1 mg every 2 hours. Patient also reports persistent nausea despite administration of Zofran. Order placed for Compazine. Patient denies any episodes of vomiting, dizziness, lightheadedness, chest pain, palpitations, shortness of breath, or experiencing any numbnes s/tingling/weakness in extremities. Vital signs reviewed and stable. Lipase improving from previous 2495 down to 604. WBCs increasing to 13.9. General: non toxic, no distress, appears at stated age Derm: warm, dry. Customer Service Sales Associate's or Cullin's sign. Head: atraumatic, normocephalic, symmetric Eyes: EOMI, no lid lag, anicteric sclera Mouth: no lip lesion, mucus membranes moist Cardiovascular: S1S2 reg, no murmur, positive posterior tibial pulse bilateral, Lungs: CTA bilateral, no rhonchi, no rales , no accessory muscle use Abdominal: soft, diffuse tenderness to palpation, no appreciable organomegaly Ext: no gross muscle atrophy, no edema, no contractures Neuro: CN II-XI grossly intact, no focal neuro deficits Psych: Alert, oriented, appropriate affect Plan of care: Acute pancreatitis with history of pancreatic divisum -Nothing by mouth -Continued hydration with 0.9% normal saline at 130 mL's per hour -Pain management increased to Dilaudid 1 mg every 2 hours -Anti-emetics changed to Compazine secondary to Zofran not controlling -We will continue to monitor lipase levels along with repeat a.m. labs. Leukocytosis -Secondary to acute pancreatitis, we will continue to monitor with repeat a.m. labs. CODE STATUS: Full code DVT prophylaxis: Heparin Discussed with: Patient and RN Anticipated discharge date: 1-[address]: Home A total of 45 minutes was spent on the care of this complex patient more than 50% of the time was spent in counseling and care coordination. Objective - Vital Signs Vital signs: Vital Signs Temp 97.8 F 02/07/21 08:31 Pulse 75 02/07/21 08:31 Resp 16 02/07/21 08:31 BP 108/67 02/07/21 08:31 Pulse Ox 98 02/07/21 08:31 Intake & Output 02/06/21 02/07/21 02/07/21 18:59 06:59 18:59 Weight 65.7 kg Other: Voiding Method Toilet # Voids 2 - Labs CBC & Chem 7: 02/07/21 05:31 02/07/21 05:31 Labs: Abnormal Lab Results - Last 24 Hours (Table) 02/06/21 02/06/21 02/07/21 Range/Units 23:50 23:50 05:31 WBC 11.8 H 13.9 H (3.8-10.6) k/uL RBC 3.58 L (3.80-5.40) m/uL Hct 33.3 L (34.0-46.0) % BUN 6 L (7-17) mg/dL Glucose 68 L (74-99) mg/dL POC Glucose (mg/dL) (75-99) mg/dL Calcium (8.4-10.2) mg/dL Total Protein 8.4 H (6.3-8.2) g/dL Albumin 5.3 H (3.5-5.0) g/dL Lipase 2495 H (23-300) U/L 02/07/21 02/07/21 Range/Units 05:31 08:45 WBC (3.8-10.6) k/uL RBC (3.80-5.40) m/uL Hct (34.0-46.0) % BUN (7-17) mg/dL Glucose (74-99) mg/dL POC Glucose (mg/dL) 73 L (75-99) mg/dL Calcium 8.3 L (8.4-10.2) mg/dL Total Protein 6.1 L (6.3-8.2) g/dL Albumin (3.5-5.0) g/dL Lipase 604 H (23-300) U/L
[2021-02-07] MEDS ORDERED: SODIUM CHLORIDE 0.9% 500 ML 500 ML IV ONE (14:44)
[2021-02-07] MEDS: PROCHLORPERAZINE INJ 10 MG/2 ML VIAL IVP PRN ×2 (14:52→21:14)
[2021-02-07 20:11] LABS: Glucose,Whole Blood 76 mg/dL (75-99)
[2021-02-08] MEDS: HYDROmorphone 1 MG/ML 1 ML SYRINGE IVP PRN ×8 (01:57→22:31)
[2021-02-08] MEDS: diphenhydrAMINE 50 MG/ML 1 ML VIAL IVP PRN (01:59)
[2021-02-08] MEDS: SODIUM CHLORIDE 0.9% 1,000 ML IV SCH ×2 (02:03→04:21)
[2021-02-08] MEDS: PROCHLORPERAZINE INJ 10 MG/2 ML VIAL IVP PRN ×2 (04:51→15:59)
[2021-02-08] MEDS: ACETAMINOPHEN TAB 325 MG TAB PO PRN ×3 (05:00→18:08)
[2021-02-08] MEDS: HEPARIN SODIUM,PORCINE/PF 5,000 UNIT/0.5 ML SYRINGE SQ SCH ×2 (08:19→15:59)
[2021-02-08 10:20] LABS: Glucose,Whole Blood 73 mg/dL (75-99)
[2021-02-08 11:46] LABS: Basophils % (A) 1 %; Eosinophils # (A) 0.2 k/uL (0-0.7); Eosinophils % (A) 3 %; HGB 10.3 gm/dL (11.4-16.0); Lymphocytes % (A) 32 %; MCH 32.9 pg (25.0-35.0); MCHC 34.3 g/dL (31.0-37.0); Mean Platelet Volume 7.1; Monocytes # (A) 0.4 k/uL (0-1.0); Monocytes % (A) 6 %; Neutrophils # (A) 3.6 k/uL (1.3-7.7); Neutrophils % (A) 57 %; Platelet Count 177 k/uL (150-450); RBC 3.12 m/uL (3.80-5.40); RDW 12.3 % (11.5-15.5); WBC 6.3 k/uL (3.8-10.6)
[2021-02-08 12:02] LABS: ALT 9 U/L (4-34); AST 22 U/L (14-36); African American GFR (CKD) >90 (>60 ml/min/1.73 sqM); Albumin 3.2 g/dL (3.5-5.0); Alkaline Phosphatase 41 U/L (38-126); Anion Gap 2 mmol/L; Blood Urea Nitrogen 6 mg/dL (7-17); Calcium 8.4 mg/dL (8.4-10.2); Carbon Dioxide 27 mmol/L (22-30); Chloride 108 mmol/L (98-107); Glucose 63 mg/dL (74-99); Lipase 28 U/L (23-300); Magnesium 1.8 mg/dL (1.6-2.3); Non-African American GFR(CKD) >90 (>60 ml/min/1.73 sqM); Potassium 4.5 mmol/L (3.5-5.1); Sodium 137 mmol/L (137-145); Total Bilirubin 0.4 mg/dL (0.2-1.3); Total Protein 5.5 g/dL (6.3-8.2)
[2021-02-08 12:29] LABS: Glucose,Whole Blood 60 mg/dL (75-99)
[2021-02-08 12:48] LABS: Glucose,Whole Blood 66 mg/dL (75-99)
[2021-02-08 13:18] LABS: Glucose,Whole Blood 88 mg/dL (75-99)
--- NOTE | 2021-02-08 13:25 | P.PN ---
Subjective Progress Note Date: 02/08/21 Principal diagnosis: abdominal pain Patient is still having severe upper abdominal pain, she states that it is relieved by the pain meds for only 1 hour. No bowel movement, she has not been eating. No fevers or chills. No chest pain or shortness of breath. Objective - Vital Signs Vital signs: Vital Signs Temp 97.9 F 02/08/21 09:10 Pulse 61 02/08/21 09:10 Resp 16 02/08/21 09:10 BP 102/59 02/08/21 09:10 Pulse Ox 95 02/08/21 09:10 Intake & Output 02/07/21 02/08/21 02/08/21 18:59 06:59 18:59 Intake Total 180 60 Output Total 200 500 Balance -20 -440 Intake: Oral 180 60 Output: Urine 200 500 Other: Voiding Method Toilet Toilet Toilet # Voids 1 1 - Exam Constitutional: No acute distress, conversant, pleasant Eyes:Anicteric sclerae, moist conjunctiva, no lid-lag, PERRLA, ENMT: Oropharynx clear, no erythema, exudates Neck: Supple, FROM, no masses, or JVD, No carotid bruits, No thyromegaly Lungs: Clear to auscultation, Clear to percussion, Normal respiratory effort, no accessory muscle use Cardiovascular: Heart regular in rate and rhythm, No murmurs, gallops, or rubs, No peripheral edema Abdominal: severely tender in the epigastric area, no guarding, rebound or rigidity, Normoactive bowel sounds, No hepatomegaly, No splenomegaly, No palpable mass Skin: Normal temperature, tone, texture, turgor, no induration, No subcutaneous nodules, No rash, lesions, No ulcers Extremities: No digital cyanosis, No clubbing, Pedal pulses intact and symmetrical, Radial pulses intact and symmetrical, No calf tenderness Psychiatric: Alert and oriented to person, place and time, appropriate affect, intact judgement Neuro: Muscles Strength 5/5 in all 4 extremities, Sensation to light touch grossly present throughout, Cranial nerves II-XII grossly intact, no focal sensory deficits - Labs CBC & Chem 7: 02/08/21 11:25 02/08/21 11:25 Labs: Abnormal Lab Results - Last 24 Hours (Table) 02/08/21 02/08/21 02/08/21 Range/Units 10:18 11:25 11:25 RBC 3.12 L (3.80-5.40) m/uL Hgb 10.3 L (11.4-16.0) gm/dL Hct 30.0 L (34.0-46.0) % Chloride 108 H (98-107) mmol/L BUN 6 L (7-17) mg/dL Glucose 63 L (74-99) mg/dL POC Glucose (mg/dL) 73 L (75-99) mg/dL Total Protein 5.5 L (6.3-8.2) g/dL Albumin 3.2 L (3.5-5.0) g/dL 02/08/21 02/08/21 Range/Units 12:27 12:47 RBC (3.80-5.40) m/uL Hgb (11.4-16.0) gm/dL Hct (34.0-46.0) % Chloride (98-107) mmol/L BUN (7-17) mg/dL Glucose (74-99) mg/dL POC Glucose (mg/dL) 60 L 66 L (75-99) mg/dL Total Protein (6.3-8.2) g/dL Albumin (3.5-5.0) g/dL Assessment and Plan Plan: Acute pancreatitis with history of pancreatic divisum -Continue with IV fluids -Pain control with Dilaudid -Antiemetics -Start clears -Lipase level ok today -GI consult Hypoglycemia -She never had issues with her blood glucose before -Likely due to chronic pancreatitis and not eating here -Will change iv fluids to d5 in 0.45 NS. -Monitor blood glucose Leukocytosis -Likely due to ongoing stressor -Resolved. DVT prophylaxis -Heparin subq Anticipated discharge date: 2-[address]: Home
[2021-02-08] MEDS: DEXTROSE 5%-0.45% NACL 1,000 ML IV SCH ×2 (13:30→20:30)
--- NOTE | 2021-02-08 15:45 | US ---
EXAMINATION TYPE: US gallbladder DATE OF EXAM: 02/08/2021 COMPARISON: 08/30/2018 CLINICAL HISTORY: pancreatitis. Abnormal labs. Patient states she is having a pancreatic flare up. EXAM MEASUREMENTS: Liver Length: 19.7 cm Gallbladder Wall: 0.2 cm CBD: 0.5 cm Right Kidney: 11.3 x 6.0 x 4.0 cm Pancreas: Head and tail obscured by overlying bowel gas, main pancreatic duct= 0.3 cm Liver: Appears enlarged in size Gallbladder: wnl Evidence for sonographic Hernandez's sign: neg CBD: wnl Right Kidney: No hydronephrosis or masses seen IMPRESSION: 1. Hepatomegaly correlate for hepatic steatosis. 2. Pancreas is somewhat heterogeneous which is nonspecific. Correlate with the pancreatic enzymes. Mi ld prominence of the pancreatic duct could be evaluated with follow-up CT scan.
[2021-02-08 17:32] LABS: Glucose,Whole Blood 85 mg/dL (75-99)
[2021-02-08 20:27] LABS: Glucose,Whole Blood 90 mg/dL (75-99)
[2021-02-09] MEDS: HEPARIN SODIUM,PORCINE/PF 5,000 UNIT/0.5 ML SYRINGE SQ SCH ×4 (00:52→23:57)
[2021-02-09] MEDS: HYDROmorphone 1 MG/ML 1 ML SYRINGE IVP PRN ×5 (00:52→11:40)
[2021-02-09] MEDS: DEXTROSE 5%-0.45% NACL 1,000 ML IV SCH (05:25)
[2021-02-09 06:26] LABS: Basophils % (A) 0 %; Eosinophils # (A) 0.2 k/uL (0-0.7); Eosinophils % (A) 3 %; HGB 10.8 gm/dL (11.4-16.0); Lymphocytes # (A) 2.3 k/uL (1.0-4.8); Lymphocytes % (A) 48 %; MCH 33.1 pg (25.0-35.0); MCHC 34.7 g/dL (31.0-37.0); MCV 95.4 fL (80.0-100.0); Monocytes # (A) 0.4 k/uL (0-1.0); Monocytes % (A) 8 %; Neutrophils # (A) 1.9 k/uL (1.3-7.7); Neutrophils % (A) 38 %; Platelet Count 190 k/uL (150-450); RBC 3.25 m/uL (3.80-5.40); RDW 12.3 % (11.5-15.5); WBC 4.9 k/uL (3.8-10.6)
[2021-02-09 06:35] LABS: ALT 10 U/L (4-34); AST 21 U/L (14-36); African American GFR (CKD) >90 (>60 ml/min/1.73 sqM); Albumin 3.2 g/dL (3.5-5.0); Alkaline Phosphatase 40 U/L (38-126); Anion Gap 6 mmol/L; Blood Urea Nitrogen 3 mg/dL (7-17); Calcium 8.4 mg/dL (8.4-10.2); Carbon Dioxide 27 mmol/L (22-30); Chloride 105 mmol/L (98-107); Glucose 89 mg/dL (74-99); Magnesium 1.8 mg/dL (1.6-2.3); Non-African American GFR(CKD) >90 (>60 ml/min/1.73 sqM); Phosphorus 4.1 mg/dL (2.5-4.5); Potassium 4.2 mmol/L (3.5-5.1); Sodium 138 mmol/L (137-145); Total Bilirubin 0.3 mg/dL (0.2-1.3); Total Protein 5.6 g/dL (6.3-8.2)
--- NOTE | 2021-02-09 07:35 | P.CONS ---
History of Present Illness - Reason for Consult Consult date: 02/08/21 Pancreatitis Requesting physician: Roula Olmos - Chief Complaint Abdominal pain - History of Present Illness 25-year-old female with a medical history significant for chronic pancreatitis, pancreatic divisum and nonalcoholic fatty liver disease who presented to the hospital for evaluation of abdominal pain. Patient reported epigastric abdominal pain associated with nausea and vomiting. The pain had been present for approximately 3 to 4 days prior to presentation. The patient last required hospitalization 2 years ago for pancreatitis. She has had episodes of pancreatitis which she has been able to manage at home since that time but reports that the pain continued to worsen with radiation into her back prompting her to come to the hospital for further evaluation. She denies any symptoms or signs of GI bleeding. Previously she had MRCP in 08/2018 consistent with pancreas divisum. She reports that [facility] and has endoscopic ultrasound approximately once per year. She denies any triggers or exposures leading to her current episode. Laboratory evaluation significant for WBC 6.3, hemoglobin 10.3, platelet count 177,000, total bilirubin 0.4, alkaline phosphatase 41, AST 22, ALT 9, lipase 28 down from 604 yesterday. Overall the patient is feeling improved at this time. Review of Systems REVIEW OF SYSTEMS: CONSTITUTIONAL: Denies any fevers, chills, weight change but he did report some fatigue and weakness CARDIOVASCULAR: Denies any chest pain, palpitations high or low blood pressures RESPIRATORY: Denies any shortness of breath, hemoptysis or cough. GENITOURINARY: No dysuria or hematuria. MUSCULOSKELETAL: No weakness reported. SKIN: Denies any new rashes or lesions, jaundice or pallor. PSYCHIATRIC: Denies any depression or anxiety. NEUROLOGY: Denies headache, denies any new focal deficits. EARS/NOSE/THROAT: No recent hearing change, congestion, nasal discharge or sore throat. EYES: No pain in eyes, discharge or change in vision. GASTROINTESTINAL: As per HPI. Past Medical History Past Medical History: No Reported History Additional Past Medical History / Comment(s): Recurrent chronic pancreatitis with extensive workups and was seen at [facility] with ?pancreatic divisum. History of Any Multi-Drug Resistant Organisms: MRSA Year Discovered:: 10/07/19 MDRO Source:: MRSA CHEST Past Surgical History: No Surgical Hx Reported Additional Past Surgical History / Comment(s): EGD's and EGD with biopsy. Past Anesthesia/Blood Transfusion Reactions: No Reported Reaction Past Psychological History: No Psychological Hx Reported Smoking Status: Never smoker Past Alcohol Use History: None Reported Past Drug Use History: None Reported - Past Family History Brother(s) Family Medical History: No Reported History Additional Family Medical History / Comment(s): She has 2 brothers and 1 sister with no major medical problems. Father Family Medical History: Diabetes Mellitus Additional Family Medical History / Comment(s): Father is alive at age 49 with history of diabetes requiring kidney and pancreas transplant. Mother Family Medical History: Deep Vein Thrombosis (DVT) Additional Family Medical History / Comment(s): Mother is alive at age 52 with history of DVT's, cardiomyopathy and pacemaker. Medications and Allergies Home Medications Medication Instructions Recorded Confirmed Type HYDROcodone/APAP 7.5-325MG [[place] 1 tab PO Q6H PRN 08/27/18 02/07/21 History 7.5-325] Allergies Allergy/AdvReac Type Severity Reaction Status Date / Time latex Allergy Rash/Hives Verified 02/07/21 06:53 peanut Allergy Rash/Swelli Verified 02/07/21 06:53 ng Physical Exam Vitals: Vital Signs Temp Pulse Resp BP BP Pulse Ox 02/08/21 14:02 98.1 F 60 14 111/69 98 02/08/21 09:10 97.9 F 61 16 102/59 95 02/08/21 02:00 60 14 101/65 96 02/07/21 18:30 97.8 F 53 L 14 103/62 97 Intake and Output 02/07/21 02/08/21 02/08/21 22:59 06:59 14:59 Intake Total 140 40 Output Total 150 350 Balance -10 -310 Intake: Oral 140 40 Output: Urine 150 350 Other: Voiding Method Toilet Toilet # Voids 1 1 On physical examination, patient appears comfortable in no apparent distress. HEAD: Normocephalic, atraumatic. EYES: No scleral icterus. No conjunctival injection. MOUTH: No lesions, tongue midline. NECK: Trachea midline, no gross abnormalities. CHEST: Clear to auscultation with no wheezing or rhonchi appreciated. HEART: Regular rate and rhythm. ABDOMEN: Soft, tender to palpation. Bowel sounds are positive. No organomegaly. No guarding or rigidity. EXTREMITIES: No pedal edema. SKIN: No rashes, no jaundice. NEUROLOGIC: Alert and oriented x3. No focal deficits. Results CBC & Chem 7: 02/09/21 06:00 02/09/21 06:00 Labs: Abnormal Lab Results - Last 24 Hours (Table) 02/08/21 02/08/21 02/08/21 Range/Units 10:18 11:25 11:25 RBC 3.12 L (3.80-5.40) m/uL Hgb 10.3 L (11.4-16.0) gm/dL Hct 30.0 L (34.0-46.0) % Chloride 108 H (98-107) mmol/L BUN 6 L (7-17) mg/dL Glucose 63 L (74-99) mg/dL POC Glucose (mg/dL) 73 L (75-99) mg/dL Total Protein 5.5 L (6.3-8.2) g/dL Albumin 3.2 L (3.5-5.0) g/dL 02/08/21 02/08/21 Range/Units 12:27 12:47 RBC (3.80-5.40) m/uL Hgb (11.4-16.0) gm/dL Hct (34.0-46.0) % Chloride (98-107) mmol/L BUN (7-17) mg/dL Glucose (74-99) mg/dL POC Glucose (mg/dL) 60 L 66 L (75-99) mg/dL Total Protein (6.3-8.2) g/dL Albumin (3.5-5.0) g/dL US - abdomen: pending Assessment and Plan (1) Pancreatitis, acute Narrative/Plan: 25-year-old female with a known history of pancreatic divisum, and hospitalization for acute on chronic pancreatitis. The patient follows up with the [facility] and has had endoscopic ultrasound on a yearly basis per her report. She reports 3 to 4 days of abdominal pain which she was unable to control at home with radiation into her back and associated nausea and vomiting. Currently the patient is receiving IV fluid hydration, pain control and was started on a liquid diet which she is tolerating today. Current Visit: Yes Status: Acute Code(s): K85.9 - ACUTE PANCREATITIS, UNSPECIFIED * DO NOT USE * SNOMED Code(s): 745492699 (2) Abdominal pain Current Visit: No Status: Acute Code(s): R10.9 - UNSPECIFIED ABDOMINAL PAIN SNOMED Code(s): 35961410 (3) Elevated lipase Current Visit: No Status: Acute Code(s): R74.8 - ABNORMAL LEVELS OF OTHER SERUM ENZYMES SNOMED Code(s): 052730083 (4) Hepatic steatosis Current Visit: No Status: Acute Code(s): K76.0 - FATTY (CHANGE OF) LIVER, NOT ELSEWHERE CLASSIFIED SNOMED Code(s): 815280853 (5) History of chronic pancreatitis Current Visit: No Status: Acute Code(s): Z87.19 - PERSONAL HISTORY OF OTHER DISEASES OF THE DIGESTIVE SYSTEM SNOMED Code(s): 73123890082571 Plan: Supportive care Clear liquid diet, advance to low-fat, low residual as tolerated Continue IV fluid hydration Continue pain control Encourage ambulation as tolerated Ultrasound of the abdomen ordered Patient will require follow-up with the [facility] after discharge Thank you for allowing us to participate in the care of the patient, okay for discharge when otherwise medically stable
[2021-02-09 08:03] LABS: Glucose,Whole Blood 82 mg/dL (75-99)
[2021-02-09] MEDS: ACETAMINOPHEN TAB 325 MG TAB PO PRN (08:04)
[2021-02-09] MEDS: PROCHLORPERAZINE INJ 10 MG/2 ML VIAL IVP PRN (10:40)
--- NOTE | 2021-02-09 12:50 | P.PN ---
Subjective Progress Note Date: 02/09/21 Principal diagnosis: Pancreatitis Patient is seen and examined lying in bed. She states her abdominal pain has improved today. She denies any nausea or vomiting. Patient states she would like to go home if she feels she no longer needs IV pain medication. Ultrasound of gallbladder shows hepatomegaly correlate for hepatic steatosis, pancreas is somewhat heterogeneous which is nonspecific. Correlate with pancreatic enzymes. Mild prominence of the pancreatic duct could be evaluated with follow-up computed tomography scan. CBD within normal limits. No gallstones noted. She denies any bowel movement for 2 days. Objective - Vital Signs Vital signs: Vital Signs Temp 98 F 02/09/21 00:54 Pulse 67 02/09/21 00:54 Resp 16 02/09/21 00:54 BP 102/63 02/09/21 00:54 Pulse Ox 97 02/09/21 00:54 Intake & Output 02/08/21 02/09/21 02/09/21 18:59 06:59 18:59 Intake Total 840 1200 Balance 840 1200 Intake: Intake, IV Titration 600 1200 Amount Dextrose 5%-0.45% NaCl 1, 600 1200 000 ml @ 100 mls/hr IV . Q10H ALICE Rx#:[id number] Oral 240 Other: Voiding Method Toilet Toilet Toilet # Voids 1 1 - Exam General appearance: The patient is alert, oriented, appears in no acute distress. HET: Head is normocephalic and atraumatic. Conjunctiva pink. Sclera anicteric. Neck: Supple without lymphadenopathy. Abdomen: Soft, epigastric tenderness, nondistended with bowel sounds. No guarding or rigidity. Extremities: Normal skin color and turgor. No pedal edema Skin: No rashes, no jaundice Neurological: No focal deficits. Alert and oriented 3. - Labs CBC & Chem 7: 02/09/21 06:00 02/09/21 06:00 Labs: Abnormal Lab Results - Last 24 Hours (Table) 02/08/21 02/08/21 02/08/21 Range/Units 10:18 11:25 11:25 RBC 3.12 L (3.80-5.40) m/uL Hgb 10.3 L (11.4-16.0) gm/dL Hct 30.0 L (34.0-46.0) % Chloride 108 H (98-107) mmol/L BUN 6 L (7-17) mg/dL Creatinine (0.52-1.04) mg/dL Glucose 63 L (74-99) mg/dL POC Glucose (mg/dL) 73 L (75-99) mg/dL Total Protein 5.5 L (6.3-8.2) g/dL Albumin 3.2 L (3.5-5.0) g/dL 02/08/21 02/08/21 02/09/21 Range/Units 12:27 12:47 06:00 RBC 3.25 L (3.80-5.40) m/uL Hgb 10.8 L (11.4-16.0) gm/dL Hct 31.0 L (34.0-46.0) % Chloride (98-107) mmol/L BUN (7-17) mg/dL Creatinine (0.52-1.04) mg/dL Glucose (74-99) mg/dL POC Glucose (mg/dL) 60 L 66 L (75-99) mg/dL Total Protein (6.3-8.2) g/dL Albumin (3.5-5.0) g/dL 02/09/21 Range/Units 06:00 RBC (3.80-5.40) m/uL Hgb (11.4-16.0) gm/dL Hct (34.0-46.0) % Chloride (98-107) mmol/L BUN 3 L (7-17) mg/dL Creatinine 0.50 L (0.52-1.04) mg/dL Glucose (74-99) mg/dL POC Glucose (mg/dL) (75-99) mg/dL Total Protein 5.6 L (6.3-8.2) g/dL Albumin 3.2 L (3.5-5.0) g/dL Assessment and Plan (1) Pancreatitis, acute Narrative/Plan: Sit 25-year-old female with a known history of pancreatic divisum and hospitalized for acute on chronic pancreatitis. The patient follows up with the [facility] this had endoscopic ultrasound on a yearly basis per her report. She reports 3-4 days of abdominal pain which was unable to control at home with radiation into her back and associated nausea and vomiting. Currently the patient is receiving IV fluid hydration, pain control and was started on a liquid diet. Today she is feeling much better, still has epigastric pain however no nausea or vomiting. With like to advance to full liquid diet. Current Visit: Yes Status: Acute Code(s): K85.9 - ACUTE PANCREATITIS, UNSPECIFIED * DO NOT USE * SNOMED Code(s): 158917145 (2) History of chronic pancreatitis Current Visit: No Status: Acute Code(s): Z87.19 - PERSONAL HISTORY OF OTHER DISEASES OF THE DIGESTIVE SYSTEM SNOMED Code(s): 09105405668146 Plan: Tenuous symptomatic and supportive care Advance to full liquid diet Would recommend transitioning from IV pain medications to by mouth pain medication Encourage ambulation Ultrasound of abdomen ordered and reviewed Patient may be discharged home from a gastroenterology standpoint, patient to follow-up with [facility] as previously scheduled Thank you for this consultation, we will sign off at this time Dr. Marcus I agree with the dictator's note, documented as a scribe by La Lemon.
--- NOTE | 2021-02-09 16:00 | P.PN ---
Subjective Progress Note Date: 02/09/21 Principal diagnosis: abdominal pain Patient is still having abdominal pain although it is less compared to yesterday. No nausea or vomiting. No fevers or chills. Objective - Vital Signs Vital signs: Vital Signs Temp 97.8 F 02/09/21 08:37 Pulse 54 L 02/09/21 08:37 Resp 14 02/09/21 08:37 BP 106/69 02/09/21 08:37 Pulse Ox 99 02/09/21 08:37 Intake & Output 02/08/21 02/09/21 02/09/21 18:59 06:59 18:59 Intake Total 840 1200 680 Output Total 1 Balance 840 1200 679 Intake: Intake, IV Titration 600 1200 Amount Dextrose 5%-0.45% NaCl 1, 600 1200 000 ml @ 100 mls/hr IV . Q10H ALICE Rx#:[id number] Oral 240 680 Output: Emesis 1 Other: Voiding Method Toilet Toilet Toilet # Voids 1 1 3 - Exam Constitutional: No acute distress, conversant, pleasant Eyes:Anicteric sclerae, moist conjunctiva, no lid-lag, PERRLA, ENMT: Oropharynx clear, no erythema, exudates Neck: Supple, FROM, no masses, or JVD, No carotid bruits, No thyromegaly Lungs: Clear to auscultation, Clear to percussion, Normal respiratory effort, no accessory muscle use Cardiovascular: Heart regular in rate and rhythm, No murmurs, gallops, or rubs, No peripheral edema Abdominal: severely tender in the epigastric area, no guarding, rebound or rigidity, Normoactive bowel sounds, No hepatomegaly, No splenomegaly, No palpable mass Skin: Normal temperature, tone, texture, turgor, no induration, No subcutaneous nodules, No rash, lesions, No ulcers Extremities: No digital cyanosis, No clubbing, Pedal pulses intact and symmetrical, Radial pulses intact and symmetrical, No calf tenderness Psychiatric: Alert and oriented to person, place and time, appropriate affect, intact judgement Neuro: Muscles Strength 5/5 in all 4 extremities, Sensation to light touch grossly present throughout, Cranial nerves II-XII grossly intact, no focal sensory deficits - Labs CBC & Chem 7: 02/09/21 06:00 02/09/21 06:00 Labs: Abnormal Lab Results - Last 24 Hours (Table) 02/09/21 02/09/21 Range/Units 06:00 06:00 RBC 3.25 L (3.80-5.40) m/uL Hgb 10.8 L (11.4-16.0) gm/dL Hct 31.0 L (34.0-46.0) % BUN 3 L (7-17) mg/dL Creatinine 0.50 L (0.52-1.04) mg/dL Total Protein 5.6 L (6.3-8.2) g/dL Albumin 3.2 L (3.5-5.0) g/dL Assessment and Plan Plan: Acute pancreatitis with history of pancreatic divisum -Continue with IV fluids -Switch pain control to norco -Antiemetics -Advanced to full liquid diet -Lipase level normalized -GI consulted Hypoglycemia -Improved, continue d5 in 0.45 NS. -Monitor blood glucose Leukocytosis -Likely due to ongoing stressor -Resolved. DVT prophylaxis -Heparin subq Anticipated discharge date: in am Anticipated discharge place: Home
[2021-02-09] MEDS: HYDROcodone/APAP 5-325MG 1 EACH TAB PO PRN ×2 (18:14→23:56)
[2021-02-09 20:30] VITALS: RESP 16
[2021-02-10] MEDS: DEXTROSE 5%-0.45% NACL 1,000 ML IV SCH ×2 (01:56→04:01)
[2021-02-10] MEDS: HYDROcodone/APAP 5-325MG 1 EACH TAB PO PRN ×2 (06:04→11:31)
[2021-02-10 06:52] LABS: Basophils % (A) 1 %; Eosinophils # (A) 0.1 k/uL (0-0.7); Eosinophils % (A) 2 %; HCT 30.3 % (34.0-46.0); HGB 10.8 gm/dL (11.4-16.0); Lymphocytes # (A) 1.8 k/uL (1.0-4.8); Lymphocytes % (A) 40 %; MCH 33.8 pg (25.0-35.0); MCHC 35.8 g/dL (31.0-37.0); MCV 94.2 fL (80.0-100.0); Mean Platelet Volume 7.1; Monocytes # (A) 0.3 k/uL (0-1.0); Monocytes % (A) 7 %; Neutrophils # (A) 2.2 k/uL (1.3-7.7); Neutrophils % (A) 48 %; Platelet Count 185 k/uL (150-450); RBC 3.21 m/uL (3.80-5.40); RDW 12.1 % (11.5-15.5); WBC 4.5 k/uL (3.8-10.6)
[2021-02-10 07:06] LABS: African American GFR (CKD) >90 (>60 ml/min/1.73 sqM); Anion Gap 4 mmol/L; Blood Urea Nitrogen 3 mg/dL (7-17); Calcium 8.5 mg/dL (8.4-10.2); Carbon Dioxide 28 mmol/L (22-30); Chloride 106 mmol/L (98-107); Glucose 88 mg/dL (74-99); Lipase 402 U/L (23-300); Magnesium 1.7 mg/dL (1.6-2.3); Non-African American GFR(CKD) >90 (>60 ml/min/1.73 sqM); Potassium 4.1 mmol/L (3.5-5.1); Sodium 138 mmol/L (137-145)
[2021-02-10] MEDS: HEPARIN SODIUM,PORCINE/PF 5,000 UNIT/0.5 ML SYRINGE SQ SCH (09:01)
[2021-02-10 09:03] VITALS: BP 128/78; PULSE 85; TEMP 97.8
--- NOTE | 2021-02-10 14:56 | P.DS ---
Providers Date of admission: 02/07/21 02:04 Expected date of discharge: 02/10/21 Attending physician: Anny Garcia MD Primary care physician: Alice Lazaro [facility] Course: 25-year-old female with a PMH of pancreatic divisum, chronic pancreatitis, and nonalcoholic fatty liver disease with yearly bouts of pancreatitis, routinely follows at [facility] who presented to the emergency room with complaints of epigastric discomfort with nausea. Symptoms were typical for her usual bouts of pancreatitis, started 4 days ago, with sharp gastric pain initially 5 out of 10 which gradually worsened, non radiating, exacerbated by any food or water and relieved by sitting up and leaning forward. She reports significant nausea without vomiting and decreased oral intake since the onset of her pain 3-4 days ago. She denied chest discomfort, shortness of breath, fever, chills, cough, diarrhea, dizziness, weakness, numbness, tingling. Laboratory evaluation in the emergency room was remarkable for leukocytosis of 11.8, BUN 6, glucose 68, lipase 2495, total bilirubin 0.3, AST 31, and ALT 14. Patient was admitted, started on IV fluids. Pain was controlled with Dilaudid IV when necessary. Lipase was monitored daily. It trended down. Patient was started on clear liquid diet and that was advanced gradually as tolerated. She is currently symptomatically feeling better. She is able to tolerate food. She was seen by GI as well and no further management was recommended. She will be going home today, she is stable for discharge. He follows with GI at [facility]. Patient Condition at Discharge: Serious Plan - Discharge Summary New Discharge Prescriptions: Continue HYDROcodone/APAP 7.5-325MG [[place] 7.5-325] 1 tab PO Q6H PRN PRN Reason: Pain Discharge Medication List HYDROcodone/APAP 7.5-325MG [[place] 7.5-325] 1 tab PO Q6H PRN 08/27/18 [History] Follow up Appointment(s)/Referral(s): Alice Lazaro MD [Primary Care Provider] - 1-2 days Activity/Diet/Wound Care/Special Instructions: Follow up with your family dr as needed. Continue with a diet carefully and monitor symptoms. Anything worsening or concerning notify your DR or return to ER
== END 2021-02-10 15:01 | disposition home or self-care (01) | DRG 439 ==
LOC: EC 22:35 → 6PED 02-07 02:04
PROVIDERS: ADMIT Internal Medicine; ATTEND Internal Medicine
DX: K85.90 Acute pancreatitis without necrosis or infection, unspecified (principal); Q45.3 Other congenital malformations of pancreas and pancreatic duct; K86.1 Other chronic pancreatitis; Z20.822 Contact with and (suspected) exposure to COVID-19; E16.2 Hypoglycemia, unspecified; K76.0 Fatty (change of) liver, not elsewhere classified; R16.0 Hepatomegaly, not elsewhere classified; K86.81 Exocrine pancreatic insufficiency; Z91.040 Latex allergy status; Z91.010 Allergy to peanuts; Z86.14 Personal history of Methicillin resistant Staphylococcus aureus infection; Z83.3 Family history of diabetes mellitus; Z84.89 Family history of other specified conditions; Z83.2 Family history of diseases of the blood and blood-forming organs and certain disorders involving the immune mechanism; Z82.49 Family history of ischemic heart disease and other diseases of the circulatory system
CPT/HCPCS: 36415; 76705; 80048; 80053; 80061; 81003; 81025; 83605; 83690; 83735; 84100; 85025; 85027; 87635; 93005; 96361; 96374; 96375; 96376; 99285

== ENCOUNTER 2021-02-11 19:31 | Emergency (ER) | payer MEDICAID ==
[2021-02-11 19:35] VITALS: TEMP 97.6
[2021-02-11] MEDS ORDERED: HYDROmorphone 1 MG/ML 1 ML SYRINGE IVP STA (19:38)
[2021-02-11] MEDS ORDERED: ONDANSETRON 4 MG/2 ML VIAL IVP STA (19:38)
--- NOTE | 2021-02-11 19:40 | ED ---
Abdominal Pain HPI - General Chief Complaint: Abdominal Pain Stated Complaint: Pancreatitis Time Seen by Provider: 02/11/21 19:36 Source: patient Mode of arrival: ambulatory Limitations: no limitations - History of Present Illness Initial Comments: 25-year-old female with history of pancreatic divisum who sees GI specialist at [facility] presented to the ER today for chief complaint of pancreatitis. Patient states she struggles with pancreatitis chronically since the age of 10 when she was diagnosed with a pancreatic divisum. Patient states that she was hospitalized on Mother's Day and released a few days ago she states she continued to have symptoms. Her numbers are going down and she states usually she starts to feel better. Patient states his symptoms remain persistent however. She states she continues to have a lot of nausea pain unable to eat. Patient states she started feeling really shaky and weak. Patient denies any fevers. She denies any change in characteristic of her typical pain when she has pancreatitis. She states the epigastric pain radiating to the back. Patient denies any lower abdominal pain or . Patient denies any urinary symptoms. Remaining his system negative upon arrival patient appears nontoxic, but uncomfortable. BP noted to be elevated. - Related Data Home Medications Medication Instructions Recorded Confirmed HYDROcodone/APAP 7.5-325MG [[place] 1 tab PO Q6H PRN 08/27/18 02/11/21 7.5-325] Allergies Allergy/AdvReac Type Severity Reaction Status Date / Time latex Allergy Rash/Hives Verified 02/11/21 20:02 peanut Allergy Rash/Swelli Verified 02/11/21 20:02 ng Review of Systems ROS Statement: Those systems with pertinent positive or pertinent negative responses have been documented in the HPI. ROS Other: All systems not noted in ROS Statement are negative. Past Medical History Past Medical History: No Reported History Additional Past Medical History / Comment(s): Recurrent chronic pancreatitis with extensive workups and was seen at [facility] with ?pancreatic divisum. History of Any Multi-Drug Resistant Organisms: MRSA Date of last positivie culture/infection: 10/07/19 MDRO Source:: MRSA CHEST Past Surgical History: No Surgical Hx Reported Additional Past Surgical History / Comment(s): EGD's and EGD with biopsy. Past Anesthesia/Blood Transfusion Reactions: No Reported Reaction Past Psychological History: No Psychological Hx Reported Smoking Status: Never smoker Past Alcohol Use History: None Reported Past Drug Use History: None Reported - Past Family History Brother(s) Family Medical History: No Reported History Additional Family Medical History / Comment(s): She has 2 brothers and 1 sister with no major medical problems. Father Family Medical History: Diabetes Mellitus Additional Family Medical History / Comment(s): Father is alive at age 49 with history of diabetes requiring kidney and pancreas transplant. Mother Family Medical History: Deep Vein Thrombosis (DVT) Additional Family Medical History / Comment(s): Mother is alive at age 52 with history of DVT's, cardiomyopathy and pacemaker. General Exam - General Exam Comments Initial Comments: General: The patient is awake and alert, in no distress Eye: +3 mm pupils are equal, round and reactive to light, extra-ocular movements are intact. No nystagmus. There is normal conjunctiva bilaterally. No signs of icterus. Ears, nose, mouth and throat: There are moist mucous membranes and no oral lesions. Neck: The neck is supple, there is no tenderness or JVD. Cardiovascular: There is a regular rate and rhythm. No murmur, rub or gallop is appreciated. Respiratory: Lungs are clear to auscultation, respirations are non-labored, breath sounds are equal. No wheezes, stridor, rales, or rhonchi. Gastrointestinal: Soft, non-distended, tenderness over epigastric region, abdomen without masses or organomegaly noted. There is no rebound or guarding present. Musculoskeletal: Normal ROM, no tenderness. Strength 5/5. Sensation intact. Pulses equal bilaterally 2+. Neurological: A&O x 3. CN II-XII intact grossly, There are no obvious motor or sensory deficits. Coordination appears grossly intact. Speech is normal. Skin: Skin is warm and dry and no rashes or lesions are noted. Psychiatric: Cooperative, appropriate mood & affect, normal judgment. Limitations: no limitations Course Vital Signs 02/11/21 02/11/21 19:33 20:55 Temperature 97.6 F Pulse Rate 70 68 Respiratory 18 16 Rate Blood Pressure 154/92 125/91 O2 Sat by Pulse 100 98 Oximetry Medical Decision Making - Medical Decision Making Labs stable. pt refused US. Patient states she is more comfortable on reevaluation and would like one more dose of pain medications prior to discharge. Patient states this feels like her typical pancreatic pain in his agreeable to return if symptoms worsen and to follow-up with her specialist at [facility] as well as her primary care provider. Patient case discussed by attending provider Dr Bautista who is agreeable to this care plan. - Lab Data Result diagrams: 02/11/21 20:16 02/11/21 20:16 Lab Results 02/11/21 02/11/21 02/11/21 Range/Units 20:16 20:16 20:16 WBC 5.2 (3.8-10.6) k/uL RBC 4.06 (3.80-5.40) m/uL Hgb 12.7 (11.4-16.0) gm/dL Hct 38.2 (34.0-46.0) % MCV 94.1 (80.0-100.0) fL MCH 31.4 (25.0-35.0) pg MCHC 33.4 (31.0-37.0) g/dL RDW 12.9 (11.5-15.5) % Plt Count 230 (150-450) k/uL MPV 7.8 Neutrophils % 58 % Lymphocytes % 31 % Monocytes % 7 % Eosinophils % 2 % Basophils % 1 % Neutrophils # 3.0 (1.3-7.7) k/uL Lymphocytes # 1.6 (1.0-4.8) k/uL Monocytes # 0.4 (0-1.0) k/uL Eosinophils # 0.1 (0-0.7) k/uL Basophils # 0.0 (0-0.2) k/uL Sodium 138 (137-145) mmol/L Potassium 4.4 (3.5-5.1) mmol/L Chloride 101 (98-107) mmol/L Carbon Dioxide 27 (22-30) mmol/L Anion Gap 10 mmol/L BUN 5 L (7-17) mg/dL Creatinine 0.42 L (0.52-1.04) mg/dL Est GFR (CKD-EPI)AfAm >90 (>60 ml/min/1.73 sqM) Est GFR (CKD-EPI)NonAf >90 (>60 ml/min/1.73 sqM) Glucose 85 (74-99) mg/dL Plasma Lactic Acid Braulio 1.4 (0.7-2.0) mmol/L Calcium 9.4 (8.4-10.2) mg/dL Magnesium 1.7 (1.6-2.3) mg/dL Total Bilirubin 0.4 (0.2-1.3) mg/dL AST 68 H (14-36) U/L ALT 74 H (4-34) U/L Alkaline Phosphatase 64 (38-126) U/L Total Protein 7.5 (6.3-8.2) g/dL Albumin 4.6 (3.5-5.0) g/dL Amylase 52 (30-110) U/L Lipase 44 (23-300) U/L Urine Color Urine Appearance (Clear) Urine pH (5.0-8.0) Ur Specific [place] (1.001-1.035) Urine Protein (Negative) Urine Glucose (UA) (Negative) Urine Ketones (Negative) Urine Blood (Negative) Urine Nitrite (Negative) Urine Bilirubin (Negative) Urine Urobilinogen (<2.0) mg/dL Ur Leukocyte Esterase (Negative) 02/11/21 Range/Units 20:23 WBC (3.8-10.6) k/uL RBC (3.80-5.40) m/uL Hgb (11.4-16.0) gm/dL Hct (34.0-46.0) % MCV (80.0-100.0) fL MCH (25.0-35.0) pg MCHC (31.0-37.0) g/dL RDW (11.5-15.5) % Plt Count (150-450) k/uL MPV Neutrophils % % Lymphocytes % % Monocytes % % Eosinophils % % Basophils % % Neutrophils # (1.3-7.7) k/uL Lymphocytes # (1.0-4.8) k/uL Monocytes # (0-1.0) k/uL Eosinophils # (0-0.7) k/uL Basophils # (0-0.2) k/uL Sodium (137-145) mmol/L Potassium (3.5-5.1) mmol/L Chloride (98-107) mmol/L Carbon Dioxide (22-30) mmol/L Anion Gap mmol/L BUN (7-17) mg/dL Creatinine (0.52-1.04) mg/dL Est GFR (CKD-EPI)AfAm (>60 ml/min/1.73 sqM) Est GFR (CKD-EPI)NonAf (>60 ml/min/1.73 sqM) Glucose (74-99) mg/dL Plasma Lactic Acid Braulio (0.7-2.0) mmol/L Calcium (8.4-10.2) mg/dL Magnesium (1.6-2.3) mg/dL Total Bilirubin (0.2-1.3) mg/dL AST (14-36) U/L ALT (4-34) U/L Alkaline Phosphatase (38-126) U/L Total Protein (6.3-8.2) g/dL Albumin (3.5-5.0) g/dL Amylase (30-110) U/L Lipase (23-300) U/L Urine Color Light Yellow Urine Appearance Clear (Clear) Urine pH 7.5 (5.0-8.0) Ur Specific [place] 1.007 (1.001-1.035) Urine Protein Negative (Negative) Urine Glucose (UA) Negative (Negative) Urine Ketones Negative (Negative) Urine Blood Negative (Negative) Urine Nitrite Negative (Negative) Urine Bilirubin Negative (Negative) Urine Urobilinogen <2.0 (<2.0) mg/dL Ur Leukocyte Esterase Negative (Negative) Disposition Clinical Impression: Epigastric pain Disposition: HOME SELF-CARE Condition: Good Instructions (If sedation given, give patient instructions): Abdominal Pain (ED) Additional Instructions: Please use medication as discussed. Please follow-up with family doctor in the next 2 days. Please return to emergency room if the symptoms increase or worsen or for any other concerns. Is patient prescribed a controlled substance at d/c from ED?: No Referrals: Alice Lazaro MD [Primary Care Provider] - 1-2 days Time of Disposition: 21:25
[2021-02-11] MEDS ORDERED: SODIUM CHLORIDE 0.9% 1,000 ML IV SCH (19:45)
[2021-02-11] MEDS ORDERED: diphenhydrAMINE 50 MG/ML 1 ML VIAL IVP STA (20:25)
[2021-02-11 20:40] LABS: ALT 74 U/L (4-34); AST 68 U/L (14-36); African American GFR (CKD) >90 (>60 ml/min/1.73 sqM); Albumin 4.6 g/dL (3.5-5.0); Alkaline Phosphatase 64 U/L (38-126); Amylase 52 U/L (30-110); Anion Gap 10 mmol/L; Blood Urea Nitrogen 5 mg/dL (7-17); Calcium 9.4 mg/dL (8.4-10.2); Carbon Dioxide 27 mmol/L (22-30); Chloride 101 mmol/L (98-107); Glucose 85 mg/dL (74-99); Lipase 44 U/L (23-300); Magnesium 1.7 mg/dL (1.6-2.3); Non-African American GFR(CKD) >90 (>60 ml/min/1.73 sqM); Sodium 138 mmol/L (137-145); Total Bilirubin 0.4 mg/dL (0.2-1.3); Total Protein 7.5 g/dL (6.3-8.2)
[2021-02-11 20:42] LABS: Basophils % (A) 1 %; Eosinophils # (A) 0.1 k/uL (0-0.7); Eosinophils % (A) 2 %; HCT 38.2 % (34.0-46.0); HGB 12.7 gm/dL (11.4-16.0); Lymphocytes # (A) 1.6 k/uL (1.0-4.8); Lymphocytes % (A) 31 %; MCH 31.4 pg (25.0-35.0); MCHC 33.4 g/dL (31.0-37.0); MCV 94.1 fL (80.0-100.0); Mean Platelet Volume 7.8; Monocytes # (A) 0.4 k/uL (0-1.0); Monocytes % (A) 7 %; Neutrophils % (A) 58 %; Platelet Count 230 k/uL (150-450); RBC 4.06 m/uL (3.80-5.40); RDW 12.9 % (11.5-15.5); WBC 5.2 k/uL (3.8-10.6)
[2021-02-11 20:44] LABS: Potassium 4.4 mmol/L (3.5-5.1)
[2021-02-11 21:07] LABS: Appearance,Urine Clear (Clear); Bilirubin,Urine Negative (Negative); Blood,Urine Negative (Negative); Color,Urine Light Yellow; Glucose,Urine (UA) Negative (Negative); Ketones,Urine Negative (Negative); Leukocyte Esterase,Urine Negative (Negative); Nitrite,Urine Negative (Negative); PH, Urine 7.5 (5.0-8.0); Protein,Urine Negative (Negative); Specific Gravity,Urine 1.007 (1.001-1.035); Urobilinogen,Urine <2.0 mg/dL (<2.0)
[2021-02-11] MEDS ORDERED: HYDROmorphone 0.5 MG/0.5 ML SYRINGE IVP STA (21:21)
[2021-02-11 21:32] VITALS: BP 125/91; PULSE 68; RESP 16
== END 2021-02-11 21:40 | disposition home or self-care (01) ==
LOC: EC 19:31
DX: R10.13 Epigastric pain (principal); R53.1 Weakness
CPT/HCPCS: 36415; 80053; 82150; 83605; 83690; 83735; 85025; 81003; 99284; 96374; 96375 ×2; 96376; 96361; J1200; J2405; J1170 ×2

== ENCOUNTER → 2021-04-20 | Outpatient (CLI) | payer MEDICAID ==
--- NOTE | 2021-04-20 08:08 | USB ---
Reason for exam: clinical finding. History: Patient is nulliparous. Physical Findings: Nurse Summary: 2.5cm nodule in the right breast at 9 and 7 o'clock (nurse dw). US Breast RT Right complete breast ultrasound includes all four quadrants, the retroareolar region and axilla. Finding demonstrates a 2.5 x 0.9 x 2.4cm oval, solid, hypoechoic lesion at 5 o'clock BB and a 2.7 x 1.1 x 2.1cm oval, solid, hypoechoic lesion at 7 o'clock BB. These results were verbally communicated with the patient and result sheet given to the patient on 04/20/21. ASSESSMENT: Probably benign, BI-RAD 3 RECOMMENDATION: Ultrasound of the right breast in 6 months.
--- NOTE | 2021-04-20 08:42 | US ---
EXAMINATION TYPE: US abdomen complete DATE OF EXAM: 04/20/2021 COMPARISON: US 02/08/2021 CLINICAL HISTORY: R10.11 RUQ PAIN. EXAM MEASUREMENTS: Liver Length: 17.6 cm Gallbladder Wall: 0.1 cm CBD: 0.4 cm Spleen: 9.7 cm Right Kidney: 11.0 x 3.6 x 5.0 cm Left Kidney: 11.3 x 4.7 x 4.2 cm Pancreas: Heterogeneous Liver: Measuring upper limits of normal, heterogeneous Gallbladder: wnl Evidence for sonographic Hernandez's sign: No CBD: wnl Spleen: wnl Right Kidney: No hydronephrosis or masses seen Left Kidney: No hydronephrosis or masses seen Upper IVC: wnl Abd Aorta: wnl The liver is homogenous. The intrahepatic portion of the IVC and proximal abdominal aorta are within normal limits. There is no evidence of cholelithiasis. Common bile duct is unremarkable. The visu alized portions of the pancreas are homogenous. The spleen is unremarkable. Kidneys are symmetric a nd free of hydronephrosis. No renal lesions are seen. IMPRESSION: No definite sonographic abnormality of the abdomen.
== END | disposition home or self-care (01) ==
LOC: RADMAMWWP 07:02
PROVIDERS: ATTEND Family Medicine
DX: N64.89 Other specified disorders of breast (principal)
CPT/HCPCS: 76700

== ENCOUNTER 2021-09-12 13:27 | Inpatient (IN) | payer MEDICAID ==
[2021-09-12] MEDS ORDERED: SODIUM CHLORIDE 0.9% 2,000 ML IV STA (14:08)
[2021-09-12] MEDS ORDERED: ONDANSETRON 4 MG/2 ML VIAL IVP STA ×3 (14:14→23:28)
[2021-09-12] MEDS ORDERED: KETOROLAC 15 MG/ML 1 ML VIAL IVP STA (14:19)
[2021-09-12] MEDS ORDERED: HYDROmorphone 0.5 MG/0.5 ML SYRINGE IVP STA ×2 (14:19→23:28)
[2021-09-12] MEDS ORDERED: diphenhydrAMINE 50 MG/ML 1 ML VIAL IVP STA (14:43)
[2021-09-12 14:45] LABS: Basophils % (A) 1 %; Eosinophils # (A) 0.1 k/uL (0-0.7); Eosinophils % (A) 3 %; HCT 40.7 % (34.0-46.0); HGB 14.3 gm/dL (11.4-16.0); Lymphocytes # (A) 2.2 k/uL (1.0-4.8); Lymphocytes % (A) 42 %; MCH 32.3 pg (25.0-35.0); MCHC 35.1 g/dL (31.0-37.0); MCV 92.2 fL (80.0-100.0); Monocytes # (A) 0.3 k/uL (0-1.0); Monocytes % (A) 6 %; Neutrophils # (A) 2.4 k/uL (1.3-7.7); Neutrophils % (A) 46 %; Platelet Count 309 k/uL (150-450); RBC 4.41 m/uL (3.80-5.40); RDW 12.7 % (11.5-15.5); WBC 5.1 k/uL (3.8-10.6)
[2021-09-12 14:57] LABS: ALT 12 U/L (4-34); AST 24 U/L (14-36); African American GFR (CKD) >90 (>60 ml/min/1.73 sqM); Albumin 5.2 g/dL (3.5-5.0); Alkaline Phosphatase 53 U/L (38-126); Amylase 61 U/L (30-110); Anion Gap 17 mmol/L; Blood Urea Nitrogen 11 mg/dL (7-17); Calcium 9.8 mg/dL (8.4-10.2); Carbon Dioxide 23 mmol/L (22-30); Chloride 102 mmol/L (98-107); Glucose 93 mg/dL (74-99); Lipase 165 U/L (23-300); Non-African American GFR(CKD) >90 (>60 ml/min/1.73 sqM); Potassium 4.4 mmol/L (3.5-5.1); Sodium 142 mmol/L (137-145); Total Bilirubin 0.3 mg/dL (0.2-1.3); Total Protein 8.2 g/dL (6.3-8.2)
[2021-09-12] MEDS ORDERED: HYDROmorphone 1 MG/ML 1 ML SYRINGE IVP STA (15:11)
--- NOTE | 2021-09-12 15:18 | ED ---
Abdominal Pain HPI - General Source: patient, RN notes reviewed Mode of arrival: ambulatory Limitations: no limitations <Angus Hillman - Last Filed: 09/12/21 15:17> <Onelia Gilliland - Last Filed: 09/12/21 22:39> - General Chief Complaint: Abdominal Pain Stated Complaint: Pancreatitis Time Seen by Provider: 09/12/21 14:07 - History of Present Illness Initial Comments: 25-year-old female presents emergency Department with chief complaint of abdominal pain. Patient states his started slightly less temporal department today with increased nausea vomiting. Patient states she has severe pain. Patient states she has recurrent pancreatitis and sees GI at [facility] monthly. Patient states she has pancreatic to visit him. Patient states that she's had pancreatic issue since age 10. Patient states that her mid abdomen severe pain. Patient states she cannot keep anything down. (Angus Hillman) - Related Data Home Medications Medication Instructions Recorded Confirmed Nortriptyline HCl [Pamelor] 25 mg PO HS 09/12/21 09/12/21 Allergies Allergy/AdvReac Type Severity Reaction Status Date / Time latex Allergy Rash/Hives Verified 09/12/21 17:46 peanut Allergy Rash/Swelli Verified 09/12/21 17:46 ng Review of Systems ROS Other: All systems not noted in ROS Statement are negative. <Angus Hillman - Last Filed: 09/12/21 15:17> ROS Other: All systems not noted in ROS Statement are negative. <Onelia Gilliland - Last Filed: 09/12/21 22:39> ROS Statement: Those systems with pertinent positive or pertinent negative responses have been documented in the HPI. Past Medical History Past Medical History: No Reported History Additional Past Medical History / Comment(s): Recurrent chronic pancreatitis with extensive workups and was seen at [facility] with ?pancreatic divisum. History of Any Multi-Drug Resistant Organisms: MRSA Date of last positivie culture/infection: 10/07/19 MDRO Source:: MRSA CHEST Past Surgical History: No Surgical Hx Reported Additional Past Surgical History / Comment(s): EGD's and EGD with biopsy. Past Anesthesia/Blood Transfusion Reactions: No Reported Reaction Past Psychological History: No Psychological Hx Reported Smoking Status: Never smoker Past Alcohol Use History: None Reported Past Drug Use History: None Reported - Past Family History Brother(s) Family Medical History: No Reported History Additional Family Medical History / Comment(s): She has 2 brothers and 1 sister with no major medical problems. Father Family Medical History: Diabetes Mellitus Additional Family Medical History / Comment(s): Father is alive at age 49 with history of diabetes requiring kidney and pancreas transplant. Mother Family Medical History: Deep Vein Thrombosis (DVT) Additional Family Medical History / Comment(s): Mother is alive at age 52 with history of DVT's, cardiomyopathy and pacemaker. <Angus Hillman - Last Filed: 09/12/21 15:17> General Exam Limitations: no limitations General appearance: alert, in no apparent distress Head exam: Present: atraumatic, normocephalic, normal inspection Neck exam: Present: normal inspection. Absent: tenderness, meningismus, lymphadenopathy Respiratory exam: Present: normal lung sounds bilaterally. Absent: respiratory distress, wheezes, rales, rhonchi, stridor Cardiovascular Exam: Present: regular rate, normal rhythm, normal heart sounds. Absent: systolic murmur, diastolic murmur, rubs, gallop, clicks GI/Abdominal exam: Present: soft, normal bowel sounds. Absent: distended, tenderness, guarding, rebound, rigid Back exam: Absent: CVA tenderness (R), CVA tenderness (L) Neurological exam: Present: alert Skin exam: Present: warm, dry, intact, normal color. Absent: rash <Angus Hillman - Last Filed: 09/12/21 15:17> Course Vital Signs 09/12/21 09/12/21 13:56 17:40 Temperature 98.4 F Pulse Rate 85 80 Respiratory 16 18 Rate Blood Pressure 131/83 146/88 O2 Sat by Pulse 98 98 Oximetry Medical Decision Making - Lab Data Result diagrams: 09/12/21 14:28 09/12/21 14:28 <Angus Hillman - Last Filed: 09/12/21 15:17> - Lab Data Result diagrams: 09/12/21 14:28 09/12/21 14:28 <Onelia Gilliland - Last Filed: 09/12/21 22:39> - Medical Decision Making 10th care was signed out to me by Angus PORTILLO, patient presents with intractable abdominal pain she had multiple doses of pain medications. Computed tomography scan was pending and results with no acute findings despite a normal computed tomography scan labs patient had severe persistent abdominal pain. Decision was made to admit the patient for pain management. [place] plan was discussed with who accepts admission (Onelia Gilliland) - Lab Data Lab Results 09/12/21 09/12/21 09/12/21 Range/Units 14:28 14:28 14:28 WBC 5.1 (3.8-10.6) k/uL RBC 4.41 (3.80-5.40) m/uL Hgb 14.3 (11.4-16.0) gm/dL Hct 40.7 (34.0-46.0) % MCV 92.2 (80.0-100.0) fL MCH 32.3 (25.0-35.0) pg MCHC 35.1 (31.0-37.0) g/dL RDW 12.7 (11.5-15.5) % Plt Count 309 (150-450) k/uL MPV 7.0 Neutrophils % 46 % Lymphocytes % 42 % Monocytes % 6 % Eosinophils % 3 % Basophils % 1 % Neutrophils # 2.4 (1.3-7.7) k/uL Lymphocytes # 2.2 (1.0-4.8) k/uL Monocytes # 0.3 (0-1.0) k/uL Eosinophils # 0.1 (0-0.7) k/uL Basophils # 0.0 (0-0.2) k/uL Sodium 142 (137-145) mmol/L Potassium 4.4 (3.5-5.1) mmol/L Chloride 102 (98-107) mmol/L Carbon Dioxide 23 (22-30) mmol/L Anion Gap 17 mmol/L BUN 11 (7-17) mg/dL Creatinine 0.46 L (0.52-1.04) mg/dL Est GFR (CKD-EPI)AfAm >90 (>60 ml/min/1.73 sqM) Est GFR (CKD-EPI)NonAf >90 (>60 ml/min/1.73 sqM) Glucose 93 (74-99) mg/dL Plasma Lactic Acid Braulio 1.6 (0.7-2.0) mmol/L Calcium 9.8 (8.4-10.2) mg/dL Total Bilirubin 0.3 (0.2-1.3) mg/dL AST 24 (14-36) U/L ALT 12 (4-34) U/L Alkaline Phosphatase 53 (38-126) U/L Total Protein 8.2 (6.3-8.2) g/dL Albumin 5.2 H (3.5-5.0) g/dL Amylase 61 (30-110) U/L Lipase 165 (23-300) U/L Urine Color Urine Appearance (Clear) Urine pH (5.0-8.0) Ur Specific [place] (1.001-1.035) Urine Protein (Negative) Urine Glucose (UA) (Negative) Urine Ketones (Negative) Urine Blood (Negative) Urine Nitrite (Negative) Urine Bilirubin (Negative) Urine Urobilinogen (<2.0) mg/dL Ur Leukocyte Esterase (Negative) Urine RBC (0-5) /hpf Urine WBC (0-5) /hpf Ur Squamous Epith Cells (0-4) /hpf Urine Mucus (None) /hpf Urine HCG, Qual (Not Detectd) 09/12/21 09/12/21 Range/Units 15:18 17:31 WBC (3.8-10.6) k/uL RBC (3.80-5.40) m/uL Hgb (11.4-16.0) gm/dL Hct (34.0-46.0) % MCV (80.0-100.0) fL MCH (25.0-35.0) pg MCHC (31.0-37.0) g/dL RDW (11.5-15.5) % Plt Count (150-450) k/uL MPV Neutrophils % % Lymphocytes % % Monocytes % % Eosinophils % % Basophils % % Neutrophils # (1.3-7.7) k/uL Lymphocytes # (1.0-4.8) k/uL Monocytes # (0-1.0) k/uL Eosinophils # (0-0.7) k/uL Basophils # (0-0.2) k/uL Sodium (137-145) mmol/L Potassium (3.5-5.1) mmol/L Chloride (98-107) mmol/L Carbon Dioxide (22-30) mmol/L Anion Gap mmol/L BUN (7-17) mg/dL Creatinine (0.52-1.04) mg/dL Est GFR (CKD-EPI)AfAm (>60 ml/min/1.73 sqM) Est GFR (CKD-EPI)NonAf (>60 ml/min/1.73 sqM) Glucose (74-99) mg/dL Plasma Lactic Acid Bra[place] (0.7-2.0) mmol/L Calcium (8.4-10.2) mg/dL Total Bilirubin (0.2-1.3) mg/dL AST (14-36) U/L ALT (4-34) U/L Alkaline Phosphatase (38-126) U/L Total Protein (6.3-8.2) g/dL Albumin (3.5-5.0) g/dL Amylase (30-110) U/L Lipase (23-300) U/L Urine Color Yellow Urine Appearance Clear (Clear) Urine pH 6.5 (5.0-8.0) Ur Specific [place] 1.030 (1.001-1.035) Urine Protein Trace H (Negative) Urine Glucose (UA) Negative (Negative) Urine Ketones Negative (Negative) Urine Blood Small H (Negative) Urine Nitrite Negative (Negative) Urine Bilirubin Negative (Negative) Urine Urobilinogen <2.0 (<2.0) mg/dL Ur Leukocyte Esterase Small H (Negative) Urine RBC <1 (0-5) /hpf Urine WBC 5 (0-5) /hpf Ur Squamous Epith Cells 3 (0-4) /hpf Urine Mucus Rare H (None) /hpf Urine HCG, Qual Not Detected (Not Detectd) Disposition <Angus Hillman M - Last Filed: 09/12/21 15:17> Is patient prescribed a controlled substance at d/c from ED?: No <Onelia Gilliland - Last Filed: 09/12/21 22:39> Clinical Impression: Pancreatic divisum, Abdominal pain Disposition: ADMITTED IP TO THIS HOSP Condition: Stable Referrals: Alice Lazaro MD [Primary Care Provider] - 1-2 days
[2021-09-12 17:51] LABS: Appearance,Urine Clear (Clear); Bilirubin,Urine Negative (Negative); Blood,Urine Small (Negative); Color,Urine Yellow; Glucose,Urine (UA) Negative (Negative); Ketones,Urine Negative (Negative); Leukocyte Esterase,Urine Small (Negative); Mucus,Urine Rare /hpf; Nitrite,Urine Negative (Negative); PH, Urine 6.5 (5.0-8.0); Protein,Urine Trace (Negative); RBC,Urine <1 /hpf (0-5); Squamous Epithelial Cell,Urine 3 /hpf (0-4); Urobilinogen,Urine <2.0 mg/dL (<2.0); WBC,Urine 5 /hpf (0-5)
--- NOTE | 2021-09-12 18:42 | CT ---
EXAMINATION TYPE: CT abdomen pelvis w con DATE OF EXAM: 09/12/2021 COMPARISON: CT and MRCP 08/30/2018. HISTORY: abd pain CT DLP: 719.3 mGycm Automated exposure control for dose reduction was used. TECHNIQUE: Helical acquisition of images was performed from the lung bases through the pelvis. CONTRAST: Performed without Oral Contrast and with IV Contrast, patient injected with 100 mL of Isovue 300. FINDINGS: LUNG BASES: No significant abnormality is appreciated. LIVER/GB: No acute abnormality is appreciated. Hepatic steatosis. PANCREAS: No significant abnormality is seen. SPLEEN: No significant abnormality is seen. ADRENALS: No significant abnormality is seen. KIDNEYS: No significant abnormality is seen. FREE AIR: No free air is visualized. RETROPERITONEAL ADENOPATHY: None visualized REPRODUCTIVE ORGANS: No significant abnormality is seen URINARY BLADDER: No significant abnormality is seen. PELVIC ADENOPATHY: None visualized. OSSEOUS STRUCTURES: No significant abnormality is seen. BOWEL: No significant abnormality is seen. Tiny fat-containing periumbilical hernia. OTHER: None IMPRESSION: NO ACUTE ABNORMALITY. HEPATIC STEATOSIS.
[2021-09-12] MEDS ORDERED: NALOXONE 0.4 MG/ML 1 ML VIAL IV PRN (22:35)
--- NOTE | 2021-09-12 23:04 | P.HPIM ---
History of Present Illness H&P Date: 09/12/21 The patient is a 25-year-old female with a PMH of pancreatic divisum with chronic pancreatitis who presents to the emergency room with complaints of epigastric abdominal pain, nausea, vomiting. The patient normally follows at [facility] for her chronic pancreatitis with divisum. She notes that she began having her symptoms 2 days ago, and that they have gradually worsened. At the time of interview, she reports that her epigastric pain is a 7 out of 10, nonradiating, aching in nature, with no alleviating or exacerbating features. She reports having multiple episodes of nonbloody nonbilious vomiting throughout the day today. She denied fever, chills, diarrhea. Denied chest pa in, shortness of breath, weakness, numbness, tingling. A CT abdomen and pelvis with contrast in the emergency room revealed hepatic steatosis but otherwise unremarkable. Laboratory evaluation revealed a lipase of 165. Review of systems: Pertinent positives and negatives as discussed in HPI, a complete review of systems was performed and all other systems are negative. Physical examination: General: non toxic, no distress, appears at stated age, normal weight Derm: no unusual rashes/lesions no unusual ecchymoses, warm, dry Head: atraumatic, normocephalic, symmetric Eyes: EOMI, no lid lag, anicteric sclera, pupils equal round reactive to light ENT: Nose and ears atraumatic, no thrush, no pharyngeal erythema Neck: No thyromegaly, no cervical lymphadenopathy, trachea midline, supple Mouth: no lip lesion, mucus membranes moist Cardiovascular: S1S2 reg, no murmur, positive posterior tibial pulse bilateral, no edema, capillary refill less than 2 seconds Lungs: CTA bilateral, no rhonchi, no rales , no accessory muscle use Abdominal: soft, moderate epigastric tenderness to palpation, some guarding, no appreciable organomegaly, normal bowel sounds Ext: no gross muscle atrophy, muscle strength 5 out of 5 in all 4 extremities grossly, no contractures, Neuro: CN II-XI grossly intact, light touch intact all 4 extremities, finger to nose within normal limits, Psych: Alert, oriented, appropriate affect Assessment/plan Intractable abdominal pain with nausea and vomiting, unclear etiology; history of pancreatic divisum -Pain medications -IV fluids -GI consult -Nothing by mouth for now DVT prophylaxis -Heparin subq The patient is admitted with an anticipated less than 2 midnight stay for evaluation of abdominal pain CODE STATUS: Full Code Discussed with: Patient Anticipated discharge date: in am Anticipated discharge place: Home Past Medical History Past Medical History: No Reported History Additional Past Medical History / Comment(s): Recurrent chronic pancreatitis with extensive workups and was seen at [facility] with ?pancreatic divisum. History of Any Multi-Drug Resistant Organisms: MRSA Date of last positivie culture/infection: 10/07/19 MDRO Source:: MRSA CHEST Past Surgical History: No Surgical Hx Reported Additional Past Surgical History / Comment(s): EGD's and EGD with biopsy. Past Anesthesia/Blood Transfusion Reactions: No Reported Reaction Past Psychological History: No Psychological Hx Reported Smoking Status: Never smoker Past Alcohol Use History: None Reported Past Drug Use History: None Reported - Past Family History Brother(s) Family Medical History: No Reported History Additional Family Medical History / Comment(s): She has 2 brothers and 1 sister with no major medical problems. Father Family Medical History: Diabetes Mellitus Additional Family Medical History / Comment(s): Father is alive at age 49 with history of diabetes requiring kidney and pancreas transplant. Mother Family Medical History: Deep Vein Thrombosis (DVT) Additional Family Medical History / Comment(s): Mother is alive at age 52 with history of DVT's, cardiomyopathy and pacemaker. Medications and Allergies Home Medications Medication Instructions Recorded Confirmed Type Nortriptyline HCl [Pamelor] 25 mg PO HS 09/12/21 09/12/21 History Allergies Allergy/AdvReac Type Severity Reaction Status Date / Time latex Allergy Rash/Hives Verified 09/12/21 17:46 peanut Allergy Rash/Swelli Verified 09/12/21 17:46 ng Physical Exam Vitals: Vital Signs Temp Pulse Resp BP Pulse Ox 09/12/21 17:40 80 18 146/88 98 09/12/21 13:56 98.4 F 85 16 131/83 98 Intake and Output 09/12/21 09/12/21 09/12/21 06:59 14:59 22:59 Other: Weight 63.503 kg Results CBC & Chem 7: 09/12/21 14:28 09/12/21 14:28 Labs: Abnormal Lab Results - Last 24 Hours (Table) 12/13/21 12/13/21 Range/Units 14:28 15:18 Creatinine 0.46 L (0.52-1.04) mg/dL Albumin 5.2 H (3.5-5.0) g/dL Urine Protein Trace H (Negative) Urine Blood Small H (Negative) Ur Leukocyte Esterase Small H (Negative) Urine Mucus Rare H (None) /hpf
[2021-09-13] MEDS ORDERED: ONDANSETRON 4 MG in SODIUM CHLORIDE 0.9% 50 ML IVPB PRN (03:09)
[2021-09-13] MEDS: MORPHINE SULFATE 2 MG/ML SYRINGE IVP PRN ×2 (03:15→07:54)
[2021-09-13] MEDS: HEPARIN SODIUM,PORCINE/PF 5,000 UNIT/0.5 ML SYRINGE SQ SCH ×3 (07:54→23:37)
[2021-09-13] MEDS: ONDANSETRON 4 MG/2 ML VIAL IVP PRN ×2 (08:19→17:24)
[2021-09-13 08:47] LABS: HCT 36.3 % (34.0-46.0); HGB 12.8 gm/dL (11.4-16.0); MCH 33.1 pg (25.0-35.0); MCHC 35.1 g/dL (31.0-37.0); MCV 94.2 fL (80.0-100.0); Platelet Count 256 k/uL (150-450); RBC 3.85 m/uL (3.80-5.40); RDW 12.9 % (11.5-15.5)
[2021-09-13 09:11] LABS: ALT 11 U/L (4-34); AST 20 U/L (14-36); African American GFR (CKD) >90 (>60 ml/min/1.73 sqM); Albumin 4.1 g/dL (3.5-5.0); Albumin/Globulin Ratio 1.5; Alkaline Phosphatase 45 U/L (38-126); Anion Gap 8 mmol/L; Blood Urea Nitrogen 11 mg/dL (7-17); Calcium 9.3 mg/dL (8.4-10.2); Carbon Dioxide 25 mmol/L (22-30); Chloride 105 mmol/L (98-107); Globulin 2.8 g/dL; Glucose 98 mg/dL (74-99); Magnesium 1.8 mg/dL (1.6-2.3); Non-African American GFR(CKD) >90 (>60 ml/min/1.73 sqM); Potassium 3.7 mmol/L (3.5-5.1); Sodium 138 mmol/L (137-145); Total Bilirubin 0.5 mg/dL (0.2-1.3); Total Protein 6.9 g/dL (6.3-8.2)
[2021-09-13 09:21] LABS: Lipase 2195 U/L (23-300)
[2021-09-13] MEDS: HYDROmorphone 1 MG/ML 1 ML SYRINGE IVP PRN ×3 (12:27→20:03)
[2021-09-13] MEDS: SODIUM CHLORIDE 0.9% 1,000 ML IV SCH ×2 (16:22→23:37)
--- NOTE | 2021-09-13 16:30 | P.PN ---
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 Patient presented to the emergency department with a chief complaint of abdominal pain and intractable nausea and vomiting. In the emergency department patient underwent full evaluation and was found to have a normal amylase of 61 and lipase of 165 and unremarkable CBC and CMP. Patient then underwent a CT abdomen and pelvis for intractable abdominal pain, nausea, and vomiting. Urine HCG negative. CT abdomen and pelvis negative for acute abnormality showing mild hepatic steatosis. Patient was initially admitted to observation for intractable nausea and vomiting. She continued to have persistent abdominal pain, nausea, and vomiting. Upon reevaluation patient's repeat lipase significantly elevating to 2195. Admission transferred to inpatient and consult placed to gastroenterology. Physical exam: Patient seen and fully evaluated at bedside this morning. She was tearful reporting uncontrolled abdominal pain with continued nausea and vomiting last dry heaves. Additional pain medications ordered at this time. Repeat lipase significantly elevated at 2195. Patient made NPO with the exception of ice chips and we will provide continuous hydration with IV fluids and consult gastroenterology. Patient denies having any headache, lightheadedness, dizziness, chest pain, palpitations, shortness of breath, or experiencing any urinary frequency, urgency, or dysuria. Vital signs reviewed and stable. General: Nontoxic, appears stated age. Showing mild distress as patient was tearful reporting uncontrolled abdominal pain during examination. Derm: Skin warm and dry, normal coloration for ethnicity. Griggs's and: Cullin's sign negative. Head: Atraumatic, normocephalic and symmetric. Eyes: EOMs intact, no lid lag, and anicteric sclera Mouth: no lip lesions, mucus membranes moist Cardiovascular: regular rate and rhythm with normal S1S2, no murmur, positive po sterior tibial pulses bilaterally, and cap refill < 2 seconds. Lungs: Respirations even, regular, and unlabored on room air. Lungs CTA bilaterally, no rhonchi, no rales, no wheezing, and no accessory muscle usage. Abdominal: Soft, tenderness reported to left upper and left lower quadrant as well as left upper flank. Ext: ROM intact. No gross muscle atrophy, no edema, no contractures Neuro: Speech clear, face symmetrical and CN II-XII grossly intact with no noted focal neuro deficits Psych: Alert and oriented to person, place, time, and situation. Appropriate and pleasant affect. Assessment and Plan of Care: Acute on chronic pancreatitis in patient with history of pancreatic divisum Intractable abdominal pain with nausea and vomiting -NPO with the exception of ice chips -Symptomatic care and pain management, Zofran as needed for nausea and Dilaudid for pain. -Continuous hydration with IV fluids -Consult gastroenterology -We will continue to monitor with repeat a.m. labs CODE STATUS: Full code DVT prophylaxis: Heparin Discussed with: Patient and RN Anticipated discharge date: Clinical course to determine Anticipated discharge place: Home A total of 40 minutes was spent on the care of this complex patient more than 50% of the time was spent in counseling and care coordination. Objective - Vital Signs Vital signs: Vital Signs Temp 98.3 F 09/13/21 07:00 Pulse 87 09/13/21 07:00 Resp 20 09/13/21 07:00 BP 131/85 09/13/21 07:00 Pulse Ox 95 09/13/21 07:00 Intake & Output 09/12/21 09/13/21 09/13/21 18:59 06:59 18:59 Weight 63.503 kg 63.503 kg Other: # Voids 1 - Labs CBC & Chem 7: 09/13/21 08:06 09/13/21 08:06 Labs: Abnormal Lab Results - Last 24 Hours (Table) 09/12/21 09/12/21 Range/Units 14:28 15:18 Creatinine 0.46 L (0.52-1.04) mg/dL Albumin 5.2 H (3.5-5.0) g/dL Urine Protein Trace H (Negative) Urine Blood Small H (Negative) Ur Leukocyte Esterase Small H (Negative) Urine Mucus Rare H (None) /hpf
[2021-09-14] MEDS: HYDROmorphone 1 MG/ML 1 ML SYRINGE IVP PRN ×7 (00:18→22:59)
[2021-09-14] MEDS: SODIUM CHLORIDE 0.9% 1,000 ML IV SCH ×3 (04:59→20:03)
[2021-09-14] MEDS: HEPARIN SODIUM,PORCINE/PF 5,000 UNIT/0.5 ML SYRINGE SQ SCH ×2 (07:55→16:06)
[2021-09-14] MEDS: ONDANSETRON 4 MG/2 ML VIAL IVP PRN ×2 (07:55→18:14)
[2021-09-14 09:36] LABS: HGB 10.3 g/dL (12.0-15.0); MCH 31.8 pg (27.0-32.0); MCHC 33.2 g/dL (32.0-37.0); MCV 95.7 fL (80.0-97.0); Mean Platelet Volume 9.8 fL (9.5-12.2); Platelet Count 199 X 10*3/uL (140-440); RBC 3.24 X 10*6/uL (4.10-5.20); WBC 5.45 X 10*3/uL (4.50-10.00)
[2021-09-14 10:34] LABS: Magnesium 1.8 mg/dL (1.5-2.4)
--- NOTE | 2021-09-14 16:03 | P.CONS ---
History of Present Illness - Reason for Consult Consult date: 09/14/21 pancreatitis Requesting physician: Ty Duque - Chief Complaint Abdominal pain - History of Present Illness This is a 25-year-old female who presented to the emergency department with complaints of abdominal pain mostly in the right upper quadrant radiating into her back. Patient has a history of increased tiredness related to pancreatic divisum and has followed with [facility]. Patient was diagnosed at 10 years old. Her last attack was approximately one year ago. As stated that she started having abdominal pain 3-4 days ago and it began to worsen. She's been having some nausea no vomiting. Recently had a follow-up assessment with [facility] about 2 weeks ago. She's had EUS is done however unable to do a stent. On admission lipase was 2190 5 repeat is 242. WBC 5.4 hemoglobin 10.3 hematocrit 31 platelet count 199 LFTs unremarkable. The patient had a CT of the abdomen and pelvis that showed no acute abnormality. Hepatic steatosis. Review of Systems REVIEW OF SYSTEMS: CARDIOPULMONARY: No chest pain or shortness of breath. Gastrointestinal: Epigastric pain radiating to her back. Nausea, no vomiting. No hematemesis, coffee-ground emesis. No rectal bleeding, or melena. GENITOURINARY: No dysuria or hematuria. MUSCULOSKELETAL: Reports normal range of motion., Joint pain. SKIN: No rashes. No jaundice. ENDOCRINE: No chills, fevers. No excessive weight gain or loss. No polydipsia or polyuria. PSYCHIATRIC: Unremarkable. NEUROLOGY: No change in mental status. Denies dizziness, headache. ENT: Vision unremarkable. CONSTITUTIONAL: No recent weight loss. No fever, chills, night sweats. Past Medical History Past Medical History: No Reported History Additional Past Medical History / Comment(s): Recurrent chronic pancreatitis with extensive workups and was seen at [facility] with ?pancreatic divisum. History of Any Multi-Drug Resistant Organisms: MRSA Year Discovered:: 10/07/19 MDRO Source:: MRSA CHEST Past Surgical History: No Surgical Hx Reported Additional Past Surgical History / Comment(s): EGD's and EGD with biopsy. Past Anesthesia/Blood Transfusion Reactions: No Reported Reaction Past Psychological History: No Psychological Hx Reported Smoking Status: Never smoker Past Alcohol Use History: None Reported Past Drug Use History: None Reported - Past Family History Brother(s) Family Medical History: No Reported History Additional Family Medical History / Comment(s): She has 2 brothers and 1 sister with no major medical problems. Father Family Medical History: Diabetes Mellitus Additional Family Medical History / Comment(s): Father is alive at age 49 with history of diabetes requiring kidney and pancreas transplant. Mother Family Medical History: Deep Vein Thrombosis (DVT) Additional Family Medical History / Comment(s): Mother is alive at age 52 with history of DVT's, cardiomyopathy and pacemaker. Medications and Allergies Home Medications Medication Instructions Recorded Confirmed Type Nortriptyline HCl [Pamelor] 25 mg PO HS 09/12/21 09/12/21 History Allergies Allergy/AdvReac Type Severity Reaction Status Date / Time latex Allergy Rash/Hives Verified 09/12/21 17:46 peanut Allergy Rash/Swelli Verified 09/12/21 17:46 ng Physical Exam Vitals: Vital Signs Temp Pulse Resp BP BP Pulse Ox 09/14/21 07:05 98 F 85 16 128/74 95 09/14/21 02:00 98.1 F 84 16 130/79 95 09/13/21 20:00 98.2 F 82 16 114/70 97 09/13/21 15:00 97.4 F L 72 18 124/83 98 Intake and Output 09/13/21 09/14/21 09/14/21 22:59 06:59 14:59 Other: # Voids 1 2 General appearance: The patient is alert, oriented, appears in no acute distress. HET: Head is normocephalic and atraumatic. Conjunctiva pink. Sclera anicteric. Neck: Supple without lymphadenopathy. Trachea midline. Heart: S1 S2. Regular rate and rhythm. Lungs: Clear to auscultation. Abdomen: Soft, epigastric tenderness, nondistended with bowel sounds. No guarding or rigidity. Skin: No rashes. No jaundice. Extremities: Normal skin color and turgor. No pedal edema. Neurological: No focal deficits. Alert and oriented x3. Results CBC & Chem 7: 09/14/21 05:54 09/13/21 08:06 Labs: Abnormal Lab Results - Last 24 Hours (Table) 09/13/21 09/14/21 Range/Units 08:06 05:54 D-Dimer 0.72 H (<0.60) mg/L FEU Creatinine 0.51 L (0.52-1.04) mg/dL Lipase 2195 H (23-300) U/L CT scan - abdomen: report reviewed (No acute abnormalities. Hepatic steatosis.) Assessment and Plan (1) Pancreatitis Narrative/Plan: 5-year-old female with a history of recurrent pancreatitis related to pancreatic device him. She's been diagnosed since 10 years old and follows closely with the [facility] for which she just had a follow-up 2 weeks ago. Unfortunately the patient has not been able to have stent placement but does get frequent EUS. She came in with complaints of abdominal pain that started Sunday ago which has been worsening. Her last attack was approximately 1 year ago for which she generally comes to the emergency room for pain management and hydration and states 3-4 days. On admission she was noted to have a lipase of 2195 which is coming down to 292 today. Patient with recurrent pancreatitis related to pancreatic devisum. Continue with aggressive IV hydration, pain management, and anti-emetics. Current Visit: No Status: Acute Code(s): K85.90 - ACUTE PANCREATITIS WITHOUT NECROSIS OR INFECTION, UNSP SNOMED Code(s): 98055118 (2) Pancreatic divisum Current Visit: Yes Status: Acute Code(s): Q45.3 - OTH CONGENITAL MALFORMATIONS OF PANCREAS AND PANCREATIC DUCT SNOMED Code(s): 31579944 Plan: 1. Nothing by mouth except ice chips 2. Aggressive IV hydration 3. Antiemetics as needed 4. Pain management per primary team Thank you for this consultation, we will continue to follow. Dr. Yelena Riley I agree with the dictator's note, documented as a scribe by La Lemon.
--- NOTE | 2021-09-14 17:06 | P.PN ---
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 Patient presented to the emergency department with a chief complaint of abdominal pain and intractable nausea and vomiting. In the emergency department patient underwent full evaluation and was found to have a normal amylase of 61 and lipase of 165 and unremarkable CBC and CMP. Patient then underwent a CT abdomen and pelvis for intractable abdominal pain, nausea, and vomiting. Urine HCG negative. CT abdomen and pelvis negative for acute abnormality showing mild hepatic steatosis. Patient was initially admitted to observation for intractable nausea and vomiting. She continued to have persistent abdominal pain, nausea, and vomiting. Upon reevaluation patient's repeat lipase significantly elevating to 2195. Admission transferred to inpatient and consult placed to gastroenterology. Physical exam: Patient seen and fully evaluated at bedside this morning. She tearfully continues to report persistent left upper quadrant and left flank pain and nausea, but denies having any further episodes of vomiting. Patient states pain medication and not lasting the entire 4 hours. Dilaudid 1 mg increased to every 3 hours. We will continue with aggressive IV hydration, pain management, and Zofran as needed for nausea or vomiting. Patient continues to deny having any headache, lightheadedness, dizziness, chest pain, palpitations, shortness of breath, or experiencing any numbness/tingling/weakness in her extremities. Vital signs reviewed and stable. General: Nontoxic, appears stated age. Showing mild distress as patient was tearful reporting uncontrolled abdominal pain during examination. Derm: Skin warm and dry, normal coloration for ethnicity. Griggs's and: Cul driss's sign negative. Head: Atraumatic, normocephalic and symmetric. Eyes: EOMs intact, no lid lag, and anicteric sclera Mouth: no lip lesions, mucus membranes moist Cardiovascular: regular rate and rhythm with normal S1S2, no murmur, positive posterior tibial pulses bilaterally, and cap refill < 2 seconds. Lungs: Respirations even, regular, and unlabored on room air. Lungs CTA bilaterally, no rhonchi, no rales, no wheezing, and no accessory muscle usage. Abdominal: Soft, tenderness reported to left upper quadrant as well as left upper flank. Ext: ROM intact. No gross muscle atrophy, no edema, no contractures Neuro: Speech clear, face symmetrical and CN II-XII grossly intact with no noted focal neuro deficits Psych: Alert and oriented to person, place, time, and situation. Appropriate and pleasant affect. Assessment and Plan of Care: Acute on chronic pancreatitis in patient with history of pancreatic divisum Intractable abdominal pain with nausea and vomiting -NPO with the exception of ice chips -Symptomatic care and pain management, Zofran as needed for nausea and Dilaudid for pain. -Continuous hydration with IV fluids -Consult gastroenterology -We will continue to monitor with repeat a.m. labs CODE STATUS: Full code DVT prophylaxis: Heparin Discussed with: Patient and RN Anticipated discharge date: Clinical course to determine Anticipated discharge place: Home A total of 40 minutes was spent on the care of this complex patient more than 50% of the time was spent in counseling and care coordination. Objective - Vital Signs Vital signs: Vital Signs Temp 98 F 09/14/21 07:05 Pulse 85 09/14/21 07:05 Resp 16 09/14/21 07:05 BP 128/74 09/14/21 07:05 Pulse Ox 95 09/14/21 07:05 Intake & Output 09/13/21 09/14/21 09/14/21 18:59 06:59 18:59 Intake Total 454 Balance 454 Intake: Oral 454 Other: # Voids 1 2 - Labs CBC & Chem 7: 09/14/21 05:54 09/13/21 08:06 Labs: Abnormal Lab Results - Last 24 Hours (Table) 09/14/21 09/14/21 09/14/21 Range/Units 05:54 05:54 05:54 RBC 3.24 L (4.10-5.20) X 10*6/uL Hgb 10.3 L (12.0-15.0) g/dL Hct 31.0 L (37.2-46.3) % D-Dimer 0.72 H (<0.60) mg/L FEU Lipase 242 H (14-63) U/L
[2021-09-14 20:40] VITALS: RESP 16
[2021-09-15] MEDS: HEPARIN SODIUM,PORCINE/PF 5,000 UNIT/0.5 ML SYRINGE SQ SCH ×4 (00:29→23:34)
[2021-09-15] MEDS: ONDANSETRON 4 MG/2 ML VIAL IVP PRN (01:58)
[2021-09-15] MEDS: HYDROmorphone 1 MG/ML 1 ML SYRINGE IVP PRN ×4 (02:00→11:09)
[2021-09-15] MEDS: SODIUM CHLORIDE 0.9% 1,000 ML IV SCH ×4 (02:05→20:11)
[2021-09-15 07:51] VITALS: TEMP 98.2
[2021-09-15 11:26] LABS: HCT 31.8 % (37.2-46.3); HGB 10.4 g/dL (12.0-15.0); MCH 31.3 pg (27.0-32.0); MCHC 32.7 g/dL (32.0-37.0); MCV 95.8 fL (80.0-97.0); Mean Platelet Volume 9.6 fL (9.5-12.2); Platelet Count 217 X 10*3/uL (140-440); RBC 3.32 X 10*6/uL (4.10-5.20); RDW 12.7 % (11.5-14.5); WBC 5.65 X 10*3/uL (4.50-10.00)
[2021-09-15 11:58] LABS: Albumin/Globulin Ratio 2.22 (1.60-3.17); BUN/Creat Ratio 13.25 Ratio (12.00-20.00); Blood Urea Nitrogen 5.3 mg/dL (9.0-27.0); Calcium 8.6 mg/dL (8.7-10.3); Globulin 1.8 g/dL (1.6-3.3); Magnesium 1.6 mg/dL (1.5-2.4); Non-African American GFR(CKD) 145.8 (60.0-200.0); Total Bilirubin 0.3 mg/dL (0.30-1.20); Total Protein 5.8 g/dL (6.2-8.2)
--- NOTE | 2021-09-15 12:27 | P.PN ---
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. Patient presented to the emergency department with a chief complaint of abdominal pain and intractable nausea and vomiting. In the emergency department patient underwent full evaluation and was found to have a normal amylase of 61 and lipase of 165 and unremarkable CBC and CMP. Patient then underwent a CT abdomen and pelvis for intractable abdominal pain, nausea, and vomiting. Urine HCG negative. CT abdomen and pelvis negative for acute abnormality showing mild hepatic steatosis. Patient was initially admitted to observation for intractable nausea and vomiting. She continued to have persistent abdominal pain, nausea, and vomiting. Upon reevaluation patient's repeat lipase significantly elevating to 2195. Admission transferred to inpatient and consult placed to gastroenterology. Physical exam: Patient seen and fully evaluated at bedside this morning. She was sitting up in chair at bedside and reports continued nausea and vomiting yesterday afternoon and throughout the night resolving around 3 AM. Patient states since then she has felt much better and denies having any further episodes of nausea or vomiting. She states she is also having improvement of pain and continues to have pain and umbilical/left upper quadrant region but states for resolution of left flank pain. Diet increased to clear liquids. Morning glucose 53, patient drinking juice and eating popsicles at this time. Patient denies having any headache, lightheadedness, dizziness, chest pain, palpitations, shortness of breath, or experiencing any numbness/tingling/weakness in her extremities. Vital signs reviewed and stable. General: Nontoxic, appears stated age. Showing mild distress as patient was tearful reporting uncontrolled abdominal pain during examination. Derm: Skin warm and dry, normal coloration for ethnicity. Griggs's and: Cullin's sign negative. Head: Atraumatic, normocephalic and symmetric. Eyes: EOMs intact, no lid lag, and anicteric sclera Mouth: no lip lesions, mucus membranes moist Cardiovascular: regular rate and rhythm with normal S1S2, no murmur, positive posterior tibial pulses bilaterally, and cap refill < 2 seconds. Lungs: Respirations even, regular, and unlabored on room air. Lungs CTA bilaterally, no rhonchi, no rales, no wheezing, and no accessory muscle usage. Abdominal: Soft, mild tenderness reported to left upper quadrant Ext: ROM intact. No gross muscle atrophy, no edema, no contractures Neuro: Speech clear, face symmetrical and CN II-XII grossly intact with no noted focal neuro deficits Psych: Alert and oriented to person, place, time, and situation. Appropriate and pleasant affect. Assessment and Plan of Care: Acute on chronic pancreatitis in patient with history of pancreatic divisum Intractable abdominal pain with nausea and vomiting -Nausea and vomiting has resolved, patient placed on clear liquid diet and we will advance as patient tolerates -Symptomatic care and pain management, Zofran and/or Reglan as needed for nausea -Patient reports resolution of nausea and vomiting and improvement in pain, Dilaudid dose decreased and we will attempt to wean. -Continuous hydration with IV fluids -Gastroenterology following, appreciate further recommendations -We will continue to monitor with repeat a.m. labs CODE STATUS: Full code DVT prophylaxis: Heparin Discussed with: Patient and RN Anticipated discharge date: Likely tomorrow morning Anticipated discharge place: Home A total of 40 minutes was spent on the care of this complex patient more than 50% of the time was spent in counseling and care coordination. Objective - Vital Signs Vital signs: Vital Signs Temp 98.2 F 09/15/21 07:10 Pulse 96 09/15/21 08:00 Resp 16 09/15/21 08:00 BP 135/83 09/15/21 07:10 Pulse Ox 98 09/15/21 07:10 Intake & Output 09/14/21 09/15/21 09/15/21 18:59 06:59 18:59 Intake Total 0 Balance 0 Intake: Oral 0 Other: Voiding Method Toilet Toilet # Voids 2 - Labs CBC & Chem 7: 09/15/21 06:33 09/15/21 06:33 Labs: Abnormal Lab Results - Last 24 Hours (Table) 09/15/21 09/15/21 Range/Units 06:33 06:33 RBC 3.32 L (4.10-5.20) X 10*6/uL Hgb 10.4 L (12.0-15.0) g/dL Hct 31.8 L (37.2-46.3) % BUN 5.3 L (9.0-27.0) mg/dL Creatinine 0.4 L (0.6-1.5) mg/dL Glucose 53 L (70-110) mg/dL Calcium 8.6 L (8.7-10.3) mg/dL Alkaline Phosphatase 40 L (41-126) U/L Total Protein 5.8 L (6.2-8.2) g/dL
[2021-09-15 12:28] LABS: Glucose,Whole Blood 83 mg/dL (75-99)
[2021-09-15] MEDS: METOCLOPRAMIDE 5 MG/ML 2 ML VIAL IVP SCH ×2 (13:31→23:34)
[2021-09-15] MEDS: HYDROmorphone 0.5 MG/0.5 ML SYRINGE IVP PRN ×3 (13:58→21:34)
--- NOTE | 2021-09-15 15:38 | P.PN ---
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 She was admitted with acute pancreatitis. States pain began several days ago was not tolerable at home. Last exacerbation was approximately one year ago. She follows with the [facility]. Initial lipase was 2195 with dropped to 254 yesterday. Today's repeat lipase is 95, LFTs are unremarkable. Patient reports pain is about the same but nausea and vomiting has improved some. Objective - Vital Signs Vital signs: Vital Signs Temp 98.2 F 09/15/21 07:10 Pulse 96 09/15/21 08:00 Resp 16 09/15/21 08:00 BP 135/83 09/15/21 07:10 Pulse Ox 98 09/15/21 07:10 Intake & Output 09/14/21 09/15/21 09/15/21 18:59 06:59 18:59 Intake Total 0 Balance 0 Intake: Oral 0 Other: Voiding Method Toilet Toilet # Voids 2 - Exam General appearance: The patient is alert, oriented, appears in no acute distress. HET: Head is normocephalic and atraumatic. Conjunctiva pink. Sclera anicteric. Neck: Supple without lymphadenopathy. Abdomen: Soft, right upper quadrant and epigastric tenderness, nondistended with bowel sounds. No guarding or rigidity. Extremities: Normal skin color and turgor. No pedal edema Skin: No rashes, no jaundice Neurological: No focal deficits. Alert and oriented -3. - Labs CBC & Chem 7: 09/15/21 06:33 09/15/21 06:33 Assessment and Plan (1) Pancreatitis Narrative/Plan: 5-year-old female with a history of recurrent pancreatitis related to pancreatic device him. She's been diagnosed since 10 years old and follows closely with the [facility] for which she just had a follow-up 2 weeks ago. Unfortunately the patient has not been able to have stent placement but does get frequent EUS. She came in with complaints of abdominal pain that started Sunday ago which has been worsening. Her last attack was approximately 1 year ago for which she generally comes to the emergency room for pain management and hydration and states 3-4 days. On admission she was noted to have a lipase of 2195 which is coming down to 292 today. Patient with recurrent pancreatitis related to pancreatic devisum. Continue with aggressive IV hydration, pain management, and anti-emetics. Current Visit: No Status: Acute Code(s): K85.90 - ACUTE PANCREATITIS WITHOUT NECROSIS OR INFECTION, UNSP SNOMED Code(s): 89016038 (2) Pancreatic divisum Current Visit: Yes Status: Acute Code(s): Q45.3 - OTH CONGENITAL MALFORMATIONS OF PANCREAS AND PANCREATIC DUCT SNOMED Code(s): 47581702 Plan: 1. Advance to clear liquid diet 2. Aggressive IV hydration may decrease to 120 an hour patient tolerating clear liquids, 3. Antiemetics as needed. Reglan added. 4. Pain management per primary team 5. Continue symptomatic and supportive care Thank you for this consultation, we will continue to follow. Dr. Yelena Riley I agree with the dictator's note, documented as a scribe by La Lemon.
[2021-09-15] MEDS ORDERED: NORTRIPTYLINE 25 MG CAP PO SCH (21:00)
[2021-09-16] MEDS: HYDROmorphone 0.5 MG/0.5 ML SYRINGE IVP PRN ×4 (01:07→11:05)
[2021-09-16] MEDS: SODIUM CHLORIDE 0.9% 1,000 ML IV SCH ×2 (04:17→12:46)
[2021-09-16] MEDS: METOCLOPRAMIDE 5 MG/ML 2 ML VIAL IVP SCH ×2 (06:00→12:46)
[2021-09-16] MEDS: HEPARIN SODIUM,PORCINE/PF 5,000 UNIT/0.5 ML SYRINGE SQ SCH (07:44)
[2021-09-16 07:53] VITALS: BP 122/80; PULSE 76
[2021-09-16 09:30] LABS: HCT 30.4 % (37.2-46.3); HGB 10.1 g/dL (12.0-15.0); MCH 31.9 pg (27.0-32.0); MCHC 33.2 g/dL (32.0-37.0); MCV 95.9 fL (80.0-97.0); Mean Platelet Volume 9.6 fL (9.5-12.2); Platelet Count 215 X 10*3/uL (140-440); RBC 3.17 X 10*6/uL (4.10-5.20); RDW 13.1 % (11.5-14.5); WBC 4.21 X 10*3/uL (4.50-10.00)
[2021-09-16 10:18] LABS: ALT 8 U/L (8-44); AST 12 U/L (13-35); Albumin 3.9 g/dL (3.8-4.9); Albumin/Globulin Ratio 2.17 (1.60-3.17); Alkaline Phosphatase 40 U/L (41-126); Blood Urea Nitrogen 3.4 mg/dL (9.0-27.0); Calcium 8.5 mg/dL (8.7-10.3); Chloride 104 mmol/L (96-109); Globulin 1.8 g/dL (1.6-3.3); Glucose 78 mg/dL (70-110); Lipase 64 U/L (14-63); Magnesium 1.7 mg/dL (1.5-2.4); Non-African American GFR(CKD) 145.8 (60.0-200.0); Potassium 4.1 mmol/L (3.5-5.5); Sodium 137 mmol/L (135-145); Total Bilirubin <0.20 mg/dL (0.30-1.20); Total Protein 5.7 g/dL (6.2-8.2)
[2021-09-16] MEDS ORDERED: MAGNESIUM OXIDE 400 MG TAB PO STA (10:32)
--- NOTE | 2021-09-16 13:42 | P.DS ---
Providers Date of admission: 09/13/21 09:57 Expected date of discharge: 09/16/21 Attending physician: Anny Garcia MD Consults: 09/13/21 16:15 Consult Physician Routine Consulting Provider: Reanna Riley Consult Reason/Comments: Pancreatic divisum with chronic pancreatitis Do you want consulting provider notified?: Yes Primary care physician: [facility] Course: Discharge Diagnosis: Acute on chronic pancreatitis in patient with history of pancreatic divisum Intractable abdominal pain with nausea and vomiting Hypomagnesemia, replaced Hospital Course: Patient is a very pleasant 25-year-old female with a past medical history of pancreatic divisum with chronic pancreatitis home follows with heatset winder operator at [facility]. Patient presented to the emergency department with a chief complaint of abdominal pain and intractable nausea and vomiting. In the emergency department patient underwent full evaluation and was found to have a normal amylase of 61 and lipase of 165 and unremarkable CBC and CMP. Patient then underwent a CT abdomen and pelvis for intractable abdominal pain, nausea, and vomiting. Urine HCG negative. CT abdomen and pelvis negative for acute abnormality showing mild hepatic steatosis. Patient was initially admitted to observation for intractable nausea and vomiting. She continued to have persistent abdominal pain, nausea, and vomiting. Upon reevaluation patient's repeat lipase significantly elevating to 2195. Admission transferred to inpatient and consult placed to gastroenterology. Pt's condition improved. Abdominal pain, nausea, and vomiting have resolved. Lipase decreased back down to 64. Patient tolerating oral intake. Patient medically stable for discharge home at this time. No prescriptions being called in as patient had personal heatset winder operator send prescription for pain medication down to pharmacy. Patient instructed to follow-up with her heatset winder operator, Dr. Teixeira, in 1 week. Physical exam: Patient seen and fully evaluated at bedside this morning. She was again sitting up in chair at bedside. Patient smiling this morning and reports feeling great. She states that she spoke with her heatset winder operator (Dr. Teixeira) and that they have called her in a prescription for pain management. Patient states that currently her pain is controlled and she has had no further episodes of nausea or vomiting. Patient continues to deny experiencing any headache, lightheadedness, dizziness, chest pain, palpitations, shortness of breath, or experiencing any numbness/tingling/weakness in her extremities. Morning labs showing improvement of lipase down to 64 and a magnesium of 1.7, which was replaced. She is tolerating full liquid diet and advanced to regular diet with no episodes of nausea or vomiting reported. Patient is medically stable for discharge at this time. Vital signs reviewed and stable. General: Nontoxic, appears stated age. Showing mild distress as patient was tearful reporting uncontrolled abdominal pain during examination. Derm: Skin warm and dry, normal coloration for ethnicity. Griggs's and: Cullin's sign negative. Head: Atraumatic, normocephalic and symmetric. Eyes: EOMs intact, no lid lag, and anicteric sclera Mouth: no lip lesions, mucus membranes moist Cardiovascular: regular rate and rhythm with normal S1S2, no murmur, positive posterior tibial pulses bilaterally, and cap refill < 2 seconds. Lungs: Respirations even, regular, and unlabored on room air. Lungs CTA bilaterally, no rhonchi, no rales, no wheezing, and no accessory muscle usage. Abdominal: Soft, nontender to palpation, bowel sounds 4 Ext: ROM intact. No gross muscle atrophy, no edema, no contractures Neuro: Speech clear, face symmetrical and CN II-XII grossly intact with no noted focal neuro deficits Psych: Alert and oriented to person, place, time, and situation. Appropriate and pleasant affect. A total of 45 minutes of time were spent preparing this complex discharge summary. Patient Condition at Discharge: Stable Plan - Discharge Summary Discharge Rx Participant: No New Discharge Prescriptions: Continue Nortriptyline HCl [Pamelor] 25 mg PO HS Discharge Medication List Nortriptyline HCl [Pamelor] 25 mg PO HS 09/12/21 [History] Follow up Appointment(s)/Referral(s): Alice Lazaro MD [Primary Care Provider] - 1-2 days Activity/Diet/Wound Care/Special Instructions: Activity: As tolerated. Take breaks as needed. Diet: Regular diet, as you tolerate. Special Instructions: Take all of your medications as directed and remember to keep all of your doctor's appointments and follow-up as needed. Please schedule appointment for follow up with your heatset winder operator, Dr. Teixeira at [facility] in one week. Thank you for allowing us to participate in your care, it was truly a pleasure having you for our patient!!! Discharge Disposition: HOME SELF-CARE
--- NOTE | 2021-09-16 16:21 | P.PN ---
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 She was admitted with acute pancreatitis. States pain began several days ago was not tolerable at home. Last exacerbation was approximately one year ago. She follows with the [facility]. Initial lipase was 2195 with continual improvement and repeat was 95, LFTs are unremarkable. The patient states abdominal pain has improved significantly as well as nausea and vomiting. Patient was advanced to a full liquid diet and would like to be discharged home. Objective - Vital Signs Vital signs: Vital Signs Temp 98.2 F 09/16/21 07:52 Pulse 76 09/16/21 07:59 Resp 16 09/16/21 07:59 BP 122/80 09/16/21 07:52 Pulse Ox 98 09/16/21 07:52 Intake & Output 09/15/21 09/16/21 09/16/21 18:59 06:59 18:59 Intake Total 180 500 Balance 180 500 Intake: Oral 180 500 Other: Voiding Method Toilet Toilet Toilet # Voids 3 2 - Exam General appearance: The patient is alert, oriented, appears in no acute distress. HET: Head is normocephalic and atraumatic. Conjunctiva pink. Sclera anicteric. Neck: Supple without lymphadenopathy. Abdomen: Soft, mild right upper quadrant tenderness, nondistended with bowel sounds. No guarding or rigidity. Extremities: Normal skin color and turgor. No pedal edema Skin: No rashes, no jaundice Neurological: No focal deficits. Alert and oriented -3. - Labs CBC & Chem 7: 09/16/21 06:06 09/16/21 06:06 Labs: Abnormal Lab Results - Last 24 Hours (Table) 09/15/21 09/15/21 09/16/21 Range/Units 06:33 06:33 06:06 WBC 4.21 L (4.50-10.00) X 10*3/uL RBC 3.32 L 3.17 L (4.10-5.20) X 10*6/uL Hgb 10.4 L 10.1 L (12.0-15.0) g/dL Hct 31.8 L 30.4 L (37.2-46.3) % BUN 5.3 L (9.0-27.0) mg/dL Creatinine 0.4 L (0.6-1.5) mg/dL BUN/Creatinine Ratio (12.00-20.00) Ratio Glucose 53 L (70-110) mg/dL Calcium 8.6 L (8.7-10.3) mg/dL Total Bilirubin (0.30-1.20) mg/dL AST (13-35) U/L Alkaline Phosphatase 40 L (41-126) U/L Total Protein 5.8 L (6.2-8.2) g/dL Lipase 95 H (14-63) U/L 09/16/21 Range/Units 06:06 WBC (4.50-10.00) X 10*3/uL RBC (4.10-5.20) X 10*6/uL Hgb (12.0-15.0) g/dL Hct (37.2-46.3) % BUN 3.4 L (9.0-27.0) mg/dL Creatinine 0.4 L (0.6-1.5) mg/dL BUN/Creatinine Ratio 8.50 L (12.00-20.00) Ratio Glucose (70-110) mg/dL Calcium 8.5 L (8.7-10.3) mg/dL Total Bilirubin <0.20 L (0.30-1.20) mg/dL AST 12 L (13-35) U/L Alkaline Phosphatase 40 L (41-126) U/L Total Protein 5.7 L (6.2-8.2) g/dL Lipase 64 H (14-63) U/L Assessment and Plan (1) Pancreatitis Narrative/Plan: 5-year-old female with a history of recurrent pancreatitis related to pancreatic device him. She's been diagnosed since 10 years old and follows closely with the [facility] for which she just had a follow-up 2 weeks ago. Unfortunately the patient has not been able to have stent placement but does get frequent EUS. She came in with complaints of abdominal pain that started Renny ago which has been worsening. Her last attack was approximately 1 year ago for which she generally comes to the emergency room for pain management and hydration and states 3-4 days. On admission she was noted to have a lipase of 2195 which is coming down to 292 today. Patient with recurrent pancreatitis related to pancreatic devisum. Continue with aggressive IV hydration, pain ma nagement, and anti-emetics. Status: Acute Code(s): K85.90 - ACUTE PANCREATITIS WITHOUT NECROSIS OR INFECTION, UNSP SNOMED Code(s): 91306532 (2) Pancreatic divisum Status: Acute Code(s): Q45.3 - OTH CONGENITAL MALFORMATIONS OF PANCREAS AND PANCREATIC DUCT SNOMED Code(s): 55435955 Plan: 1. Advance to full liquid diet 2. Antiemetics as needed. Reglan added. 3 If patient is able to tolerate advancement in diet she may be discharged home 4. Continue outpatient follow-up as scheduled with [facility] Thank you for allowing us to participate in the care of the patient, the GI s ervice will sign off, gastroenterology will not be available at the hospital this weekend and through next week. If further evaluation by gastroenterology is required the patient will need transfer as per the primary team's discretion. Dr. Yelena Riley I agree with the dictator's note, documented as a scribe by La Lemon.
== END 2021-09-16 14:22 | disposition home or self-care (01) | DRG 439 ==
LOC: EC 13:27 → 6NMEDSUR 22:35 → OBSVTOIN 09-13 09:57
PROVIDERS: ADMIT Internal Medicine; ATTEND Internal Medicine
DX: K85.90 Acute pancreatitis without necrosis or infection, unspecified (principal); Q45.3 Other congenital malformations of pancreas and pancreatic duct; K76.0 Fatty (change of) liver, not elsewhere classified; K86.1 Other chronic pancreatitis; Z20.822 Contact with and (suspected) exposure to COVID-19; K86.81 Exocrine pancreatic insufficiency; E83.42 Hypomagnesemia; Z86.14 Personal history of Methicillin resistant Staphylococcus aureus infection; Z98.890 Other specified postprocedural states; Z91.040 Latex allergy status; Z91.010 Allergy to peanuts; Z83.3 Family history of diabetes mellitus; Z83.2 Family history of diseases of the blood and blood-forming organs and certain disorders involving the immune mechanism; Z82.49 Family history of ischemic heart disease and other diseases of the circulatory system
CPT/HCPCS: 36415; 74177; 80053; 81001; 81025; 82150; 83605; 83690; 83735; 85025; 85027; 85379; 87635; 96361; 96374; 96375; 96376; 99285

== ENCOUNTER 2021-10-01 06:56 | Emergency (ER) | payer MEDICAID ==
[2021-10-01 07:06] VITALS: RESP 18; TEMP 98.2
[2021-10-01] MEDS ORDERED: MORPHINE SULFATE 4 MG/ML SYRINGE IV STA (07:14)
[2021-10-01] MEDS ORDERED: ONDANSETRON 4 MG/2 ML VIAL IVP STA ×2 (07:14→09:45)
[2021-10-01] MEDS ORDERED: SODIUM CHLORIDE 0.9% 1,000 ML IV STA (07:14)
[2021-10-01 07:45] LABS: Basophils % (A) 0 %; Eosinophils # (A) 0.1 k/uL (0-0.7); Eosinophils % (A) 2 %; HCT 37.9 % (34.0-46.0); Lymphocytes # (A) 1.8 k/uL (1.0-4.8); Lymphocytes % (A) 32 %; MCH 31.8 pg (25.0-35.0); MCHC 34.2 g/dL (31.0-37.0); MCV 92.9 fL (80.0-100.0); Mean Platelet Volume 7.2; Monocytes # (A) 0.3 k/uL (0-1.0); Monocytes % (A) 5 %; Neutrophils # (A) 3.3 k/uL (1.3-7.7); Neutrophils % (A) 58 %; Platelet Count 295 k/uL (150-450); RBC 4.08 m/uL (3.80-5.40); RDW 13.4 % (11.5-15.5); WBC 5.7 k/uL (3.8-10.6)
[2021-10-01] MEDS ORDERED: HYDROmorphone 1 MG/ML 1 ML SYRINGE IVP STA ×2 (07:54→09:45)
[2021-10-01 08:00] LABS: ALT 10 U/L (4-34); AST 24 U/L (14-36); African American GFR (CKD) >90 (>60 ml/min/1.73 sqM); Albumin 4.6 g/dL (3.5-5.0); Alkaline Phosphatase 47 U/L (38-126); Amylase 49 U/L (30-110); Anion Gap 12 mmol/L; Blood Urea Nitrogen 6 mg/dL (7-17); Calcium 9.3 mg/dL (8.4-10.2); Carbon Dioxide 17 mmol/L (22-30); Chloride 108 mmol/L (98-107); Glucose 94 mg/dL (74-99); Lipase 80 U/L (23-300); Non-African American GFR(CKD) >90 (>60 ml/min/1.73 sqM); Potassium 4.1 mmol/L (3.5-5.1); Sodium 137 mmol/L (137-145); Total Bilirubin 0.7 mg/dL (0.2-1.3); Total Protein 7.6 g/dL (6.3-8.2)
[2021-10-01 08:40] VITALS: BP 117/69; PULSE 69
[2021-10-01] MEDS ORDERED: diphenhydrAMINE 50 MG/ML 1 ML VIAL IVP STA (10:11)
--- NOTE | 2021-10-01 10:40 | ED ---
Abdominal Pain HPI - General Chief Complaint: Abdominal Pain Stated Complaint: Pancreatitis attack Time Seen by Provider: 10/01/21 07:14 Source: patient, RN notes reviewed Mode of arrival: ambulatory Limitations: no limitations - History of Present Illness Initial Comments: Patient is a 25-year-old female that presents to the emergency department compla ining of upper abdominal pain. She notes she does have a history of chronic pancreatitis and follows up with a doctor at [facility]. She notes that she was seen at this hospital approximately 2 half weeks ago got a computed tomography scan which was unremarkable. She notes that her pain is approximately an 8-9 out of 10 with no relief from at home therapy. She notes that the lauded Zofran and fluids usually help. She notes that she will follow- up with her GI specialist as soon as possible. She denied any chest pain shortness of breath headache diarrhea constipation fever fatigue chills. - Related Data Home Medications Medication Instructions Recorded Confirmed Nortriptyline HCl [Pamelor] 25 mg PO HS 09/12/21 09/12/21 Allergies Allergy/AdvReac Type Severity Reaction Status Date / Time latex Allergy Rash/Hives Verified 10/01/21 07:04 peanut Allergy Rash/Swelli Verified 10/01/21 07:04 ng Review of Systems ROS Statement: Those systems with pertinent positive or pertinent negative responses have been documented in the HPI. ROS Other: All systems not noted in ROS Statement are negative. Past Medical History Past Medical History: No Reported History Additional Past Medical History / Comment(s): Recurrent chronic pancreatitis , [facility] ,pancreatic divisum. History of Any Multi-Drug Resistant Organisms: MRSA Date of last positivie culture/infection: 10/07/19 MDRO Source:: MRSA CHEST Past Surgical History: No Surgical Hx Reported Additional Past Surgical History / Comment(s): EGD's and EGD with biopsy. Past Anesthesia/Blood Transfusion Reactions: No Reported Reaction Past Psychological History: No Psychological Hx Reported Smoking Status: Never smoker Past Alcohol Use History: None Reported Past Drug Use History: None Reported - Past Family History Brother(s) Family Medical History: No Reported History Additional Family Medical History / Comment(s): She has 2 brothers and 1 sister with no major medical problems. Father Family Medical History: Diabetes Mellitus Additional Family Medical History / Comment(s): Father is alive at age 49 with history of diabetes requiring kidney and pancreas transplant. Mother Family Medical History: Deep Vein Thrombosis (DVT) Additional Family Medical History / Comment(s): Mother is alive at age 52 with history of DVT's, cardiomyopathy and pacemaker. General Exam Limitations: no limitations General appearance: alert, in no apparent distress Head exam: Present: atraumatic, normocephalic, normal inspection Eye exam: Present: normal appearance, PERRL, EOMI. Absent: scleral icterus, conjunctival injection, periorbital swelling ENT exam: Present: normal exam, mucous membranes moist Neck exam: Present: normal inspection Respiratory exam: Present: normal lung sounds bilaterally. Absent: respiratory distress, wheezes, rales, rhonchi, stridor Cardiovascular Exam: Present: regular rate, normal rhythm, normal heart sounds. Absent: systolic murmur, diastolic murmur, rubs, gallop, clicks GI/Abdominal exam: Present: soft, tenderness (Upper middle quadrant), normal bowel sounds. Absent: distended, guarding, rebound, rigid Extremities exam: Present: normal inspection, full ROM, normal capillary refill. Absent: tenderness, pedal edema, joint swelling, calf tenderness Neurological exam: Present: alert, oriented X3 Psychiatric exam: Present: normal affect, normal mood Skin exam: Present: warm, dry, intact, normal color. Absent: rash Course Vital Signs 10/01/21 10/01/21 07:04 08:40 Temperature 98.2 F Pulse Rate 74 69 Respiratory 18 18 Rate Blood Pressure 134/85 117/69 O2 Sat by Pulse 97 99 Oximetry Medical Decision Making - Medical Decision Making 25-year-old female with chronic pancreatitis complaining of a flareup. Labs, 1 L normal saline, 4 mg of morphine, 4 g of Zofran ordered. 1 mg of Dilaudid ordered after patient stated morphine barely touched or pain. Upon reevaluation patient was still uncomfortable and was requesting more pain medication along with Benadryl. Patient was informed that her labs were unremarkable and within normal limits. She was also informed that admitting provider would be contacted to see about possible observation. Dr. Trimble was consulted and noted the patient should follow-up with her GI specialist as we do not have GI coverage currently. Case discussed with Dr. Delgadillo. Patient notes that she gets pain medications through her primary care due to pain lety cannot receive anything to the ER. - Lab Data Result diagrams: 10/01/21 07:38 10/01/21 07:38 Lab Results 10/01/21 10/01/21 Range/Units 07:38 07:38 WBC 5.7 (3.8-10.6) k/uL RBC 4.08 (3.80-5.40) m/uL Hgb 13.0 (11.4-16.0) gm/dL Hct 37.9 (34.0-46.0) % MCV 92.9 (80.0-100.0) fL MCH 31.8 (25.0-35.0) pg MCHC 34.2 (31.0-37.0) g/dL RDW 13.4 (11.5-15.5) % Plt Count 295 (150-450) k/uL MPV 7.2 Neutrophils % 58 % Lymphocytes % 32 % Monocytes % 5 % Eosinophils % 2 % Basophils % 0 % Neutrophils # 3.3 (1.3-7.7) k/uL Lymphocytes # 1.8 (1.0-4.8) k/uL Monocytes # 0.3 (0-1.0) k/uL Eosinophils # 0.1 (0-0.7) k/uL Basophils # 0.0 (0-0.2) k/uL Sodium 137 (137-145) mmol/L Potassium 4.1 (3.5-5.1) mmol/L Chloride 108 H (98-107) mmol/L Carbon Dioxide 17 L (22-30) mmol/L Anion Gap 12 mmol/L BUN 6 L (7-17) mg/dL Creatinine 0.48 L (0.52-1.04) mg/dL Est GFR (CKD-EPI)AfAm >90 (>60 ml/min/1.73 sqM) Est GFR (CKD-EPI)NonAf >90 (>60 ml/min/1.73 sqM) Glucose 94 (74-99) mg/dL Calcium 9.3 (8.4-10.2) mg/dL Total Bilirubin 0.7 (0.2-1.3) mg/dL AST 24 (14-36) U/L ALT 10 (4-34) U/L Alkaline Phosphatase 47 (38-126) U/L Total Protein 7.6 (6.3-8.2) g/dL Albumin 4.6 (3.5-5.0) g/dL Amylase 49 (30-110) U/L Lipase 80 (23-300) U/L Disposition Clinical Impression: Acute on chronic pancreatitis Disposition: HOME SELF-CARE Condition: Stable Instructions (If sedation given, give patient instructions): Pancreatitis (ED) Additional Instructions: Please return to the Emergency Department if symptoms worsen or any other concerns. Follow-up with primary care in 1-2 days. Take at home pain medication as prescribed. No food by mouth clear liquids only. Follow-up with GI specialist as soon as possible. Is patient prescribed a controlled substance at d/c from ED?: No Referrals: Alice Lazaro MD [Primary Care Provider] - 1-2 days Time of Disposition: 10:40
== END 2021-10-01 10:54 | disposition home or self-care (01) ==
LOC: EC 06:56
DX: K85.90 Acute pancreatitis without necrosis or infection, unspecified (principal)
CPT/HCPCS: 36415; 80053; 82150; 83690; 85025; 96374; 96375 ×3; 96376 ×2; 99284; J2270; J1200; J2405; J1170

== ENCOUNTER 2022-01-10 01:58 | Emergency (ER) | payer MEDICAID ==
[2022-01-10 03:57] LABS: Appearance,Urine Clear (Clear); Bilirubin,Urine Negative (Negative); Blood,Urine Negative (Negative); Color,Urine Light Yellow; Glucose,Urine (UA) Negative (Negative); Ketones,Urine Negative (Negative); Leukocyte Esterase,Urine Negative (Negative); Nitrite,Urine Negative (Negative); PH, Urine 6.5 (5.0-8.0); Protein,Urine Negative (Negative); Specific Gravity,Urine 1.006 (1.001-1.035); Urobilinogen,Urine <2.0 mg/dL (<2.0)
[2022-01-10] MEDS ORDERED: MORPHINE SULFATE 4 MG/ML SYRINGE IV STA (04:18)
[2022-01-10] MEDS ORDERED: SODIUM CHLORIDE 0.9% 1,000 ML IV ONE (04:18)
[2022-01-10] MEDS ORDERED: METOCLOPRAMIDE 5 MG/ML 2 ML VIAL IVP STA (04:18)
--- NOTE | 2022-01-10 04:29 | ED ---
Abdominal Pain HPI - General Chief Complaint: Abdominal Pain Stated Complaint: Abdominal Pain Time Seen by Provider: 01/10/22 04:05 Source: patient Mode of arrival: ambulatory Limitations: no limitations - History of Present Illness Initial Comments: This patient is a 26-year-old woman with history of pancreas divisum and frequent pancreatitis. Patient states she started having symptoms consistent with previous episodes of pancreatitis this morning. She tried taking her home medications but has not had much relief and over the course the day she has been having worsening nausea and vomiting and pain. She states pain is mainly around the umbilical area radiating towards the back. It's an aching burning pain moderate to severe. She has not noted worsening or relieving symptoms. No change in urination or bowel movements. Last menstrual period was 2 weeks ago and was normal. MD Complaint: abdominal pain Onset/Timin -: days(s) Location: periumbilical Radiation: back Migration to: no migration Severity: severe Quality: aching, burning Consistency: constant Improves With: nothing Worsens With: eating Associated Symptoms: nausea, vomiting - Related Data LMP (females 10-50): last week Patient : No Home Medications Medication Instructions Recorded Confirmed Nortriptyline HCl [Pamelor] 25 mg PO HS 09/12/21 10/01/21 HYDROcodone/APAP 7.5-325MG [[place] 1 tab PO TID PRN 10/01/21 10/01/21 7.5-325] Allergies Allergy/AdvReac Type Severity Reaction Status Date / Time latex Allergy Rash/Hives Verified 01/10/22 02:05 peanut Allergy Rash/Swelli Verified 01/10/22 02:05 ng Review of Systems ROS Statement: Those systems with pertinent positive or pertinent negative responses have been documented in the HPI. ROS Other: All systems not noted in ROS Statement are negative. Constitutional: Denies: fever, chills, weakness Respiratory: Denies: cough, dyspnea Cardiovascular: Denies: chest pain, palpitations Gastrointestinal: Reports: abdominal pain, nausea, vomiting. Denies: diarrhea, constipation, melena, hematochezia Genitourinary: Denies: dysuria, hematuria Musculoskeletal: Denies: back pain Skin: Denies: rash Neurological: Denies: headache, weakness Past Medical History Past Medical History: No Reported History Additional Past Medical History / Comment(s): Recurrent chronic pancreatitis , [facility] ,pancreatic divisum. History of Any Multi-Drug Resistant Organisms: MRSA Date of last positivie culture/infection: 10/07/19 MDRO Source:: MRSA CHEST Past Surgical History: No Surgical Hx Reported Additional Past Surgical History / Comment(s): EGD's and EGD with biopsy. Past Anesthesia/Blood Transfusion Reactions: No Reported Reaction Past Psychological History: No Psychological Hx Reported Smoking Status: Never smoker Past Alcohol Use History: None Reported Past Drug Use History: None Reported - Past Family History Brother(s) Family Medical History: No Reported History Additional Family Medical History / Comment(s): She has 2 brothers and 1 sister with no major medical problems. Father Family Medical History: Diabetes Mellitus Additional Family Medical History / Comment(s): Father is alive at age 49 with history of diabetes requiring kidney and pancreas transplant. Mother Family Medical History: Deep Vein Thrombosis (DVT) Additional Family Medical History / Comment(s): Mother is alive at age 52 with history of DVT's, cardiomyopathy and pacemaker. General Exam Limitations: no limitations General appearance: alert, in no apparent distress Head exam: Present: atraumatic, normocephalic Eye exam: Present: normal appearance. Absent: scleral icterus, conjunctival injection Neck exam: Present: normal inspection Respiratory exam: Present: normal lung sounds bilaterally. Absent: respiratory distress, wheezes, rales, rhonchi, stridor Cardiovascular Exam: Present: regular rate, normal rhythm, normal heart sounds. Absent: systolic murmur, diastolic murmur, rubs, gallop GI/Abdominal exam: Present: soft, tenderness, normal bowel sounds. Absent: distended, guarding, rebound, rigid, mass, pulsatile mass, hernia Extremities exam: Present: normal inspection, normal capillary refill. Absent: pedal edema, calf tenderness Back exam: Present: normal inspection. Absent: CVA tenderness (R), CVA tenderness (L) Neurological exam: Present: alert Skin exam: Present: warm, dry, intact, normal color. Absent: rash Course Vital Signs 01/10/22 01/10/22 02:01 06:03 Temperature 97.2 F L 98.2 F Pulse Rate 73 66 Respiratory 16 18 Rate Blood Pressure 122/85 115/77 O2 Sat by Pulse 99 100 Oximetry Medical Decision Making - Lab Data Result diagrams: 01/10/22 04:14 01/10/22 04:14 Lab Results 01/10/22 01/10/22 01/10/22 Range/Units 03:03 03:03 04:14 WBC 7.7 (3.8-10.6) k/uL RBC 4.21 (3.80-5.40) m/uL Hgb 13.6 (11.4-16.0) gm/dL Hct 39.5 (34.0-46.0) % MCV 93.9 (80.0-100.0) fL MCH 32.4 (25.0-35.0) pg MCHC 34.5 (31.0-37.0) g/dL RDW 13.5 (11.5-15.5) % Plt Count 295 (150-450) k/uL MPV 7.3 Neutrophils % 59 % Lymphocytes % 31 % Monocytes % 6 % Eosinophils % 2 % Basophils % 1 % Neutrophils # 4.6 (1.3-7.7) k/uL Lymphocytes # 2.4 (1.0-4.8) k/uL Monocytes # 0.5 (0-1.0) k/uL Eosinophils # 0.1 (0-0.7) k/uL Basophils # 0.1 (0-0.2) k/uL Sodium (137-145) mmol/L Potassium (3.5-5.1) mmol/L Chloride (98-107) mmol/L Carbon Dioxide (22-30) mmol/L Anion Gap mmol/L BUN (7-17) mg/dL Creatinine (0.52-1.04) mg/dL Est GFR (CKD-EPI)AfAm (>60 ml/min/1.73 sqM) Est GFR (CKD-EPI)NonAf (>60 ml/min/1.73 sqM) Glucose (74-99) mg/dL Calcium (8.4-10.2) mg/dL Total Bilirubin (0.2-1.3) mg/dL AST (14-36) U/L ALT (4-34) U/L Alkaline Phosphatase (38-126) U/L Total Protein (6.3-8.2) g/dL Albumin (3.5-5.0) g/dL Amylase (30-110) U/L Lipase (23-300) U/L Urine Color Light Yellow Urine Appearance Clear (Clear) Urine pH 6.5 (5.0-8.0) Ur Specific [place] 1.006 (1.001-1.035) Urine Protein Negative (Negative) Urine Glucose (UA) Negative (Negative) Urine Ketones Negative (Negative) Urine Blood Negative (Negative) Urine Nitrite Negative (Negative) Urine Bilirubin Negative (Negative) Urine Urobilinogen <2.0 (<2.0) mg/dL Ur Leukocyte Esterase Negative (Negative) Urine HCG, Qual Not Detected (Not Detectd) 01/10/22 Range/Units 04:14 WBC (3.8-10.6) k/uL RBC (3.80-5.40) m/uL Hgb (11.4-16.0) gm/dL Hct (34.0-46.0) % MCV (80.0-100.0) fL MCH (25.0-35.0) pg MCHC (31.0-37.0) g/dL RDW (11.5-15.5) % Plt Count (150-450) k/uL MPV Neutrophils % % Lymphocytes % % Monocytes % % Eosinophils % % Basophils % % Neutrophils # (1.3-7.7) k/uL Lymphocytes # (1.0-4.8) k/uL Monocytes # (0-1.0) k/uL Eosinophils # (0-0.7) k/uL Basophils # (0-0.2) k/uL Sodium 139 (137-145) mmol/L Potassium 4.2 (3.5-5.1) mmol/L Chloride 104 (98-107) mmol/L Carbon Dioxide 22 (22-30) mmol/L Anion Gap 13 mmol/L BUN 12 (7-17) mg/dL Creatinine 0.56 (0.52-1.04) mg/dL Est GFR (CKD-EPI)AfAm >90 (>60 ml/min/1.73 sqM) Est GFR (CKD-EPI)NonAf >90 (>60 ml/min/1.73 sqM) Glucose 98 (74-99) mg/dL Calcium 9.6 (8.4-10.2) mg/dL Total Bilirubin 0.6 (0.2-1.3) mg/dL AST 23 (14-36) U/L ALT 11 (4-34) U/L Alkaline Phosphatase 50 (38-126) U/L Total Protein 8.0 (6.3-8.2) g/dL Albumin 4.9 (3.5-5.0) g/dL Amylase 114 H (30-110) U/L Lipase 521 H (23-300) U/L Urine Color Urine Appearance (Clear) Urine pH (5.0-8.0) Ur Specific [place] (1.001-1.035) Urine Protein (Negative) Urine Glucose (UA) (Negative) Urine Ketones (Negative) Urine Blood (Negative) Urine Nitrite (Negative) Urine Bilirubin (Negative) Urine Urobilinogen (<2.0) mg/dL Ur Leukocyte Esterase (Negative) Urine HCG, Qual (Not Detectd) Disposition Clinical Impression: Pancreatitis, acute, Pancreatic divisum Disposition: HOME SELF-CARE Condition: Good Is patient prescribed a controlled substance at d/c from ED?: No Referrals: Alice Lazaro MD [Primary Care Provider] - 1-2 days
[2022-01-10] MEDS ORDERED: HYDROmorphone 0.5 MG/0.5 ML SYRINGE IVP STA (04:33)
[2022-01-10 04:44] LABS: Basophils # (A) 0.1 k/uL (0-0.2); Basophils % (A) 1 %; Eosinophils # (A) 0.1 k/uL (0-0.7); Eosinophils % (A) 2 %; HCT 39.5 % (34.0-46.0); HGB 13.6 gm/dL (11.4-16.0); Lymphocytes # (A) 2.4 k/uL (1.0-4.8); Lymphocytes % (A) 31 %; MCH 32.4 pg (25.0-35.0); MCHC 34.5 g/dL (31.0-37.0); MCV 93.9 fL (80.0-100.0); Mean Platelet Volume 7.3; Monocytes # (A) 0.5 k/uL (0-1.0); Monocytes % (A) 6 %; Neutrophils # (A) 4.6 k/uL (1.3-7.7); Neutrophils % (A) 59 %; Platelet Count 295 k/uL (150-450); RBC 4.21 m/uL (3.80-5.40); RDW 13.5 % (11.5-15.5); WBC 7.7 k/uL (3.8-10.6)
[2022-01-10 04:53] LABS: ALT 11 U/L (4-34); AST 23 U/L (14-36); African American GFR (CKD) >90 (>60 ml/min/1.73 sqM); Albumin 4.9 g/dL (3.5-5.0); Alkaline Phosphatase 50 U/L (38-126); Amylase 114 U/L (30-110); Anion Gap 13 mmol/L; Blood Urea Nitrogen 12 mg/dL (7-17); Calcium 9.6 mg/dL (8.4-10.2); Carbon Dioxide 22 mmol/L (22-30); Chloride 104 mmol/L (98-107); Glucose 98 mg/dL (74-99); Lipase 521 U/L (23-300); Non-African American GFR(CKD) >90 (>60 ml/min/1.73 sqM); Potassium 4.2 mmol/L (3.5-5.1); Sodium 139 mmol/L (137-145); Total Bilirubin 0.6 mg/dL (0.2-1.3)
[2022-01-10] MEDS ORDERED: HYDROmorphone 1 MG/ML 1 ML SYRINGE IVP STA (05:24)
[2022-01-10 06:04] VITALS: BP 115/77; PULSE 66; RESP 18; TEMP 98.2
== END 2022-01-10 06:26 | disposition home or self-care (01) ==
LOC: EC 01:58
DX: K85.90 Acute pancreatitis without necrosis or infection, unspecified (principal); Q45.3 Other congenital malformations of pancreas and pancreatic duct; Z91.040 Latex allergy status
CPT/HCPCS: 99284; 96374; 96375; 96376; 96361; 36415; 80053; 82150; 83690; 85025; 81003; 81025; J2765; J1170 ×2

== ENCOUNTER 2022-01-10 17:12 | Inpatient (IN) | payer MEDICAID ==
[2022-01-10 18:18] LABS: ALT 11 U/L (4-34); AST 22 U/L (14-36); African American GFR (CKD) >90 (>60 ml/min/1.73 sqM); Albumin 4.6 g/dL (3.5-5.0); Alkaline Phosphatase 47 U/L (38-126); Anion Gap 7 mmol/L; Blood Urea Nitrogen 12 mg/dL (7-17); Calcium 8.8 mg/dL (8.4-10.2); Carbon Dioxide 26 mmol/L (22-30); Chloride 104 mmol/L (98-107); Glucose 96 mg/dL (74-99); Non-African American GFR(CKD) >90 (>60 ml/min/1.73 sqM); Potassium 4.8 mmol/L (3.5-5.1); Sodium 137 mmol/L (137-145); Total Bilirubin 0.4 mg/dL (0.2-1.3); Total Protein 7.4 g/dL (6.3-8.2)
[2022-01-10 18:20] LABS: Basophils % (A) 0 %; Eosinophils # (A) 0.1 k/uL (0-0.7); Eosinophils % (A) 1 %; HGB 13.7 gm/dL (11.4-16.0); Lymphocytes # (A) 1.3 k/uL (1.0-4.8); Lymphocytes % (A) 15 %; MCH 31.7 pg (25.0-35.0); MCHC 33.5 g/dL (31.0-37.0); MCV 94.8 fL (80.0-100.0); Mean Platelet Volume 6.9; Monocytes # (A) 0.4 k/uL (0-1.0); Monocytes % (A) 5 %; Neutrophils # (A) 6.8 k/uL (1.3-7.7); Neutrophils % (A) 78 %; Platelet Count 272 k/uL (150-450); RBC 4.33 m/uL (3.80-5.40); RDW 13.5 % (11.5-15.5); WBC 8.7 k/uL (3.8-10.6)
[2022-01-10 18:53] LABS: Amylase 1710 U/L (30-110)
[2022-01-10 18:54] LABS: Lipase 13113 U/L (23-300)
[2022-01-10] MEDS ORDERED: SODIUM CHLORIDE 0.9% 500 ML 500 ML IV STA (19:10)
[2022-01-10] MEDS ORDERED: HYDROmorphone 1 MG/ML 1 ML SYRINGE IVP STA (19:10)
[2022-01-10] MEDS ORDERED: ONDANSETRON 4 MG/2 ML VIAL IVP STA (19:10)
[2022-01-10] MEDS ORDERED: PANTOPRAZOLE 40 MG/10 ML VIAL IVP STA (19:10)
--- NOTE | 2022-01-10 19:14 | ED ---
General Adult HPI - General Chief complaint: Abdominal Pain Stated complaint: Abd pain Time Seen by Provider: 01/10/22 19:01 Source: patient, RN notes reviewed Mode of arrival: ambulatory Limitations: no limitations - History of Present Illness Initial comments: Patient is a pleasantly 26-year-old female presenting to the emergency Department with epigastric pain. Patient states this is similar to her diverticulitis. Patient states this started yesterday. Patient was here however symptoms or not that bad and she felt okay to go home. Symptoms have worsened since that couple times per year. Patient does go to [facility] for monitoring for this. - Related Data Home Medications Medication Instructions Recorded Confirmed Nortriptyline HCl [Pamelor] 25 mg PO HS 09/12/21 10/01/21 HYDROcodone/APAP 7.5-325MG [[place] 1 tab PO TID PRN 10/01/21 10/01/21 7.5-325] Allergies Allergy/AdvReac Type Severity Reaction Status Date / Time latex Allergy Rash/Hives Verified 01/10/22 17:45 peanut Allergy Rash/Swelli Verified 01/10/22 17:45 ng Review of Systems ROS Statement: Those systems with pertinent positive or pertinent negative responses have been documented in the HPI. ROS Other: All systems not noted in ROS Statement are negative. Constitutional: Denies: fever Eyes: Denies: eye pain ENT: Denies: ear pain Respiratory: Denies: cough Cardiovascular: Denies: chest pain Endocrine: Denies: fatigue Gastrointestinal: Reports: as per HPI, abdominal pain, nausea. Denies: vomiting Genitourinary: Denies: dysuria Musculoskeletal: Denies: back pain Skin: Denies: rash Neurological: Denies: weakness Past Medical History Past Medical History: No Reported History Additional Past Medical History / Comment(s): Recurrent chronic pancreatitis , [facility] ,pancreatic divisum. History of Any Multi-Drug Resistant Organisms: MRSA Date of last positivie culture/infection: 10/07/19 MDRO Source:: MRSA CHEST Past Surgical History: No Surgical Hx Reported Additional Past Surgical History / Comment(s): EGD's and EGD with biopsy. Past Anesthesia/Blood Transfusion Reactions: No Reported Reaction Past Psychological History: No Psychological Hx Reported Smoking Status: Never smoker Past Alcohol Use History: None Reported Past Drug Use History: None Reported - Past Family History Brother(s) Family Medical History: No Reported History Additional Family Medical History / Comment(s): She has 2 brothers and 1 sister with no major medical problems. Father Family Medical History: Diabetes Mellitus Additional Family Medical History / Comment(s): Father is alive at age 49 with history of diabetes requiring kidney and pancreas transplant. Mother Family Medical History: Deep Vein Thrombosis (DVT) Additional Family Medical History / Comment(s): Mother is alive at age 52 with history of DVT's, cardiomyopathy and pacemaker. General Exam Limitations: no limitations General appearance: alert Head exam: Present: normocephalic Eye exam: Present: normal appearance Neck exam: Present: normal inspection Respiratory exam: Present: normal lung sounds bilaterally Cardiovascular Exam: Present: regular rate, normal rhythm Expanded Peripheral pulses: 2+: Dorsalis Pedis (R), Dorsalis Pedis (L) GI/Abdominal exam: Present: soft, tenderness (Moderate epigastric tenderness), normal bowel sounds. Absent: distended, guarding, rebound, rigid, pulsatile mass Extremities exam: Present: normal inspection Neurological exam: Present: alert Psychiatric exam: Present: normal affect, normal mood Skin exam: Present: normal color Course Vital Signs 01/10/22 17:39 Temperature 99.1 F Pulse Rate 76 Respiratory 18 Rate Blood Pressure 149/88 O2 Sat by Pulse 96 Oximetry Procedures - [place] Protocol (Time Out) Nurse: Ary Fournier Medical Decision Making - Medical Decision Making Patient reevaluated and updated. Case discussed with Dr. delgado, who will admit covering Dr. Veronica. - Lab Data Result diagrams: 01/10/22 17:49 01/10/22 17:49 Lab Results 01/10/22 01/10/22 Range/Units 17:49 17:49 WBC 8.7 (3.8-10.6) k/uL RBC 4.33 (3.80-5.40) m/uL Hgb 13.7 (11.4-16.0) gm/dL Hct 41.0 (34.0-46.0) % MCV 94.8 (80.0-100.0) fL MCH 31.7 (25.0-35.0) pg MCHC 33.5 (31.0-37.0) g/dL RDW 13.5 (11.5-15.5) % Plt Count 272 (150-450) k/uL MPV 6.9 Neutrophils % 78 % Lymphocytes % 15 % Monocytes % 5 % Eosinophils % 1 % Basophils % 0 % Neutrophils # 6.8 (1.3-7.7) k/uL Lymphocytes # 1.3 (1.0-4.8) k/uL Monocytes # 0.4 (0-1.0) k/uL Eosinophils # 0.1 (0-0.7) k/uL Basophils # 0.0 (0-0.2) k/uL Sodium 137 (137-145) mmol/L Potassium 4.8 (3.5-5.1) mmol/L Chloride 104 (98-107) mmol/L Carbon Dioxide 26 (22-30) mmol/L Anion Gap 7 mmol/L BUN 12 (7-17) mg/dL Creatinine 0.65 (0.52-1.04) mg/dL Est GFR (CKD-EPI)AfAm >90 (>60 ml/min/1.73 sqM) Est GFR (CKD-EPI)NonAf >90 (>60 ml/min/1.73 sqM) Glucose 96 (74-99) mg/dL Calcium 8.8 (8.4-10.2) mg/dL Total Bilirubin 0.4 (0.2-1.3) mg/dL AST 22 (14-36) U/L ALT 11 (4-34) U/L Alkaline Phosphatase 47 (38-126) U/L Total Protein 7.4 (6.3-8.2) g/dL Albumin 4.6 (3.5-5.0) g/dL Amylase 1710 H* (30-110) U/L Lipase 57015 H (23-300) U/L Disposition Clinical Impression: Pancreatitis Disposition: ADMITTED IP TO THIS [facility] Condition: Serious Is patient prescribed a controlled substance at d/c from ED?: No Referrals: Alice Lazaro MD [Primary Care Provider] - 1-2 days Time of Disposition: 19:19
[2022-01-10] MEDS ORDERED: NALOXONE 0.4 MG/ML 1 ML VIAL IV PRN (19:24)
[2022-01-10] MEDS: SODIUM CHLORIDE 0.9% 1,000 ML IV STA ×2 (19:24→22:24)
[2022-01-10] MEDS: HYDROmorphone 1 MG/ML 1 ML SYRINGE IVP PRN (22:21)
[2022-01-10] MEDS: SODIUM CHLORIDE 0.9% 1,000 ML IV SCH (22:24)
--- NOTE | 2022-01-10 22:53 | P.HPIM ---
History of Present Illness H&P Date: 01/10/22 The patient is a 36-year-old female with a PMH of pancreatic divisum, chronic pancreatitis, and nonalcoholic fatty liver disease who presented to the emergency room with complaints of intractable nausea and vomiting with abdominal pain. The patient reports that her symptoms started roughly 4 days ago, with mild abdominal discomfort. The gradually progressed to a severe 10 out of 10 epigastric abdominal discomfort, radiating throughout the abdomen, with associated severe nausea with several episodes of vomiting. She also reports poor oral intake as a result of her pain and nausea during this time. The patient reports that she routinely follows with [facility] and had an appointment with them in 2 days. Her last admission for pancreatitis was on 08/2021. She denied experiencing chest discomfort, shortness of breath, fever, chills, cough, diarrhea. Laboratory evaluation revealed lipase of 13,113. Review of systems: Pertinent positives and negatives as discussed in HPI, a complete review of systems was performed and all other systems are negative. Physical examination: General: non toxic, no distress, appears at stated age, normal weight Derm: no unusual rashes/lesions no unusual ecchymoses, warm, dry Head: atraumatic, normocephalic, symmetric Eyes: EOMI, no lid lag, anicteric sclera, pupils equal round reactive to light ENT: Nose and ears atraumatic, no thrush, no pharyngeal erythema Neck: No thyromegaly, no cervical lymphadenopathy, trachea midline, supple Mouth: no lip lesion, mucus membranes moist Cardiovascular: S1S2 reg, no murmur, positive posterior tibial pulse bilateral, no edema, capillary refill less than 2 seconds Lungs: CTA bilateral, no rhonchi, no rales , no accessory muscle use Abdominal: soft, diffuse moderate tenderness, some guarding, no appreciable organomegaly, normal bowel sounds Ext: no gross muscle atrophy, muscle strength 5 out of 5 in all 4 extremities grossly, no contractures, Neuro: CN II-XI grossly intact, light touch intact all 4 extremities, finger to nose within normal limits, Psych: Alert, oriented, appropriate affect Assessment/plan Acute on chronic pancreatitis, history of pancreatic divisum -Nothing by mouth for now -IV fluids -Pain control -Antiemetics DVT prophylaxis -Heparin subq The patient is admitted with an anticipated greater than 2 midnight stay for evaluation of pancreatitis CODE STATUS: Full Code Discussed with: Patient Anticipated discharge date: 01/[address]: Home Past Medical History Past Medical History: No Reported History Additional Past Medical History / Comment(s): Recurrent chronic pancreatitis , [facility] ,pancreatic divisum. History of Any Multi-Drug Resistant Organisms: MRSA Date of last positivie culture/infection: 10/07/19 MDRO Source:: MRSA CHEST Past Surgical History: No Surgical Hx Reported Additional Past Surgical History / Comment(s): EGD's and EGD with biopsy. Past Anesthesia/Blood Transfusion Reactions: No Reported Reaction Past Psychological History: No Psychological Hx Reported Smoking Status: Never smoker Past Alcohol Use History: None Reported Past Drug Use History: None Reported - Past Family History Brother(s) Family Medical History: No Reported History Additional Family Medical History / Comment(s): She has 2 brothers and 1 sister with no major medical problems. Father Family Medical History: Diabetes Mellitus Additional Family Medical History / Comment(s): Father is alive at age 49 with history of diabetes requiring kidney and pancreas transplant. Mother Family Medical History: Deep Vein Thrombosis (DVT) Additional Family Medical History / Comment(s): Mother is alive at age 52 with history of DVT's, cardiomyopathy and pacemaker. Medications and Allergies Home Medications Medication Instructions Recorded Confirmed Type Nortriptyline HCl [Pamelor] 25 mg PO HS 09/12/21 01/10/22 History HYDROcodone/APAP 7.5-325MG [[place] 1 tab PO BID PRN 10/01/21 01/10/22 History 7.5-325] ondansetron HCL [Zofran] 8 mg PO BID PRN 01/10/22 01/10/22 History Allergies Allergy/AdvReac Type Severity Reaction Status Date / Time latex Allergy Rash/Hives Verified 01/10/22 17:45 peanut Allergy Rash/Swelli Verified 01/10/22 17:45 ng Physical Exam Vitals: Vital Signs Temp Pulse Resp BP Pulse Ox 01/10/22 20:26 83 16 140/92 97 01/10/22 17:39 99.1 F 76 18 149/88 96 Intake and Output 01/10/22 01/10/22 01/10/22 06:59 14:59 22:59 Other: Weight 63.503 kg Results CBC & Chem 7: 01/10/22 17:49 01/10/22 17:49 Labs: Abnormal Lab Results - Last 24 Hours (Table) 01/10/22 Range/Units 17:49 Amylase 1710 H* (30-110) U/L Lipase 33465 H (23-300) U/L
[2022-01-11] MEDS: HYDROmorphone 1 MG/ML 1 ML SYRINGE IVP PRN ×7 (01:21→22:03)
[2022-01-11] MEDS: ONDANSETRON 4 MG/2 ML VIAL IVP PRN ×3 (02:47→22:02)
[2022-01-11] MEDS: HYDROmorphone 0.5 MG/0.5 ML SYRINGE IVP PRN ×3 (02:49→10:31)
[2022-01-11] MEDS: HEPARIN SODIUM,PORCINE/PF 5,000 UNIT/0.5 ML SYRINGE SQ SCH ×3 (02:51→18:32)
[2022-01-11] MEDS: diphenhydrAMINE 25 MG CAP PO PRN ×2 (03:13→23:23)
[2022-01-11] MEDS: SODIUM CHLORIDE 0.9% 1,000 ML IV SCH ×3 (06:50→22:05)
[2022-01-11 09:16] LABS: Basophils # (A) 0.04 X 10*3/uL (0.00-0.10); Basophils % (A) 0.3 %; Eosinophils # (A) 0.03 X 10*3/uL (0.04-0.35); Eosinophils % (A) 0.2 %; HCT 40.6 % (37.2-46.3); HGB 13.5 g/dL (12.0-15.0); Immature Grans, Automated 0.4 %; Lymphocytes # (A) 1.55 X 10*3/uL (0.90-5.00); Lymphocytes % (A) 10.9 %; MCH 31.3 pg (27.0-32.0); MCHC 33.3 g/dL (32.0-37.0); MCV 94.2 fL (80.0-97.0); Mean Platelet Volume 9.7 fL (9.5-12.2); Monocytes # (A) 1.25 X 10*3/uL (0.20-1.00); Monocytes % (A) 8.8 %; NRBC Per 100 WBC 0 /100 WBCS (0.0-0.0); Neutrophils % (A) 79.4 %; Platelet Count 226 X 10*3/uL (140-440); RBC 4.31 X 10*6/uL (4.10-5.20); RDW 12.7 % (11.5-14.5); WBC 14.22 X 10*3/uL (4.50-10.00)
[2022-01-11 09:37] LABS: African American GFR (CKD) 146.8 (60.0-200.0); Albumin 4.4 g/dL (3.8-4.9); Albumin/Globulin Ratio 2.2 (1.60-3.17); Anion Gap 11.4 mmol/L (10.00-18.00); BUN/Creat Ratio 18.67 Ratio (12.00-20.00); Blood Urea Nitrogen 11.2 mg/dL (9.0-27.0); Calcium 8.7 mg/dL (8.7-10.3); Carbon Dioxide 20.6 mmol/L (20.0-27.5); Non-African American GFR(CKD) 126.7 (60.0-200.0); Potassium 4.4 mmol/L (3.5-5.5); Total Bilirubin 0.5 mg/dL (0.30-1.20); Total Protein 6.4 g/dL (6.2-8.2)
[2022-01-11 10:24] LABS: INR 0.99 (0.90-1.11); Prothrombin Time 10.9 sec (9.9-11.9)
--- NOTE | 2022-01-11 11:15 | P.PN ---
Subjective Progress Note Date: 01/11/22 Principal diagnosis: Acute on Chronic pancreatitis 36-year-old female with history of congenital pancreatic anomaly (pancreatic divisum), chronic pancreatitis and nonalcoholic fatty liver disease was admitted for management of acute on chronic pancreatitis with complains of nausea and vomiting with generalized abdominal pain. She usually follows up at [facility] gastroenterology. Unfortunately, there is no GI coverage at this time in this hospital. I'm being told that GI department at [facility] was contacted at the time of admission and they have recommended supportive care and pain management and have recommended that no transfer to their facility or any GI/surgical intervention is needed at this time. Patient was seen and examined in the ED overflow room 32. She is sitting up in chair, she reports 7 out of 10 abdominal pain. She reports that she was just given Dilaudid. She reports nausea but no vomiting. Denies fever and chills. Labs reviewed, amylase and lipase elevated. Medication list was reviewed. Objective - Vital Signs Vital signs: Vital Signs Temp 98 F 01/11/22 06:53 Pulse 88 01/11/22 06:53 Resp 19 01/11/22 06:53 BP 123/85 01/11/22 06:53 Pulse Ox 100 01/11/22 06:53 Intake & Output 01/10/22 01/11/22 01/11/22 18:59 06:59 18:59 Weight 63.503 kg 63.503 kg - Exam Constitutional: No acute distress, on room air HEENT: Pupils equally reactive to light, atraumatic, normocephalic. Lungs: Clear to auscultation bilaterally, no wheezing, no crackles Cardiovascular: RRR, S1-S2 normal, no murmur, no peripheral edema Abdominal: Soft, tenderness to palpation on all quadrants. Extremities: No cyanosis or clubbing Neuro: No focal neurological signs alert - Labs CBC & Chem 7: 01/11/22 06:00 01/11/22 06:00 Labs: Abnormal Lab Results - Last 24 Hours (Table) 01/10/22 01/11/22 01/11/22 Range/Units 17:49 06:00 06:00 WBC 14.22 H (4.50-10.00) X 10*3/uL Immature Gran # 0.05 H (0.00-0.04) X 10*3/uL Neutrophils # 11.30 H (1.80-7.70) X 10*3/uL Monocytes # 1.25 H (0.20-1.00) X 10*3/uL Eosinophils # 0.03 L (0.04-0.35) X 10*3/uL Amylase 1710 H* 1729 H* (30-110) U/L Lipase 27723 H 2628 H (23-300) U/L Assessment and Plan Assessment: 1. Acute on chronic pancreatitis - Continue nothing by mouth status - Continue IV fluids - Pain control as prescribed - Zofran when necessary for nausea/vomiting - Check labs in the a.m. 2. Chronic pancreatitis due to history of pancreatic divisum - Patient follows at [facility] gastroenterology services - Check vitamin D, vitamin B12 and folate levels. 3. DVT prophylaxis with subcutaneous heparin 4. GI prophylaxis with Protonix CODE STATUS: Full code Plan of care discussed with patient and RN.
[2022-01-11] MEDS: PANTOPRAZOLE 40 MG/10 ML VIAL IV SCH (12:09)
[2022-01-11] MEDS: HYDROcodone/APAP 5-325MG 1 EACH TAB PO PRN ×2 (12:10→23:22)
[2022-01-12] MEDS: HEPARIN SODIUM,PORCINE/PF 5,000 UNIT/0.5 ML SYRINGE SQ SCH ×4 (00:51→22:46)
[2022-01-12] MEDS: HYDROmorphone 1 MG/ML 1 ML SYRINGE IVP PRN ×7 (00:51→21:06)
[2022-01-12] MEDS: SODIUM CHLORIDE 0.9% 1,000 ML IV SCH ×3 (04:04→16:22)
[2022-01-12] MEDS: PANTOPRAZOLE 40 MG/10 ML VIAL IV SCH (07:12)
[2022-01-12] MEDS: HYDROcodone/APAP 5-325MG 1 EACH TAB PO PRN ×3 (09:20→22:45)
[2022-01-12 09:52] LABS: African American GFR (CKD) 155.9 (60.0-200.0); Anion Gap 9.5 mmol/L (10.00-18.00); BUN/Creat Ratio 8.6 Ratio (12.00-20.00); Blood Urea Nitrogen 4.3 mg/dL (9.0-27.0); Calcium 8.1 mg/dL (8.7-10.3); Carbon Dioxide 23.5 mmol/L (20.0-27.5); Non-African American GFR(CKD) 134.5 (60.0-200.0); Potassium 3.6 mmol/L (3.5-5.5)
[2022-01-12] MEDS: ONDANSETRON 4 MG/2 ML VIAL IVP PRN ×2 (10:18→21:06)
[2022-01-12 10:24] LABS: Basophils # (A) 0.01 X 10*3/uL (0.00-0.10); Basophils % (A) 0.1 %; Eosinophils # (A) 0.13 X 10*3/uL (0.04-0.35); Eosinophils % (A) 1.8 %; HCT 31.4 % (37.2-46.3); HGB 10.5 g/dL (12.0-15.0); Immature Grans, Automated 0.3 %; Lymphocytes # (A) 1.65 X 10*3/uL (0.90-5.00); Lymphocytes % (A) 22.2 %; MCH 31.5 pg (27.0-32.0); MCHC 33.4 g/dL (32.0-37.0); MCV 94.3 fL (80.0-97.0); Mean Platelet Volume 9.7 fL (9.5-12.2); Monocytes # (A) 0.96 X 10*3/uL (0.20-1.00); Monocytes % (A) 12.9 %; NRBC Per 100 WBC 0 /100 WBCS (0.0-0.0); Neutrophils # (A) 4.65 X 10*3/uL (1.80-7.70); Neutrophils % (A) 62.7 %; Platelet Count 193 X 10*3/uL (140-440); RBC 3.33 X 10*6/uL (4.10-5.20); RDW 12.9 % (11.5-14.5); WBC 7.42 X 10*3/uL (4.50-10.00)
--- NOTE | 2022-01-12 14:32 | P.PN ---
Subjective Progress Note Date: 01/12/22 Principal diagnosis: Acute on Chronic pancreatitis, patient has congenital pancreatic malformation and has had recurrent pancreatitis in the past 01/11/22: 36-year-old female with history of congenital pancreatic anomaly (pancreatic divisum), chronic pancreatitis and nonalcoholic fatty liver disease was admitted for management of acute on chronic pancreatitis with complains of nausea and vomiting with generalized abdominal pain. She usually follows up at [facility] gastroenterology. Unfortunately, there is no GI coverage at this time in this hospital. I'm being told that GI department at [facility] was contacted at the time of admission and they have recommended supportive care and pain management and have recommended that no transfer to their facility or any GI/surgical intervention is needed at this time. Patient was seen and examined in the ED overflow room 32. She is sitting up in chair, she reports 7 out of 10 abdominal pain. She reports that she was just given Dilaudid. She reports nausea but no vomiting. Denies fever and chills. Labs reviewed, amylase and lipase elevated. Medication list was reviewed. 01/12/22: Patient still reports 8 out of 10 pain associated with nausea. She is afebrile. Leukocytosis has resolved. Vitamin B12, vitamin D and folate levels are acceptable. She denies any chest pain or palpitations. Denies shortness of breath. Objective - Vital Signs Vital signs: Vital Signs Temp 98.0 F 01/12/22 11:17 Pulse 100 01/12/22 11:17 Resp 16 01/12/22 11:17 BP 126/70 01/12/22 11:17 Pulse Ox 99 01/12/22 11:17 Intake & Output 01/11/22 01/12/22 01/12/22 18:59 06:59 18:59 Intake Total 590 Balance 590 Weight 63.503 kg Intake: Oral 590 Other: # Voids 2 - Exam Constitutional: No acute distress, on room air HEENT: Pupils equally reactive to light, atraumatic, normocephalic. Lungs: Clear to auscultation bilaterally, no wheezing, no crackles Cardiovascular: RRR, S1-S2 normal, no murmur, no peripheral edema Abdominal: Soft, tenderness to palpation on all quadrants. Extremities: No cyanosis or clubbing Neuro: No focal neurological signs alert - Labs CBC & Chem 7: 01/12/22 06:07 01/12/22 06:07 Labs: Abnormal Lab Results - Last 24 Hours (Table) 01/12/22 01/12/22 Range/Units 06:07 06:07 RBC 3.33 L (4.10-5.20) X 10*6/uL Hgb 10.5 L (12.0-15.0) g/dL Hct 31.4 L (37.2-46.3) % Anion Gap 9.50 L (10.00-18.00) mmol/L BUN 4.3 L (9.0-27.0) mg/dL Creatinine 0.5 L (0.6-1.5) mg/dL BUN/Creatinine Ratio 8.60 L (12.00-20.00) Ratio Calcium 8.1 L (8.7-10.3) mg/dL Assessment and Plan Assessment: 1. Acute on chronic pancreatitis - Continue nothing by mouth status - Continue IV fluids - Pain control as prescribed, I have adjusted her pain medications - Zofran when necessary for nausea/vomiting - Check labs in the a.m. check amylase and lipase. 2. Chronic pancreatitis due to history of pancreatic divisum - Patient follows at [facility] gastroenterology services - Vitamin D, vitamin B12 and folate levels checked, unremarkable 3. DVT prophylaxis with subcutaneous heparin 4. GI prophylaxis with Protonix CODE STATUS: Full code Plan of care discussed with patient and RN.
[2022-01-12 16:12] LABS: Amylase 881 U/L (23-121); Lipase 643 U/L (14-63)
[2022-01-12] MEDS: diphenhydrAMINE 25 MG CAP PO PRN (21:07)
[2022-01-13] MEDS: HYDROmorphone 1 MG/ML 1 ML SYRINGE IVP PRN ×8 (00:13→23:45)
[2022-01-13] MEDS: SODIUM CHLORIDE 0.9% 1,000 ML IV SCH ×3 (02:14→17:36)
[2022-01-13] MEDS: HYDROcodone/APAP 5-325MG 1 EACH TAB PO PRN ×3 (04:29→21:48)
[2022-01-13] MEDS: HEPARIN SODIUM,PORCINE/PF 5,000 UNIT/0.5 ML SYRINGE SQ SCH ×3 (07:54→23:48)
[2022-01-13] MEDS: PANTOPRAZOLE 40 MG/10 ML VIAL IV SCH (07:54)
[2022-01-13] MEDS: ONDANSETRON 4 MG/2 ML VIAL IVP PRN (08:07)
[2022-01-13 09:14] LABS: Basophils # (A) 0.01 X 10*3/uL (0.00-0.10); Basophils % (A) 0.2 %; Eosinophils # (A) 0.15 X 10*3/uL (0.04-0.35); Eosinophils % (A) 3.2 %; HCT 30.2 % (37.2-46.3); Immature Grans, Automated 0.2 %; Lymphocytes # (A) 1.83 X 10*3/uL (0.90-5.00); Lymphocytes % (A) 39.6 %; MCH 31.6 pg (27.0-32.0); MCHC 33.1 g/dL (32.0-37.0); MCV 95.6 fL (80.0-97.0); Monocytes # (A) 0.54 X 10*3/uL (0.20-1.00); Monocytes % (A) 11.7 %; NRBC Per 100 WBC 0 /100 WBCS (0.0-0.0); Neutrophils # (A) 2.08 X 10*3/uL (1.80-7.70); Neutrophils % (A) 45.1 %; Platelet Count 188 X 10*3/uL (140-440); RBC 3.16 X 10*6/uL (4.10-5.20); RDW 12.8 % (11.5-14.5); WBC 4.62 X 10*3/uL (4.50-10.00)
[2022-01-13 09:27] LABS: African American GFR (CKD) 167.8 (60.0-200.0); Anion Gap 11.6 mmol/L (10.00-18.00); BUN/Creat Ratio 7.75 Ratio (12.00-20.00); Blood Urea Nitrogen 3.1 mg/dL (9.0-27.0); Calcium 8.6 mg/dL (8.7-10.3); Carbon Dioxide 23.4 mmol/L (20.0-27.5); Non-African American GFR(CKD) 144.8 (60.0-200.0); Potassium 3.6 mmol/L (3.5-5.5)
[2022-01-13] MEDS ORDERED: KETOROLAC 15 MG/ML 1 ML VIAL IVP STA (11:25)
[2022-01-13 11:30] VITALS: BMI 22.6
[2022-01-13] MEDS: diphenhydrAMINE 25 MG CAP PO PRN (15:05)
--- NOTE | 2022-01-13 15:13 | P.PN ---
Subjective Progress Note Date: 01/13/22 26-year-old female admitted 2 days ago with acute pancreatitis. Pain slightly improved today, she is slightly nauseated but no vomiting, last bowel movement was more than 2 days ago. She has been nothing by mouth for the last 2 days was requesting to start a clear liquid diet. Overall she is improving Objective - Vital Signs Vital signs: Vital Signs Temp 98.5 F 01/13/22 12:36 Pulse 98 01/13/22 12:36 Resp 16 01/13/22 12:36 BP 117/78 01/13/22 12:36 Pulse Ox 96 01/13/22 12:36 Intake & Output 01/12/22 01/13/22 01/13/22 18:59 06:59 18:59 Intake Total 1690 0 Balance 1690 0 Weight 63.503 kg Intake: IV 130 Invasive Line 1 130 Intake, IV Titration 1560 Amount Sodium Chloride 0.9% 1, 1560 000 ml @ 130 mls/hr IV . Q7H42M [facility] Rx#:[id number] Oral 0 0 Other: Voiding Method Toilet Toilet Toilet # Voids 4 2 - Exam Constitutional: No acute distress, on room air HEENT: Pupils equally reactive to light, atraumatic, normocephalic. Lungs: Clear to auscultation bilaterally, no wheezing, no crackles Cardiovascular: RRR, S1-S2 normal, no murmur, no peripheral edema Abdominal: Soft, tenderness the epigastric region, significant guarding, hypoactive bowel sounds Extremities: No cyanosis or clubbing Neuro: No focal neurological signs alert - Labs CBC & Chem 7: 01/13/22 06:55 01/13/22 06:55 Labs: Abnormal Lab Results - Last 24 Hours (Table) 01/12/22 01/13/22 01/13/22 Range/Units 06:40 06:55 06:55 RBC 3.16 L (4.10-5.20) X 10*6/uL Hgb 10.0 L (12.0-15.0) g/dL Hct 30.2 L (37.2-46.3) % BUN 3.1 L (9.0-27.0) mg/dL Creatinine 0.4 L (0.6-1.5) mg/dL BUN/Creatinine Ratio 7.75 L (12.00-20.00) Ratio Calcium 8.6 L (8.7-10.3) mg/dL Amylase 881 H* (23-121) U/L Lipase 643 H (14-63) U/L Assessment and Plan Plan: Acute on chronic pancreatitis - Lipase and amylase are trending down -Pain is slightly improved -Patient received 1 dose of Toradol today which seemed to be very effective in controlling her pain -Advancing to clear liquid diet - Continue IV fluids for now - Pain control as prescribed, I have adjusted her pain medications Chronic pancreatitis due to history of pancreatic divisum - Patient follows at [facility] gastroenterology services - Vitamin D, vitamin B12 and folate levels checked, unremarkable DVT prophylaxis with subcutaneous heparin GI prophylaxis with Protonix Anticipated discharge home in 24-48 hours Time with Patient: Less than 30
[2022-01-14] MEDS: KETOROLAC 15 MG/ML 1 ML VIAL IVP PRN ×2 (02:03→11:17)
[2022-01-14] MEDS: ONDANSETRON 4 MG/2 ML VIAL IVP PRN (02:03)
[2022-01-14] MEDS: HYDROmorphone 1 MG/ML 1 ML SYRINGE IVP PRN ×3 (03:31→10:26)
[2022-01-14] MEDS: diphenhydrAMINE 25 MG CAP PO PRN (03:31)
[2022-01-14] MEDS: SODIUM CHLORIDE 0.9% 1,000 ML IV SCH (06:15)
[2022-01-14 07:40] VITALS: RESP 14
[2022-01-14] MEDS: HYDROcodone/APAP 5-325MG 1 EACH TAB PO PRN ×2 (07:45→14:37)
[2022-01-14] MEDS: PANTOPRAZOLE 40 MG/10 ML VIAL IV SCH (07:46)
[2022-01-14] MEDS: HEPARIN SODIUM,PORCINE/PF 5,000 UNIT/0.5 ML SYRINGE SQ SCH (08:00)
[2022-01-14 11:45] VITALS: BP 118/80; PULSE 80; TEMP 98.4
--- NOTE | 2022-01-14 18:17 | P.DS ---
Providers Date of admission: 01/10/22 19:24 Expected date of discharge: 01/14/22 Attending physician: Anny Garcia MD Primary care physician: Alice Lazaro - Discharge Diagnosis(es) (1) Pancreatitis Status: Acute Hospital Course: HPI from admission 01/10/2022: The patient is a 26-year-old female with a PMH of pancreatic divisum, chronic pancreatitis, and nonalcoholic fatty liver disease who presented to the emergency room with complaints of intractable nausea and vomiting with abdominal pain. The patient reports that her symptoms started roughly 4 days ago, with mild abdominal discomfort. The gradually progressed to a severe 10 out of 10 epigastric abdominal discomfort, radiating throughout the abdomen, with associated severe nausea with several episodes of vomiting. She also reports poor oral intake as a result of her pain and nausea during this time. The patient reports that she routinely follows with [facility] and had an appointment with them in 2 days. Her last admission for pancreatitis was on 08/2021. She denied experiencing chest discomfort, shortness of breath, fever, chills, cough, diarrhea. Laboratory evaluation revealed lipase of 13,113. Hospital course: Patient was admitted for treatment of acute on chronic pancreatitis with underlying history of pancreatic divisum. She was started on IV fluids, IV Dilaudid as needed, placed nothing by mouth first 2 days. She was requiring significant amount of IV narcotics in the first 24 hours. Over the following 2 days, her lipase, amylase, and overall pain continued to improve. She was started on clear liquid diet but third day which she tolerated well. By the fourth day she was transitioned to oral narcotics and started on a regular diet. At this time her pain had significantly improved, there is no nausea or vomiting. Patient felt significantly better and was comfortable going home. She was offered a few doses of [place] to take at home in case the pain worsens, but she was adamant that she would not need it, and that apparently she has a pain contract with her other physician that normally managed pancreatitis. She was instructed to take Tylenol or Motrin as needed, and to return to the ED if the pain significantly worsens Patient Condition at Discharge: Good Plan - Discharge Summary Discharge Rx Participant: No New Discharge Prescriptions: Continue Nortriptyline HCl [Pamelor] 25 mg PO HS HYDROcodone/APAP 7.5-325MG [[place] 7.5-325] 1 tab PO BID PRN PRN Reason: Pain ondansetron HCL [Zofran] 8 mg PO BID PRN PRN Reason: Nausea Discharge Medication List Nortriptyline HCl [Pamelor] 25 mg PO HS 09/12/21 [History] HYDROcodone/APAP 7.5-325MG [[place] 7.5-325] 1 tab PO BID PRN 10/01/21 [History] ondansetron HCL [Zofran] 8 mg PO BID PRN 01/10/22 [History] Follow up Appointment(s)/Referral(s): Alice Lazaro MD [Primary Care Provider] - 1-2 days Patient Instructions/Handouts: Pancreatitis (DC) Discharge Disposition: HOME SELF-CARE
== END 2022-01-14 16:30 | disposition home or self-care (01) | DRG 439 ==
LOC: EC 17:12 → 4SSUR 19:24 → 5NMEDONC 01-11 00:56
PROVIDERS: ADMIT Internal Medicine; ATTEND Internal Medicine
DX: K85.90 Acute pancreatitis without necrosis or infection, unspecified (principal); Q45.3 Other congenital malformations of pancreas and pancreatic duct; K76.0 Fatty (change of) liver, not elsewhere classified; K86.1 Other chronic pancreatitis; Z83.3 Family history of diabetes mellitus; Z86.14 Personal history of Methicillin resistant Staphylococcus aureus infection; Z91.040 Latex allergy status; Z79.891 Long term (current) use of opiate analgesic
CPT/HCPCS: 36415; 80048; 80053; 82150; 82306; 82607; 82746; 83690; 83735; 85025; 85610; 96361; 96374; 96375; 96376; 99284

== ENCOUNTER 2022-08-12 13:19 | Emergency (ER) | payer MEDICAID ==
[2022-08-12] MEDS ORDERED: HYDROmorphone 0.5 MG/0.5 ML SYRINGE IVP STA (14:50)
[2022-08-12] MEDS ORDERED: METOCLOPRAMIDE 5 MG/ML 2 ML VIAL IVP STA (14:50)
[2022-08-12] MEDS ORDERED: SODIUM CHLORIDE 0.9% 1,000 ML IV STA (14:51)
[2022-08-12 14:52] LABS: Basophils % (A) 1 %; Eosinophils # (A) 0.1 k/uL (0-0.7); Eosinophils % (A) 1 %; HCT 41.3 % (34.0-46.0); HGB 14.8 gm/dL (11.4-16.0); Lymphocytes # (A) 2.3 k/uL (1.0-4.8); Lymphocytes % (A) 36 %; MCH 31.7 pg (25.0-35.0); MCHC 35.9 g/dL (31.0-37.0); MCV 88.3 fL (80.0-100.0); Mean Platelet Volume 7.5; Monocytes # (A) 0.4 k/uL (0-1.0); Monocytes % (A) 6 %; Neutrophils # (A) 3.5 k/uL (1.3-7.7); Neutrophils % (A) 55 %; Platelet Count 294 k/uL (150-450); RBC 4.68 m/uL (3.80-5.40); RDW 12.2 % (11.5-15.5); WBC 6.4 k/uL (3.8-10.6)
--- NOTE | 2022-08-12 14:56 | ED ---
Abdominal Pain HPI - General Chief Complaint: Abdominal Pain Stated Complaint: pancreatitis flare Time Seen by Provider: 08/12/22 14:31 Source: patient, RN notes reviewed Mode of arrival: ambulatory Limitations: no limitations - History of Present Illness Initial Comments: This is a 26-year-old female who presents to the emergency department for concerns of a pancreatitis flare up. She has pancreatic divisum leading to chronic recurrent pancreatitis. She was hospitalized at the [facility] 3 weeks ago for the same problem. Currently complaining of pain in the upper abdomen radiating into the back. Also states that she feels very nauseo us. She took [place] and Zofran at home with no relief. Denies any fevers, chills, sore throat, cough, dyspnea, chest pain, palpitations, vomiting, diarrhea, or headaches. MD Complaint: abdominal pain, flank pain Onset/Timin -: days(s) Location: LUQ, RUQ, epigastric Radiation: L flank, R flank, back Associated Symptoms: nausea - Related Data Home Medications Medication Instructions Recorded Confirmed Nortriptyline HCl [Pamelor] 25 mg PO HS 09/12/21 02/13/22 HYDROcodone/APAP 7.5-325MG [[place] 1 tab PO BID PRN 10/01/21 02/13/22 7.5-325] Previous Rx's Medication Instructions Recorded Prochlorperazine [Compazine] 5 mg PO Q6HR PRN #30 tab 08/12/22 Allergies Allergy/AdvReac Type Severity Reaction Status Date / Time latex Allergy Rash/Hives Verified 08/12/22 13:28 peanut Allergy Rash/Swelli Verified 08/12/22 13:28 ng Review of Systems ROS Statement: Those systems with pertinent positive or pertinent negative responses have been documented in the HPI. ROS Other: All systems not noted in ROS Statement are negative. Past Medical History Past Medical History: Liver Disease Additional Past Medical History / Comment(s): Pancreatic divisum diagnosed at age 12 yrs, chronic recurrent pancreatitis and follows at [facility], nonalcoholic fatty liver, pt states she has a 2 mm liver mass. 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 Past Anesthesia/Blood Transfusion Reactions: No Reported Reaction Past Psychological History: No Psychological Hx Reported Smoking Status: Never smoker Past Alcohol Use History: None Reported Past Drug Use History: None Reported - Past Family History Brother(s) Family Medical History: No Reported History Additional Family Medical History / Comment(s): She has 2 brothers and 1 sister with no major medical problems. Father Family Medical History: Diabetes Mellitus Additional Family Medical History / Comment(s): Father is alive with history of diabetes requiring kidney and pancreas transplant. Mother Family Medical History: Deep Vein Thrombosis (DVT) Additional Family Medical History / Comment(s): Mother is alive with history of DVT's, cardiomyopathy and pacemaker. General Exam Limitations: no limitations General appearance: alert, in distress Head exam: Present: atraumatic, normocephalic, normal inspection Respiratory exam: Present: normal lung sounds bilaterally. Absent: respiratory distress, wheezes, rales, rhonchi, stridor Cardiovascular Exam: Present: regular rate, normal rhythm, normal heart sounds. Absent: systolic murmur, diastolic murmur, rubs, gallop, clicks GI/Abdominal exam: Present: soft, tenderness (epigastric and LUQ), normal bowel sounds. Absent: distended Back exam: Present: CVA tenderness (R), CVA tenderness (L) Neurological exam: Present: alert, oriented X3, CN II-XII intact Psychiatric exam: Present: normal affect, normal mood Skin exam: Present: warm, dry, intact, normal color. Absent: rash Course Vital Signs 08/12/22 08/12/22 08/12/22 13:26 16:41 18:17 Temperature 98.5 F 98 F Pulse Rate 99 70 90 Respiratory 20 16 16 Rate Blood Pressure 127/88 107/74 126/79 O2 Sat by Pulse 99 100 99 Oximetry Medical Decision Making - Medical Decision Making This is a 26-year-old female who presents to the emergency department for abdominal pain. Lab work obtained and found to be nonactionable, including negative pancreatic enzymes. Discussed a computed tomography scan versus ultrasound of the abdomen. States that she had a computed tomography scan at the [facility] 3 weeks ago and prefers an ultrasound instead. Ultrasound of the gallbladder and pancreas obtained revealing no acute irregularities. Her symptoms were controlled in the emergency department and she felt stable for discharge home. she was unable to provide a urine sample prior to discharge. She was given both Reglan and Compazine for the nausea, and states that the Compazine worked much better. Rx for the compazine provided in the event the Zofran she has at home is not effective. she is instructed to slowly advance her diet as tolerated and to remain well-hydrated. She will need to follow up with her primary care provider and alert the [facility] to this visit. Return precautions reviewed in depth, the patient is instructed to return to the emergency department with any new, worsening, or concerning symptoms. Patient verbalized understanding. This case was discussed in detail with the attending ED physician. Presentation, findings, and treatment plan discussed in detail as well. - Lab Data Result diagrams: 08/12/22 14:38 08/12/22 14:38 Lab Results 08/12/22 08/12/22 08/12/22 Range/Units 14:38 14:38 16:34 WBC 6.4 (3.8-10.6) k/uL RBC 4.68 (3.80-5.40) m/uL Hgb 14.8 (11.4-16.0) gm/dL Hct 41.3 (34.0-46.0) % MCV 88.3 (80.0-100.0) fL MCH 31.7 (25.0-35.0) pg MCHC 35.9 (31.0-37.0) g/dL RDW 12.2 (11.5-15.5) % Plt Count 294 (150-450) k/uL MPV 7.5 Neutrophils % 55 % Lymphocytes % 36 % Monocytes % 6 % Eosinophils % 1 % Basophils % 1 % Neutrophils # 3.5 (1.3-7.7) k/uL Lymphocytes # 2.3 (1.0-4.8) k/uL Monocytes # 0.4 (0-1.0) k/uL Eosinophils # 0.1 (0-0.7) k/uL Basophils # 0.0 (0-0.2) k/uL ESR (0-20) mm/hr Sodium 142 (137-145) mmol/L Potassium 4.5 (3.5-5.1) mmol/L Chloride 104 (98-107) mmol/L Carbon Dioxide 27 (22-30) mmol/L Anion Gap 11 mmol/L BUN 6 L (7-17) mg/dL Creatinine 0.52 (0.52-1.04) mg/dL Est GFR (CKD-EPI)AfAm >90 (>60 ml/min/1.73 sqM) Est GFR (CKD-EPI)NonAf >90 (>60 ml/min/1.73 sqM) Glucose 94 (74-99) mg/dL Plasma Lactic Acid Braulio 1.6 (0.7-2.0) mmol/L Calcium 9.5 (8.4-10.2) mg/dL Total Bilirubin 0.4 (0.2-1.3) mg/dL AST 24 (14-36) U/L ALT 17 (4-34) U/L Alkaline Phosphatase 52 (38-126) U/L Lactate Dehydrogenase (313-618) U/L Troponin I (0.000-0.034) ng/mL C-Reactive Protein (<1.0) mg/dL Total Protein 7.9 (6.3-8.2) g/dL Albumin 5.2 H (3.5-5.0) g/dL Amylase 48 (30-110) U/L Lipase 37 (23-300) U/L 08/12/22 08/12/22 08/12/22 Range/Units 16:34 16:34 16:34 WBC (3.8-10.6) k/uL RBC (3.80-5.40) m/uL Hgb (11.4-16.0) gm/dL Hct (34.0-46.0) % MCV (80.0-100.0) fL MCH (25.0-35.0) pg MCHC (31.0-37.0) g/dL RDW (11.5-15.5) % Plt Count (150-450) k/uL MPV Neutrophils % % Lymphocytes % % Monocytes % % Eosinophils % % Basophils % % Neutrophils # (1.3-7.7) k/uL Lymphocytes # (1.0-4.8) k/uL Monocytes # (0-1.0) k/uL Eosinophils # (0-0.7) k/uL Basophils # (0-0.2) k/uL ESR 1 (0-20) mm/hr Sodium (137-145) mmol/L Potassium (3.5-5.1) mmol/L Chloride (98-107) mmol/L Carbon Dioxide (22-30) mmol/L Anion Gap mmol/L BUN (7-17) mg/dL Creatinine (0.52-1.04) mg/dL Est GFR (CKD-EPI)AfAm (>60 ml/min/1.73 sqM) Est GFR (CKD-EPI)NonAf (>60 ml/min/1.73 sqM) Glucose (74-99) mg/dL Plasma Lactic Acid [place] (0.7-2.0) mmol/L Calcium (8.4-10.2) mg/dL Total Bilirubin (0.2-1.3) mg/dL AST (14-36) U/L ALT (4-34) U/L Alkaline Phosphatase (38-126) U/L Lactate Dehydrogenase 349 (313-618) U/L Troponin I <0.012 (0.000-0.034) ng/mL C-Reactive Protein <0.5 (<1.0) mg/dL Total Protein (6.3-8.2) g/dL Albumin (3.5-5.0) g/dL Amylase (30-110) U/L Lipase (23-300) U/L - Radiology Data Radiology results: report reviewed, image reviewed Disposition Clinical Impression: Upper abdominal pain Disposition: HOME SELF-CARE Instructions (If sedation given, give patient instructions): Abdominal Pain (ED) Additional Instructions: Return to the emergency department with any new, worsening, or concerning symptoms. You can take the nausea medicine up to every 6 hours as needed, taking 1-2 tablets at a time. Slowly advance your diet as tolerated. Follow up with your primary care provider in 1-2 days. Prescriptions: Prochlorperazine [Compazine] 5 mg PO Q6HR PRN #30 tab PRN Reason: Nausea And Vomiting Is patient prescribed a controlled substance at d/c from ED?: No Referrals: Alice Lazaro MD [Primary Care Provider] - 1-2 days
[2022-08-12 15:02] LABS: ALT 17 U/L (4-34); AST 24 U/L (14-36); African American GFR (CKD) >90 (>60 ml/min/1.73 sqM); Albumin 5.2 g/dL (3.5-5.0); Alkaline Phosphatase 52 U/L (38-126); Amylase 48 U/L (30-110); Anion Gap 11 mmol/L; Blood Urea Nitrogen 6 mg/dL (7-17); Calcium 9.5 mg/dL (8.4-10.2); Carbon Dioxide 27 mmol/L (22-30); Chloride 104 mmol/L (98-107); Glucose 94 mg/dL (74-99); Lipase 37 U/L (23-300); Non-African American GFR(CKD) >90 (>60 ml/min/1.73 sqM); Potassium 4.5 mmol/L (3.5-5.1); Sodium 142 mmol/L (137-145); Total Bilirubin 0.4 mg/dL (0.2-1.3); Total Protein 7.9 g/dL (6.3-8.2)
[2022-08-12] MEDS ORDERED: diphenhydrAMINE 50 MG/ML 1 ML VIAL IVP STA (15:13)
--- NOTE | 2022-08-12 16:11 | US ---
EXAMINATION TYPE: US gallbladder DATE OF EXAM: 08/12/2022 COMPARISON: NONE CLINICAL HISTORY: RUQ, LUQ, and epigastric pain. Nausea and pain. TECHNIQUE: Multiple sonographic images of the right upper quadrant are obtained. FINDINGS: EXAM MEASUREMENTS: Liver Length: 18.4 Gallbladder Wall: .2 cm CBD: .4 cm Right Kidney: 10.6 x 3.7 x 5.0 cm ENTERPRISE ENGINEER NOTES: Pancreas: Duct visualize .2 cm. Liver: wnl Gallbladder: No stones seen Evidence for sonographic Hernandez's sign: No CBD: wnl Right Kidney: wnl IMPRESSION: Negative exam. No gallstones or dilated ducts.
[2022-08-12 16:42] VITALS: RESP 16; TEMP 98
[2022-08-12] MEDS ORDERED: HYDROmorphone 1 MG/ML 1 ML SYRINGE IVP STA ×2 (16:52→18:27)
[2022-08-12 17:07] LABS: C Reactive Protein <0.5 mg/dL (<1.0); LDH 349 U/L (313-618)
[2022-08-12] MEDS ORDERED: PROCHLORPERAZINE INJ 10 MG/2 ML VIAL IVP STA (17:53)
[2022-08-12 18:17] VITALS: BP 126/79; PULSE 90
== END 2022-08-12 19:46 | disposition home or self-care (01) ==
LOC: EC 13:19
DX: R10.10 Upper abdominal pain, unspecified (principal); Z91.040 Latex allergy status; Z91.010 Allergy to peanuts
CPT/HCPCS: 36415; 80053; 85652; 82150; 83605; 83615; 83690; 84484; 85025; 86140; 76705; 99284; 96375 ×5; 96361; 96374; J1200; J0780; J2765; J1170 ×2; 96376

== ENCOUNTER 2022-09-15 19:37 | Inpatient (IN) | payer MEDICAID ==
[2022-09-15] MEDS ORDERED: HYDROmorphone 0.5 MG/0.5 ML SYRINGE IVP STA (20:17)
[2022-09-15] MEDS ORDERED: ONDANSETRON 4 MG/2 ML VIAL IVP STA (20:17)
[2022-09-15] MEDS ORDERED: SODIUM CHLORIDE 0.9% 1,000 ML IV ONE ×2 (20:18→22:17)
--- NOTE | 2022-09-15 20:25 | ED ---
Abdominal Pain HPI - General Chief Complaint: Abdominal Pain Stated Complaint: Abd pain Time Seen by Provider: 09/15/22 20:12 Source: patient Mode of arrival: ambulatory Limitations: no limitations - History of Present Illness Initial Comments: This patient is 26-year-old woman with history of pancreas divisum, who presents with what she believes is a flareup of the same. She states going back a couple of days she has had some epigastric pain does radiate to her back. It has become progressively more severe. She also is having nausea and a couple of rounds of vomiting. No hematemesis. She has not noted change in bowel movements, urination. No vaginal discharge. Her last period was 2 weeks ago and was normal. MD Complaint: abdominal pain -: days(s) Location: epigastric Radiation: back Migration to: no migration Severity: severe Quality: stabbing Consistency: constant Improves With: nothing Worsens With: nothing Associated Symptoms: nausea, vomiting - Related Data Home Medications Medication Instructions Recorded Confirmed Nortriptyline HCl [Pamelor] 25 mg PO HS 09/12/21 09/16/22 HYDROcodone/APAP 7.5-325MG [[place] 1 tab PO BID PRN 10/01/21 09/16/22 7.5-325] Allergies Allergy/AdvReac Type Severity Reaction Status Date / Time latex Allergy Rash/Hives Verified 09/16/22 11:39 peanut Allergy Rash/Swelli Verified 09/16/22 11:39 ng Review of Systems ROS Statement: Those systems with pertinent positive or pertinent negative responses have been documented in the HPI. ROS Other: All systems not noted in ROS Statement are negative. Constitutional: Denies: fever, chills Respiratory: Denies: cough, dyspnea Cardiovascular: Denies: chest pain, palpitations, edema Gastrointestinal: Reports: abdominal pain, nausea, vomiting. Denies: diarrhea, hematemesis, melena, hematochezia Genitourinary: Denies: dysuria, frequency, hematuria, discharge, abnormal menses Musculoskeletal: Denies: back pain Skin: Denies: rash Neurological: Denies: headache, weakness Past Medical History Past Medical History: Liver Disease Additional Past Medical History / Comment(s): Pancreatic divisum diagnosed at age 12 yrs, chronic recurrent pancreatitis and follows at [facility], nonalcoholic fatty liver, pt states she has a 2 mm liver mass. 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 Past Anesthesia/Blood Transfusion Reactions: No Reported Reaction Past Psychological History: No Psychological Hx Reported Smoking Status: Never smoker Past Alcohol Use History: None Reported Past Drug Use History: None Reported - Past Family History Brother(s) Family Medical History: No Reported History Additional Family Medical History / Comment(s): She has 2 brothers and 1 sister with no major medical problems. Father Family Medical History: Diabetes Mellitus Additional Family Medical History / Comment(s): Father is alive with history of diabetes requiring kidney and pancreas transplant. Mother Family Medical History: Deep Vein Thrombosis (DVT) Additional Family Medical History / Comment(s): Mother is alive with history of DVT's, cardiomyopathy and pacemaker. General Exam Limitations: no limitations General appearance: alert, in no apparent distress Head exam: Present: atraumatic, normocephalic Eye exam: Present: normal appearance. Absent: scleral icterus, conjunctival injection ENT exam: Present: normal oropharynx Neck exam: Present: normal inspection Respiratory exam: Present: normal lung sounds bilaterally. Absent: respiratory distress, wheezes, rales, rhonchi, stridor Cardiovascular Exam: Present: regular rate, normal rhythm, normal heart sounds. Absent: systolic murmur, diastolic murmur, rubs, gallop GI/Abdominal exam: Present: soft. Absent: distended, tenderness, guarding, rebound, rigid, mass Extremities exam: Present: normal inspection, normal capillary refill. Absent: pedal edema, calf tenderness Back exam: Present: normal inspection. Absent: CVA tenderness (R), CVA tenderness (L) Neurological exam: Present: alert Skin exam: Present: warm, dry, intact, normal color. Absent: rash Course Vital Signs 09/15/22 09/15/22 19:38 22:43 Temperature 97.6 F Pulse Rate 84 72 Respiratory 18 16 Rate Blood Pressure 135/86 113/90 O2 Sat by Pulse 100 97 Oximetry Medical Decision Making - Lab Data Result diagrams: 09/15/22 20:20 09/15/22 20:20 Lab Results 09/15/22 09/15/22 09/15/22 Range/Units 20:20 20:20 20:52 WBC 5.8 (3.8-10.6) k/uL RBC 4.20 (3.80-5.40) m/uL Hgb 13.4 (11.4-16.0) gm/dL Hct 37.8 (34.0-46.0) % MCV 90.0 (80.0-100.0) fL MCH 31.9 (25.0-35.0) pg MCHC 35.4 (31.0-37.0) g/dL RDW 12.4 (11.5-15.5) % Plt Count 256 (150-450) k/uL MPV 8.2 Neutrophils % 59 % Lymphocytes % 30 % Monocytes % 7 % Eosinophils % 3 % Basophils % 1 % Neutrophils # 3.4 (1.3-7.7) k/uL Lymphocytes # 1.7 (1.0-4.8) k/uL Monocytes # 0.4 (0-1.0) k/uL Eosinophils # 0.2 (0-0.7) k/uL Basophils # 0.0 (0-0.2) k/uL Sodium 138 (137-145) mmol/L Potassium 4.2 (3.5-5.1) mmol/L Chloride 104 (98-107) mmol/L Carbon Dioxide 25 (22-30) mmol/L Anion Gap 9 mmol/L BUN 13 (7-17) mg/dL Creatinine 0.56 (0.52-1.04) mg/dL Est GFR (CKD-EPI)AfAm >90 (>60 ml/min/1.73 sqM) Est GFR (CKD-EPI)NonAf >90 (>60 ml/min/1.73 sqM) Glucose 81 (74-99) mg/dL Calcium 9.1 (8.4-10.2) mg/dL Total Bilirubin 0.4 (0.2-1.3) mg/dL AST 23 (14-36) U/L ALT 12 (4-34) U/L Alkaline Phosphatase 51 (38-126) U/L Total Protein 7.3 (6.3-8.2) g/dL Albumin 4.8 (3.5-5.0) g/dL Amylase 111 H (30-110) U/L Lipase 956 H (23-300) U/L Urine Color Colorless Urine Appearance Clear (Clear) Urine pH 5.5 (5.0-8.0) Ur Specific [place] 1.005 (1.001-1.035) Urine Protein Negative (Negative) Urine Glucose (UA) Negative (Negative) Urine Ketones Negative (Negative) Urine Blood Negative (Negative) Urine Nitrite Negative (Negative) Urine Bilirubin Negative (Negative) Urine Urobilinogen <2.0 (<2.0) mg/dL Ur Leukocyte Esterase Negative (Negative) Urine HCG, Qual (Not Detectd) 09/15/22 Range/Units 20:52 WBC (3.8-10.6) k/uL RBC (3.80-5.40) m/uL Hgb (11.4-16.0) gm/dL Hct (34.0-46.0) % MCV (80.0-100.0) fL MCH (25.0-35.0) pg MCHC (31.0-37.0) g/dL RDW (11.5-15.5) % Plt Count (150-450) k/uL MPV Neutrophils % % Lymphocytes % % Monocytes % % Eosinophils % % Basophils % % Neutrophils # (1.3-7.7) k/uL Lymphocytes # (1.0-4.8) k/uL Monocytes # (0-1.0) k/uL Eosinophils # (0-0.7) k/uL Basophils # (0-0.2) k/uL Sodium (137-145) mmol/L Potassium (3.5-5.1) mmol/L Chloride (98-107) mmol/L Carbon Dioxide (22-30) mmol/L Anion Gap mmol/L BUN (7-17) mg/dL Creatinine (0.52-1.04) mg/dL Est GFR (CKD-EPI)AfAm (>60 ml/min/1.73 sqM) Est GFR (CKD-EPI)NonAf (>60 ml/min/1.73 sqM) Glucose (74-99) mg/dL Calcium (8.4-10.2) mg/dL Total Bilirubin (0.2-1.3) mg/dL AST (14-36) U/L ALT (4-34) U/L Alkaline Phosphatase (38-126) U/L Total Protein (6.3-8.2) g/dL Albumin (3.5-5.0) g/dL Amylase (30-110) U/L Lipase (23-300) U/L Urine Color Urine Appearance (Clear) Urine pH (5.0-8.0) Ur Specific [place] (1.001-1.035) Urine Protein (Negative) Urine Glucose (UA) (Negative) Urine Ketones (Negative) Urine Blood (Negative) Urine Nitrite (Negative) Urine Bilirubin (Negative) Urine Urobilinogen (<2.0) mg/dL Ur Leukocyte Esterase (Negative) Urine HCG, Qual Not Detected (Not Detectd) Disposition Clinical Impression: Pancreatitis, acute, Nausea & vomiting, Intractable abdominal pain, Pancreatic divisum Disposition: ADMITTED IP TO THIS [facility] Condition: Fair Is patient prescribed a controlled substance at d/c from ED?: No
[2022-09-15] MEDS ORDERED: HYDROmorphone 1 MG/ML 1 ML SYRINGE IVP STA ×2 (20:54→22:17)
[2022-09-15] MEDS ORDERED: diphenhydrAMINE 50 MG/ML 1 ML VIAL IVP STA ×2 (20:54→22:17)
[2022-09-15 21:04] LABS: Appearance,Urine Clear (Clear); Bilirubin,Urine Negative (Negative); Blood,Urine Negative (Negative); Color,Urine Colorless; Glucose,Urine (UA) Negative (Negative); Ketones,Urine Negative (Negative); Leukocyte Esterase,Urine Negative (Negative); Nitrite,Urine Negative (Negative); PH, Urine 5.5 (5.0-8.0); Protein,Urine Negative (Negative); Specific Gravity,Urine 1.005 (1.001-1.035); Urobilinogen,Urine <2.0 mg/dL (<2.0)
[2022-09-15 21:43] LABS: Basophils % (A) 1 %; Eosinophils # (A) 0.2 k/uL (0-0.7); Eosinophils % (A) 3 %; HCT 37.8 % (34.0-46.0); HGB 13.4 gm/dL (11.4-16.0); Lymphocytes # (A) 1.7 k/uL (1.0-4.8); Lymphocytes % (A) 30 %; MCH 31.9 pg (25.0-35.0); MCHC 35.4 g/dL (31.0-37.0); Mean Platelet Volume 8.2; Monocytes # (A) 0.4 k/uL (0-1.0); Monocytes % (A) 7 %; Neutrophils # (A) 3.4 k/uL (1.3-7.7); Neutrophils % (A) 59 %; Platelet Count 256 k/uL (150-450); RDW 12.4 % (11.5-15.5); WBC 5.8 k/uL (3.8-10.6)
[2022-09-15 21:54] LABS: ALT 12 U/L (4-34); AST 23 U/L (14-36); African American GFR (CKD) >90 (>60 ml/min/1.73 sqM); Albumin 4.8 g/dL (3.5-5.0); Alkaline Phosphatase 51 U/L (38-126); Amylase 111 U/L (30-110); Anion Gap 9 mmol/L; Blood Urea Nitrogen 13 mg/dL (7-17); Calcium 9.1 mg/dL (8.4-10.2); Carbon Dioxide 25 mmol/L (22-30); Chloride 104 mmol/L (98-107); Glucose 81 mg/dL (74-99); Lipase 956 U/L (23-300); Non-African American GFR(CKD) >90 (>60 ml/min/1.73 sqM); Potassium 4.2 mmol/L (3.5-5.1); Sodium 138 mmol/L (137-145); Total Bilirubin 0.4 mg/dL (0.2-1.3); Total Protein 7.3 g/dL (6.3-8.2)
[2022-09-15] MEDS ORDERED: NALOXONE 0.4 MG/ML 1 ML VIAL IV PRN (23:33)
[2022-09-16] MEDS: SODIUM CHLORIDE 0.9% 1,000 ML IV SCH ×4 (00:44→16:31)
[2022-09-16] MEDS: HYDROmorphone 0.5 MG/0.5 ML SYRINGE IVP PRN ×4 (00:47→09:49)
--- NOTE | 2022-09-16 03:00 | P.HPIM ---
History of Present Illness H&P Date: 09/15/22 The patient is a 26-year-old female with a PMH of pancreatic divisum, recurrent bouts of acute pancreatitis, and nonalcoholic fatty liver disease who presented to the emergency room with complaints of abdominal pain and nausea. The patient reports that her symptoms started roughly 24 hours ago and have gradually worsened with epigastric pain radiating to her back, 8 out of 10 on maximal intensity, worsened with movement or food. She reports associated nausea without episodes of vomiting. Denies experiencing fever, chills, chest pain, shortness of breath, diarrhea. Reports that this is very similar to her prior bouts of acute pancreatitis. Stated that pain medications would only partially alleviate the pain in the emergency room. Laboratory evaluation was remarkable for lipase of 956. Review of systems: Pertinent positives and negatives as discussed in HPI, a complete review of sys tems was performed and all other systems are negative. Physical examination: General: non toxic, no distress, appears at stated age, normal weight Derm: no unusual rashes/lesions, warm Head: atraumatic, normocephalic, symmetric Eyes: EOMI, no lid lag, anicteric sclera, pupils equal round reactive to light ENT: Nose and ears atraumatic Neck: No cervical lymphadenopathy, trachea midline, supple Mouth: no lip lesion, mucus membranes moist Cardiovascular: S1S2 reg, no murmur, positive dorsalis pedis pulse bilateral, no edema Lungs: CTA bilateral, no rhonchi, no rales, no accessory muscle use Abdominal: soft, epigastric abdominal tenderness, minimal guarding Ext: muscle strength 5 out of 5 in all 4 extremities grossly, no gross muscle atrophy, no contractures, Neuro: CN II-XI grossly intact, no gross focal neuro deficits Psych: Alert, oriented, appropriate affect Assessment/plan Acute pancreatitis with history of pancreatic divisum -IV fluids -Pain control -Antiemetics -Nothing by mouth for now DVT prophylaxis -Heparin subcu The patient is admitted with an anticipated less than 2 midnight stay for evaluation of pancreatitis CODE STATUS: Full Code Discussed with: Patient Anticipated discharge date: in am Anticipated discharge place: Home Past Medical History Past Medical History: Liver Disease Additional Past Medical History / Comment(s): Pancreatic divisum diagnosed at age 12 yrs, chronic recurrent pancreatitis and follows at [facility], nonalcoholic fatty liver, pt states she has a 2 mm liver mass. 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 Past Anesthesia/Blood Transfusion Reactions: No Reported Reaction Past Psychological History: No Psychological Hx Reported Smoking Status: Never smoker Past Alcohol Use History: None Reported Past Drug Use History: None Reported - Past Family History Brother(s) Family Medical History: No Reported History Additional Family Medical History / Comment(s): She has 2 brothers and 1 sister with no major medical problems. Father Family Medical History: Diabetes Mellitus Additional Family Medical History / Comment(s): Father is alive with history of diabetes requiring kidney and pancreas transplant. Mother Family Medical History: Deep Vein Thrombosis (DVT) Additional Family Medical History / Comment(s): Mother is alive with history of DVT's, cardiomyopathy and pacemaker. Medications and Allergies Home Medications Medication Instructions Recorded Confirmed Type Nortriptyline HCl [Pamelor] 25 mg PO HS 09/12/21 02/13/22 History HYDROcodone/APAP 7.5-325MG [[place] 1 tab PO BID PRN 10/01/21 02/13/22 History 7.5-325] Prochlorperazine [Compazine] 5 mg PO Q6HR PRN #30 tab 08/12/22 Rx Allergies Allergy/AdvReac Type Severity Reaction Status Date / Time latex Allergy Rash/Hives Verified 09/15/22 19:40 peanut Allergy Rash/Swelli Verified 09/15/22 19:40 ng Physical Exam Vitals: Vital Signs Temp Pulse Resp BP Pulse Ox 09/15/22 22:43 72 16 113/90 97 09/15/22 19:38 97.6 F 84 18 135/86 100 Intake and Output 09/15/22 09/15/22 09/16/22 14:59 22:59 06:59 Other: Weight 63.503 kg Results CBC & Chem 7: 09/15/22 20:20 09/15/22 20:20 Labs: Abnormal Lab Results - Last 24 Hours (Table) 09/15/22 Range/Units 20:20 Amylase 111 H (30-110) U/L Lipase 956 H (23-300) U/L
[2022-09-16] MEDS: ACETAMINOPHEN TAB 325 MG TAB PO PRN ×3 (03:07→20:41)
[2022-09-16] MEDS: PANTOPRAZOLE 40 MG/10 ML VIAL IV SCH (09:42)
[2022-09-16] MEDS: HEPARIN SODIUM,PORCINE/PF 5,000 UNIT/0.5 ML SYRINGE SQ SCH ×3 (09:42→23:29)
[2022-09-16] MEDS: ONDANSETRON 4 MG/2 ML VIAL IVP PRN ×2 (09:48→17:01)
--- NOTE | 2022-09-16 10:54 | P.PN ---
Subjective Progress Note Date: 09/16/22 Hospital course: Patient is a very pleasant 26-year-old female with a past medical history of pancreatic divisum with chronic pancreatitis and follows with engine monitor at [facility]. Patient presented to the emergency department 09/15/22 with a chief complaint of abdominal pain and intractable nausea and vomiting. In the emergency department patient underwent full evaluation and was found to have a normal amylase of 111 and lipase of 956 and unremarkable CBC and CMP. Urinalysis negative for infection and Urine HCG negative for . Patient was admitted to observation for intractable nausea and vomiting. Physical exam: Patient seen and fully evaluated at bedside this morning. She was sitting up in chair at bedside and reports continued nausea but denies any further episodes of vomiting. She states currently pain is uncontrolled at this time. Pt has failed observation stay requiring increased doses of IV pain medications and additional antiemetics, will transition to inpatient hospitalization at this time. Vital signs reviewed and stable. General: Nontoxic, appears stated age. no acute distress. Derm: Skin warm and dry, normal coloration for ethnicity. Griggs's and: Cullin's sign negative. Head: Atraumatic, normocephalic and symmetric. Eyes: EOMs intact, no lid lag, and anicteric sclera Mouth: no lip lesions, mucus membranes moist Cardiovascular: regular rate and rhythm with normal S1S2, no murmur, positive posterior tibial pulses bilaterally, and cap refill < 2 seconds. Lungs: Respirations even, regular, and unlabored on room air. Lungs CTA bila terally, no rhonchi, no rales, no wheezing, and no accessory muscle usage. Abdominal: Soft, tenderness reported to mid epigastric region upon palpation Ext: ROM intact. No gross muscle atrophy, no edema, no contractures Neuro: Speech clear, face symmetrical and CN II-XII grossly intact with no noted focal neuro deficits Psych: Alert and oriented to person, place, time, and situation. Appropriate and pleasant affect. Assessment and Plan of Care: Acute on chronic pancreatitis in patient with history of pancreatic divisum Intractable abdominal pain with nausea and vomiting -PErsistent Nausea and orders placed for compazine in addition to zofran. -Vomiting has resolved, patient to continue on clear liquid diet and we will advance as patient tolerates -Symptomatic care and pain management, Zofran and/or Compazine as needed for nausea -Patient reports no improvement in pain, Dilaudid dose increased to 1 mg Q4 hours and we will attempt to wean. -We will obtain a CT abdomen and pelvis with contrast for further evaluation. -Continuous hydration with IV fluids 0.9% NS at 130 mL/hr. -We will continue to monitor with repeat a.m. labs CODE STATUS: Full code DVT prophylaxis: Heparin Discussed with: Patient and RN Anticipated discharge date: Likely within the next 24-[address]: Home A total of 38 minutes was spent on the care of this complex patient more than 50% of the time was spent in counseling and care coordination. Ty Duque NP rendered care for this patient independently, reviewed the findings and plan as documented in the note above. I did not physically speak with or examine the patient on this date. Objective - Vital Signs Vital signs: Vital Signs Temp 97.7 F 09/16/22 09:40 Pulse 54 L 09/16/22 09:40 Resp 16 09/16/22 09:40 BP 125/79 09/16/22 09:40 Pulse Ox 100 09/16/22 09:40 FiO2 Intake & Output 09/15/22 09/16/22 09/16/22 18:59 06:59 18:59 Weight 63.503 kg Other: # Voids 1 - Labs CBC & Chem 7: 09/15/22 20:20 09/15/22 20:20 Labs: Abnormal Lab Results - Last 24 Hours (Table) 09/15/22 Range/Units 20:20 Amylase 111 H (30-110) U/L Lipase 956 H (23-300) U/L
[2022-09-16] MEDS: HYDROmorphone 1 MG/ML 1 ML SYRINGE IVP PRN ×3 (12:52→20:24)
[2022-09-16] MEDS ORDERED: LORazepam 2 MG/ML INJ IV STA (16:52)
[2022-09-16] MEDS: PROCHLORPERAZINE INJ 10 MG/2 ML VIAL IVP PRN (20:37)
--- NOTE | 2022-09-16 21:11 | CT ---
EXAMINATION TYPE: CT abdomen pelvis w con DATE OF EXAM: 09/16/2022 COMPARISON: 09/12/2021 HISTORY: persistant abdominal pain CT DLP: 1120.6 mGycm Automated exposure control for dose reduction was used. CONTRAST: Performed with IV Contrast, patient injected with 100ml mL of Isovue 370. Images obtained from the diaphragm to the floor the pelvis with the IV contrast. The lung bases are clear. No pleural effusion. Heart size is normal. No pericardial effusion. Liver s pleen and stomach pancreas and gallbladder appear intact. The bile ducts are nondilated. There is no adrenal mass. Kidneys have normal size and contour. No hydronephrosis. Ureters are not di lated. No retroperitoneal adenopathy. Uterus is anteverted. There is small amount of low-density flui d in the pelvis. Appendix is posterior and medial and appears normal. There is no ascites or free air . No sign of a bowel obstruction. No mesenteric edema. The lumbar vertebrae have normal alignment. No compression fracture. The bony pelvis is intact. The hip joints are intact with soft tissue air in t he subcutaneous fat over the left anterior mid abdomen. This could be injection sites. IMPRESSION: No evidence of renal stone or obstruction. Normal appendix. Small amount of low-density fluid in the pelvis could be physiologic. Fluid appears new compared to old exam.
[2022-09-17] MEDS: HYDROmorphone 1 MG/ML 1 ML SYRINGE IVP PRN ×5 (01:46→21:26)
[2022-09-17] MEDS: PROCHLORPERAZINE INJ 10 MG/2 ML VIAL IVP PRN ×2 (05:58→11:38)
[2022-09-17] MEDS: ACETAMINOPHEN TAB 325 MG TAB PO PRN ×3 (06:04→21:33)
[2022-09-17] MEDS: SODIUM CHLORIDE 0.9% 1,000 ML IV SCH ×3 (06:31→21:26)
[2022-09-17] MEDS: PANTOPRAZOLE 40 MG/10 ML VIAL IV SCH (09:04)
[2022-09-17] MEDS: HEPARIN SODIUM,PORCINE/PF 5,000 UNIT/0.5 ML SYRINGE SQ SCH ×3 (09:04→23:27)
--- NOTE | 2022-09-17 11:42 | P.PN ---
Subjective Progress Note Date: 09/17/22 Hospital course: Patient is a very pleasant 26-year-old female with a past medical history of pancreatic divisum with chronic pancreatitis and follows with gmat tutor at [facility]. Patient presented to the emergency department 09/15/22 with a chief complaint of abdominal pain and intractable nausea and vomiting. In the emergency department patient underwent full evaluation and was found to have a normal amylase of 111 and lipase of 956 and unremarkable CBC and CMP. Urinalysis negative for infection and Urine HCG negative for . Patient was admitted to observation for intractable nausea and vomiting. Physical exam: Patient seen and fully evaluated at bedside this morning. She was sitting up in chair at bedside. She continues to receive IV pain medication every 4 hours [id number] and continues to be nauseous. She denies having any episodes of vomiting and reports eating Jell-O this morning and tolerating well. We will slowly advance diet as patient tolerates pain continue with aggressive IV fluid hydration. Morning labs pending. Vital signs reviewed and stable. General: Nontoxic, appears stated age. no acute distress. Derm: Skin warm and dry, normal coloration for ethnicity. Griggs's and: Cullin's sign negative. Head: Atraumatic, normocephalic and symmetric. Eyes: EOMs intact, no lid lag, and anicteric sclera Mouth: no lip lesions, mucus membranes moist Cardiovascular: regular rate and rhythm with normal S1S2, no murmur, positive posterior tibial pulses bilaterally, and cap refill < 2 seconds. Lungs: Respirations even, regular, and unlabored on room air. Lungs CTA bilaterally, no rhonchi, no rales, no wheezing, and no accessory muscle usage. Abdominal: Soft, tenderness reported to mid epigastric region upon palpation Ext: ROM intact. No gross muscle atrophy, no edema, no contractures Neuro: Speech clear, face symmetrical and CN II-XII grossly intact with no noted focal neuro deficits Psych: Alert and oriented to person, place, time, and situation. Appropriate and pleasant affect. Assessment and Plan of Care: Acute on chronic pancreatitis in patient with history of pancreatic divisum Intractable abdominal pain with nausea and vomiting -PErsistent Nausea and orders placed for compazine in addition to zofran. -Vomiting has resolved, patient to continue on clear liquid diet and we will advance as patient tolerates -Symptomatic care and pain management, Zofran and/or Compazine as needed for nausea -Patient reports no improvement in pain, Dilaudid dose increased to 1 mg Q4 hours and we will attempt to wean. -CT abdomen and pelvis completed negative for acute process did reveal a small amount of fluid in the pelvis possibly physiologic and patient is asymptomatic denying any suprapubic or lower abdominal pain/discomfort. -Continuous hydration with IV fluids 0.9% NS at 130 mL/hr. -We will continue to monitor with repeat a.m. labs CODE STATUS: Full code DVT prophylaxis: Heparin Discussed with: Patient and RN Anticipated discharge date: Likely within the next 24-[address]: Home A total of 33 minutes was spent on the care of this complex patient more than 50% of the time was spent in counseling and care coordination. Ty Duque NP rendered care for this patient independently, reviewed the findings and plan as documented in the note above. I did not physically speak with or examine the patient on this date. Objective - Vital Signs Vital signs: Vital Signs Temp 97.7 F 09/17/22 07:00 Pulse 89 09/17/22 07:00 Resp 15 09/17/22 09:04 BP 113/76 09/17/22 07:00 Pulse Ox 98 09/17/22 07:00 FiO2 Intake & Output 09/16/22 09/17/22 09/17/22 18:59 06:59 18:59 Other: Voiding Method Toilet Toilet Toilet # Voids 2 1 - Labs CBC & Chem 7: 09/17/22 08:03 09/17/22 08:03
[2022-09-17 13:32] LABS: HCT 32.2 % (37.2-46.3); MCH 31.4 pg (27.0-32.0); MCHC 34.2 g/dL (32.0-37.0); Mean Platelet Volume 10.1 fL (9.5-12.2); NRBC Per 100 WBC 0 /100 WBCS (0.0-0.0); Platelet Count 211 X 10*3/uL (140-440); RDW 12.5 % (11.5-14.5); WBC 5.03 X 10*3/uL (4.50-10.00)
[2022-09-17 13:45] LABS: African American GFR (CKD) 149.3 (60.0-200.0); Albumin 4.2 g/dL (3.8-4.9); Albumin/Globulin Ratio 2.41 (1.60-3.17); Anion Gap 7.1 mmol/L (10.00-18.00); BUN/Creat Ratio 10.88 Ratio (12.00-20.00); Blood Urea Nitrogen 6.2 mg/dL (9.0-27.0); Calcium 8.9 mg/dL (8.7-10.3); Carbon Dioxide 27.4 mmol/L (20.0-27.5); Globulin 1.8 g/dL (1.6-3.3); Non-African American GFR(CKD) 128.8 (60.0-200.0); Potassium 4.5 mmol/L (3.5-5.5); Total Bilirubin 0.2 mg/dL (0.30-1.20)
[2022-09-18] MEDS: PROCHLORPERAZINE INJ 10 MG/2 ML VIAL IVP PRN (01:57)
[2022-09-18] MEDS: HYDROmorphone 1 MG/ML 1 ML SYRINGE IVP PRN (01:57)
[2022-09-18] MEDS: SODIUM CHLORIDE 0.9% 1,000 ML IV SCH (04:49)
[2022-09-18] MEDS: HEPARIN SODIUM,PORCINE/PF 5,000 UNIT/0.5 ML SYRINGE SQ SCH (07:56)
[2022-09-18] MEDS: PANTOPRAZOLE 40 MG/10 ML VIAL IV SCH (07:56)
[2022-09-18 08:19] VITALS: BP 133/75; PULSE 90; RESP 16; TEMP 98.8
--- NOTE | 2022-09-18 10:28 | P.DS ---
Providers Date of admission: 09/16/22 14:06 Expected date of discharge: 09/18/22 Attending physician: Anny Garcia MD [facility]: Discharge Diagnosis: Acute on chronic pancreatitis in patient with history of pancreatic divisum Intractable abdominal pain with nausea and vomiting, resolved Hospital Course: Patient is a very pleasant 26-year-old female with a past medical history of pancreatic divisum with chronic pancreatitis and follows with extractor loader and unloader at [facility]. Patient presented to the emergency department 09/15/22 with a chief complaint of abdominal pain and intractable nausea and vomiting. In the emergency department patient underwent full evaluation and was found to have a normal amylase of 111 and lipase of 956 and unremarkable CBC and CMP. Urinalysis negative for infection and Urine HCG negative for . Patient was admitted to observation for intractable nausea and vomiting. However, she failed observation stay requiring increased doses of IV pain medications and additional antiemetics resulting in transition to inpatient hospitalization. She received [id number] IV pain medication and anti-emetics along with aggressive IV fluid hydration. She was initially made NPO for bowel rest and diet slowly advanced as she tolerated. CT abdomen and pelvis completed negative for acute process did reveal a small amount of fluid in the pelvis possibly physiologic and patient is asymptomatic denying any suprapubic or lower abdominal pain/discomfort. Elevated lipase resolved and is down to 43 at this time. Patient's intractable abdominal pain, nausea, and vomiting slowly improved and she is now tolerating a low-fat diet with no further episodes of vomiting Medically, patient is stable at this time and she is requesting discharge home. Patient being discharged home with no new medication changes. Discussed with patient importance of following up outpatient with her extractor loader and unloader at [facility]. Patient medically stable for discharge and to be discharged home at this time. Physical exam: Vital signs reviewed and stable. General: Nontoxic, appears stated age. no acute distress. Derm: Skin warm and dry, normal coloration for ethnicity. Griggs's and: Cullin's sign negative. Head: Atraumatic, normocephalic and symmetric. Eyes: EOMs intact, no lid lag, and anicteric sclera Mouth: no lip lesions, mucus membranes moist Cardiovascular: regular rate and rhythm with normal S1S2, no murmur, positive posterior tibial pulses bilaterally, and cap refill < 2 seconds. Lungs: Respirations even, regular, and unlabored on room air. Lungs CTA bilaterally, no rhonchi, no rales, no wheezing, and no accessory muscle usage. Abdominal: Nontender upon palpation Ext: ROM intact. No gross muscle atrophy, no edema, no contractures Neuro: Speech clear, face symmetrical and CN II-XII grossly intact with no noted focal neuro deficits Psych: Alert and oriented to person, place, time, and situation. Appropriate and pleasant affect. A total of 31 minutes of time were spent preparing this complex discharge summary. Pt was discharged on 09/18/22 at 10:19 AM Ty Duque NP rendered care for this patient independently, reviewed the findin gs and plan as documented in the note above. I did not physically speak with or examine the patient on this date. Patient Condition at Discharge: Good Plan - Discharge Summary Discharge Rx Participant: No New Discharge Prescriptions: Continue Nortriptyline HCl [Pamelor] 25 mg PO HS HYDROcodone/APAP 7.5-325MG [[place] 7.5-325] 1 tab PO BID PRN PRN Reason: Pain Discharge Medication List Nortriptyline HCl [Pamelor] 25 mg PO HS 09/12/21 [History] HYDROcodone/APAP 7.5-325MG [[place] 7.5-325] 1 tab PO BID PRN 10/01/21 [History] Follow up Appointment(s)/Referral(s): Alice Lazaro MD [Primary Care Provider] - 1-2 days Patient Instructions/Handouts: Pancreatitis (DC), Low Fat Diet (DC) Activity/Diet/Wound Care/Special Instructions: Activity: As tolerated. Take breaks as needed. Diet: Low fat diet Special Instructions: Highly recommend following up outpatient with your extractor loader and unloader at [facility] as we discussed. Thank you for allowing us to participate in your care, it was truly a pleasure having you for our patient, I wish you and your family a truly blessed and happy new year!!!! Discharge Disposition: HOME SELF-CARE
== END 2022-09-18 11:07 | disposition home or self-care (01) | DRG 440 ==
LOC: EC 19:37 → 6NMEDSUR 23:35 → OBSVTOIN 09-16 14:06
PROVIDERS: ADMIT Internal Medicine; ATTEND Internal Medicine
DX: K85.90 Acute pancreatitis without necrosis or infection, unspecified (principal); K86.1 Other chronic pancreatitis; R11.2 Nausea with vomiting, unspecified; K76.0 Fatty (change of) liver, not elsewhere classified; Z91.040 Latex allergy status; Z91.010 Allergy to peanuts; Z86.14 Personal history of Methicillin resistant Staphylococcus aureus infection
CPT/HCPCS: 36415; 74177; 80053; 81003; 81025; 82150; 83690; 83735; 85025; 85027; 96361; 96374; 96375; 96376; 99285

== ENCOUNTER 2025-04-15 16:08 | Inpatient (IN) | payer MEDICAID ==
[2025-04-15] MEDS: MIDAZOLAM 2 MG/2 ML VIAL IV ONE (17:24)
[2025-04-15 17:38] LABS: Glucose,Whole Blood 91 mg/dL (70-110)
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
--- NOTE | 2025-04-15 18:04 | CT ---
EXAMINATION TYPE: CODE STROKE: CT brain wo contr DATE OF EXAM: 04/15/2025 5:50 PM COMPARISON: . CLINICAL INDICATION: Female, 29 years old with history of sudden onset AMS, ams, cva TECHNIQUE: Brain: Axial CT images of the brain were obtained with coronal and sagittal reformats created and rev iewed. Contrast used: None. Oral contrast used: None. CT DLP: 1145.6 mGycm, Automated exposure control for dose reduction was used. FINDINGS: Brain: Extra-axial spaces: No abnormal extra-axial fluid collections. Ventricular system: Within normal limits Cerebral parenchyma: No acute intraparenchymal hemorrhage or mass effect. The collado-white junction is well differentiated. Cerebellum: Unremarkable. Mass effect: No evidence of midline shift. Intracranial vasculature: unremarkable Soft tissues: Normal. Calvarium/osseous structures: No depressed skull fracture. Paranasal sinuses and mastoid air cells: Mild scattered paranasal sinus disease. Visualized orbits: Orbital contents are intact. IMPRESSION: No acute intracranial process. Findings communicated to Beti Klein MD on 04/15/2025 6:[address] Franko Dias. [facility], , 04/15/2025 6:01 PM
--- NOTE | 2025-04-15 18:15 | CT ---
EXAMINATION TYPE: CT angio head neck DATE OF EXAM: 04/15/2025 6:06 PM COMPARISON: . CLINICAL INDICATION: Female, 29 years old with history of sudden onset AMS; PHH, ams, cva TECHNIQUE: Axially acquired helical CT angiogram of the head and neck was obtained with contrast. Axi al images are supplemented with 3D reconstructions and MIP images which were post-processed at an in dependent workstation. NASCET criteria used. Contrast used:65 mL of Isovue 370 with IV Contrast, Oral contrast used: None. CT DLP: 439.7 mGycm, Automated exposure control for dose reduction was used. FINDINGS: CTA HEAD: No evidence of acute intracranial hemorrhage, mass effect, or midline shift. The ventricles, sulci, a nd cisterns are unremarkable. Vertebral arteries: The vertebral arteries are patent. Vertebral artery dominance: Codominant Basilar artery: The basilar artery is intact. The basilar artery bifurcation is normal. Internal Carotid arteries: The cervical, petrous, cavernous and supraclinoid segments are normal. ELAINA: Patent with no evidence of aneurysm. ACOM: Present without evidence of aneurysm. MCA: Patent with no evidence of aneurysm. PATIENT REGISTRATION REPRESENTATIVE: Patent with no evidence of aneurysm. PCOM: Hypoplastic bilaterally. Dural sinuses: Patent. CTA NECK: Right Carotid System: The common carotid artery and external carotid artery are patent. The carotid bifurcation demonstrate s no evidence of hemodynamically significant stenosis. The remaining portions of the internal carotid artery demonstrate normal size without significant narrowing. Left Carotid System: The common carotid artery and external carotid artery are patent. The carotid bifurcation demonstrate s no evidence of hemodynamically significant stenosis. The remaining portions of the internal carotid artery demonstrate normal size without significant narrowing. Vertebral arteries are patent without evidence hemodynamically significant stenosis. There is a three-vessel aortic arch. The origins of the great vessels are patent. No evidence of hemo dynamically significant stenosis. IMPRESSION: 1. No evidence of dissection of the cervical internal carotid arteries or vertebral arteries. 2. No any evidence of significant stenosis at the carotid bifurcations. 3. No evidence of intracranial high-grade stenosis or intracranial aneurysm. [facility], , 04/15/2025 6:13 PM
[2025-04-15 18:33] LABS: Basophils # (A) 0.03 10*3/uL (0.00-0.10); Basophils % (A) 0.2 %; Eosinophils # (A) 0.11 10*3/uL (0.04-0.35); Eosinophils % (A) 0.8 %; HCT 32.7 % (37.2-46.3); HGB 11.6 g/dL (12.0-15.0); Lymphocytes # (A) 1.18 10*3/uL (0.90-5.00); Lymphocytes % (A) 9.0 %; MCH 30.0 pg (27.0-32.0); MCHC 35.5 g/dL (32.0-37.0); MCV 84.5 fL (80.0-97.0); Monocytes # (A) 1.67 10*3/uL (0.20-1.00); Monocytes % (A) 12.7 %; Neutrophils # (A) 10.11 10*3/uL (1.80-7.70); Neutrophils % (A) 77.1 %; Platelet Count 211 10*3/uL (140-440); RBC 3.87 10*6/uL (4.10-5.20); RDW 12.5 % (11.5-14.5); WBC 13.13 10*3/uL (4.50-10.00)
[2025-04-15 18:40] LABS: INR 1.0 (<1.2); Partial Thromboplastin Time 27.4 sec (22.0-30.0); Prothrombin Time 10.6 sec (10.0-12.5)
[2025-04-15 18:43] LABS: Barbiturate Screen,Urine Not Detected (NotDetected); Benzodiazepines Screen,Urine Not Detected (NotDetected); Opiate Screen,Urine Detected (NotDetected); Oxycodone Screen, Urine Not Detected (NotDetected); Phencyclidine Screen,Urine Not Detected (NotDetected); Tricyclic Antidepressant,Urine Not Detected (NotDetected); Urn Cannabinoid Scrn Not Detected (NotDetected)
[2025-04-15 18:45] LABS: HCG,Qualitative Serum Not Detected
[2025-04-15 18:47] LABS: ALT 22 U/L (4-34); AST 55 U/L (14-36); Acetaminophen <10.0 ug/mL; African American GFR (CKD) >90 (>60 ml/min/1.73 sqM); Albumin 4.4 g/dL (3.5-5.0); Alkaline Phosphatase 83 U/L (38-126); Anion Gap 12 mmol/L; Blood Urea Nitrogen 7 mg/dL (7-17); Calcium 9.1 mg/dL (8.4-10.2); Carbon Dioxide 29 mmol/L (22-30); Chloride 94 mmol/L (98-107); Glucose 74 mg/dL (74-99); Lipase 35 U/L (23-300); Non-African American GFR(CKD) >90 (>60 ml/min/1.73 sqM); Potassium 3.6 mmol/L (3.5-5.1); Salicylate <1.0 mg/dL; Sodium 135 mmol/L (137-145); Total Protein 6.8 g/dL (6.3-8.2)
[2025-04-15 19:08] LABS: Creatine Kinase 1191 U/L (30-135)
[2025-04-15] MEDS: SODIUM CHLORIDE 0.9% 1,000 ML IV STA (19:50)
[2025-04-15] MEDS: SODIUM CHLORIDE 0.9% 1,000 ML IV SCH (19:51)
[2025-04-15] MEDS ORDERED: ALPRAZolam 0.25 MG TAB PO PRN (20:40)
[2025-04-15] MEDS ORDERED: ONDANSETRON 4 MG/2 ML VIAL IVP PRN (20:40)
[2025-04-15] MEDS ORDERED: NALOXONE 0.4 MG/ML 1 ML VIAL IV PRN (20:40)
[2025-04-15] MEDS: SODIUM CHLORIDE 0.9% 1,000 ML IV ONE (20:46)
[2025-04-15] MEDS: FAMOTIDINE 20 MG TAB PO SCH (20:47)
[2025-04-15] MEDS: LORazepam 0.5 MG TAB PO PRN (23:00)
--- NOTE | 2025-04-15 23:27 | XR ---
EXAM: XR Chest, 2 Views CLINICAL HISTORY: ITS.REASON XR Reason: altered mental status TECHNIQUE: Frontal and lateral views of the chest. COMPARISON: None. FINDINGS: Lungs/Pleural space: Clear. No focal infiltrate, pleural effusion or pneumothorax. Heart: No cardiomegaly. Mediastinum: Unremarkable. Bones/Soft Tissues: No acute abnormality. IMPRESSION: 1. No acute process in the chest.
[2025-04-15] MEDS: MORPHINE SULFATE 2 MG/ML SYRINGE IVP PRN (23:31)
--- NOTE | 2025-04-16 01:00 | P.HPIM ---
History of Present Illness H&P Date: 04/16/25 Chief Complaint: AMS Patient is a 29-year-old female with a PMH of : - recurrent chronic pancreatitis due to pancreas divisum - non-alcoholic fatty liver - Anxiety and depression is brought to the emergency for altered mental status evaluation. History obtained from patient's mother and patient's fianc who were at bedside. They stated that patient went for lunch with friends and she was at baseline at that time. When she came back home, she was confused, and emotional in tears. They stated this is the first time this happens. However, family mentioned that patient's father 2 months ago, and patient has been trying to keep herself busy from expressing grief from the loss. Denied history of drug abuse or alcohol abuse. Family mentioned that patient follows up with her psychiatrist for depression and anxiety. She recently was prescribed Cymbalta, which she has never had before. Patient denied having headaches, shortness of breath, chest pain, muscle weakness, sore throat or fever. Positive for epigastric abdominal pain. Imaging: Chest x-ray 04/15 1. No acute process in the chest Brain CT 04/15 1. No acute intracranial process Angiography CT 04/15 1. No evidence of dissection of cervical internal carotid arteries or vertebral arteries. 2. No evidence of significant stenosis in the carotid bifurcations. 3. No evidence of intracranial high-grade stenosis or intracranial aneurysm Labs: WBC 13.13, Hgb 11.6, HCT 32.7, plt count 211 Glucose 74, Na 135, K 3.6, BUN 7, Cr 0.61 AST 55, ALT 22, ALP 83 CK 1191 Vitals: T 98.2/ HR 93/ RR 17/ BP 116/89 ED documentation reviewed Review of systems: Pertinent positives and negatives as discussed in HPI, a complete review of systems was performed and all other systems are negative. Physical examination: Vital signs reviewed General: Agitated and distressed, appears at stated age, normal weight Derm: no unusual rashes/lesions, warm Head: atraumatic, normocephalic, symmetric Eyes: EOMI, anicteric sclera, pupils equal round reactive to light ENT: Nose and ears atraumatic Cardiovascular: S1S2 reg, no murmur, positive dorsalis pedis pulse bilateral, no edema Lungs: CTA bilateral, no rhonchi, no rales, no accessory muscle use Abdominal: soft, no guarding. Tender to palpation in the epigastric area. Ext: muscle strength 5 out of 5 in all 4 extremities grossly, no gross muscle atrophy Neuro: CN II-XI grossly intact, no gross focal neuro deficits Psych: Alert, oriented to person, place, and time Assessment/Plan: 29-year-old female with past medical history of chronic pancreatitis secondary to pancreas divisum, anxiety and depression is brought to the emergency for altered mental status. #. Acute metabolic encephalopathy - Etiology due to interactions of multiple medications of Cymbalta, Lyrica, and phentermine. - Patient started Cymbalta about a week ago. - Hold home medications, and monitor patient - Neuro checks #. Urinary retention - Possibly a side effect of starting Cymbalta - Patient has Roth catheter placed. Recommend a void trial after removing the Roth upon discharge #. Anxiety and depression - Pt is grieving the recent loss of her dad - Has been started on Cymbalta recently for depression. - Ativan 0.45 mg TID PRN for anxiety #. Elevated creatine kinase - Trend #. Recurrent chronic pancreatitis - PRN Narcan for pain DVT prophylaxis: Lovenox 40 mg The patient is admitted with an anticipated no more than 2 midnight stay for evaluation of altered mental status CODE STATUS: Full code Discussed with: Dr. Stein Anticipated discharge place: Home Javier King MD PGY-1 IM Dictation was produced using [employer] dictation software. please excuse any grammatical, word or spelling errors. I have seen and evaluated the patient today. Discussed with the resident and agree with the residents finding and plan as documented in the resident's note. Changes highlighted in blue font. Past Medical History Past Medical History: Liver Disease Additional Past Medical History / Comment(s): Pancreatic divisum diagnosed at age 12 yrs, chronic recurrent pancreatitis and follows at [facility], nonalcoholic fatty liver, pt states she has a 2 mm liver mass. 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 Past Anesthesia/Blood Transfusion Reactions: No Reported Reaction Past Psychological History: No Psychological Hx Reported Smoking Status: Never smoker Past Alcohol Use History: None Reported Past Drug Use History: None Reported - Past Family History Brother(s) Family Medical History: No Reported History Additional Family Medical History / Comment(s): She has 2 brothers and 1 sister with no major medical problems. Father Family Medical History: Diabetes Mellitus Additional Family Medical History / Comment(s): Father is alive with history of diabetes requiring kidney and pancreas transplant. Mother Family Medical History: Deep Vein Thrombosis (DVT) Additional Family Medical History / Comment(s): Mother is alive with history of DVT's, cardiomyopathy and pacemaker. Medications and Allergies Home Medications Medication Instructions Recorded Confirmed Type HYDROcodone/APAP 7.5-325MG [[place] 1 tab PO DAILY PRN 10/01/21 04/15/25 History 7.5-325] DULoxetine HCL [Cymbalta] See Taper PO DAILY 04/15/25 04/15/25 History Famotidine 20 mg PO DAILY 04/15/25 04/15/25 History Ondansetron [Zofran] 4 mg PO TID PRN 04/15/25 04/15/25 History Phentermine 30mg Capsule 30 mg PO DAILY 04/15/25 04/15/25 History Pregabalin [Lyrica] 300 mg PO BID 04/15/25 04/15/25 History Allergies Allergy/AdvReac Type Severity Reaction Status Date / Time cashew nut Allergy Unknown Verified 04/15/25 19:49 latex Allergy Rash/Hives Verified 04/15/25 19:49 peanut Allergy Rash/Swelli Verified 04/15/25 19:49 ng Physical Exam Vitals: Vital Signs Temp Pulse Pulse Resp BP BP Pulse Ox 04/15/25 23:21 106 H 04/15/25 22:33 98 F 113 H 18 137/84 97 04/15/25 22:18 98.2 F 04/15/25 21:48 98.2 F 93 17 116/89 98 04/15/25 21:18 86 117/78 04/15/25 21:00 86 117/78 04/15/25 16:12 98.4 F 100 18 125/81 98 Intake and Output 04/15/25 04/15/25 04/16/25 14:59 22:59 06:59 Output Total 1950 Balance -1950 Output: Urine 1950 Uretheral (Roth) 1300 Other: Voiding Method Indwelling Catheter Weight 83.915 kg Results CBC & Chem 7: 04/15/25 18:11 04/15/25 18:11 Labs: Abnormal Lab Results - Last 24 Hours (Table) 04/15/25 04/15/25 04/15/25 Range/Units 18:11 18:11 18:11 WBC 13.13 H (4.50-10.00) 10*3/uL RBC 3.87 L (4.10-5.20) 10*6/uL Hgb 11.6 L (12.0-15.0) g/dL Hct 32.7 L (37.2-46.3) % Neutrophils # 10.11 H (1.80-7.70) 10*3/uL Monocytes # 1.67 H (0.20-1.00) 10*3/uL Sodium 135 L (137-145) mmol/L Chloride 94 L (98-107) mmol/L AST 55 H (14-36) U/L Creatine Kinase 1191 H* (30-135) U/L Urine Opiates Screen Detected H (NotDetected) Ur Amphetamines Screen Detected H (NotDetected)
[2025-04-16 08:03] LABS: Basophils # (A) 0.03 X 10*3/uL (0.00-0.10); Basophils % (A) 0.3 %; Eosinophils # (A) 0.15 X 10*3/uL (0.04-0.35); Eosinophils % (A) 1.7 %; HCT 32.6 % (37.2-46.3); HGB 10.7 g/dL (12.0-15.0); Immature Grans, Automated 0.50 %; Lymphocytes # (A) 1.62 X 10*3/uL (0.90-5.00); Lymphocytes % (A) 18.3 %; MCH 29.1 pg (27.0-32.0); MCHC 32.8 g/dL (32.0-37.0); MCV 88.6 FL (80.0-97.0); Monocytes # (A) 1.15 X 10*3/uL (0.20-1.00); Monocytes % (A) 13.0 %; NRBC Per 100 WBC 0 X 10*3/uL (0.00-0.01); Neutrophils # (A) 5.84 X 10*3/uL (1.80-7.70); Neutrophils % (A) 66.2 %; Platelet Count 209 X 10*3/uL (140-440); RBC 3.68 X 10*6/uL (4.10-5.20); RDW 13.0 % (11.5-14.5); WBC 8.83 X 10*3/uL (4.50-10.00)
[2025-04-16 08:16] LABS: Anion Gap 16.00 mmol/L (4.00-12.00); BUN/Creat Ratio 13.00 Ratio (12.00-20.00); Blood Urea Nitrogen 6.5 mg/dL (9.0-27.0); Calcium 8.0 mg/dL (8.7-10.3); Carbon Dioxide 19.0 mmol/L (21.6-31.8); Chloride 105 mmol/L (96-109); Creatine Kinase 949 U/L (26-186); Glucose 55 mg/dL (70-110); Potassium 3.8 mmol/L (3.5-5.5); Sodium 140 mmol/L (135-145)
[2025-04-16 08:33] VITALS: RESP 16
[2025-04-16] MEDS: ENOXAPARIN 40 MG/0.4 ML SYRINGE SQ SCH (08:37)
--- NOTE | 2025-04-16 14:30 | P.DS ---
Providers Date of admission: 04/15/25 20:40 Attending physician: Julian Stein MD Primary care physician: [facility] Course: Discharge Diagnosis: Toxic metabolic encephalopathy Mild acute nontraumatic rhabdomyolysis Leukocytosis, reactive Chronic: Recurrent chronic pancreatitis due to pancreas divisum Nonalcoholic fatty liver Anxiety and depression Hospital Course: Patient is a 29 year-old female who has a history of recurrent chronic pancreatitis due to pancreas divisum, nonalcoholic fatty liver, anxiety and depression was brought to the emergency for altered mental status. History obtained from patient's mother and patient's fianc who were at bedside. They stated that patient went for lunch with friends and she was at baseline at that time. When she came back home, she was confused, and emotional in tears. They stated this is the first time this happens. However, family mentioned that patient's father 2 months ago, and patient has been trying to keep herself busy from expressing grief from the loss. Denied history of drug abuse or alcohol abuse. Family mentioned that patient follows up with her psychiatrist for depression and anxiety. She recently was prescribed Cymbalta, which she has never had before and her dosage was increased 1 week ago. Vitals at the time of presentation were T-98.4 F, SD-100bpm, BP-125/81, O2Sat- 98%. Labs: WBC 13.13, Hgb 11.6, HCT 32.7, plt count 211 Glucose 74, Na 135, K 3.6, BUN 7, Cr 0.61 AST 55, ALT 22, ALP 83, CK 1191. Urine toxicology detected opiates and oxycodone. Imaging: Chest x-ray - no acute process in the chest, Brain CT no acute intracranial process, Angiography CT no evidence of dissection of cervical internal carotid arteries or vertebral arteries, no evidence of significant stenosis in the carotid bifurcations, no evidence of intracranial high-grade stenosis or intracranial aneurysm. Patient was admitted to the inpatient team for toxic metabolic encephalopathy. Patient was suspected to have Serotonin syndrome; clonus test was negative. Patient had mild rhabdomyolysis and was given IV Fluid N/S and improved. Patient is being discharged home and was recommended to follow-up with PCP and Psychiatrist. Patient seen and examined at bedside. Patient is stable and has no new complaints this morning. Vital signs reviewed and stable. Physical examination: Vital signs reviewed General: non toxic, no distress, appears at stated age, normal weight Derm: no unusual rashes/lesions, warm Head: atraumatic, normocephalic, symmetric Eyes: EOMI, anicteric sclera, pupils equal round reactive to light ENT: Nose and ears atraumatic Mouth: no lip lesion, mucus membranes moist Cardiovascular: S1S2 reg, no murmur, no edema Lungs: CTA bilateral, no rhonchi, no rales, no accessory muscle use Abdominal: soft, mildly tender to palpation. Ext: muscle strength 5 out of 5 in all 4 extremities grossly, no gross muscle atrophy, no evidence of clonus Neuro: CN II-XI grossly intact, no gross focal neuro deficits Psych: Alert, oriented to person, place, and time A total of greater than 30 minutes of time were spent preparing this complex discharge summary. Patient was discharged on 04/16/2025. I have seen and evaluated the patient today. Discussed with the resident and agree with the residents finding and plan as documented in the resident's note. Changes highlighted in blue font. Patient Condition at Discharge: Stable Plan - Discharge Summary Discharge Rx Participant: No New Discharge Prescriptions: Continue HYDROcodone/APAP 7.5-325MG [[place] 7.5-325] 1 tab PO DAILY PRN PRN Reason: Pain Phentermine 30mg Capsule 30 mg PO DAILY Ondansetron [Zofran] 4 mg PO TID PRN PRN Reason: Nausea And Vomiting Pregabalin [Lyrica] 300 mg PO BID Famotidine 20 mg PO DAILY Discontinued DULoxetine HCL [Cymbalta] See Taper PO DAILY Discharge Medication List HYDROcodone/APAP 7.5-325MG [[place] 7.5-325] 1 tab PO DAILY PRN 10/01/21 [History] Famotidine 20 mg PO DAILY 04/15/25 [History] Ondansetron [Zofran] 4 mg PO TID PRN 04/15/25 [History] Phentermine 30mg Capsule 30 mg PO DAILY 04/15/25 [History] Pregabalin [Lyrica] 300 mg PO BID 04/15/25 [History] Follow up Appointment(s)/Referral(s): Alice Lazaro MD [Primary Care Provider] - 1-2 days Activity/Diet/Wound Care/Special Instructions: Please follow up with PCP and psychiatrist. Discharge Disposition: HOME SELF-CARE
[2025-04-16 15:02] VITALS: BP 99/62; PULSE 89; TEMP 97.8
== END 2025-04-16 16:18 | disposition home or self-care (01) | DRG 557 ==
LOC: EC 16:08 → 6NMEDSUR 20:40
PROVIDERS: ADMIT Internal Medicine; ATTEND Internal Medicine
DX: M62.82 Rhabdomyolysis (principal); G92.8 Other toxic encephalopathy; Q45.3 Other congenital malformations of pancreas and pancreatic duct; F32.A Depression, unspecified; K76.0 Fatty (change of) liver, not elsewhere classified; K86.1 Other chronic pancreatitis; R33.9 Retention of urine, unspecified; D72.829 Elevated white blood cell count, unspecified; F41.9 Anxiety disorder, unspecified; Z79.899 Other long term (current) drug therapy; Z91.040 Latex allergy status; Z91.018 Allergy to other foods; Z91.010 Allergy to peanuts; Z86.14 Personal history of Methicillin resistant Staphylococcus aureus infection
CPT/HCPCS: 36415; 51702; 51798; 70450; 70496; 70498; 71046; 80048; 80053; 80143; 80179; 80306; 80320; 82550; 83690; 83930; 84443; 84484; 84703; 85025; 85610; 85730; 93005; 96360; 96361; 99291